=== PATIENT | female | born 1935 | race Caucasian/White ===

== ENCOUNTER 2017-05-15 16:03 | Inpatient (IN) | payer OTHER ==
[~2017-05-15] VITALS: Ht 149.9 cm; Wt 74.1 kg
[~2017-05-15 16:03] MED LIST: AMILORIDE HCL-1 EACH PO; FUROSEMIDE10 MG/1 M1 PO; KLOR-CON M2020 ME1 PO; LASIX40 M1 PO; LEVOTHYROXINE88 MCG PO; MINIPRESS5 MG PO; VERAPAMIL ER240 MG PO
--- NOTE | 2017-05-15 16:12 | ED CARDIAC/CP/PALPITATIONS ---
History of Present Illness General Chief Complaint: Dyspnea (COPD, CHF, Other) Stated Complaint: SOB, LEG SWELLING Source: patient Exam Limitations: no limitations Vital Signs & Intake/Output Vital Signs & Intake/Output ED Intake and Output 05/19 0000 05/18 1200 Intake Total 600 100 Output Total 600 350 Balance 0 -250 Intake, Oral 600 100 Number 1 Bowel Movements Output, Urine 600 350 Patient 163 lb Weight Weight Chair scale Measurement Method Triage Nurses Notes Reviewed? yes Onset: Gradual Duration: getting worse Timing: recent history Quality/Severity: moderate Radiation: no radiation HPI: Patient is a 82-year-old female HTN, HLD, breast cancer s/p radiation 1995, colon cancer s/p surgical, CHF, pericardial effusion, interstitial lung disease whose last echocardiogram was 04/30/2016 55-60% EF, last nuclear stress test was 05/02/2016 showing no concerns of ischemia. Patient is compliant with her home medications she is on 40 of Lasix and verapamil who presents to emergency room with concerns of worsening shortness of breath and worsening leg swelling for the past 4 day.. Patient is on home 3L O2 Patient is unsure of amount of weight gain she has had Denies any fever chills cough chest pain arm pain and jaw pain nausea vomiting hemoptysis. (WILLY VELIZ,BREANNE) Allergies Coded Allergies: aspirin (Bleeding per patient 05/15/17) Reconcile Medications Furosemide (Lasix) 40 MG TABLET 1.5 TAB PO DAILY leg sweeling, chf Levothyroxine Sodium 88 MCG TABLET 1 TAB PO 1XDAY TYROID (Reported) Potassium Chloride (Klor-Con M20) 20 MEQ TAB.ER.PRT 2 TAB PO DAILY SUPPLEMENT (Reported) Prazosin HCl (Minipress) 5 MG CAPSULE 1 CAP PO 1XDAY BP (Reported) Verapamil HCl (Verapamil ER) 240 MG CAP24H.PEL 1 TAB PO 1XDAY CALCIUM CHANNEL RIGOBERTO (Reported) (TYRA JAIMES,CHARU Scruggs) Past History Travel History Traveled to [place] past 21 day No Medical History Any Pertinent Medical History? see below for history Neurological: NONE EENT: NONE Cardiovascular: CHF, hypertension Respiratory: NONE Gastrointestinal: NONE Renal: NONE Musculoskeletal: NONE Psychiatric: anxiety Endocrine: hypothyroidism Blood Disorders: NONE Cancer(s): NONE CUPOLA MECHANIC/Reproductive: NONE History of MRSA: No History of VRE: No History of CDIFF: No Pneumonia Vaccine: 09/09/15 Surgical History Surgical History: non-contributory Psychosocial History Who do you live with Spouse What is your primary language Arabic Tobacco Use: Never used ETOH Use: denies use Illicit Drug Use: denies illicit drug use Family History Family History, If Any: FATHER (heart disease). Hx Contributory? No (BREANNE GUERRA) Review of Systems Review of Systems Constitutional: Reports: no symptoms. EENTM: Reports: see HPI. Respiratory: Reports: see HPI, short of breath. Cardiovascular: Reports: see HPI, peripheral edema. GI: Reports: no symptoms. Genitourinary: Reports: no symptoms. Musculoskeletal: Reports: no symptoms. Skin: Reports: no symptoms. Neurological/Psychological: Reports: no symptoms. Hematologic/Endocrine: Reports: no symptoms. Immunologic/Allergic: Reports: no symptoms. All Other Systems: Reviewed and Negative (BREANNE GUERRA) Physical Exam Physical Exam General Appearance: no apparent distress, obese Cardiovascular: regular rate/rhythm Comments: Well-developed well-nourished person in no acute distressHEENT: Normal EENT exam Neck: Supple, no lymphadenopathy, normal range of motion without pain or tenderness Back: Nontender, no CVA tenderness. Cardiovascular: Regular rate and rhythms no murmurs rubs or gallops, normal JVP Respiratory: Chest nontender. No respiratory distress noted bilateral posterior crackles Abdomen: Soft, nontender nondistended, no appreciable organomegaly. Normal bowel sounds. No ascites Extremity: Bilateral lower extremity +2 pitting edema, no calf tenderness to palpation, normal and equal pulses. Neuro: Alert oriented x3, motor sensory normal, Skin: No appreciable rash on exposed skin, skin is warm and dry. Psych: Mood and affect is normal, memory and judgment is normal. Core Measures ACS in differential dx? No Severe Sepsis Present: No Septic Shock Present: No (BREANNE GUERRA) Progress Differential Diagnosis: AMI, aortic dissection, atrial fibrillation, cholecystitis, CHF/pulm edema, costochondritis, hyperkalemia, hypovolemia, hyperthyroid, hyperventilation, intracranial hemorrhage, musculoskeletal pain, myocarditis, pancreatitis, pericarditis, pneumonia, pneumothorax, PSVT, pulmonary embolism, PUD/GERD, PVCs/PACs, respiratory failure, sepsis, unstable angina, V-fib/V-Tach, WPW syndrome, ILD Plan of Care: Orders Procedure Date/time Status OXYGEN 05/18 UNK Complete OXYGEN DAILY CHARGE 05/18 UNK Complete Patient on initial examination was in no apparent distress. Patient was resting comfortably on 3 L of oxygen. Blood work and EKG were unremarkable and no acute changes however chest x-ray does show concerns of pulmonary edema Patient's troponin was unremarkable, patient's d-dimer essentially ruled out pulmonary embolism however CTA was ordered however patient could not tolerate the position for the CT scan due to severe respiratory distress even with 3 pillows. Patient will be admitted for concerns of anasarca and worsening interstitial lung disease and hypoxia due to respiratory distress Patient was noted to ambulate IN the emergency room potts with 3 L and became hypoxic and dyspneic IN which outpatient treatment at this time would be medically harmful (BREANNE GUERRA) Diagnostic Imaging: Viewed by Me: Radiology Read. Radiology Impression: SEE COMMENTS Initial ED EKG: normal p-waves, normal QRS complex, normal sinus rhythm, 86 BPM, NSR Comments: PATIENT: LOLA ANDERSON PRESENT AGE: 82 PATIENT ACCOUNT NO: [id number] : 37 LOCATION: [facility] ORDERING PHYSICIAN: BREANNE VELIZ SERVICE DATE: 05/15/17 EXAM TYPE: US - US-EXT BILAT VENOUS DOPPLER EXAMINATION: US TRIPLEX OF LOWER EXTREMITIES, BILATERAL CLINICAL INFORMATION: Bilateral lower extremity edema and swelling. COMPARISON: None TECHNIQUE: Color-flow triplex imaging with spectral analysis and compression Doppler were performed on the lower extremities. FINDINGS: Respiratory variation, normal compression and augmented flow are noted throughout the lower extremities. The visualized common femoral vein, superficial femoral vein, profunda femoral vein, popliteal vein and midcalf peroneal and posterior tibial venous segments show no evidence of deep venous thrombosis. There is no Reyes's cyst. IMPRESSION: Normal triplex scan without evidence of deep venous thrombosis involving the lower extremities. DICTATED BY: GISELLE OLIVARES MD DATE/TIME DICTATED:05/15/171848 [employer]IGH [employer]CHO[employer] ENGLISH TEACHER:MARIA FERNANDA DATE/TIME TRANSCRIBED:05/15/171848 (BREANNE GUERRA) Departure Departure Disposition: STILL A PATIENT Condition: Stable Clinical Impression Primary Impression: Acute respiratory failure with hypoxia Secondary Impressions: Anasarca, Interstitial lung disease Referrals: BERTA HILL-SILVIA,SEFERINO Hinton (PCP/Family) Departure Forms: Customer Survey General Discharge Information Admission Note Spoke With: FELICIA WILLIAMSON MD Documentation of Exam: Documentation of any treatments & extenuating circumstances including Concerns Regarding Discharge (functional status, medication knowledge or non-compliance, living conditions, etc.) that warrant an admission rather than observation: [ Discussed patient with Dr. WILLIAMSON who agrees with telemetry admission for concerns of respiratory failure due to hypoxia, patient requires IV Lasix, pulmonary consultation, cardiac consultation, telemetry monitoring, repeat labs, outpatient treatment at this time due to hypoxia upon ambulation with 3 L would be medically harmful ] (BREANNE GUERRA) Departure Prescriptions: Current Visit Scripts Furosemide (Lasix) 1.5 TAB PO DAILY #30 TAB PA/ACCREDITATION SPECIALIST Co-Sign Statement Statement: ED Attending supervision documentation- [X] I saw and evaluated the patient. I have also reviewed all the pertinent lab results and diagnostic results. I agree with the findings and the plan of care as documented in the PA's/ACCREDITATION SPECIALIST's documentation. [X] I have reviewed the ED Record and agree with the PA's/ACCREDITATION SPECIALIST's documentation. [] Additions or exceptions (if any) to the PAs/ACCREDITATION SPECIALIST's note and plan are summarized below: [] (TYRA JAIMES,CHARU Scruggs) Critical Care Note Critical Care Note Critical Care Time: non-applicable (BREANNE GUERRA) EXAM TYPE: US - US-EXT BILAT VENOUS DOPPLER EXAMINATION: US TRIPLEX OF LOWER EXTREMITIES, BILATERAL CLINICAL INFORMATION: Bilateral lower extremity edema and swelling. COMPARISON: None TECHNIQUE: Color-flow triplex imaging with spectral analysis and compression Doppler were performed on the lower extremities. FINDINGS: Respiratory variation, normal compression and augmented flow are noted throughout the lower extremities. The visualized common femoral vein, superficial femoral vein, profunda femoral vein, popliteal vein and midcalf peroneal and posterior tibial venous segments show no evidence of deep venous thrombosis. There is no Reyes's cyst. IMPRESSION: Normal triplex scan without evidence of deep venous thrombosis involving the lower extremities. DICTATED BY: GISELLE OLIVARES MD DATE/TIME DICTATED:05/15/171848 [employer]IGH SCHO[employer] ENGLISH TEACHER:MARIA FERNANDA DATE/TIME TRANSCRIBED:05/15/171848 Departure Departure Disposition: STILL A PATIENT Condition: Stable Clinical Impression Primary Impression: Acute respiratory failure with hypoxia Secondary Impressions: Anasarca, Interstitial lung disease Referrals: BERTA PROCTOR,SEFERINO Hinton (PCP/Family) Departure Forms: Customer Survey General Discharge Information Admission Note Spoke With: FELICIA WILLIAMSON MD Documentation of Exam: Documentation of any treatments & extenuating circumstances including Concerns Regarding Discharge (functional status, medication knowledge or non-compliance, living conditions, etc.) that warrant an admission rather than observation: [ Discussed patient with Dr. WILLIAMSON who agrees with telemetry admission for concerns of respiratory failure due to hypoxia, patient requires IV Lasix, pulmonary consultation, cardiac consultation, telemetry monitoring, repeat labs, outpatient treatment at this time due to hypoxia upon ambulation with 3 L would be medically harmful ] Critical Care Note Critical Care Note Critical Care Time: non-applicable
--- NOTE | 2017-05-15 16:12 | NUR ---
82 YEAR OLD FEMALE HISTORY OF A FORM OF CHF, COMES TO ER WITH COMPLAINTS OF INCREASED SOB OVER THE PAST 3 DAYS, PT IS 02 DEPENDENT ON 3L VIA NC AND O2 SAT 95 % . PT NOTED WITH PLUS 4 PITTING EDEMA TO BLE AND REDNESS NOTED TO HER L [place]. PT STATES THAT HER PMD WOULD LIKE CELLULITIS RULED OUT. DENIES COUGH, TEMP 99.1 AT THIS TIME
--- NOTE | 2017-05-15 16:35 | NUR ---
LIMITED EXT BAND TO LEFT WRIST APPLIED FOR HX BREAST CA WITH L LUMPECTOMY. 20G IV EST TO RAC FOR POSSIBLE CTA PER JOSE ALFREDO AGUILERA. LABS DRAWN AND SENT (BLUE, SST X2, LAV). AFIB RATE CONTROLLED 70'S ON CM. 97% ON 2LNC. PCXR IN PROGRESS
[2017-05-15 16:42] LABS: ABSOLUTE BASOPHIL COUNT 0 /CUMM (0.0-0.2); ABSOLUTE EOSINOPHIL COUNT 0 /CUMM (0.0-0.7); ABSOLUTE GRANULOCYTE CT 3.4 /CUMM (1.4-6.5); ABSOLUTE MONOCYTE COUNT 0.4 /CUMM (0.10-0.60); BASOPHIL % 0.5 % (0.0-2.0); EOSINOPHIL % 0.7 % (0-5); GRANULOCYTE % 68.9 % (42.2-75.2); HEMATOCRIT 36.8 % (37-47); MEAN CORPUSCULAR HGB 22.5 PG (27.0-31.0); MEAN CORPUSCULAR HGB CONC 31.8 G/DL (33.0-37.0); MEAN CORPUSCULAR VOLUME 70.8 FL (81.0-99.0); MEAN PLATELET VOLUME 7.8 FL (7.4-10.4); PLATELET COUNT 178 /CUMM (130-400); WHITE BLOOD CELL COUNT 4.9 /CUMM (4.8-10.8)
--- NOTE | 2017-05-15 16:51 | RADIOLOGY REPORT ---
EXAMINATION: XR PORTABLE CHEST CLINICAL INFORMATION: CHF COMPARISON: 12/13/2016 TECHNIQUE: Portable frontal view of the chest was obtained. FINDINGS: Cardiac leads overlie the chest. Prominent interstitial markings are seen with central vascular prominence. No pneumothorax. Suspect a small left pleural effusion. The cardiomediastinal silhouette remains enlarged, with a globular appearance. IMPRESSION: 1. Vascular prominence with interstitial prominence suggesting mild edema. 2. Stable globular enlargement of the cardiac silhouette. Prior CT demonstrated a pericardial effusion.
--- NOTE | 2017-05-15 17:14 | NUR ---
MEDICATED WITH LASIX PER eMAR AND BEDSIDE COMMODE IN PLACE, AWARE OF NEED FOR INPUT/OUTPUT MONITORING
--- NOTE | 2017-05-15 17:45 | NUR ---
AMBULATORY O2 SAT 85% ON 2LNC, EXERTIONAL SOB.
--- NOTE | 2017-05-15 18:20 | NUR ---
PT TO AND FROM [facility]
--- NOTE | 2017-05-15 18:53 | ULTRASOUND REPORT ---
EXAMINATION: US TRIPLEX OF LOWER EXTREMITIES, BILATERAL CLINICAL INFORMATION: Bilateral lower extremity edema and swelling. COMPARISON: None TECHNIQUE: Color-flow triplex imaging with spectral analysis and compression Doppler were performed on the lower extremities. FINDINGS: Respiratory variation, normal compression and augmented flow are noted throughout the lower extremities. The visualized common femoral vein, superficial femoral vein, profunda femoral vein, popliteal vein and midcalf peroneal and posterior tibial venous segments show no evidence of deep venous thrombosis. There is no Reyes's cyst. IMPRESSION: Normal triplex scan without evidence of deep venous thrombosis involving the lower extremities.
--- NOTE | 2017-05-15 19:00 | NUR ---
PT UNABLE TO LAY FLAT FOR CTA
--- NOTE | 2017-05-15 19:39 | History & Physical ---
STEPHANIA GRIFFITH MD,[facility] 05/15/17 193: General Information and HPI MD Statement: I have seen JUSTINLOLA with my resident and documented this H&P. Source of Information: patient Exam Limitations: no limitations History of Present Illness: The patient is a 82 year old F who presented with a chief complaint of shortness of breath and increased leg swelling and redness. Patient has history of hypertension, breast cancer status post radiation, colon cancer status post surgery, ILD and CHF. Patient was admitted last year with dyspnea and swelling of limbs and the condition was improved when given Lasix. She basically uses reclining chair, ambulates to restroom with espinoza, uses 3 pillows at night and is on 3 L of O2 all the at home. Patient is taking 40mg Lasix and 240 mg of Verapamil but leg swelling gradually incraesed in the last 1-2 months (patients reports no change in the urination in this period). In the last 1-2 days an area of redness apeared over the swelling site of distal left alexis, she contacted her PCP Dr Pulliam and was adviced to come to ER. No chest pain, no cough, sputum, feeling of palpitation. The last echocardiogram was done on 04/30/2016 and EF was 55-60%. She is compliant with low NA diet. patient is seeing Dr Wilson for her lung and Dr Zuniga for heart problems but last visits were long time ago. CXR performed in the ER revealed: 1. Vascular prominence with interstitial prominence suggesting mild edema. 2. Stable globular enlargement of the cardiac silhouette. Prior CT demonstrated a pericardial effusion. Doppler performed and DVT was ruled out. Allergies/Medications Allergies: Coded Allergies: aspirin (Bleeding per patient 05/15/17) Home Med list Furosemide (Lasix) 40 MG TABLET 1 TAB PO DAILY WATER RETENTION Levothyroxine Sodium 88 MCG TABLET 1 TAB PO 1XDAY TYROID (Reported) Potassium Chloride (Klor-Con M20) 20 MEQ TAB.ER.PRT 2 TAB PO DAILY SUPPLEMENT (Reported) Prazosin HCl (Minipress) 5 MG CAPSULE 1 CAP PO 1XDAY BP (Reported) Verapamil HCl (Verapamil ER) 240 MG CAP24H.PEL 1 TAB PO 1XDAY CALCIUM CHANNEL RIGOBERTO (Reported) Past History Travel History Traveled to [place] past 21 day No Medical History Neurological: NONE EENT: NONE Cardiovascular: CHF, hypertension Respiratory: interstitial lung disease Gastrointestinal: Colon cancer Renal: NONE Musculoskeletal: NONE Psychiatric: anxiety Endocrine: hypothyroidism Blood Disorders: NONE Cancer(s): breast cancer, colon/rectal cancer JAILOR/Reproductive: NONE History of MRSA: No History of VRE: No History of CDIFF: No Pneumonia Vaccine: 09/09/15 Surgical History Surgical History: non-contributory Past Family/Social History Family History Relations & Conditions if any FATHER (heart disease). Psychosocial History ETOH Use: denies use Illicit Drug Use: denies illicit drug use Functional Ability ADLs Independent: dressing, eating, toileting, bathing. Ambulation: independent Review of Systems Review of Systems Constitutional: Reports: see HPI. EENTM: Reports: no symptoms. Cardiovascular: Reports: see HPI, edema, orthopena, peripheral edema. Denies: chest pain, palpitations, syncope. Respiratory: Reports: orthopnea, short of breath. Denies: cough, hemoptysis, sputum production, stridor. GI: Reports: no symptoms. Genitourinary: Reports: no symptoms. Skin: Reports: see HPI, erythema (Local erythema over left alexis). Neurological/Psychological: Reports: no symptoms. Hematologic/Endocrine: Reports: no symptoms. Immunologic/Allergic: Reports: no symptoms. Post Menopausal: Yes Exam & Diagnostic Data Last 24 Hrs of Vital Signs/I&O Vital Signs Date Time Temp Pulse Resp B/P B/P Pulse O2 O2 Flow FiO2 Mean Ox Delivery Rate 05/15 1918 71 22 165/70 96 Nasal 4.0L Cannula 05/15 1735 28 85 Nasal 4.0L Cannula 05/15 1638 97 Nasal 2.0L Cannula 05/15 1608 99.1 86 22 139/62 95 Room Air Physical Exam General Appearance Alert, Oriented X3, Cooperative HEENT Mucous Membr. moist/pink Neck Supple, No JVD Cardiovascular Systolic Murmur Lungs Bilateral crackles Abdomen somewhat distended, no recent change Extremities Bilateral pitting edema, local 4 X 6 cm erythema over the distal lower left limb, 3-4 small blisters are also visible Diagnostic Data EKG Results NSR, UT: 84, left anterior fasicle block, left axis deviation CXR Results 1. Vascular prominence with interstitial prominence suggesting mild edema. 2. Stable globular enlargement of the cardiac silhouette. Prior CT demonstrated a pericardial effusion. Assessment/Plan Assessment: Patient is a 82-year-old female with history of CHF and ILD chief complaint of shortness of breath and leg swelling. For assessment of the CHF cardiology consult and echocardiogram will be performed. Constrictive pericarditis after radiation should also be considered. Idiopathic pulmonary fibrosis or fibrosis secondary to radiation to to breast cancer could be one of the reasons for dyspnea suggested to be ruled out. Pulmonology consult and functional long tests are suggested. Lower extremity swelling for the managed by leg elevation and IV Lasix. As Ranked By This Provider Problem List: 1. Pulmonary edema 2. Pericardial effusion 3. Lung fibrosis 4. Shortness of breath dyspnea Core Measures/Miscellaneous Acute Coronary Syndrome ACS Diagnosis: No Cerebrovascular Accident CVA/TIA Diagnosis: No Congestive Heart Failure CHF Diagnosis: No Date of most recent Echo: 04/30/16 Last Known EF %: 55 SARAHI/ARB for EF <40%: Yes VTE (View Protocol) VTE Risk Factors: Age > 40 No [facility] VTE prophylaxis d/t: No contraindications No VTE Pharm Prophylaxis d/t: No contraindications VTE Diagnosis: No VTE Type: NONE VTE Confirmed by (Test): NONE Sepsis (View Protocol) Severe Sepsis Present: No Septic Shock Septic Shock Present: No Miscellaneous Documentation Attending Case Discussed With: FELICIA WILLIAMSON MD Primary Care Physician: SEFERINO FAIRCHILD Patient sees these Specialists Receiving Associate [employer], [employer]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 Level of Patient Care: Telemetry Consults Needed: Consulting Specialty: Cardiology GUILLERMO COLE 05/15/174: Resident Review Statement Resident Statement: examined this patient, discussed with research program intern, agreed with research program intern, discussed with family, reviewed EMR data (avail), discussed with nursing , discussed with case mgmt, reviewed images, amended to note Other Findings: This is a 82-year-old female with past medical history significant for heart failure with preserved ejection fraction 55-60%, pulmonary hypertension, moderate pericardial effusion, mitral insufficiency, lower extremity swelling on Lasix, interstitial lung disease on home oxygen 3 L, hypothyroidism, hypertension, hyperlipidemia, breast cancer status postradiation, colon cancer status postsurgical resection presented to emergency department with worsening shortness of breath and leg swelling. Patient uses 3 L oxygen at baseline for interstitial lung disease. She noticed worsening shortness of breath for past couple of days and she couldnt do any activity. Also reports worsening leg swelling for past 1 month. Compiant with diet, medication. Positive for orthopnea and uses 3 pillows. Denies any paroxysmal nocturnal dyspnea. Denies any chest pain, palpitations, cough. Also she reports 2 blisters left lower extremity. Vitals on admission-afebrile, heart rate 86, respiratory rate 22, blood pressure 139/62, saturating at 95 on room air Physical examination-awake alert oriented 3, HEENT within normal limits, no JVD , no lymphadenopathy, heart S1-S2 normal, regular, 3/6 systolic murmur. Lungs bilateral crackles. per Abdomen soft and distended. Extremities2 pitting edema up to knees. left Lower extremity 2 noticeable blisters without any drainage. Pertinent labs on admission WBC 4.9, hemoglobin 11.7 and hematocrit 36.8, platelets 178 BUN 16 and creatinine 0.8. D-dimer 383 ProBNP elevated 673 TSH 7.9. Troponins negative EKG showed sinus rhythm, rate 84, left axis deviation, left anterior fascicular block, no acute ST-T wave changes. cxr 1. Vascular prominence with interstitial prominence suggesting mild edema. 2. Stable globular enlargement of the cardiac silhouette. Prior CT demonstrated a pericardial effusion. venous doppler IMPRESSION: Normal triplex scan without evidence of deep venous thrombosis involving the lower extremities Assessment and plan 1. Acute hypoxic respiratory failure from acute CHF exacerbation/interstitial lung disease patient has history of heart failure with preserved ejection fraction 55-60%. Now presented with acute worsening shortness of breath and leg swelling. Uses 3 L oxygen at home throughout the day. However she she required 4 L in the emergency room saturating at 92%. * Possible differentials acute on chronic CHF exacerbation, worsening of interstitial lung disease, worsening lower extremity swelling, pulmonary hypertension, pericardial effusion. * Admitted to telemetry floor for further management * Continuous telemetry monitoring * Monitor vitals closely * Usually takes 40 mg Lasix at home. * Will give IV 40 mg Lasix daily * Strict ins and outs * Daily weights * Leg elevation * Echocardiogram * Cardiology consult Interstitial lung disease patient has history of interstitial lung disease, pulmonary fibrosis-uses home oxygen [address] Wilson as an outpatient. 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 Secondary pulmonary arterial hypertension, Mediastinal and right hilar adenopathy, Marked four-chamber dilated cardiomyopathy with associated small pericardial effusion. * Will consult field crop grower in the a.m. * The total respiratory care * Provide supplemental oxygen as required * Maintain oxygen saturation greater than 90% Lower extremity swelling Patient has +2 bilateral pitting edema. Usually takes Lasix at home. We'll give IV Lasix for now. Monitor ins and outs and daily weights. Leg elevation. Hypothyroidism Continue home medication levothyroxine 88 g Hypertension Continue prednisone 5 mg Continue verapamil 240 mg Full code Heart healthy diet Pain pathway Subcutaneous Lovenox DVT prophylaxis Follows Dr. Wilson field crop grower and Dr. Zuniga ring cutter lathe operator CLAYMEEKERROL 05/16/17 0210: Attending MD Review Statement Attending Statement Attending MD Statement: examined this patient, discuss w/resident/PA/CONTRACT TECHNICAL WRITER, agreed w/resident/PA/CONTRACT TECHNICAL WRITER, discussed with family, reviewed EMR data (avail), reviewed images, amended to note Attending Assessment/Plan: CC: worsening of SOB and lg swelling PMH: HTN, hypothyroidism, HLD, breast CA Left side s/p radiation only and colon cancer s/p resection and anastomosis (no chemotherapy) , IPF on 3 L nasal cannula She presented to ER with progressively worsening SOB, mostly dyspnea on exertion , worse in last 2 days along with increased leg swelling. Patient is mostly on the couch recliner for most of the day, ambulating to bathroom with handy. She is dyspneic with minimal exertion, cannot lie down flat. She noticed a small blister on left lower extremity which prompted her to come to ER. She was admitted in hospital in April 2016 for similar complaints and was investigated with 2-D echo and stress test at that time and her shortness of breath was considered secondary to pulmonary fibrosis. Patient did not follow-up with ring cutter lathe operator after that but had field crop grower appointment approximately 5-6 months back. She denies Cough, CP, palpitations or lightheadedness, decreased urination, fever, chills, LOC, falls. Vitals: T max 99.1, HR urine 80s, RR 22, blood pressure 139/62 on presentation, but desaturated to 85% in ER, saturating 96% on 4 L. On exam: A O 3, cooperative, in moderate respiratory distress, neck supple, JVD normal, no lymphadenopathy, mucosa moist, no focal neurological deficit, +3 pitting edema bilateral lower extremity up to knees, 1 cm area small redness on left lower extremity, chronic skin changes secondary to stasis, otherwise no obvious skin rashes or inflammation CVS: S1-S2, RRR, systolic murmur in mitral area radiating to axilla, systolic murmur in aortic area blowing kind. RS: Bilateral mid and lower zones inspiratory crackles Abdomen: Soft, NT, ND, approximately 10 cm diameter soft tissue mass palpated near incision site lower abdomen somewhat mobile, not reducible, bowel sounds present. Labs: WBC 4.9, hemoglobin 11.7, platelet 178, neutrophils 68%, sodium 139, potassium 4.8, chloride 97, bicarbonate 32, BUN 16, creatinine 0.8, glucose 95, calcium 9.0, medication 1.6, LFT unremarkable, troponin less than 0.01, proBNP 673, TSH 7.9, d-dimer 383 CXR: 1. Vascular prominence with interstitial prominence suggesting mild edema. 2. Stable globular enlargement of the cardiac silhouette. Prior CT demonstrated a pericardial effusion. Bilateral lower extremity Doppler: Normal triplex scan without evidence of deep venous thrombosis involving the lower extremities. EKG: No acute changes A and P 82-year-old female with extensive past medical history significant for IPF, HFpEF presented in ER for acute worsening of shortness of breath since last 2 days along with worsening bilateral lower extremity swelling. Patient has significant orthopnear, appears in moderate respiratory distress, requiring more than her usual baseline oxygen by nasal cannula. She has coarse inspiratory crackles mid and basal lung zones, JVD is not elevated, significant bilateral lower extremity edema. This can be secondary to cor pulmonale secondary to IPF worsening. Acute exacerbation of heart failure cannot be denied. ProBNP is not significantly elevated from her previous baseline. Chest x-ray shows interstitial infiltrate suggestive of mild pulmonary edema, this can be secondary to IPF well. Patient has long-standing pericardial effusion, has not been following up with ring cutter lathe operator recently. She would benefit from telemetry admission for gentle diuresis, rule out ACS, pulmonology and cardiology consult. + Acute on chronic respiratory failure + Worsening IPF + Acute on chronic HFpEF + History of hypothyroidism, HTN, S/P radiation for left-sided breast cancer, colon cancer, abdominal lump unclear etiology - Admit to telemetry - Continuous telemetry monitoring - Patient received 40 mg IV Lasix in ER, repeat 40 mg IV Lasix in a.m. - Serial EKG and troponin 3 - Strict I's and O's - 2-D echocardiogram in a.m. - Daily weights - Cardiology consult - Continue O2 by nasal cannula try to wean off gradually - TRC nebulization with albuterol - Incentive spirometry - Pulmonology consult in a.m. - Continue on her home medications except changing Lasix to IV and hold KCl - D-dimer elevated but normal to her age and sex. DVT is ruled out bilateral lower extremity Doppler - Continue DVT prophylaxis with heparin or Lovenox
--- NOTE | 2017-05-15 20:39 | NUR ---
PT HAS BED 189-1
[2017-05-15 22:00] VITALS: BP 154/60
--- NOTE | 2017-05-16 02:12 | Admission Certification ---
Admission Certification Certification Statement - As attending physician, I certify that at the time of - admission, based on clinical presentation, severity of - symptoms, need for further diagnostic testing and - therapeutic interventions, and risk of adverse outcomes - without in-hospital treatment, in my clinical assessment, - this patient requires an acute hospital stay for a minimum - of two nights or longer. I have also considered psychsocial - factors such as support system, advanced age, financial - issues, cognitive issues, and failed out-patient treatments, - past re-admission history, safety of patient, and lack of - compliance as applicable. Specific rationale supporting this admission is: Cute on chronic respiratory failure
--- NOTE | 2017-05-16 06:42 | PN- Housestaff ---
See Addendum Subjective Follow-up For: + Acute on chronic respiratory failure + Worsening IPF + Acute on chronic HFpEF + History of hypothyroidism, HTN, S/P radiation for left-sided breast cancer, colon cancer, abdominal lump unclear etiology Complaints: no complaints Tele-Events Since Last Visit: sinus rhythm Subjective: She was seen and examined this morning. Alert awake and oriented to time place and person. No acute events. Serial troponins and EKGs were negative. Continues to report shortness of breath. Continues to have bilateral lower extremity swelling. She is getting IV Lasix. Vitals remained stable Review of Systems Constitutional: Reports: see HPI. Objective Last 24 Hrs of Vital Signs/I&O Vital Signs Date Time Temp Pulse Resp B/P B/P Pulse O2 O2 Flow FiO2 Mean Ox Delivery Rate 05/16 0717 98.0 66 18 164/60 98 Room Air 05/16 0040 98 Nasal 3.0L Cannula 05/16 0000 97 Nasal 3.0L Cannula 05/15 2200 99 Nasal 4.0L Cannula 05/15 2200 98.6 64 20 154/60 99 Nasal 4.0L Cannula 05/15 1918 71 22 165/70 96 Nasal 4.0L Cannula 05/15 1735 28 85 Nasal 4.0L Cannula 05/15 1638 97 Nasal 2.0L Cannula 05/15 1608 99.1 86 22 139/62 95 Room Air Intake & Output 05/16 1600 05/16 0800 05/16 0000 Intake Total 100 Output Total 400 1800 Balance -300 -1800 Intake, Oral 100 Output, Urine 400 1800 Patient 77.111 kg Weight Weight Reported by Patient Measurement Method Physical Exam General Appearance: Alert, Oriented X3, Cooperative, No Acute Distress Skin: No Rashes, No Breakdown HEENT: Atraumatic, PERRLA, EOMI, Mucous Membr. moist/pink Neck: Supple, No JVD Lymphatic: Axillary nl, Cervical nl Cardiovascular: Normal S1, Normal S2, 3/6 sys murmur Lungs: b/l crackles Abdomen: Normal Bowel Sounds, Soft, No Tenderness Extremities: No Clubbing, No Cyanosis, No Edema Vascular: Normal Pulses, Pulses Symmetrical Current Medications: Current Medications Sig/Sanjuanita Start time Last Medication Dose Route Stop Time Status Admin Acetaminophen 650 MG Q6P PRN 05/15 2000 AC PO Enoxaparin Sodium 40 MG DAILY 05/16 1000 AC SC Furosemide 40 MG DAILY 05/16 1000 AC IV Furosemide 0 .STK-MED ONE 05/15 171 DC IV Furosemide 40 MG ONCE ONE 05/15 1715 DC 05/15 IV PUSH 05/15 1716 171 Ibuprofen 600 MG Q6P PRN 05/15 2000 AC PO Levothyroxine Sodium 0.088 MG DAILY AC 05/16 0700 AC 05/16 PO 0553 Oxycodone HCl 10 MG Q6P PRN 05/15 2000 AC PO Potassium Chloride 40 MEQ DAILY 05/16 1000 CAN PO Prazosin HCl 5 MG DAILY 05/16 1000 AC PO Verapamil HCl 240 MG DAILY 05/16 1000 AC PO Last 24 Hrs of Lab/Jose Results Last 24 Hrs of Labs/Mics: Laboratory Tests 05/16/17 0651: Anion Gap 8, Estimated GFR > 60, BUN/Creatinine Ratio 20.0, Troponin I < 0.01, CBC w Diff NO MAN DIFF REQ, RBC 4.60, MCV 71.3 L, MCH 22.9 L, RDW 20.5 H, MPV 7.6, Gran % 66.1, Lymphocytes % 19.8 L, Monocytes % 11.7 H, Eosinophils % 2.1, Basophils % 0.3, Absolute Granulocytes 3.5, Absolute Lymphocytes 1.0 L, Absolute Monocytes 0.6, Absolute Eosinophils 0.1, Absolute Basophils 0, PUBS MCHC 32.1 L 05/16/17 0500: Troponin I Cancelled 05/16/17 0005: Troponin I 0.01 05/15/17 1632: TSH 7.940 H, Free T4 1.49 05/15/17 1632: Anion Gap 9, Estimated GFR > 60, BUN/Creatinine Ratio 20.0, Glucose 95, Calcium 9.0, Magnesium 1.6, Total Bilirubin 0.7, AST 26, ALT 23, Alkaline Phosphatase 85 , Troponin I < 0.01, Ply-U-Nkmibplbimo Pept 673 H, Total Protein 7.9, Albumin 3.4 L, Globulin 4.5 H, Albumin/Globulin Ratio 0.8 L, D-Dimer High Sensitivty 383 H, CBC w Diff NO MAN DIFF REQ, RBC 5.20, MCV 70.8 L, MCH 22.5 L, RDW 21.0 H, MPV 7.8, Gran % 68.9, Lymphocytes % 21.0, Monocytes % 8.9, Eosinophils % 0.7 , Basophils % 0.5, Absolute Granulocytes 3.4, Absolute Lymphocytes 1.0 L, Absolute Monocytes 0.4, Absolute Eosinophils 0, Absolute Basophils 0, PUBS MCHC 31.8 L Assessment/Plan Assessment: This is a 82-year-old female with past medical history significant for heart failure with preserved ejection fraction 55-60%, pulmonary hypertension, moderate pericardial effusion, mitral insufficiency, lower extremity swelling on Lasix, interstitial lung disease on home oxygen 3 L, hypothyroidism, hypertension, hyperlipidemia, breast cancer status postradiation, colon cancer status postsurgical resection presented to emergency department with worsening shortness of breath and leg swelling. Vitals on admission-afebrile, heart rate 86, respiratory rate 22, blood pressure 139/62, saturating at 95 on room air Physical examination-awake alert oriented 3, HEENT within normal limits, no JVD , no lymphadenopathy, heart S1-S2 normal, regular, 3/6 systolic murmur. Lungs bilateral crackles. per Abdomen soft and distended. Extremities2 pitting edema up to knees. left Lower extremity 2 noticeable blisters without any drainage. Pertinent labs on admission WBC 4.9, hemoglobin 11.7 and hematocrit 36.8, platelets 178 BUN 16 and creatinine 0.8. D-dimer 383 ProBNP elevated 673 TSH 7.9. Troponins negative EKG showed sinus rhythm, rate 84, left axis deviation, left anterior fascicular block, no acute ST-T wave changes. cxr 1. Vascular prominence with interstitial prominence suggesting mild edema. 2. Stable globular enlargement of the cardiac silhouette. Prior CT demonstrated a pericardial effusion. venous doppler IMPRESSION: Normal triplex scan without evidence of deep venous thrombosis involving the lower extremities Assessment and plan 1. Acute hypoxic respiratory failure from acute CHF exacerbation/interstitial lung disease patient has history of heart failure with preserved ejection fraction 55-60%. Now presented with acute worsening shortness of breath and leg swelling. Uses 3 L oxygen at home throughout the day. However she she required 4 L in the emergency room saturating at 92%. * Possible differentials acute on chronic CHF exacerbation, worsening of interstitial lung disease, worsening lower extremity swelling, pulmonary hypertension, pericardial effusion. * Admitted to telemetry floor for further management * Continuous telemetry monitoring * Monitor vitals closely * Usually takes 40 mg Lasix at home. * Will give IV 40 mg Lasix daily, pending cardio recommendations * Strict ins and outs * Daily weights * Leg elevation * Echocardiogram * Cardiology consult Interstitial lung disease patient has history of interstitial lung disease, pulmonary fibrosis-uses home oxygen [address] Wilson as an outpatient. 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 Secondary pulmonary arterial hypertension, Mediastinal and right hilar adenopathy, Marked four-chamber dilated cardiomyopathy with associated small pericardial effusion. * Will consult mucker cofferdam in the a.m. * The total respiratory care * Provide supplemental oxygen as required * Maintain oxygen saturation greater than 90% Lower extremity swelling Patient has +2 bilateral pitting edema. Usually takes Lasix at home. We'll give IV Lasix for now. Monitor ins and outs and daily weights. Leg elevation. Hypothyroidism Continue home medication levothyroxine 88 g Hypertension Continue prednisone 5 mg Continue verapamil 240 mg Full code Heart healthy diet Pain pathway Subcutaneous Lovenox DVT prophylaxis Follows Dr. Wilson mucker cofferdam and Dr. Zuniga paper bag inspector Problem List: 1. Interstitial lung disease 2. Acute respiratory failure with hypoxia 3. Pulmonary edema 4. Pericardial effusion 5. Lung fibrosis 6. Shortness of breath dyspnea Pain Ratin Pain Location: n/a Pain Goal: Remain pain free Pain Plan: tylinol Tomorrow's Labs & Rationales: none
[2017-05-16 07:17] VITALS: BP 164/60
[2017-05-16 07:51] LABS: ABSOLUTE BASOPHIL COUNT 0 /CUMM (0.0-0.2); ABSOLUTE EOSINOPHIL COUNT 0.1 /CUMM (0.0-0.7); ABSOLUTE GRANULOCYTE CT 3.5 /CUMM (1.4-6.5); ABSOLUTE MONOCYTE COUNT 0.6 /CUMM (0.10-0.60); BASOPHIL % 0.3 % (0.0-2.0); EOSINOPHIL % 2.1 % (0-5); GRANULOCYTE % 66.1 % (42.2-75.2); HEMATOCRIT 32.8 % (37-47); MEAN CORPUSCULAR HGB 22.9 PG (27.0-31.0); MEAN CORPUSCULAR HGB CONC 32.1 G/DL (33.0-37.0); MEAN CORPUSCULAR VOLUME 71.3 FL (81.0-99.0); MEAN PLATELET VOLUME 7.6 FL (7.4-10.4); PLATELET COUNT 162 /CUMM (130-400); RBC DISTRIBUTION WIDTH 20.5 % (11.5-14.5); WHITE BLOOD CELL COUNT 5.2 /CUMM (4.8-10.8)
--- NOTE | 2017-05-16 11:50 | Cons- Pulmonary ---
General Information and HPI Consulting Request Date of Consult: 05/16/17 Requested By: Dr. Macario Reason for Consult: ipf, dyspnea Source of Information: patient Exam Limitations: no limitations History of Present Illness: Consultation is requested for dyspnea in setting of cardiomyopathy, pericardial effusion and interstitial lung disease. 82 year old woman. Known to me from the office. She has a history of breast ca (s/p rtx), colon ca (s/p sx), hx of ILD-pulmonary fibrosis, CHF, pericardial effusion. Presented to with dyspnea, leg edema that has worsened over course of month. No cp, no phlegm, no sick contacts, no travel hx. She was admitted to telemetry for o2 and cardiac monitoring. Her venous doppler was without clot and CXR showed vascular prominence. No leukocytosis, no fevers, hemodynamically stable. Allergies/Medications Allergies: Coded Allergies: aspirin (Bleeding per patient 05/15/17) Home Med List: Furosemide (Lasix) 40 MG TABLET 1 TAB PO DAILY WATER RETENTION Levothyroxine Sodium 88 MCG TABLET 1 TAB PO 1XDAY TYROID (Reported) Potassium Chloride (Klor-Con M20) 20 MEQ TAB.ER.PRT 2 TAB PO DAILY SUPPLEMENT (Reported) Prazosin HCl (Minipress) 5 MG CAPSULE 1 CAP PO 1XDAY BP (Reported) Verapamil HCl (Verapamil ER) 240 MG CAP24H.PEL 1 TAB PO 1XDAY CALCIUM CHANNEL RIGOBERTO (Reported) Current Medications: Current Medications Sig/Sanjuanita Start time Last Medication Dose Route Stop Time Status Admin Acetaminophen 650 MG Q6P PRN 05/15 2000 AC PO Enoxaparin Sodium 40 MG DAILY 05/16 1000 AC 05/16 SC 1019 Furosemide 40 MG DAILY 05/16 1000 AC 05/16 IV 1019 Furosemide 0 .STK-MED ONE 05/15 171 DC IV Furosemide 40 MG ONCE ONE 05/15 1715 DC 05/15 IV PUSH 05/15 1716 1710 Ibuprofen 600 MG Q6P PRN 05/15 2000 AC PO Levothyroxine Sodium 0.088 MG DAILY AC 05/16 0700 AC 05/16 PO 0553 Oxycodone HCl 10 MG Q6P PRN 05/15 2000 AC PO Potassium Chloride 40 MEQ ONCE ONE 05/16 1015 DC 05/16 PO 05/16 1016 1019 Potassium Chloride 40 MEQ DAILY 05/16 1000 CAN PO Prazosin HCl 5 MG DAILY 05/16 1000 AC 05/16 PO 1018 Verapamil HCl 240 MG DAILY 05/16 1000 AC 05/16 PO 1019 Review of Systems Comments 18 pt ros reviewed pertinent positives and negatives are in the chart Past History Travel History Traveled to [place] past 21 day No Medical History Neurological: NONE EENT: NONE Cardiovascular: CHF, hypertension Respiratory: interstitial lung disease Gastrointestinal: Colon cancer Renal: NONE Musculoskeletal: NONE Psychiatric: anxiety Endocrine: hypothyroidism Blood Disorders: NONE Cancer(s): breast cancer, colon/rectal cancer 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 Psychosocial History Smoking Status: Never Smoked ETOH Use: denies use Illicit Drug Use: denies illicit drug use Functional Ability ADLs Independent: dressing, eating, toileting, bathing. Ambulation: independent Exam & Diagnostic Data Last 24 Hrs of Vital Signs/I&O Vital Signs Date Time Temp Pulse Resp B/P B/P Pulse O2 O2 Flow FiO2 Mean Ox Delivery Rate 05/16 1019 96 164/66 05/16 1018 66 164/60 05/16 0800 98 Nasal 3.0L Cannula 05/16 0717 98.0 66 18 164/60 98 Room Air 05/16 0040 98 Nasal 3.0L Cannula 05/16 0000 97 Nasal 3.0L Cannula 05/15 2200 99 Nasal 4.0L Cannula 05/15 2200 98.6 64 20 154/60 99 Nasal 4.0L Cannula 05/15 1918 71 22 165/70 96 Nasal 4.0L Cannula 05/15 1735 28 85 Nasal 4.0L Cannula 05/15 1638 97 Nasal 2.0L Cannula 05/15 1608 99.1 86 22 139/62 95 Room Air Intake & Output 05/16 1600 05/16 0800 05/16 0000 Intake Total 100 Output Total 400 1800 Balance -300 -1800 Intake, Oral 100 Output, Urine 400 1800 Patient 170 lb Weight Weight Reported by Patient Measurement Method Physical Exam Other Physical Findings: gen awake and alert heent ncat cvs s1, s2, +murmur lungs bilateral rhonchi and crackles abd soft bs+ ext edematous Last 48 Hrs of Labs/Jose: Laboratory Tests 05/16/17 0651: Anion Gap 8, Estimated GFR > 60, BUN/Creatinine Ratio 20.0, Troponin I < 0.01, CBC w Diff NO MAN DIFF REQ, RBC 4.60, MCV 71.3 L, MCH 22.9 L, RDW 20.5 H, MPV 7.6, Gran % 66.1, Lymphocytes % 19.8 L, Monocytes % 11.7 H, Eosinophils % 2.1, Basophils % 0.3, Absolute Granulocytes 3.5, Absolute Lymphocytes 1.0 L, Absolute Monocytes 0.6, Absolute Eosinophils 0.1, Absolute Basophils 0, PUBS MCHC 32.1 L 05/16/17 0500: Troponin I Cancelled 05/16/17 0005: Troponin I 0.01 05/15/17 1632: TSH 7.940 H, Free T4 1.49 05/15/17 1632: Anion Gap 9, Estimated GFR > 60, BUN/Creatinine Ratio 20.0, Glucose 95, Calcium 9.0, Magnesium 1.6, Total Bilirubin 0.7, AST 26, ALT 23, Alkaline Phosphatase 85 , Troponin I < 0.01, Cvr-F-Ntyejmtflfh Pept 673 H, Total Protein 7.9, Albumin 3.4 L, Globulin 4.5 H, Albumin/Globulin Ratio 0.8 L, D-Dimer High Sensitivty 383 H, CBC w Diff NO MAN DIFF REQ, RBC 5.20, MCV 70.8 L, MCH 22.5 L, RDW 21.0 H, MPV 7.8, Gran % 68.9, Lymphocytes % 21.0, Monocytes % 8.9, Eosinophils % 0.7 , Basophils % 0.5, Absolute Granulocytes 3.4, Absolute Lymphocytes 1.0 L, Absolute Monocytes 0.4, Absolute Eosinophils 0, Absolute Basophils 0, PUBS MCHC 31.8 L Assessment/Plan Impression/Plan: Impression 82 year old woman * acute hypoxemic respiratory failure requiring o2 supplementation * ILD - pulmonary fibrosis * history of mediastinal and right hilar adenopathy likely reactive and previously stable * diastolic chf, pericardial effusion Plan The dyspnea is likely multifactorial - there is a cardiac component from diastolic congestive heart disease, IPF and pulmonary htn -agree with tele monitoring -f/u cardiology recommendations -from the pulmonary perspective goal spo2 >88% -incentive spirometry -monitor ins/outs and diuresis -IPF is known to be a progressive disease, conservative monitoring with PFTs and routine imaging is the current plan on an outpatient basis -if improvement is slow a consideration for a CT of the chest can be made -annual flu shots recommended Call with any questions Consult Acknowledgment - Thank you for your consult request.
--- NOTE | 2017-05-16 13:04 | Cons- Cardiology ---
General Information and HPI Consulting Request Date of Consult: 05/16/17 Requested By: FELICIA WILLIAMSON MD Reason for Consult: Shortness of breath. Source of Information: patient, old records Exam Limitations: no limitations, poor historian History of Present Illness: Mrs. Ester Segura is an 82-year-old female with a history of pulmonary fibrosis, pulmonary hypertension, hypothyroidism, breast carcinoma s/p L lumpectomy, colon carcinoma s/p resection and radiation therapy, hypertension, dyslipidemia, previous HFpEF, and previously documented moderate pericardial effusion who presented to the ED on 05/15/2017 with 3 day complaint of increasing bilateral (left greater than right) lower extremity edema without a significant change in her baseline dyspnea. Allergies/Medications Allergies: Coded Allergies: aspirin (Bleeding per patient 05/15/17) Home Med List: Furosemide (Lasix) 40 MG TABLET 1 TAB PO DAILY WATER RETENTION Levothyroxine Sodium 88 MCG TABLET 1 TAB PO 1XDAY TYROID (Reported) Potassium Chloride (Klor-Con M20) 20 MEQ TAB.ER.PRT 2 TAB PO DAILY SUPPLEMENT (Reported) Prazosin HCl (Minipress) 5 MG CAPSULE 1 CAP PO 1XDAY BP (Reported) Verapamil HCl (Verapamil ER) 240 MG CAP24H.PEL 1 TAB PO 1XDAY CALCIUM CHANNEL RIGOBERTO (Reported) Review of Systems Review of Systems: A 14 point system review was obtained and was noncontributory, other than for the fact that she wears glasses. 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 Psychosocial History Smoking Status: Never Smoked ETOH Use: denies use Illicit Drug Use: denies illicit drug use Functional Ability ADLs Independent: dressing, eating, toileting, bathing. Ambulation: independent ECHO Results (as available) Report: CONCLUSIONS 1. Moderate aortic sclerosis is present. The valve is trileaflet. Mild aortic insufficiency is present. 2. Thickening of the mitral leaflets is present with mild to moderate annular calcification and moderate mitral insufficiency. Moderate left atrial enlargement is present. 3. A moderate size circumferential pericardial effusion is present. The effusion is hemodynamically insignificant. 4. The left ventricular chamber size is normal mild concentric hypertrophy and hyperdynamic systolic function. Ejection fraction is 75% with no resting wall motion abnormalities. 6. Mild to moderate tricuspid insufficiency is present with mild pulmonic insufficiency and moderate pulmonary hypertension. The estimated right ventricular systolic pressure is 54 mmHg. 7. Significant lipomatous hypertrophy of the atrial septum is present. 8. Since the prior study, the size of the pericardial effusion has increased. Exam & Diagnostic Data Vital Signs and I&O Vital Signs Date Time Temp Pulse Resp B/P B/P Pulse O2 O2 Flow FiO2 Mean Ox Delivery Rate 05/16 1019 96 164/66 05/16 1018 66 164/60 05/16 0800 98 Nasal 3.0L Cannula 05/16 0717 98.0 66 18 164/60 98 Room Air 05/16 0040 98 Nasal 3.0L Cannula 05/16 0000 97 Nasal 3.0L Cannula 05/15 2200 99 Nasal 4.0L Cannula 05/15 2200 98.6 64 20 154/60 99 Nasal 4.0L Cannula 05/15 1918 71 22 165/70 96 Nasal 4.0L Cannula 05/15 1735 28 85 Nasal 4.0L Cannula 05/15 1638 97 Nasal 2.0L Cannula 05/15 1608 99.1 86 22 139/62 95 Room Air Intake & Output 05/16 1600 05/16 0800 05/16 0000 05/15 1600 05/15 0800 05/15 0000 Intake Total 100 Output Total 400 1800 Balance -300 -1800 Intake, Oral 100 Output, Urine 400 1800 Patient 170 lb Weight Weight Reported by Patient Measurement Method Physical Exam: Well-developed, obese elderly female in no acute distress with nasal oxygen in place. Vital signs: See above. HEENT: Normocephalic, atraumatic, Neck: No JVD, no bruits. Lungs: Bilateral crackles 1/3-1/2 way up. Heart: S1, S2 with grade 1-2/6 systolic murmur at the base and grade 1-2/6 systolic murmur at the apex. Abdomen: Soft, nontender, positive bowel sounds. Extremities: 2+ L and 1-2+ RLE with mild erythema. Labs/Jose Results: Laboratory Tests 05/16 05/16 05/16 0651 0500 0005 Chemistry Sodium (137 - 145 mmol/L) 137 Potassium (3.5 - 5.1 mmol/L) 3.5 Chloride (98 - 107 mmol/L) 98 Carbon Dioxide (22 - 30 mmol/L) 32 H Anion Gap (5 - 16) 8 BUN (7 - 17 mg/dL) 14 Creatinine (0.5 - 1.0 mg/dL) 0.7 Estimated GFR (>60 ml/min) > 60 BUN/Creatinine Ratio (7 - 25 %) 20.0 Troponin I (< 0.11 ng/ml) < 0.01 Cancelled 0.01 Hematology CBC w Diff NO MAN DIFF REQ WBC (4.8 - 10.8 /CUMM) 5.2 RBC (4.20 - 5.40 /CUMM) 4.60 Hgb (12.0 - 16.0 G/DL) 10.5 L Hct (37 - 47 %) 32.8 L MCV (81.0 - 99.0 FL) 71.3 L MCH (27.0 - 31.0 PG) 22.9 L RDW (11.5 - 14.5 %) 20.5 H Plt Count (130 - 400 /CUMM) 162 MPV (7.4 - 10.4 FL) 7.6 Gran % (42.2 - 75.2 %) 66.1 Lymphocytes % (20.5 - 51.1 %) 19.8 L Monocytes % (1.7 - 9.3 %) 11.7 H Eosinophils % (0 - 5 %) 2.1 Basophils % (0.0 - 2.0 %) 0.3 Absolute Granulocytes (1.4 - 6.5 /CUMM) 3.5 Absolute Lymphocytes (1.2 - 3.4 /CUMM) 1.0 L Absolute Monocytes (0.10 - 0.60 /CUMM) 0.6 Absolute Eosinophils (0.0 - 0.7 /CUMM) 0.1 Absolute Basophils (0.0 - 0.2 /CUMM) 0 PUBS MCHC (33.0 - 37.0 G/DL) 32.1 L 05/15 05/15 1632 1632 Chemistry Sodium (137 - 145 mmol/L) 139 Potassium (3.5 - 5.1 mmol/L) 3.8 Chloride (98 - 107 mmol/L) 97 L Carbon Dioxide (22 - 30 mmol/L) 32 H Anion Gap (5 - 16) 9 BUN (7 - 17 mg/dL) 16 Creatinine (0.5 - 1.0 mg/dL) 0.8 Estimated GFR (>60 ml/min) > 60 BUN/Creatinine Ratio (7 - 25 %) 20.0 Glucose (65 - 99 mg/dL) 95 Calcium (8.4 - 10.2 mg/dL) 9.0 Magnesium (1.6 - 2.3 mg/dL) 1.6 Total Bilirubin (0.2 - 1.3 mg/dL) 0.7 AST (14 - 36 U/L) 26 ALT (9 - 52 U/L) 23 Alkaline Phosphatase (<127 U/L) 85 Troponin I (< 0.11 ng/ml) < 0.01 Ieh-X-[id number] Pept (<125 pg/mL) 673 H Total Protein (6.3 - 8.2 g/dL) 7.9 Albumin (3.5 - 5.0 g/dL) 3.4 L Globulin (1.9 - 4.2 gm/dL) 4.5 H Albumin/Globulin Ratio (1.1 - 2.2 %) 0.8 L TSH (0.270 - 4.200 uIU/mL) 7.940 H Free T4 (0.85 - 1.93 ng/dL) 1.49 Coagulation D-Dimer High Sensitivty (0 - 243 ng/ml) 383 H Hematology CBC w Diff NO MAN DIFF REQ WBC (4.8 - 10.8 /CUMM) 4.9 RBC (4.20 - 5.40 /CUMM) 5.20 Hgb (12.0 - 16.0 G/DL) 11.7 L Hct (37 - 47 %) 36.8 L MCV (81.0 - 99.0 FL) 70.8 L MCH (27.0 - 31.0 PG) 22.5 L RDW (11.5 - 14.5 %) 21.0 H Plt Count (130 - 400 /CUMM) 178 MPV (7.4 - 10.4 FL) 7.8 Gran % (42.2 - 75.2 %) 68.9 Lymphocytes % (20.5 - 51.1 %) 21.0 Monocytes % (1.7 - 9.3 %) 8.9 Eosinophils % (0 - 5 %) 0.7 Basophils % (0.0 - 2.0 %) 0.5 Absolute Granulocytes (1.4 - 6.5 /CUMM) 3.4 Absolute Lymphocytes (1.2 - 3.4 /CUMM) 1.0 L Absolute Monocytes (0.10 - 0.60 /CUMM) 0.4 Absolute Eosinophils (0.0 - 0.7 /CUMM) 0 Absolute Basophils (0.0 - 0.2 /CUMM) 0 PUBS MCHC (33.0 - 37.0 G/DL) 31.8 L Diagnostic Data EKG Results (05/16/2017) sinus rhythm, first-degree AV block, incomplete LBBB, and probable LVH with minor repolarization abnormalities. CXR Results (05/15/2017):1. Vascular prominence with interstitial prominence suggesting mild edema. 2. Stable globular enlargement of the cardiac silhouette. Prior CT demonstrated a pericardial effusion. Other Results Bilateral lower extremities ultrasound (05/15/2017):Normal triplex scan without evidence of deep venous thrombosis involving the lower extremities. Assessment/Plan Assessment/Plan [id number]-f w/ hx obesity, pul fibrosis, pul HTN, hypothyroidism, breast ca s/p L lumpectomy, colon ca s/p resection and radiation therapy, HTN, HLD, previous HFpEF, and previously documented moderate pericardial effusion who presented to the ED on 05/15/2017 w/ 3 day complaint of increasing bilateral (left greater than right) LE edema w/o a significant change in her baseline dyspnea and with clinical evidence of volume overload, CXR evidence of interstitial edema, and an elevated NT-PRO BNP c/w HFpEF. Would not be surprised if bilateral crackles do not significantly improve with diuresis, given known pulmonary fibrosis. Exercise caution to not overdiurese. Recommendations: * Telemetry admission, follow-up troponins, follow-up ECG. * IV diuresis with furosemide 40 mg daily with close follow-up of BUN/creatinine , potassium, magnesium, CO2, and reassess the need for further IV diuresis in the a.m. * Repeat CXR in a.m. * Consider limited echocardiogram to reassess pericardial effusion. No need to repeat complete study as one performed recently (vide supra). * Replete potassium and maintain between 4.0-4.5 mEq/L. * Replete magnesium and maintain at or above 2.0 mEq/L. * Continue the rest of her antihypertensive regimen. * Note abnormal albumin/globulin ratio and follow-up. * Note elevated TSH. * DVT prophylaxis. Further recommendations will follow, Thank you. Other Findings/Comments: Echocardiogram (04/30/2017): 1. Moderate aortic sclerosis is present with mild aortic insufficiency. 2. Mitral leaflet thickening is present with moderate annular calcification and moderate eccentric mitral insufficiency with moderate left atrial enlargement 3. A moderate sized pericardial effusion is present with is more prominent posteriorly. The effusion appears to be hemodynamically insignificant. 4. The left ventricular chamber size is normal with a normal ejection fraction and no resting wall motion abnormalities. Mild concentric hypertrophy is present. 5. The right heart structures are grossly normal. Moderate tricuspid insufficiency is present with pulmonary hypertension and an estimated RV systolic pressure of 45 mmHg. Dilatation of the IVC is noted. There appears to be systolic flow reversal in the hepatic veins consistent with the presence of significant tricuspid insufficiency. 6. Marked lipomatous hypertrophy of the interatrial septum is present. Pharmacologic stress test (05/02/2017): Normal Persantine stress and resting myocardial perfusion study with normal left ventricular wall motion and ejection fraction. Consult Acknowledgment - Thank you for your consult request.
--- NOTE | 2017-05-16 13:23 | NUR ---
@1200-NO COMPLAINTS THIS SHIFT. OOB TO BSC AFTER ADMINISTRATION OF IV LASIX THIS AM. VSS. PREFERS TO SIT IN GERICHAIR. PT AWARE THAT SHE DOES HAVE DISCOLORATION TO INNER BUTTOCKS-CREAM APPLIED AND SIZEWISE MATTRESS ORD FOR PT. PT RECIEVED KDUR 40MEQ FOR K+3.5 THIS AM. CONT TO MONITOR, CALL RACHNA JOYCE.
[2017-05-16 23:48] VITALS: BP 150/64
[2017-05-17 06:00] VITALS: BP 152/52
[2017-05-17 08:33] LABS: ABSOLUTE BASOPHIL COUNT 0 /CUMM (0.0-0.2); ABSOLUTE EOSINOPHIL COUNT 0.1 /CUMM (0.0-0.7); ABSOLUTE GRANULOCYTE CT 3.2 /CUMM (1.4-6.5); ABSOLUTE LYMPH COUNT 1.1 /CUMM (1.2-3.4); ABSOLUTE MONOCYTE COUNT 0.6 /CUMM (0.10-0.60); BASOPHIL % 0.3 % (0.0-2.0); EOSINOPHIL % 1.8 % (0-5); GRANULOCYTE % 65.3 % (42.2-75.2); HEMATOCRIT 33.5 % (37-47); MEAN CORPUSCULAR HGB 22.9 PG (27.0-31.0); MEAN CORPUSCULAR HGB CONC 32.1 G/DL (33.0-37.0); MEAN CORPUSCULAR VOLUME 71.3 FL (81.0-99.0); MEAN PLATELET VOLUME 7.9 FL (7.4-10.4); PLATELET COUNT 148 /CUMM (130-400); RBC DISTRIBUTION WIDTH 20.4 % (11.5-14.5); RED BLOOD CELL CT 4.69 /CUMM (4.20-5.40); WHITE BLOOD CELL COUNT 4.9 /CUMM (4.8-10.8)
--- NOTE | 2017-05-17 08:47 | PN- Housestaff ---
AMANDA TAYLOR MD,TALYA 05/17/17 0847: Subjective Follow-up For: Acute on chronic hypoxemic respiratory failure Worsening IPF Acute on chronic HFpEF History of hypothyroidism, HTN, S/P radiation for left-sided breast cancer, colon cancer, abdominal lump unclear etiology Complaints: no complaints Tele-Events Since Last Visit: Sinus rhythm, heart rate ranging from 40s to 60s Subjective: No acute complaints overnight. She remained afebrile, no tachycardia was bradycardic to 40s while sleeping, no tachypnea, requiring 3 L of oxygen decreased from 4- L, saturation of 98%, blood pressure 152/52 Review of Systems Constitutional: Denies: chills, fever. EENTM: Denies: visual changes. Cardiovascular: Denies: chest pain. Respiratory: Reports: short of breath. Objective Last 24 Hrs of Vital Signs/I&O Vital Signs Date Time Temp Pulse Resp B/P B/P Pulse O2 O2 Flow FiO2 Mean Ox Delivery Rate 05/17 0956 152/52 05/17 0956 56 152/52 05/17 0600 98.1 56 18 152/52 98 Nasal 3.0L Cannula 05/16 2348 97.5 57 16 150/64 98 05/16 2254 Nasal 3.0L Cannula 05/16 1600 Nasal 3.0L Cannula 05/16 1323 Nasal 3.0L Cannula Intake & Output 05/17 1600 05/17 0800 05/17 0000 Intake Total 900 Output Total 400 325 Balance -400 575 Intake, Oral 900 Output, Urine 400 325 Patient 168 lb Weight Weight Chair scale Measurement Method Physical Exam General Appearance: Alert, Oriented X3, Cooperative (IS IN PLACE. uLTRASOUND WAS D) Skin: No Rashes (THERE ARE SOME), No Breakdown HEENT: Atraumatic Neck: No JVD Cardiovascular: Regular Rate, Normal S1, Normal S2, SYSTOLIC MURMUR Lungs: B/L CRACKLES Abdomen: Soft Neurological: Normal Speech, Normal Tone Extremities: 2+ EDEMA B/L LOWER EXTREMITIES Current Medications: Current Medications Sig/Sanjuanita Start time Last Medication Dose Route Stop Time Status Admin Acetaminophen 650 MG Q6P PRN 05/15 2000 AC PO Enoxaparin Sodium 40 MG DAILY 05/16 1000 AC 05/17 SC 0958 Furosemide 40 MG DAILY 05/16 1000 AC 05/17 IV 0957 Ibuprofen 600 MG Q6P PRN 05/15 2000 AC PO Levothyroxine Sodium 0.1 MG DAILY AC 05/17 0700 AC 05/17 PO 0547 Levothyroxine Sodium 0.088 MG DAILY AC 05/16 0700 DC 05/16 PO 0553 Oxycodone HCl 10 MG Q6P PRN 05/15 2000 AC PO Prazosin HCl 5 MG DAILY 05/16 1000 AC 05/17 PO 0956 Verapamil HCl 240 MG DAILY 05/16 1000 AC 05/17 PO 0956 Last 24 Hrs of Lab/Jose Results Last 24 Hrs of Labs/Mics: Laboratory Tests 05/17/17727: Anion Gap 9, Estimated GFR > 60, BUN/Creatinine Ratio 21.3, Magnesium 1.5 L, CBC w Diff NO MAN DIFF REQ, RBC 4.69, MCV 71.3 L, MCH 22.9 L, RDW 20.4 H, MPV 7.9, Gran % 65.3, Lymphocytes % 21.3, Monocytes % 11.3 H, Eosinophils % 1.8, Basophils % 0.3, Absolute Granulocytes 3.2, Absolute Lymphocytes 1.1 L, Absolute Monocytes 0.6, Absolute Eosinophils 0.1, Absolute Basophils 0, PUBS MCHC 32.1 L Assessment/Plan Assessment: 82-year-old female with past medical history significant for heart failure with preserved ejection fraction 55-60%, pulmonary hypertension, moderate pericardial effusion, mitral insufficiency, lower extremity swelling on Lasix, interstitial lung disease on home oxygen 3 L, hypothyroidism, hypertension, hyperlipidemia, breast cancer status postradiation, colon cancer status postsurgical resection presented to emergency department with worsening shortness of breath and leg swelling. Vitals on admission-afebrile, heart rate 86, respiratory rate 22, blood pressure 139/62, saturating at 95 on room air Physical examination-awake alert oriented 3, HEENT within normal limits, no JVD , no lymphadenopathy, heart S1-S2 normal, regular, 3/6 systolic murmur. Lungs bilateral crackles. per Abdomen soft and distended. Extremities2 pitting edema up to knees. left Lower extremity 2 noticeable blisters without any drainage. Pertinent labs on admission WBC 4.9, hemoglobin 11.7 and hematocrit 36.8, platelets 178 BUN 16 and creatinine 0.8. D-dimer 383 ProBNP elevated 673 TSH 7.9. Troponins negative EKG showed sinus rhythm, rate 84, left axis deviation, left anterior fascicular block, no acute ST-T wave changes. cxr 05/15/17 1. Vascular prominence with interstitial prominence suggesting mild edema. 2. Stable globular enlargement of the cardiac silhouette. Prior CT demonstrated a pericardial effusion. CXR 05/17/17 Stable enlargement of the cardiac silhouette. Improved CHF compared to 05/15/2017 exam venous doppler IMPRESSION: Normal triplex scan without evidence of deep venous thrombosis involving the lower extremities Assessment and plan 1. Acute hypoxic respiratory failure from acute CHF exacerbation/interstitial lung disease patient has history of heart failure with preserved ejection fraction 55-60%. Now presented with acute worsening shortness of breath and leg swelling. Uses 3 L oxygen at home throughout the day. However she she required 4 L in the emergency room saturating at 92%. * Possible differentials acute on chronic CHF exacerbation, worsening of interstitial lung disease, worsening lower extremity swelling, pulmonary hypertension, pericardial effusion. * Oxygen requirement of 3L at baseline * Usually takes 40 mg Lasix at home, currently on IV 40 mg Lasix daily * Strict ins and outs, negative balance of 400 * Daily weights * Leg elevation * Limited Echocardiogram Pending * Cardiology consult Interstitial lung disease patient has history of interstitial lung disease, pulmonary fibrosis-uses home oxygen [address] Wilson as an outpatient. 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 Secondary pulmonary arterial hypertension, Mediastinal and right hilar adenopathy, Marked four-chamber dilated cardiomyopathy with associated small pericardial effusion. * The total respiratory care * Provide supplemental oxygen as required * Maintain oxygen saturation greater than 90% Lower extremity swelling Patient has +2 bilateral pitting edema. Usually takes Lasix at home. We'll give IV Lasix for now. Monitor ins and outs and daily weights. Leg elevation. Hypothyroidism Increaed dose of Levo-T from home medication levothyroxine 88 g because of current labs Hypertension Continue prednisone 5 mg Continue verapamil 240 mg Full code Heart healthy diet Pain pathway Subcutaneous Lovenox DVT prophylaxis Follows Dr. Wilson system development manager and Dr. Zuniga space and missile operations Problem List: 1. Acute respiratory failure with hypoxia Pain Ratin Pain Location: NA Pain Goal: Pain 4 or less Pain Plan: Continue current medications Tomorrow's Labs & Rationales: BEP for electrolytes Consulting Request: Consulting Specialty: Cardiology CAMILLE JAIMES,AMIR 05/17/17 1133: Attending MD Review Statement Attending Statement Attending MD Statement: examined this patient, discuss w/resident/PA/FINANCIAL AID MANAGER, agreed w/resident/PA/FINANCIAL AID MANAGER, reviewed EMR data (avail), discussed with nursing Attending Assessment/Plan: Ms. Segura was seen and evalauted. Chart reviewed. Reports doing better today. VSS: 94% on 3 L NC GEN: pleasant, AAOx3, speaking in full sentences Labs: low Mag, K CXR: IMPRESSION: Stable enlargement of the cardiac silhouette. Improved CHF compared to 05/15/2017 exam. A/P: -- Apreciate Pulm/Cards input -- f/u ECHO and Cards recommendation -- replete Mag and K -- rest of the plan as per resident's note
--- NOTE | 2017-05-17 09:21 | RADIOLOGY REPORT ---
EXAMINATION: XR PORTABLE CHEST CLINICAL INFORMATION: Shortness of breath. Leg edema. COMPARISON: Previous chest x-rays most recent 05/15/2017 TECHNIQUE: Portable frontal view of the chest was obtained. FINDINGS: The cardiac silhouette is markedly enlarged but stable. Hilar and mediastinal contours are unremarkable. There is interval improvement in pulmonary venous congestion. There are increased interstitial markings seen, particularly in the lateral right lung. This is similar to previous exams and may represent chronic changes from pulmonary edema. The lungs are otherwise clear. There is no pleural effusion or pneumothorax. There is an old left posterior rib fracture. IMPRESSION: Stable enlargement of the cardiac silhouette. Improved CHF compared to 05/15/2017 exam.
--- NOTE | 2017-05-17 09:51 | PN- Pulmonary ---
Subjective HPI/Critical Care Issues: pt seen and examined feels that she has returned to respiratory baseline no cp, no fevers no morrison Objective Current Medications: Current Medications Sig/Sanjuanita Start time Last Medication Dose Route Stop Time Status Admin Acetaminophen 650 MG Q6P PRN 05/15 2000 AC PO Enoxaparin Sodium 40 MG DAILY 05/16 1000 AC 05/16 SC 1019 Furosemide 40 MG DAILY 05/16 1000 AC 05/16 IV 1019 Ibuprofen 600 MG Q6P PRN 05/15 2000 AC PO Levothyroxine Sodium 0.1 MG DAILY AC 05/17 07 AC 05/17 PO 0547 Levothyroxine Sodium 0.088 MG DAILY AC 05/16 0700 DC 05/16 PO 0553 Oxycodone HCl 10 MG Q6P PRN 05/15 2000 AC PO Potassium Chloride 40 MEQ ONCE ONE 05/16 1015 DC 05/16 PO 05/16 1016 1019 Prazosin HCl 5 MG DAILY 05/16 1000 AC 05/16 PO 1018 Verapamil HCl 240 MG DAILY 05/16 1000 AC 05/16 PO 1019 Vital Signs & I&O Last 24 Hrs of Vitals and I&O: Vital Signs Date Time Temp Pulse Resp B/P B/P Pulse O2 O2 Flow FiO2 Mean Ox Delivery Rate 05/17 0600 98.1 56 18 152/52 98 Nasal 3.0L Cannula 05/16 2348 97.5 57 16 150/64 98 05/16 2254 Nasal 3.0L Cannula 05/16 1323 Nasal 3.0L Cannula 05/16 1019 96 164/66 05/16 1018 66 164/60 Intake & Output 05/17 1600 05/17 0800 05/17 0000 Intake Total 900 Output Total 400 325 Balance -400 575 Intake, Oral 900 Output, Urine 400 325 Patient 168 lb Weight Weight Chair scale Measurement Method Exam Other Physical Findings: gen awake and alert heent ncat cvs s1, s2, +murmur lungs bilateral rhonchi and crackles abd soft bs+ ext edematous Results Last 24 Hrs of Lab Results: Laboratory Tests 05/17/17 0728: Anion Gap 9, Estimated GFR > 60, BUN/Creatinine Ratio 21.3, Magnesium 1.5 L, CBC w Diff NO MAN DIFF REQ, RBC 4.69, MCV 71.3 L, MCH 22.9 L, RDW 20.4 H, MPV 7.9, Gran % 65.3, Lymphocytes % 21.3, Monocytes % 11.3 H, Eosinophils % 1.8, Basophils % 0.3, Absolute Granulocytes 3.2, Absolute Lymphocytes 1.1 L, Absolute Monocytes 0.6, Absolute Eosinophils 0.1, Absolute Basophils 0, PUBS MCHC 32.1 L Impression/Plan Impression/Plan Impression/Plan: Impression 82 year old woman * acute hypoxemic respiratory failure requiring o2 supplementation * ILD - pulmonary fibrosis * history of mediastinal and right hilar adenopathy likely reactive and previously stable * diastolic chf, pericardial effusion Plan The dyspnea is likely multifactorial - there is a cardiac component from diastolic congestive heart disease, IPF and pulmonary htn -f/u cardiology recommendations -f/u ECHO -from the pulmonary perspective goal spo2 >88% -incentive spirometry -monitor ins/outs and diuresis -IPF is known to be a progressive disease, conservative monitoring with PFTs and routine imaging is the current plan on an outpatient basis Call with any questions DC planning, stable for dc from pulmonary perspective, f/u cardiology recommendations
[2017-05-17 14:58] VITALS: BP 112/50
--- NOTE | 2017-05-17 17:05 | PN- Cardiology ---
Subjective Subjective: Feels improved with less lower extremity edema following diuresis with IV furosemide. On telemetry: sinus rhythm in 60-70 bpm range that goes down to 40s while asleep. Objective Vital Signs and I&Os Vital Signs Date Time Temp Pulse Resp B/P B/P Pulse O2 O2 Flow FiO2 Mean Ox Delivery Rate 05/17 1458 97.6 74 18 112/50 92 Nasal 3.0L Cannula 05/17 1038 94 Nasal 3.0L Cannula 05/17 0956 152/52 05/17 0956 56 152/52 05/17 0600 98.1 56 18 152/52 98 Nasal 3.0L Cannula 05/16 2348 97.5 57 16 150/64 98 05/16 2254 Nasal 3.0L Cannula Intake & Output 05/17 1600 05/17 0800 05/17 0000 05/16 1600 05/16 0800 05/16 0000 Intake Total 920 900 320 100 Output Total 1200 400 325 108 382 7437 Balance -280 -400 575 -580 -300 -1800 Intake, IV 20 Intake, Oral 920 900 300 100 Number 2 1 Bowel Movements Output, Urine 1200 400 325 311 239 [id number] Patient 168 lb 170 lb Weight Weight Chair scale Reported by Patient Measurement Method Physical Exam: Well-developed, obese elderly female in no acute distress with nasal oxygen in place. Vital signs: See above. HEENT: Normocephalic, atraumatic, Neck: No JVD, no bruits. Lungs: Bilateral crackles 1/3-1/2 way up. Heart: S1, S2 with grade 1-2/6 systolic murmur at the base and grade 1-2/6 systolic murmur at the apex. Abdomen: Soft, nontender, positive bowel sounds. Extremities: 2+ L and 1-2+ RLE with mild erythema. Current Medications: Current Medications Sig/Sanjuanita Start time Last Medication Dose Route Stop Time Status Admin Acetaminophen 650 MG Q6P PRN 05/15 2000 AC PO Enoxaparin Sodium 40 MG DAILY 05/16 1000 AC 05/17 SC 0958 Furosemide 40 MG DAILY 05/16 1000 AC 05/17 IV 0957 Ibuprofen 600 MG Q6P PRN 05/15 2000 AC PO Levothyroxine Sodium 0.1 MG DAILY AC 05/17 0700 AC 05/17 PO 0547 Magnesium Chloride 64 MG BID 05/17 1055 DC 05/17 PO 05/17 1056 1243 Oxycodone HCl 10 MG Q6P PRN 05/15 2000 AC PO Potassium Chloride 20 MEQ ONCE ONE 05/17 1400 DC PO 05/17 1401 Prazosin HCl 5 MG DAILY 05/16 1000 AC 05/17 PO 0956 Verapamil HCl 240 MG DAILY 05/16 1000 AC 05/17 PO 0956 Results Last 48 Hrs of Labs/Mics: Laboratory Tests 05/17/17 0728: Anion Gap 9, Estimated GFR > 60, BUN/Creatinine Ratio 21.3, Magnesium 1.5 L, CBC w Diff NO MAN DIFF REQ, RBC 4.69, MCV 71.3 L, MCH 22.9 L, RDW 20.4 H, MPV 7.9, Gran % 65.3, Lymphocytes % 21.3, Monocytes % 11.3 H, Eosinophils % 1.8, Basophils % 0.3, Absolute Granulocytes 3.2, Absolute Lymphocytes 1.1 L, Absolute Monocytes 0.6, Absolute Eosinophils 0.1, Absolute Basophils 0, PUBS MCHC 32.1 L 05/16/17 0651: Anion Gap 8, Estimated GFR > 60, BUN/Creatinine Ratio 20.0, Troponin I < 0.01, CBC w Diff NO MAN DIFF REQ, RBC 4.60, MCV 71.3 L, MCH 22.9 L, RDW 20.5 H, MPV 7.6, Gran % 66.1, Lymphocytes % 19.8 L, Monocytes % 11.7 H, Eosinophils % 2.1, Basophils % 0.3, Absolute Granulocytes 3.5, Absolute Lymphocytes 1.0 L, Absolute Monocytes 0.6, Absolute Eosinophils 0.1, Absolute Basophils 0, PUBS MCHC 32.1 L 05/16/17 0500: Troponin I Cancelled 05/16/17 0005: Troponin I 0.01 Recent Imaging Studies: CXR (05/17/2017): Stable enlargement of the cardiac silhouette. Improved CHF compared to 05/15/2017 exam. Assessment/Plan Assessment/Plan 82-y-o-w-f w/ hx obesity, pul fibrosis, pul HTN, hypothyroidism, breast ca s/p L lumpectomy, colon ca s/p resection and radiation therapy, HTN, HLD, previous HFpEF, and previously documented moderate pericardial effusion who presented to the ED on 05/15/2017 w/ 3 day complaint of increasing bilateral (left greater than right) LE edema w/o a significant change in her baseline dyspnea and with clinical evidence of volume overload, CXR evidence of interstitial edema, and an elevated NT-PRO BNP c/w HFpEF. Would not be surprised if bilateral crackles do not significantly improve with diuresis, given known pulmonary fibrosis. Exercise caution to not overdiurese. Recommendations: * Continue on telemetry. * Continue IV diuresis with furosemide 40 mg daily with close follow-up of BUN/ creatinine, potassium, magnesium, CO2, and reassess the need for further IV diuresis in the a.m. * Consider limited echocardiogram to reassess pericardial effusion. No need to repeat complete study as one performed recently (vide supra). * Replete potassium and maintain between 4.0-4.5 mEq/L. * Replete magnesium and maintain at or above 2.0 mEq/L. * Continue the rest of her antihypertensive regimen. * Note abnormal albumin/globulin ratio and follow-up. * Note elevated TSH. * DVT prophylaxis. Continue telemetry? Yes
[2017-05-17 23:14] VITALS: BP 136/60
[2017-05-18 06:58] VITALS: BP 150/90
--- NOTE | 2017-05-18 08:06 | PN- Housestaff ---
COCO ROYAL 05/18/17 0759: Subjective Follow-up For: Acute on chronic hypoxemic respiratory failure Worsening IPF Acute on chronic HFpEF History of hypothyroidism, HTN, S/P radiation for left-sided breast cancer, colon cancer, abdominal lump unclear etiology Subjective: Patient has no complaints. She slept with 2 pillow on the chair. No acute events overnight. Review of Systems Constitutional: Reports: see HPI. Objective Last 24 Hrs of Vital Signs/I&O Vital Signs Date Time Temp Pulse Resp B/P B/P Pulse O2 O2 Flow FiO2 Mean Ox Delivery Rate 05/18 0849 97.9 73 18 150/90 05/18 0847 97.9 73 18 150/90 05/18 0800 Nasal 3.0L Cannula 05/18 0658 97.9 59 18 150/90 100 Nasal Cannula 05/18 0000 Nasal 3.0L Cannula 05/17 2314 98.0 70 18 136/60 94 05/17 1458 97.6 74 18 112/50 92 Nasal 3.0L Cannula Intake & Output 05/18 1600 05/18 0800 05/18 0000 Intake Total 600 100 Output Total 600 350 600 Balance 0 -250 -600 Intake, Oral 600 100 Number 1 Bowel Movements Output, Urine 600 350 600 Patient 163 lb Weight Weight Chair scale Measurement Method Physical Exam General Appearance: Alert, Oriented X3, Cooperative, No Acute Distress HEENT: Atraumatic, PERRLA Neck: Supple, No JVD Cardiovascular: Normal S1, Normal S2, Systolic murmur Lungs: Bilateral crackles at lung bases Abdomen: Normal Bowel Sounds, Soft, No Tenderness, Umbilical hernia Extremities: Unable to aprreciate edema due to body mass Current Medications: Current Medications Sig/Sanjuanita Start time Last Medication Dose Route Stop Time Status Admin Acetaminophen 650 MG Q6P PRN 05/15 2000 AC PO Enoxaparin Sodium 40 MG DAILY 05/16 1000 AC 05/17 SC 0958 Furosemide 40 MG DAILY 05/16 1000 AC 05/17 IV 0957 Ibuprofen 600 MG Q6P PRN 05/15 2000 AC PO Levothyroxine Sodium 0.1 MG DAILY AC 05/17 07 AC 05/18 PO 699 Magnesium Chloride 64 MG ONCE ONE 05/18 0300 DC 05/18 PO 05/18 0301 0400 Magnesium Chloride 64 MG BID 05/17 1055 DC 05/17 PO 05/17 1056 1243 Oxycodone HCl 10 MG Q6P PRN 05/15 2000 AC PO Potassium Chloride 20 MEQ ONCE ONE 05/17 1400 DC 05/17 PO 05/17 1401 1753 Prazosin HCl 5 MG DAILY 05/16 1000 AC 05/17 PO 0956 Verapamil HCl 240 MG DAILY 05/16 1000 AC 05/17 PO 0956 Last 24 Hrs of Lab/Jose Results Last 24 Hrs of Labs/Mics: Laboratory Tests 05/18/17 0619: Sodium Pending, Potassium Pending, Chloride Pending, Carbon Dioxide Pending, Anion Gap Pending, BUN Pending, Creatinine Pending, BUN/Creatinine Ratio Pending , Magnesium Pending Orders Radiology Findings: 05/17/17-599 XRY-PORTABLE CHEST XRAY IMPRESSION: Stable enlargement of the cardiac silhouette. Improved CHF compared to 05/15/2017 exam. Assessment/Plan Assessment: A: 82-year-old female with past medical history significant for heart failure with preserved ejection fraction 55-60%, pulmonary hypertension, moderate pericardial effusion, mitral insufficiency, lower extremity swelling on Lasix, interstitial lung disease on home oxygen 3 L, hypothyroidism, hypertension, hyperlipidemia, breast cancer status postradiation, colon cancer status postsurgical resection presented to emergency department with worsening shortness of breath and leg swelling. P: 1. Acute hypoxic respiratory failure from acute CHF exacerbation/interstitial lung disease patient has history of heart failure with preserved ejection fraction 55-60%. Now presented with acute worsening shortness of breath and leg swelling. Uses 3 L oxygen at home throughout the day. However she she required 4 L in the emergency room saturating at 92%. * Possible differentials acute on chronic CHF exacerbation, worsening of interstitial lung disease, worsening lower extremity swelling, pulmonary hypertension, pericardial effusion. * Oxygen requirement of 3L at baseline * Usually takes 40 mg Lasix at home, currently on IV 40 mg Lasix daily * Strict ins and outs, negative balance of 400 * Daily weights * Leg elevation * Limited Echocardiogram to be followed as an outpatient * Cardiology consulted Interstitial lung disease patient has history of interstitial lung disease, pulmonary fibrosis-uses home oxygen [address] Wilson as an outpatient. 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 Secondary pulmonary arterial hypertension, Mediastinal and right hilar adenopathy, Marked four-chamber dilated cardiomyopathy with associated small pericardial effusion. * Total respiratory care * Provide supplemental oxygen as required * Maintain oxygen saturation greater than 90% * Continue IS Lower extremity swelling Patient has +2 bilateral pitting edema. * Monitor ins and outs and daily weights. Leg elevation. * Continue lasix 40mg IV Hypothyroidism * Increased dose of Levo-T from home medication levothyroxine 100 g due to lower ext edema and TSH-7.94 Hypertension * Continue prazosin 5 mg * Continue verapamil 240 mg Full code Heart healthy diet Pain pathway Subcutaneous Lovenox DVT prophylaxis Follows Dr. Wilson rubber cutter and shape carver and Dr. Zuniga site medical director Problem List: 1. Interstitial lung disease 2. Shortness of breath dyspnea 3. Acute respiratory failure with hypoxia Pain Ratin Pain Location: N/A Pain Goal: Remain pain free Pain Plan: N/A Tomorrow's Labs & Rationales: BEP to monitor magnesium and potassium Consulting Request: Consulting Specialty: Cardiology ARACELIZONIA 05/18/17 1206: Attending MD Review Statement Attending Statement Attending MD Statement: examined this patient, discuss w/resident/PA/BOTTOM LIQUOR ATTENDANT, agreed w/resident/PA/BOTTOM LIQUOR ATTENDANT, discussed with family, reviewed EMR data (avail), discussed with nursing, discussed with case mgmt, reviewed images, amended to note Attending Assessment/Plan: 82 o/f with multiple medical problems in past comes with dyspnea mutifactorial in origin, acute on chronic chf with preserved EF, pulmonary hypertension, ILD on home oxygen 3l baseline. Patient on i/v lasix which can be changed to PO and anticipate d/c soon. f/u o/p PCP in [address] dc[address] Pul[address] Wilson in 2 weeks of d/c. Cardiology in 1 week of d/c Dr Zuniga.
--- NOTE | 2017-05-18 09:36 | PN- Pulmonary ---
Subjective HPI/Critical Care Issues: pt seen and examined at respiratory baseline comfortable no new events Objective Current Medications: Current Medications Sig/Sanjuanita Start time Last Medication Dose Route Stop Time Status Admin Acetaminophen 650 MG Q6P PRN 05/15 2000 AC PO Enoxaparin Sodium 40 MG DAILY 05/16 1000 AC 05/18 SC 0847 Furosemide 40 MG DAILY 05/16 1000 AC 05/18 IV 0847 Ibuprofen 600 MG Q6P PRN 05/15 2000 AC PO Levothyroxine Sodium 0.1 MG DAILY AC 05/17 07 AC 05/18 PO 07 Magnesium Chloride 64 MG ONCE ONE 05/18 0300 DC 05/18 PO 05/18 0301 0400 Magnesium Chloride 64 MG BID 05/17 1055 DC 05/17 PO 05/17 1056 1243 Oxycodone HCl 10 MG Q6P PRN 05/15 2000 AC PO Potassium Chloride 20 MEQ ONCE ONE 05/17 1400 DC 05/17 PO 05/17 1401 1753 Prazosin HCl 5 MG DAILY 05/16 1000 AC 05/18 PO 0849 Verapamil HCl 240 MG DAILY 05/16 1000 AC 05/18 PO 0847 Vital Signs & I&O Last 24 Hrs of Vitals and I&O: Vital Signs Date Time Temp Pulse Resp B/P B/P Pulse O2 O2 Flow FiO2 Mean Ox Delivery Rate 05/18 0849 97.9 73 18 150/90 05/18 0847 97.9 73 18 150/90 05/18 0658 97.9 59 18 150/90 100 Nasal Cannula 05/18 0000 Nasal 3.0L Cannula 05/17 2314 98.0 70 18 136/60 94 05/17 1458 97.6 74 18 112/50 92 Nasal 3.0L Cannula 05/17 1038 94 Nasal 3.0L Cannula 05/17 0956 152/52 05/17 0956 56 152/52 Intake & Output 05/18 1600 05/18 0800 05/18 0000 Intake Total 100 Output Total 350 600 Balance -250 -600 Intake, Oral 100 Output, Urine 350 600 Patient 163 lb Weight Weight Chair scale Measurement Method Exam Other Physical Findings: gen awake and alert heent ncat cvs s1, s2, +murmur lungs bilateral rhonchi and crackles abd soft bs+ ext edematous Results Last 24 Hrs of Lab Results: Laboratory Tests 05/18/17 0619: Anion Gap 8, Estimated GFR > 60, BUN/Creatinine Ratio 25.0, Magnesium 1.6 Impression/Plan Impression/Plan Impression/Plan: Impression 82 year old woman * acute hypoxemic respiratory failure requiring o2 supplementation * ILD - pulmonary fibrosis * history of mediastinal and right hilar adenopathy likely reactive and previously stable * diastolic chf, pericardial effusion Plan The dyspnea is likely multifactorial - there is a cardiac component from diastolic congestive heart disease, IPF and pulmonary htn -f/u cardiology recommendations -f/u ECHO -from the pulmonary perspective goal spo2 >88% -incentive spirometry -monitor ins/outs and diuresis -IPF is known to be a progressive disease, conservative monitoring with PFTs and routine imaging is the current plan on an outpatient basis Call with any questions DC planning, stable for dc from pulmonary perspective, f/u cardiology recommendations
--- NOTE | 2017-05-18 09:52 | Patient Discharge Instructions ---
Discharge Instructions General Discharge Information You were seen/treated for: Acute hypoxic respiratory failure from acute CHF exacerbation/interstitial lung disease Lower extremity swelling You had these procedures: none Special Instructions: follow up with your pcp in 1-2 weeks after d/c follow up with your framing machine tender in 1week after d/c Echo as outpatient with Dr. Zuniga. Changed Lasix to 60 mg from 40mg by mouth daily follow up with your pulmonolist in 1-2 weeks after d/c IPF is known to be a progressive disease, conservative monitoring with PFTs and routine imaging as an outpatient basis Diet Continue normal diet: Yes Activity Full Activity/No Limits: Yes Acute Coronary Syndrome Inclusion Criteria At DC or during hospital stay patient has or had the following: ACS DIAGNOSIS No Discharge Core Measures Meds if any: Prescribed or Continued at Discharge Meds if any: NOT Prescribed or Continued at Discharge Congestive Heart Failure Inclusion Criteria At DC or during hospital stay patient has or had the following: CHF DIAGNOSIS Yes Discharge Core Measures Meds if any: Prescribed or Continued at Discharge Meds if any: NOT Prescribed or Continued at Discharge Cerebrovascular accident Inclusion Criteria At DC or during hospital stay patient has or had the following: CVA/TIA Diagnosis No Discharge Core Measures Meds if any: Prescribed or Continued at Discharge Meds if any: NOT Prescribed or Continued at Discharge Venous thromboembolism Inclusion Criteria VTE Diagnosis No VTE Type NONE VTE Confirmed by (Test) NONE Discharge Core Measures - Per Current guidelines, there needs to be overlap - treatment for the first 5 days of Warfarin therapy. - If discharged on Warfarin prior to 5 days of - overlap therapy, the patient will need to be - assessed for post discharge needs including - *Post discharge parental anticoagulation - *Warfarin and/or parental anticoagulation education - *Follow up date to check INR post discharge At least 5 days overlap therapy as Inpatient No Meds if any: Prescribed or Continued at Discharge Note: Overlap Therapy is Warfarin and Anticoagulant Meds if any: NOT Prescribed or Continued at Discharge
--- NOTE | 2017-05-18 11:36 | PN- Student ---
Subjective Subjective: Tele-Events: SB [id number] Subjective: Patient had no issues overnight. She denies pain. SOB when ambulating. Objective Objective: Exams General: No acute distress, AOx3 Skin: No rashes, no breakdown Neck: soft, no lymphadenopathy HEENT: Atraumatic, EOMI, PERRLA Heart: Regular rate and rhythm, normal s1s2, systolic murmur heard best over R sternal border Lungs: B/L crackles has been reported, I had didn't hear it on exam Extremities: edema 2+ b/l Current Medications Sig/Sanjuanita Start time Last Medication Dose Route Stop Time Status Admin Acetaminophen 650 MG Q6P PRN 05/15 2000 AC PO Enoxaparin Sodium 40 MG DAILY 05/16 1000 AC 05/18 SC 0847 Furosemide 40 MG DAILY 05/16 1000 AC 05/18 IV 0847 Ibuprofen 600 MG Q6P PRN 05/15 2000 AC PO Levothyroxine Sodium 0.1 MG DAILY AC 05/17 07 AC 05/18 PO 0700 Magnesium Chloride 64 MG ONCE ONE 05/18 0300 DC 05/18 PO 05/18 0301 0400 Oxycodone HCl 10 MG Q6P PRN 05/15 2000 AC PO Potassium Chloride 20 MEQ ONCE ONE 05/17 1400 DC 05/17 PO 05/17 1401 1753 Prazosin HCl 5 MG DAILY 05/16 1000 AC 05/18 PO 0849 Verapamil HCl 240 MG DAILY 05/16 1000 AC 05/18 PO 0847 Vital Signs Date Time Temp Pulse Resp B/P B/P Pulse O2 O2 Flow FiO2 Mean Ox Delivery Rate 05/18 0849 97.9 73 18 150/90 05/18 0847 97.9 73 18 150/90 05/18 0800 Nasal 3.0L Cannula 05/18 0658 97.9 59 18 150/90 100 Nasal Cannula 05/18 0000 Nasal 3.0L Cannula 05/17 2314 98.0 70 18 136/60 94 05/17 1458 97.6 74 18 112/50 92 Nasal 3.0L Cannula Intake & Output 05/18 1600 05/18 0800 05/18 0000 Intake Total 100 Output Total 350 600 Balance -250 -600 Intake, Oral 100 Output, Urine 350 600 Patient 163 lb Weight Weight Chair scale Measurement Method Results Results: Laboratory Tests 05/18/17 0619: Anion Gap 8, Estimated GFR > 60, BUN/Creatinine Ratio 25.0, Magnesium 1.6 05/17/17 0728: Anion Gap 9, Estimated GFR > 60, BUN/Creatinine Ratio 21.3, Magnesium 1.5 L, CBC w Diff NO MAN DIFF REQ, RBC 4.69, MCV 71.3 L, MCH 22.9 L, RDW 20.4 H, MPV 7.9, Gran % 65.3, Lymphocytes % 21.3, Monocytes % 11.3 H, Eosinophils % 1.8, Basophils % 0.3, Absolute Granulocytes 3.2, Absolute Lymphocytes 1.1 L, Absolute Monocytes 0.6, Absolute Eosinophils 0.1, Absolute Basophils 0, PUBS MCHC 32.1 L 05/16/17 0651: Anion Gap 8, Estimated GFR > 60, BUN/Creatinine Ratio 20.0, Troponin I < 0.01, CBC w Diff NO MAN DIFF REQ, RBC 4.60, MCV 71.3 L, MCH 22.9 L, RDW 20.5 H, MPV 7.6, Gran % 66.1, Lymphocytes % 19.8 L, Monocytes % 11.7 H, Eosinophils % 2.1, Basophils % 0.3, Absolute Granulocytes 3.5, Absolute Lymphocytes 1.0 L, Absolute Monocytes 0.6, Absolute Eosinophils 0.1, Absolute Basophils 0, PUBS MCHC 32.1 L 05/16/17 0500: Troponin I Cancelled 05/16/17 0005: Troponin I 0.01 05/15/17 1632: TSH 7.940 H, Free T4 1.49 05/15/17 1632: Anion Gap 9, Estimated GFR > 60, BUN/Creatinine Ratio 20.0, Glucose 95, Calcium 9.0, Magnesium 1.6, Total Bilirubin 0.7, AST 26, ALT 23, Alkaline Phosphatase 85 , Troponin I < 0.01, Lab-L-Tuzkp[place]ownco Pept 673 H, Total Protein 7.9, Albumin 3.4 L, Globulin 4.5 H, Albumin/Globulin Ratio 0.8 L, D-Dimer High Sensitivty 383 H, CBC w Diff NO MAN DIFF REQ, RBC 5.20, MCV 70.8 L, MCH 22.5 L, RDW 21.0 H, MPV 7.8, Gran % 68.9, Lymphocytes % 21.0, Monocytes % 8.9, Eosinophils % 0.7 , Basophils % 0.5, Absolute Granulocytes 3.4, Absolute Lymphocytes 1.0 L, Absolute Monocytes 0.4, Absolute Eosinophils 0, Absolute Basophils 0, PUBS MCHC 31.8 L Assessment/Plan Assessment: Ms. Segura is an 82 year old female with PMH significant for HTN, HL, breast cancer s/p radiation 1995, colon cancer s/p surgery, CHF, pericardial effusion, interstitial lung disease, HF with preserved EF who presented with 3 day history of worsening SOB and leg swelling. Vitals: Temp 97.9 HR: 59 RR: 18 BP: 150/90 O2 sat: 100% on 3L Plan: Acute hypoxic respiratory failure due to acute CHF exacerbation/interstitial lung disease. History of mediastinal and right hilar adenopathy likely reactive and previously stable diastolic chf, pericardial effusion. The dyspnea is likely multifactorial - there is a cardiac component from diastolic congestive heart disease, as well as pulmonary comopnent from IPF and pulmonary htn -Cont pulm / card follow-ups CHF -Consider limited echocardiogram to reassess pericardial effusion. -Continue IV diuresis with furosemide 40 mg daily with close follow-up of BUN/ creatinine, potassium, magnesium, CO2. I was not able to hear crackles this morning- need to confirm to evaluate if cont diuresis is needed. ILD -from the pulmonary perspective goal spo2 >88% -incentive spirometry -monitor ins/outs and diuresis -IPF is known to be a progressive disease, conservative monitoring with PFTs and routine imaging is the current plan on an outpatient basis Elevated TSH T4 is in range, no need to increase levothryoxine dose. Electrolytes: Patients magnesium was low yesterday. Today her Cl and bicarb are low. -Mg up to 1.6, replete magnesium and maintain at or above 2.0 mEq/L. -do anything about low Cl/bicarb? -Note abnormal albumin/globulin ratio and follow-up.
--- NOTE | 2017-05-18 12:03 | PN- Cardiology ---
Subjective Subjective: Feeling better. Shortness of breath is SIGimproved. No chest pain. No palpitations. No diaphoresis. Objective Vital Signs and I&Os Vital Signs Date Time Temp Pulse Resp B/P B/P Pulse O2 O2 Flow FiO2 Mean Ox Delivery Rate 05/18 0849 97.9 73 18 150/90 05/18 0847 97.9 73 18 150/90 05/18 0800 Nasal 3.0L Cannula 05/18 0658 97.9 59 18 150/90 100 Nasal Cannula 05/18 0000 Nasal 3.0L Cannula 05/17 2314 98.0 70 18 136/60 94 05/17 1458 97.6 74 18 112/50 92 Nasal 3.0L Cannula Intake & Output 05/18 1600 05/18 0800 05/18 0000 05/17 1600 05/17 0805/17 0000 Intake Total 100 1160 900 Output Total 195 936 8323 400 325 Balance -250 -600 -540 -400 575 Intake, Oral 100 1160 900 Number 3 Bowel Movements Output, Urine 015 370 4010 400 325 Patient 163 lb 168 lb Weight Weight Chair scale Chair scale Measurement Method Physical Exam: Gen: NAD HEENT: normal Lungs: Few rales, normal resp. effort Heart: RRR, S1, S2, no murmurs Abdomen: Soft, nontender, no masses Extremities: 1-2+ edema Neuro: Alert and oriented x 3, cranial nerves intact Current Medications: Current Medications Sig/Sanjuanita Start time Last Medication Dose Route Stop Time Status Admin Acetaminophen 650 MG Q6P PRN 05/15 2000 AC PO Enoxaparin Sodium 40 MG DAILY 05/16 1000 AC 05/18 SC 0847 Furosemide 40 MG DAILY 05/16 1000 AC 05/18 IV 0847 Ibuprofen 600 MG Q6P PRN 05/15 2000 AC PO Levothyroxine Sodium 0.1 MG DAILY AC 05/17 0700 AC 05/18 PO 0700 Magnesium Chloride 64 MG ONCE ONE 05/18 0300 DC 05/18 PO 05/18 0301 0400 Oxycodone HCl 10 MG Q6P PRN 05/15 2000 AC PO Potassium Chloride 20 MEQ ONCE ONE 05/17 1400 DC 05/17 PO 05/17 1401 1753 Prazosin HCl 5 MG DAILY 05/16 1000 AC 05/18 PO 0849 Verapamil HCl 240 MG DAILY 05/16 1000 AC 05/18 PO 0847 Results Last 48 Hrs of Labs/Mics: Laboratory Tests 05/18/17 0619: Anion Gap 8, Estimated GFR > 60, BUN/Creatinine Ratio 25.0, Magnesium 1.6 05/17/17 0728: Anion Gap 9, Estimated GFR > 60, BUN/Creatinine Ratio 21.3, Magnesium 1.5 L, CBC w Diff NO MAN DIFF REQ, RBC 4.69, MCV 71.3 L, MCH 22.9 L, RDW 20.4 H, MPV 7.9, Gran % 65.3, Lymphocytes % 21.3, Monocytes % 11.3 H, Eosinophils % 1.8, Basophils % 0.3, Absolute Granulocytes 3.2, Absolute Lymphocytes 1.1 L, Absolute Monocytes 0.6, Absolute Eosinophils 0.1, Absolute Basophils 0, PUBS MCHC 32.1 L Assessment/Plan Assessment/Plan Assessment: 1. Hypertension 2. Acute on chronic diastolic heart failure 3. Pulmonary fibrosis Plan: * Change Lasix to 60 mg by mouth daily * Cleared for discharge from cardiac standpoint. * Follow up with Dr. Zuniga within one week. * Echo as outpatient with Dr. Zuniga. Continue telemetry? No
[2017-05-18] MEDS ORDERED: LASIX40 M1 PO (13:07)
--- NOTE | 2017-05-18 14:31 | Discharge Summary ---
See Addendum Visit Information Visit Dates Admission Date: 05/15/17 Discharge Date: 05/18/17 Hospital Course Course Attending Physician: FELICIA WILLIAMSON MD Primary Care Physician: SEFERINO FAIRCHILD Other Care Providers: Pulmonolgy-Dr. Hernandez Cardiology-Dr. Nice Consulting Request: Consulting Specialty: Cardiology Hospital Course: butMs. Segura is a 82-year-old female with a PMH significant for heart failure with preserved ejection fraction 55-60%, pulmonary hypertension, moderate pericardial effusion, mitral insufficiency, lower extremity swelling on lasix, interstitial lung disease on home oxygen 3 L, hypothyroidism, hypertension, hyperlipidemia, breast cancer status postradiation, colon cancer status postsurgical resection presented to ED with worsening shortness of breath and leg swelling. Vitals on admission-afebrile, heart rate 86, respiratory rate 22, blood pressure 139/62, saturating at 96 on 4L oxygen Physical examination-awake alert oriented 3, HEENT within normal limits, no JVD , no lymphadenopathy, heart S1-S2 normal, regular, 3/6 systolic murmur. Lungs bilateral crackles in the lower lobes. Abdomen soft and distended. Extremities 2 + pitting edema up to knees. Left lower extremity 2 noticeable blisters without any drainage POA. Pertinent labs on admission WBC 4.9, hemoglobin 11.7 and hematocrit 36.8, platelets 178 BUN 16 and creatinine 0.8 D-dimer 383 ProBNP elevated 673 TSH 7.9 Troponins negative EKG showed sinus rhythm, rate 84, left axis deviation, left anterior fascicular block, no acute ST-T wave changes She was put on IV lasix 40mg, 3L oxygen NC, TRC nebs in the ED, and possible DVT was ruled out with negative lower extremity doppler. She was admitted to telemetry to rule out ACS. Her repeat trop/ecg were negative. Lasix IV was continued in telemetry with continual leg elevation. We continued her 3L oxygen on NC with a goal O2 saturation >88%. During her stay she complained of persistent SOB with ESTEVEZ but denied chest pain, her symptoms later improved with current regimen-. Her levothyroxine was increased from 88mcg to 100mcg because of suspicion of pericardial effusion due to hypothyroidsim. Her Prazosin 5mg and Verapamil 240mg were continued inpatient. She was monitored on incentive spirometry for lung expansion. Her repeat CXR showed improvement from previous ED CXR. Her vitals remained stable, her potassium and magnesium were repleted PRN. She was cleared from Cardiology-Dr. Barr, Pulmonology-Dr. Hernandez. She remained stable during her discharge home. Her Lasix home dose was changed from 60mg to 40mg PO and instructed to follow up as an outpatient with cardiology ( with Dr. Nice), pulmonolgy and her PCP within 1-2 weeks after discharge. Problem list: 1. Acute on chronic respiratory failure 2. Worsening IPF 3. Acute on chronic HFpEF 4. History of hypothyroidism 5. HTN 1. Acute hypoxic respiratory failure from acute CHF exacerbation/interstitial lung disease patient has history of heart failure with preserved ejection fraction 55-60%. Now presented with acute worsening shortness of breath and leg swelling. Uses 3 L oxygen at home throughout the day. However she she required 4 L in the emergency room saturating at 92%. * Oxygen requirement of 3L at baseline * Usually takes 40 mg Lasix at home, currently on IV 40 mg Lasix daily * Strict ins and outs * Daily weights * Leg elevation * Limited Echocardiogram to be followed as an outpatient * Cardiology consulted * Pulmonology consulted Interstitial lung disease patient has history of interstitial lung disease, pulmonary fibrosis-uses home oxygen [address] Hernandez as an outpatient. 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 Secondary pulmonary arterial hypertension, Mediastinal and right hilar adenopathy, Marked four-chamber dilated cardiomyopathy with associated small pericardial effusion. * Total respiratory care * Provide supplemental oxygen as required * Maintain oxygen saturation greater than 88% * Continue IS Lower extremity swelling Patient has +2 bilateral pitting edema. * Monitor ins and outs and daily weights. Leg elevation. * Lasix 40mg IV Hypothyroidism * Increaed dose of Levo-T from home medication levothyroxine 100 g due to lower ext edema and TSH-7.94 Hypertension * Resumed Prazosin 5 mg * Resumed verapamil 240 mg Full code Heart healthy diet Pain pathway Subcutaneous Lovenox DVT prophylaxis Allergies: Coded Allergies: aspirin (Bleeding per patient 05/15/17) Pertinent Lab Results: 05/15/17-1617 XR PORTABLE CHEST IMPRESSION: 1. Vascular prominence with interstitial prominence suggesting mild edema. 2. Stable globular enlargement of the cardiac silhouette. Prior CT demonstrated a pericardial effusion. 05/15/17-1706 US-EXT BILAT VENOUS DOPPLER IMPRESSION: Normal triplex scan without evidence of deep venous thrombosis involving the lower extremities. 05/17/17-599 XRY-PORTABLE CHEST XRAY IMPRESSION: Stable enlargement of the cardiac silhouette. Improved CHF compared to 05/15/2017 exam. Disposition Summary Disposition Principal Diagnosis: Acute hypoxic respiratory failure Additional Diagnosis: CHF exacerbation Intersstitial lung disease Discharge Disposition: home health services Discharge Instructions General Discharge Information Code Status: Full Code Patient's Diet: As tolerated Patient's Activity: As tolerated Follow-Up Instructions/Appts: Follow up with your pcp in 1-2 weeks after d/c Follow up with your mirror framer in 1week after d/c Echo as outpatient with Dr. Nice. Changed Lasix to 60 mg from 40mg by mouth daily Follow up with your broadband engineer in 1-2 weeks after d/c IPF is known to be a progressive disease, conservative monitoring with PFTs and routine imaging as an outpatient basis Medications at Discharge Discharge Medications: Stop taking the following medications: Furosemide (Lasix) 40 MG TABLET ORAL DAILY Days = 30 Continue taking these medications: Prazosin HCl (Minipress) 5 MG CAPSULE 1 Capsule ORAL 1XDAY Comments: Last Taken:05/18/17 Time:9AM Levothyroxine Sodium (Levothyroxine Sodium) 88 MCG TABLET 1 Tablet ORAL 1XDAY Comments: Last Taken:05/18/17 Time:7AM Verapamil HCl (Verapamil ER) 240 MG CAP24H.PEL 1 Tablet ORAL 1XDAY Comments: Last Taken:05/18/17 Time:9AM Potassium Chloride (Klor-Con M20) 20 MEQ TAB.ER.PRT 2 Tablet ORAL DAILY Comments: NOT GIVEN Start taking the following new medications: Furosemide (Lasix) 40 MG TABLET 1.5 Tablet ORAL DAILY Qty = 30 No Refills Copies To: BERTA PROCTOR,SEFERINO Hinton; Grzegorz NICE MD; TAYLOR HERNANDEZ MD
[2017-05-18 16:00] VITALS: BP 128/70
== END 2017-05-18 19:38 | disposition home health service (06) | DRG 291 ==
LOC: ERH 16:03 → 1NO 19:59 → ERHI 19:59 → 1NO 19:59 → ENRESERV 20:32 → ENTRNSPT 20:43 → EDTRNSPT 21:19 → EDTRNSPTSTS 21:19 → 1NO 21:41 → CMPTRNSPT 22:18 → 1NO 05-18 07:57 → ENPENDDIS 05-18 14:55 → 1NO 05-18 19:38
PROVIDERS: Hospitalist; Internal Medicine; Physician Assistant; ADMIT Internal Medicine
DX: I11.0 Hypertensive heart disease with heart failure (principal); J96.21 Acute and chronic respiratory failure with hypoxia; J84.9 Interstitial pulmonary disease, unspecified; I50.33 Acute on chronic diastolic (congestive) heart failure; I27.2 Other secondary pulmonary hypertension; Z99.81 Dependence on supplemental oxygen; I34.0 Nonrheumatic mitral (valve) insufficiency; I44.60 Unspecified fascicular block; E03.9 Hypothyroidism, unspecified; R19.00 Intra-abdominal and pelvic swelling, mass and lump, unspecified site; F41.9 Anxiety disorder, unspecified; E78.5 Hyperlipidemia, unspecified; Z85.3 Personal history of malignant neoplasm of breast; Z85.038 Personal history of other malignant neoplasm of large intestine
CPT/HCPCS: 1NSP; 36415; 82436; 93005; 93010; 93970; J1650; J1940

== ENCOUNTER 2018-03-25 15:23 | Inpatient (IN) | payer OTHER ==
[~2018-03-25] VITALS: Ht 160 cm; Wt 69.4 kg
[2018-03-25 15:58] LABS: ABSOLUTE BASOPHIL COUNT 0 /CUMM (0.0-0.2); ABSOLUTE EOSINOPHIL COUNT 0 /CUMM (0.0-0.7); ABSOLUTE GRANULOCYTE CT 12.4 /CUMM (1.4-6.5); ABSOLUTE LYMPH COUNT 1.4 /CUMM (1.2-3.4); ABSOLUTE MONOCYTE COUNT 1.3 /CUMM (0.10-0.60); BASOPHIL % 0.1 % (0.0-2.0); EOSINOPHIL % 0.1 % (0-5); GRANULOCYTE % 81.9 % (42.2-75.2); HEMATOCRIT 44.5 % (37-47); MEAN CORPUSCULAR HGB 23.8 PG (27.0-31.0); MEAN CORPUSCULAR HGB CONC 32.5 G/DL (33.0-37.0); MEAN CORPUSCULAR VOLUME 73.4 FL (81.0-99.0); MEAN PLATELET VOLUME 7.4 FL (7.4-10.4); PLATELET COUNT 226 /CUMM (130-400); RBC DISTRIBUTION WIDTH 19.4 % (11.5-14.5); RED BLOOD CELL CT 6.06 /CUMM (4.20-5.40); WHITE BLOOD CELL COUNT 15.1 /CUMM (4.8-10.8)
--- NOTE | 2018-03-25 16:09 | RADIOLOGY REPORT ---
EXAMINATION: XR PORTABLE CHEST CLINICAL INFORMATION: Shortness of breath. Congestive heart failure. COMPARISON: Chest x-ray 05/17/2017 TECHNIQUE: Portable frontal view of the chest was obtained. 3:27 PM FINDINGS: There is massive enlargement of the cardiac silhouette. This is similar to prior chest x-ray. There are calcifications of aorta. The central hilar vessels are mildly prominent is chronic as well unchanged since prior study. No infiltrate or pleural effusion. No pneumothorax. IMPRESSION: Massive cardiomegaly. Mild prominence of the central hilar vessels. The findings are similar to prior chest x-ray of 05/17/2017.
--- NOTE | 2018-03-25 16:22 | ED GENERAL ADULT ---
History of Present Illness General Chief Complaint: Dyspnea (COPD, CHF, Other) Stated Complaint: SOB Source: patient, family Exam Limitations: poor historian Vital Signs & Intake/Output Vital Signs & Intake/Output Vital Signs Date Time Temp Pulse Resp B/P B/P Pulse O2 O2 Flow FiO2 Mean Ox Delivery Rate 03/25 1741 98.6 104 20 136/65 Nasal 3.0L Cannula 03/25 1534 98.2 87 20 158/98 96 Nasal 3.0L Cannula Allergies Coded Allergies: aspirin (Bleeding per patient 05/15/17) Reconcile Medications Amiloride/Hydrochlorothiazide (Amiloride HCl-Hctz 5-50 MG Tab) 5 MG-50 MG TABLET 1 TAB PO DAILY BP (Reported) Furosemide (Lasix) 40 MG TABLET 1.5 TAB PO DAILY leg sweeling, chf Levothyroxine Sodium 100 MCG TABLET 1 TAB PO DAILY THYROID (Reported) Potassium Chloride (Klor-Con M20) 20 MEQ TAB.ER.PRT 2 TAB PO DAILY SUPPLEMENT (Reported) Prazosin HCl (Minipress) 5 MG CAPSULE 1 CAP PO 1XDAY BP (Reported) Verapamil HCl (Verapamil ER) 240 MG CAP24H.PEL 1 TAB PO 1XDAY CALCIUM CHANNEL RIGOBERTO (Reported) Triage Note: PT TO ED BY AMBULANCE WITH C/O TREMORS BEGINNIGN TODAY. HX CHF, COPD ON 3 L NC AT BASELINE. ALSO REPORTS RECENT PRODUCTIVE COUGH. PT COMPLAINT FREE ON ARRIVAL, NO TREMORS NOTED. Triage Nurses Notes Reviewed? yes Onset: Abrupt Duration: day(s): (1-2), changing over time Timing: single episode today Injury Environment: home Severity: moderate, severe No Modifying Factors: none Associated Symptoms: cough LMP (ages 10-50): post menopausal, unknown : No Patient currently breastfeeds: No HPI: 83-year-old female past medical history of CHF, COPD, interstitial lung disease, hypertension, colon cancer presents for evaluation of episodes of tremors, weakness cough and shortness of breath. Patient states that she is short of breath at baseline but feels like its getting worse of the past several days. Today she had multiple episodes of tremors in her bilateral upper extremities and lasted for several seconds and then resolved. She states that the shortness of breath is worse on exertion and improves somewhat at rest. She is on 3 L nasal cannula at baseline. She denies having any fever but does report some malaise and weakness. No hemoptysis. She does have lower extremity edema that has been present at baseline for several months. No nausea vomiting abdominal pain. No rashes. She denies urinary urgency or dysuria. No hematuria but she does report urinary frequency. No chest pain. Patient reports she has been unable to walk due to the weakness. She usually able to get around with a walker. (Bebo Armendariz) Past History Travel History Traveled to [place] past 21 day No Medical History Any Pertinent Medical History? see below for history Neurological: NONE EENT: NONE Cardiovascular: CHF, hypertension Respiratory: interstitial lung disease Gastrointestinal: Colon cancer Renal: NONE Musculoskeletal: NONE Psychiatric: anxiety Endocrine: hypothyroidism Blood Disorders: NONE Cancer(s): breast cancer, colon/rectal cancer CHEF GERMAN/Reproductive: NONE History of MRSA: No History of VRE: No History of CDIFF: No Pneumonia Vaccine: 09/09/15 Surgical History Surgical History: non-contributory Psychosocial History Who do you live with Father What is your primary language Moldovan Tobacco Use: Never used Family History Family History, If Any: FATHER (heart disease). Hx Contributory? No (Bebo Armendariz) Review of Systems Review of Systems Constitutional: Reports: chills, malaise, weakness. EENTM: Reports: no symptoms. Respiratory: Reports: see HPI, cough, short of breath, sputum production. Cardiovascular: Reports: no symptoms. GI: Reports: no symptoms. Genitourinary: Reports: no symptoms. Musculoskeletal: Reports: no symptoms. Skin: Reports: no symptoms. Neurological/Psychological: Reports: no symptoms. Hematologic/Endocrine: Reports: no symptoms. Immunologic/Allergic: Reports: no symptoms. All Other Systems: Reviewed and Negative (Bebo Armendariz) Physical Exam Physical Exam General Appearance: well developed/nourished, no apparent distress, alert, awake Head: atraumatic, normal appearance Eyes: Bilateral: normal appearance, PERRL, EOMI. Ears, Nose, Throat: hearing grossly normal Neck: normal inspection, supple, full range of motion Respiratory: normal breath sounds, chest non-tender, no respiratory distress, lungs clear Cardiovascular: regular rate/rhythm, normal peripheral pulses Peripheral Pulses: 2+ radial (R), 2+ radial (L) Gastrointestinal: soft, non-tender, large palpable mass/hernia in the periumbilical area no erythema or bruising Back: normal inspection, normal range of motion, no vertebral tenderness Extremities: normal inspection, normal range of motion, bilateral lower extremity edema nonpitting Neurologic/Psych: no motor/sensory deficits, awake, alert, oriented x 3 Skin: intact, normal color, warm/dry Core Measures ACS in differential dx? No CVA/TIA Diagnosis: No Sepsis Present: No Sepsis Focused Exam Completed? No (Carlitos VELIZ,Bebo) Progress Differential Diagnoses I considered the following diagnoses in my evaluation of the patient: [CHF exacerbation, COPD exacerbation, pneumonia, sepsis, UTI, acute coronary syndrome , PE] Plan of Care: Orders Procedure Date/time Status Heart Healthy Diet 03/26 B Active Misc Message 03/25 1956 Active ED Holding Orders 03/25 1956 Active Admit to inpatient 03/25 1956 Active Vital Signs 03/25 1956 Active Code Status 03/25 1956 Active BLOOD CULTURE 03/25 1945 Active Fleming, Insertion/Removal/Asses 03/25 1929 Active CULTURE,URINE 03/25 1929 Active LACTIC ACID 03/25 1827 Complete Add-on Test (ER Only) 03/25 1736 Active CULTURE,URINE 03/25 1628 Active Add-on Test (ER Only) 03/25 1626 Active D-DIMER 03/25 1551 Complete URINALYSIS 03/25 1527 Complete TROPONIN LEVEL 03/25 1527 Complete MAGNESIUM 03/25 1527 Complete LACTIC ACID 03/25 1527 Complete COMPREHENSIVE METABOLIC PANEL 03/25 1527 Complete CBC WITHOUT DIFFERENTIAL 03/25 1527 Complete B-TYPE NATRIURETIC PEP (BNP) 03/25 1527 Complete EKG 03/25 1524 Active Laboratory Tests 03/25/18 1835: Lactic Acid 1.5 03/25/18 1628: Urine Color YEL, Urine Clarity CLEAR, Urine pH 6.0, Ur Specific [place] 1.015, Urine Protein NEG, Urine Ketones NEG, Urine Nitrite POS H, Urine Bilirubin NEG, Urine Urobilinogen 1.0, Ur Leukocyte Esterase TRACE H, Ur Microscopic SEDIMENT EXAMINED, Urine RBC 1-3, Urine WBC 5-10 H, Ur Epithelial Cells RARE, Urine Bacteria PACKD H, Urine Hemoglobin TRACE-INTACT, Urine Glucose NEG 03/25/18 1551: Anion Gap 12, Estimated GFR 53 L, BUN/Creatinine Ratio 42.0 H, Glucose 121 H, Lactic Acid 3.0 H, Calcium 8.7, Magnesium 1.7, Total Bilirubin 1.5 H, AST 28, ALT 20, Alkaline Phosphatase 128 H, Troponin I 0.05, Dwh-X-Vlrvyqbyjqh Pept 5320 H, Total Protein 8.3 H, Albumin 3.2 L, Globulin 5.1 H, Albumin/Globulin Ratio 0.6 L, D-Dimer High Sensitivty 1054 H, CBC w Diff NO MAN DIFF REQ, RBC 6.06 H, MCV 73.4 L, MCH 23.8 L, MCHC 32.5 L, RDW 19.4 H, MPV 7.4, Gran % 81.9 H, Lymphocytes % 9.0 L, Monocytes % 8.9, Eosinophils % 0.1, Basophils % 0.1, Absolute Granulocytes 12.4 H, Absolute Lymphocytes 1.4, Absolute Monocytes 1.3 H, Absolute Eosinophils 0, Absolute Basophils 0 Microbiology 03/25 1945 BLOOD: Blood Culture - ORD 03/25 1945 BLOOD: Blood Culture - ORD 03/25 1929 URINE ROUT: Urine Culture - ORD 03/25 1628 URINE ROUT: Urine Culture - RECD PT seen and evaluated. She is here with nonspecific complaints of weakness tremor shortness of breath and cough. On initial evaluation vital signs are stable patient is afebrile. She is on 3 L nasal cannula at baseline. She appears very weak having difficulty even sitting up in the bed. She reports being unable to ambulate due to weakness. Lung sounds are diminished bilaterally. Labs EKG chest x-ray ordered. Patient is incontinent at baseline. She was straight cathed for urinalysis and had a very large volume of urine 700 mL drained. BLOOD Work shows a white blood cell count of 15,000 with left shift and a lactic acid of 3. Her d-dimer is also elevated. Urinalysis shows signs of infection cultures ordered. Patient does have an elevated BNP with cardiomegaly but there does not appear to be any pulmonary edema to suggest acute CHF. Patient started on Rocephin for possible UTI.. IV fluids also ordered. CT is negative for pneumonia pulmonary embolism or acute abdomen. Patient does have a large cystic abdominal wall lesion renal stones evidence of pulmonary hypertension. She also has a distended urinary bladder which could mean that she is retaining urine considering she just had 700 mL removed by straight cath. A Fleming catheter will be placed. No other acute findings. Reviewed results with patient. She'll be admitted to the hospital for further evaluation of weakness and UTI with leukocytosis and lactic acidosis. She will require serial labs, IV antibiotics, gentle IV hydration, urology consult, follow-up cultures, monitoring of vital signs. Case discussed with Dr. Torres he agrees. Diagnostic Imaging: Viewed by Me: Radiology Read, CT Scan. Discussed w/RAD: Radiology Read, CT Scan. Radiology Impression: PATIENT: LOLA ANDERSON PRESENT AGE : 83 PATIENT ACCOUNT NO: [id number] : 37 LOCATION: [facility] ORDERING PHYSICIAN: Bebo VELIZ SERVICE DATE: 03/25/18 EXAM TYPE: RAD - XRY- PORTABLE CHEST XRAY EXAMINATION: XR PORTABLE CHEST CLINICAL INFORMATION: Shortness of breath. Congestive heart failure. COMPARISON: Chest x-ray 2016 TECHNIQUE: Portable frontal view of the chest was obtained. 3:27 PM FINDINGS: There is massive enlargement of the cardiac silhouette. This is similar to prior chest x-ray. There are calcifications of aorta. The central hilar vessels are mildly prominent is chronic as well unchanged since prior study. No infiltrate or pleural effusion. No pneumothorax. IMPRESSION: Massive cardiomegaly. Mild prominence of the central hilar vessels. The findings are similar to prior chest x-ray of 05/17/2017. DICTATED BY: Ryan Gonzalez MD DATE/ TIME DICTATED:03/25/181603 BILINGUAL EXECUTIVE ASSISTANT:MARIA FERNANDA DATE/TIME TRANSCRIBED: 03/25/181603 CONFIDENTIAL, DO NOT COPY WITHOUT APPROPRIATE AUTHORIZATION. < Electronically signed in Other Vendor System> SIGNED BY: Ryan Gonzalez MD [id number], PATIENT: LOLA ANDERSON PRESENT AGE: 83 PATIENT ACCOUNT NO: [id number] : 37 LOCATION: [facility] ORDERING PHYSICIAN: Bebo VELZI SERVICE DATE: 03/25/184860 EXAM TYPE: CAT - CT ABD & PELVIS W IV CONTRAST; CTA CHEST-PULMONARY EMBOLISM EXAMINATION: 1. CTA CHEST 2. CT ABDOMEN AND PELVIS WITH CONTRAST CLINICAL INFORMATION: Shortness of breath. Hypoxia. Acute abdominal pain. Elevated WBC. Umbilical hernia. COMPARISON: CTA of chest 04/29/2016. CT chest 12/13/2016. Portable chest study 03/25/2018. CT abdomen 05/27/2010. TECHNIQUE: A noncontrast localizer was performed, followed by the administration of 95 mL Optiray [address] of the chest was then performed. Coronal and sagittal reformatted and 3-D technique MIP images of the chest were completed at the CT scanner and reviewed on the PACS workstation. No adverse effects were reported. Images were then performed through the abdomen and pelvis. Coronal and sagittal reformatted images performed at CT scanner by technologist. DLP: 871.78 mGy-cm FINDINGS: 1. CTA CHEST: Vascular: The main pulmonary artery, secondary and tertiary branches of the pulmonary artery are normally opacified with no evidence of pulmonary embolism. There is dilatation of the pulmonary artery to a diameter of 5.2 cm. The right main pulmonary artery measures 3.6 cm. The left main pulmonary artery measures 2.9 cm. The heart is enlarged. The ascending aorta is normal in size measuring 3.8 cm though there are vascular wall calcifications of aorta. There is no dissection of aorta. Mediastinum: No mediastinal mass. No significant lymphadenopathy. There is a small pericardial effusion. Lungs: There is dependent atelectasis at lung bases. No focal consolidation. Central bronchial airways are open. Fluid: There is no pericardial effusion. There is no pleural effusion. Axilla: No significant lymphadenopathy. 2. CT SCAN ABDOMEN PELVIS: Liver, Gallbladder, and Biliary Tree: Status post cholecystectomy. The extrahepatic CBD is dilated to a diameter of 1.2 cm. No calcified stone seen within the bile ducts. No focal liver lesion. Pancreas: Unremarkable. Spleen: The spleen is enlarged. Spleen measures 12.7 cm AP. Adrenal Glands: Unremarkable. Kidneys And Ureters: Left kidney is inferiorly displaced and rotated. There is mild dilatation of the renal pelvis of both kidneys without hydroureter. There is a nonobstructive 3 mm stone in the left renal pelvis. There is a 1 mm stone in the lower pole calyx of left kidney. No stone in the right kidney. No ureteral calculi. Bladder: Bladder is distended. The bladder measures 17 cm superior inferior. There is a bladder diverticulum on the right side of the bladder measuring about 5.5 cm. Gastrointestinal Tract: There is diverticulosis of the colon. The diverticula are most numerous at the left colon and sigmoid. No diverticulitis. No bowel wall thickening or edema. There is a surgical suture line at the right colon with prior right hemicolectomy. Anastomosis intact. Moderate amount of scattered stool in the colon. The small bowel loops are unremarkable. Mesentery: No ascites. No inflammation. Abdominal Wall: There is a well-defined cystic lesion in the subcutaneous tissue at the lower anterior pelvis. This measures 10.4 x 8.2 x 12.3 cm. There are scattered linear calcifications of the wall of this cyst. This has a density measurement of 25 Hounsfield units, mildly complex fluid. No air in the cyst. No inflammation surrounding the cystic lesion. Lymph Nodes: No significant lymphadenopathy. Vascular: There are atherosclerotic vascular wall calcifications of aorta and the major branch vessels without aneurysm. There is no dissection of aorta. Pelvic Viscera: Uterus is anteverted. There is a mass in the left adnexa likely related to the ovary. This is a solid enhancing lesion. It measures 6.2 x 5 x 7 cm. Osseous Structures: There is multilevel degenerative spondylosis of the spine with disc height narrowing, endplate spurring and facet joint arthrosis. There is joint narrowing of the hip joints bilateral. IMPRESSION: 1. No evidence of pulmonary embolism. 2. Atherosclerotic vascular wall calcifications of aorta but no aneurysm or dissection. 3. The pulmonary arteries are enlarged suggesting pulmonary hypertension. 4. Cardiomegaly. 5. Small pericardial effusion. 6. Status post cholecystectomy with dilatation of the extrahepatic CBD related to prior biliary disease. 7. Splenomegaly. 8. The left kidney is displaced inferiorly. There is dilatation of the renal pelvis and calyces of both kidneys without hydroureter. There is a nonobstructive 3 mm stone in the left renal pelvis and a 1 mm stone in the lower pole calyx of left kidney. 9. Well-defined cystic lesion at the anterior abdominal wall in the lower pelvis. 10. Distended bladder with bladder diverticulum. 11. Left adnexal mass likely related to the left ovary. No abdominal or pelvic adenopathy. No abdominal ascites. 12. Partial right hemicolectomy. Diverticulosis of colon. No acute change of the bowel. DICTATED BY: Ryan Gonzalez MD DATE/TIME DICTATED:03/25 BILINGUAL EXECUTIVE ASSISTANT:MARIA FERNANDA DATE/TIME TRANSCRIBED:03/25/181820 CONFIDENTIAL, DO NOT COPY WITHOUT APPROPRIATE AUTHORIZATION. <Electronically signed in Other Vendor System> Initial ED EKG: NSR, MULTIFOCAL PVC, LVH, LATERAL Q WAVES (Bebo Armendariz) Departure Departure Disposition: STILL A PATIENT Condition: Stable Clinical Impression Primary Impression: Acute cystitis Secondary Impressions: Lactic acidosis, Leukocytosis, Urinary retention Referrals: Reyes PROCTOR,Drew Hinton (PCP/Family) Departure Forms: Customer Survey General Discharge Information Admission Note Spoke With: Margarito JAIMES,Jasper Documentation of Exam: Documentation of any treatments & extenuating circumstances including Concerns Regarding Discharge (functional status, medication knowledge or non-compliance, living conditions, etc.) that warrant an admission rather than observation: [ serial labs, IV antibiotics, gentle IV hydration, urology consult, follow-up cultures, monitoring of vital signs] (Bebo Armendariz) PA/AGING BOX HAND Co-Sign Statement Statement: ED Attending supervision documentation- [X] I saw and evaluated the patient. I have also reviewed all the pertinent lab results and diagnostic results. I agree with the findings and the plan of care as documented in the PA's/AGING BOX HAND's documentation. Patient presents for evaluation of analyzed weakness shaking and shortness of breath. Physical examination reveals an alert and conversant patient in no acute respiratory distress at this time. [] I have reviewed the ED Record and agree with the PA's/AGING BOX HAND's documentation. [] Additions or exceptions (if any) to the PAs/AGING BOX HAND's note and plan are summarized below: [] (Melissa JAIMES,Rip Carcamo) Critical Care Note Critical Care Note Critical Care Time: non-applicable (Bebo Armendariz)
[2018-03-25] MEDS ORDERED: AMILORIDE HCL-1 EACH PO (18:35)
[2018-03-25] MEDS ORDERED: LEVOTHYROXINE88 MCG PO (18:36)
--- NOTE | 2018-03-25 18:55 | CT SCAN REPORT ---
EXAMINATION: 1. CTA CHEST 2. CT ABDOMEN AND PELVIS WITH CONTRAST CLINICAL INFORMATION: Shortness of breath. Hypoxia. Acute abdominal pain. Elevated WBC. Umbilical hernia. COMPARISON: CTA of chest 04/29/2016. CT chest 12/13/2016. Portable chest study 03/25/2018. CT abdomen 05/27/2010. TECHNIQUE: A noncontrast localizer was performed, followed by the administration of 95 mL Optiray [address] of the chest was then performed. Coronal and sagittal reformatted and 3-D technique MIP images of the chest were completed at the CT scanner and reviewed on the PACS workstation. No adverse effects were reported. Images were then performed through the abdomen and pelvis. Coronal and sagittal reformatted images performed at CT scanner by technologist. DLP: 871.78 mGy-cm FINDINGS: 1. CTA CHEST: Vascular: The main pulmonary artery, secondary and tertiary branches of the pulmonary artery are normally opacified with no evidence of pulmonary embolism. There is dilatation of the pulmonary artery to a diameter of 5.2 cm. The right main pulmonary artery measures 3.6 cm. The left main pulmonary artery measures 2.9 cm. The heart is enlarged. The ascending aorta is normal in size measuring 3.8 cm though there are vascular wall calcifications of aorta. There is no dissection of aorta. Mediastinum: No mediastinal mass. No significant lymphadenopathy. There is a small pericardial effusion. Lungs: There is dependent atelectasis at lung bases. No focal consolidation. Central bronchial airways are open. Fluid: There is no pericardial effusion. There is no pleural effusion. Axilla: No significant lymphadenopathy. 2. CT SCAN ABDOMEN PELVIS: Liver, Gallbladder, and Biliary Tree: Status post cholecystectomy. The extrahepatic CBD is dilated to a diameter of 1.2 cm. No calcified stone seen within the bile ducts. No focal liver lesion. Pancreas: Unremarkable. Spleen: The spleen is enlarged. Spleen measures 12.7 cm AP. Adrenal Glands: Unremarkable. Kidneys And Ureters: Left kidney is inferiorly displaced and rotated. There is mild dilatation of the renal pelvis of both kidneys without hydroureter. There is a nonobstructive 3 mm stone in the left renal pelvis. There is a 1 mm stone in the lower pole calyx of left kidney. No stone in the right kidney. No ureteral calculi. Bladder: Bladder is distended. The bladder measures 17 cm superior inferior. There is a bladder diverticulum on the right side of the bladder measuring about 5.5 cm. Gastrointestinal Tract: There is diverticulosis of the colon. The diverticula are most numerous at the left colon and sigmoid. No diverticulitis. No bowel wall thickening or edema. There is a surgical suture line at the right colon with prior right hemicolectomy. Anastomosis intact. Moderate amount of scattered stool in the colon. The small bowel loops are unremarkable. Mesentery: No ascites. No inflammation. Abdominal Wall: There is a well-defined cystic lesion in the subcutaneous tissue at the lower anterior pelvis. This measures 10.4 x 8.2 x 12.3 cm. There are scattered linear calcifications of the wall of this cyst. This has a density measurement of 25 Hounsfield units, mildly complex fluid. No air in the cyst. No inflammation surrounding the cystic lesion. Lymph Nodes: No significant lymphadenopathy. Vascular: There are atherosclerotic vascular wall calcifications of aorta and the major branch vessels without aneurysm. There is no dissection of aorta. Pelvic Viscera: Uterus is anteverted. There is a mass in the left adnexa likely related to the ovary. This is a solid enhancing lesion. It measures 6.2 x 5 x 7 cm. Osseous Structures: There is multilevel degenerative spondylosis of the spine with disc height narrowing, endplate spurring and facet joint arthrosis. There is joint narrowing of the hip joints bilateral. IMPRESSION: 1. No evidence of pulmonary embolism. 2. Atherosclerotic vascular wall calcifications of aorta but no aneurysm or dissection. 3. The pulmonary arteries are enlarged suggesting pulmonary hypertension. 4. Cardiomegaly. 5. Small pericardial effusion. 6. Status post cholecystectomy with dilatation of the extrahepatic CBD related to prior biliary disease. 7. Splenomegaly. 8. The left kidney is displaced inferiorly. There is dilatation of the renal pelvis and calyces of both kidneys without hydroureter. There is a nonobstructive 3 mm stone in the left renal pelvis and a 1 mm stone in the lower pole calyx of left kidney. 9. Well-defined cystic lesion at the anterior abdominal wall in the lower pelvis. 10. Distended bladder with bladder diverticulum. 11. Left adnexal mass likely related to the left ovary. No abdominal or pelvic adenopathy. No abdominal ascites. 12. Partial right hemicolectomy. Diverticulosis of colon. No acute change of the bowel.
--- NOTE | 2018-03-25 20:19 | History & Physical ---
JamesNichole Gordo Louiseie 03/25/18 2009: General Information and HPI MD Statement: I have seen and personally examined LOLA ANDERSON and documented this H&P. The patient is a 83 year old F who presented with a patient stated chief complaint of [Dyspnea]. Source of Information: patient, old records Exam Limitations: no limitations History of Present Illness: Ms. 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 Patient at baseline was stable with CHF being taken cared by Dr. Zuniga, currently on Lasix 60mg qd, slept on recliner chair/ 2 pillows, ambulating with walker/cane within the house, and had been feeling generalized weakness for about 2 weeks, however, for the past two days she had been having hand tremors on/off without particular triggers, and starting today patient had increasing SOB, cough with sputum stuck in her throat, however denied recent travel/sick contacts, fever/lightheadedness/diaphoresis/night sweat/weight change/Chest Pain/Palpitation/Abdominal pain/bowel movement or urinary abnormality (except some foul smell that she noticed.) Her appetite was not well for the past two days as well, with decreased PO intake, and haven't been taking her home meds for the past two days. -Smoking: never -Alcohol: rare -Rec Drugs: denied Of note, patient's son stated that patient appeared to be in depression after her a year ago. Allergies/Medications Allergies: Coded Allergies: aspirin (Bleeding per patient 05/15/17) Home Med list Furosemide (Lasix) 40 MG TABLET 1.5 TAB PO DAILY leg sweeling, chf Levothyroxine Sodium 88 MCG TABLET 1 TAB PO DAILY HYPOTSH (Reported) Potassium Chloride (Klor-Con M20) 20 MEQ TAB.ER.PRT 2 TAB PO DAILY SUPPLEMENT (Reported) Prazosin HCl (Minipress) 5 MG CAPSULE 1 CAP PO 1XDAY BP (Reported) Verapamil HCl (Verapamil ER) 240 MG CAP24H.PEL 1 TAB PO 1XDAY CALCIUM CHANNEL RIGOBERTO (Reported) Past History Travel History Traveled to [place] past 21 day No Medical History Neurological: NONE EENT: NONE Cardiovascular: CHF, hypertension Respiratory: interstitial lung disease Gastrointestinal: Colon cancer Renal: NONE Musculoskeletal: NONE Psychiatric: anxiety Endocrine: hypothyroidism Blood Disorders: NONE Cancer(s): breast cancer, colon/rectal cancer REPORT CHECKER/Reproductive: NONE History of MRSA: No History of VRE: No History of CDIFF: No Surgical History Surgical History: non-contributory Past Family/Social History Family History Relations & Conditions if any FATHER (heart disease). Psychosocial History Smoking Status: Never Smoked ETOH Use: occasional use Illicit Drug Use: denies illicit drug use Functional Ability ADLs Independent: dressing, eating, toileting, bathing. Ambulation: independent Review of Systems Review of Systems Constitutional: Reports: see HPI. Exam & Diagnostic Data Last 24 Hrs of Vital Signs/I&O Vital Signs Date Time Temp Pulse Resp B/P B/P Pulse O2 O2 Flow FiO2 Mean Ox Delivery Rate 03/25 1741 98.6 104 20 136/65 Nasal 3.0L Cannula 03/25 1534 98.2 87 20 158/98 96 Nasal 3.0L Cannula Intake & Output 03/25 1600 03/25 0800 03/25 0000 Intake Total Output Total Balance Patient 72.575 kg Weight Weight Reported by Patient Measurement Method Physical Exam General Appearance Alert, Oriented X3, Cooperative, No Acute Distress Skin No Rashes, No Breakdown, No Significant Lesion Skin Temp/Moisture Exam: Warm/Dry Sepsis Skin Exam (color): Normal for Ethnicity HEENT Atraumatic, PERRLA, Mucous Membr. moist/pink Neck Supple, No JVD Cardiovascular some premature beats Lungs Normal Air Movement, mild rhonchi bilateral lungs however not crackles Abdomen Normal Bowel Sounds, No Tenderness, Hiatal hernia in mid-ab, no tenderness on palpation Neurological Normal Speech, Normal Tone, Sensation Intact, 4/5 strength however around her baseline Last 24 Hrs of Labs/Jose: Laboratory Tests 03/25/18 1835: Lactic Acid 1.5 03/25/18 1628: Urine Color YEL, Urine Clarity CLEAR, Urine pH 6.0, Ur Specific [place] 1.015, Urine Protein NEG, Urine Ketones NEG, Urine Nitrite POS H, Urine Bilirubin NEG, Urine Urobilinogen 1.0, Ur Leukocyte Esterase TRACE H, Ur Microscopic SEDIMENT EXAMINED, Urine RBC 1-3, Urine WBC 5-10 H, Ur Epithelial Cells RARE, Urine Bacteria PACKD H, Urine Hemoglobin TRACE-INTACT, Urine Glucose NEG 03/25/18 1628: Urine Osmolality Pending, Ur Random Creatinine Pending, Ur Random Sodium Pending , Ur Random Potassium Pending, Fraction Sodium Excret Pending 03/25/18 1551: Anion Gap 12, Estimated GFR 53 L, BUN/Creatinine Ratio 42.0 H, Glucose 121 H, Serum Osmolality Pending, Lactic Acid 3.0 H, Calcium 8.7, Magnesium 1.7, Total Bilirubin 1.5 H, AST 28, ALT 20, Alkaline Phosphatase 128 H, Troponin I 0.05, Ehz-G-Dozgzqkpzhp Pept 5320 H, Total Protein 8.3 H, Albumin 3.2 L, Globulin 5.1 H, Albumin/Globulin Ratio 0.6 L, TSH Pending, Thyroxine (T4) Pending, D- Dimer High Sensitivty 1054 H, CBC w Diff NO MAN DIFF REQ, RBC 6.06 H, MCV 73.4 L, MCH 23.8 L, MCHC 32.5 L, RDW 19.4 H, MPV 7.4, Gran % 81.9 H, Lymphocytes % 9.0 L, Monocytes % 8.9, Eosinophils % 0.1, Basophils % 0.1, Absolute Granulocytes 12.4 H, Absolute Lymphocytes 1.4, Absolute Monocytes 1.3 H, Absolute Eosinophils 0, Absolute Basophils 0 Microbiology 03/25 1945 BLOOD: Blood Culture - ORD 03/25 1945 BLOOD: Blood Culture - ORD 03/25 1929 URINE ROUT: Urine Culture - ORD 03/25 1628 URINE ROUT: Urine Culture - RECD Assessment/Plan Assessment: On admission, Vitals: Stable afebrile, pulse tachycardia 104, RR 20, BP 136/65, 96% on 3 L -CBC: Leukocytosis 15.1 with mild granulocytosis, H/H stable, -BMP: Hyponatremia 131, CO2 36 slightly elevated from baseline of 83, lactic acidosis 4.0, proBNP 5320 (baseline 673). -UA/Microbiology: ?UTI with positive leukoesterase/WBC/nitrites -Chest CTA: No PE, suggesting pulmonary hypertension, cardiomegaly, small pericardial effusion, a/P cholecystectomy, left kidney with nonobstructive nephrolithiasis, a/P right partial hemicolectomy/diverticulosis of colon, bladder diverticulum -CXR: Similar finding the previous CXR in 2017 -EKG: NSR with some PVCs, LVH, lateral Q waves, however w/o significant ST-T abnormalities. 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 - PT eval for discharge recommendations - Start ceftriaxone for UTI and tailor per clinical course/culture - Continue all other home meds - Readjust Levothyroxine dosing as patient had hypoTSH on admission lab - Would inform Dr. Zuniga, and Dr. Wilson as courtesy. - Pending Psych consult for possible underlying depression - Pending urine lytes/antigens/culture, blood culture DVT prophylaxis Pharm PPX + ALPS Heart Healthy Diet Full Code As Ranked By This Provider Problem List: 1. Lactic acidosis 2. Acute cystitis 3. Leukocytosis Core Measures/Misc (07/12) Acute Coronary Syndrome ACS Diagnosis: No Congestive Heart Failure Congestive Heart Failure Diagnosis No Last Known EF % 55 Cerebrovascular Accident CVA/TIA Diagnosis: No VTE (View Protocol) VTE Risk Factors Age>40 No Mechanical VTE Prophylaxis d/t N/A MechProphylax Ordered No VTE Pharm Prophylaxis d/t NA PharmProphylax ordered Sepsis (View protocol) Sepsis Present: Yes If YES complete Sepsis Event Note If YES complete Sepsis Event Note Pily Elise 03/25/18 0963: Core Measures/Misc (07/12) Sepsis (View protocol) If YES complete Sepsis Event Note If YES complete Sepsis Event Note Resident Review Statement Resident Statement: examined this patient, discussed with manager of international Other Findings: Ms Anderson is a 83 year old woman w/ a PMHx of HFpEF, Cardiomyopathy, h/o previous pericardial effusion, hypertension, ILD-pulmonary fibrosis, colon cancer s/p Sx, hypothyroidism, breast cancer s/p RCT was brought to the hospital with a chief concern of weakness and lethargy. The family also reported continued dyspnea, which is chronic given her history of lung disease. She also had tremors of her upper extremities. Did not have any dysuria, but reported change in quality of her urine. No fever, but report chills. Occasional cough which is nonproductive. No chest pain, palpitations. No neurological weakness. Walks using a walker at baseline, and is relatively active. Uses 3 L oxygen at baseline. When she was in the ER, she was straight cathed for urinalysis and was reported to have large volume of urine after which a Fleming catheter was left in place. Reported decreased by mouth intake in the last few weeks. No nausea vomiting or diarrhea. Reported recent change in the dose of LT4. At the time of admission-temperature 98.2, pulse rate 87, respiration 20, blood pressure 158/98, pulse ox 96% on 3 L. General Exam: AAOx3, mild distress, Skin: No rashes, no breakdown;HEENT: PERRLA, EOMI;Neck: Supple, JVP upto 3-[address], no thyromegaly;No cervical lymphadenopathy;CVS: irregular Rate due to PVCs, Normal S1,S2, No MGR;Resp: decreased air entry, b/l ronchi/rales, no wheezes;Abdomen: Soft, No tenderness, Normal Bowel Sounds;Neuro: Normal Speech, Strength 5/5 b/l x 4 extremities, Sensation intact, CN III-XII NL, Reflexes 2+;Extremities: No cyanosis,2+ pedal edema, tremors b/l Pertinent lab findings: WBC 15.1 (81% granulocytes), Hb 14.4, MCV 73.4, platelets 226. Na 131, K 3.5, Cl 83, HCO3 36 (likely diuretics, volume contraction), Anion gap of 12 Renal function-BUN 42, creatinine 1.0 (likely dehydration), glucose 121. Total bilirubin 1.5, AST 28, ALT 20, alkaline phosphorus 128. ProBNP 5320. (Last check in 05/15/2017-673 Elevated) D-dimer 1054, CTA negative for PE. Lactic acid 3.0-->1.5. UA reveals urine nitrite positive, leukocyte esterase trace, RBC 5-10. Echocardiac exam done in April 2016 revealed ejection fraction of 55%. Right ventricle systolic pressure of 45. Dilated IVC noted. CT chest, abdomen 03/25/18- 1. No evidence of pulmonary embolism. 2. Atherosclerotic vascular wall calcifications of aorta but no aneurysm or dissection. 3. The pulmonary arteries are enlarged suggesting pulmonary hypertension. 4. Cardiomegaly. 5. Small pericardial effusion. 6. Status post cholecystectomy with dilatation of the extrahepatic CBD related to prior biliary disease. 7. Splenomegaly. 8. The left kidney is displaced inferiorly. There is dilatation of the renal pelvis and calyces of both kidneys without hydroureter. There is a nonobstructive 3 mm stone in the left renal pelvis and a 1 mm stone in the lower pole calyx of left kidney. 9. Well-defined cystic lesion at the anterior abdominal wall in the lower pelvis. 10. Distended bladder with bladder diverticulum. 11. Left adnexal mass likely related to the left ovary. No abdominal or pelvic adenopathy. No abdominal ascites. 12. Partial right hemicolectomy. Diverticulosis of colon. No acute change of the bowel. Etiology in this case with urinary symptoms associated with chills w/o costovertebral/suprapubic tenderness plus abnormal UA is likely fromlower UTI./ cystitis. Considering UTI being a clinical diagnosis, absence of radiological evidence of fat stranding is helpful in confirming the diagnosis of systemic infection of pyelonephritis. She also has non specific symptoms of increasing weakness and lethargy likely seconday to deconditioning, secondary to her chronic lung and heart disease. She also had urinary obstruction likey neurogenic, and she is not on any anti-cholinergics that may have exacerbated it ; but abdominal ct reveals dilatation of the renal pelvis and calyces of both kidneys without hydroureter, and nonobstructive 3 mm stone in the left renal pelvis and a 1 mm stone in the lower pole calyx of left kidney, would make this possible. Although, she appears dry w/ alkalosis+elevated BUN, she does appear to have increased venous volume overload, which is likely increasing her edematous state ; She also has pulmonary hypertension secondary to ILD, which is likely increasing her right heart pressures. The etiology for hypo-natremia is likely attributed to CHF which is hypervolemic hyponatremia or hypothyroidism. Problem list: 1. UTI- likely GNR 2. Deconditioning 3. h/o ILD- pulmonary hypertension. 4. HTN 5. Hyponatremia 6. Leucocytosis with possible sepsis Plan - Admit the patient to general medicine service. -Empiric antibiotics with ceftriaxone, pending urine culture -Follow blood culture, usually do not correlate with more severe disease. -Monitor vitals closely -Follow CBCs daily -Treat sepsis with 0.9% saline, follow blood cultures, trend lactate. Be very cautious about her volume stauts given her h/o CHF, and since she is also pre -load dependent. Cautious use of lasix. -Phyical Tx evaluation -Tx w/ one dose of Furosemide iv 20mg given her volume overload -Although there is no evidence of pulmonary infection, would rule out with cultures. -Check TSHR given her tremors, and hyponatremia -Psychiatry evaluation, given symptoms of depression. -Replenish electrolytes accordingly. -Continue verapamil. -Deferred the decision to the continuous process rotary drum tanner, to get an echocardiogram, since she does not appear to be in CHF at this time; although is slightly volume overloaded. Housekeeping checklist #1 DVT prophylaxis-subcutaneous heparin #2 GI prophylaxis-Protonix when necessary #3 medication reconciliation-done #4 [id number], pulmonology, Dr. Wilson in the a.. Jasper Pimentel MD 03/26/18 0359: Core Measures/Misc (07/12) Sepsis (View protocol) If YES complete Sepsis Event Note If YES complete Sepsis Event Note Attending MD Review Statement Attending Statement Attending MD Statement: examined this patient, discuss w/resident/PA/TOOL TROUBLE SHOOTER, agreed w/resident/PA/TOOL TROUBLE SHOOTER, reviewed EMR data (avail) Attending Assessment/Plan: Ms. Anderson is a 83-year-old female who lives at home with grandkids with a history of heart failure with preserved ejection fraction follows up with Dr. Zuniga, COPD on 3 L of oxygen follows up with Dr. Wilson, interstitial lung disease, abdominal hernia, colon cancer status post resection since with complaints of weakness increasing shortness of breath and tremor associated with inability to walk. Denies fever chills or other urinary symptoms. On examination blood pressure 136/65, heart rate of 87, temperature 98.6, saturating well on 3 days of nasal cannula Assessment 1. Generalized weakness - worsened by underlying infection 2. Urinary tract infection/cystitis 3. Increasing shortness of breath - secondary to underlying COPD versus CHF 4. Mild hyponatremia 5. Lactic acidosis 6. Urinary retention Plan Admit to Gen. medicine service. Continue with IV ceftriaxone, follow up on final urine cultures and blood cultures. Trend lactate levels. One dose of IV furosemide - will assess response and reevaluate Will obtain physical therapy evaluation Pulmonology consultation. Will trend lactate levels Heparin SC for DVT prophylaxis
[2018-03-25 22:41] VITALS: BP 130/73
[2018-03-26 06:02] VITALS: BP 141/61
--- NOTE | 2018-03-26 08:52 | PN- Housestaff ---
César JAIMES,[facility] 03/26/18 0851: Subjective Follow-up For: UTI Subjective: Patient seen and examined. Resting comfortably. He reports improvement in her symptoms. On asking about urinary complaints she reported that she does not have any burning or pain while urination however does have increased urinary frequency and urgency. Review of Systems Constitutional: Reports: see HPI. Objective Last 24 Hrs of Vital Signs/I&O Vital Signs Date Time Temp Pulse Resp B/P B/P Pulse O2 O2 Flow FiO2 Mean Ox Delivery Rate 03/26 1350 97.7 68 20 120/74 99 Nasal 3.0L Cannula 03/26 1049 Nasal 3.0L Cannula 03/26 0826 71 118/54 03/26 0826 71 118/54 03/26 0800 Nasal 3.0L Cannula 03/26 0602 97.9 68 20 141/61 98 Nasal 3.0L Cannula 03/25 2241 98.5 89 20 130/73 98 Nasal 3.0L Cannula 03/25 2200 Nasal 3.0L Cannula 03/25 2114 98.5 81 19 151/65 95 Nasal 3.0L Cannula 03/25 1741 98.6 104 20 136/65 Nasal 3.0L Cannula Intake & Output 03/26 1600 03/26 0800 03/26 0000 Intake Total 980 360 240 Output Total 200 900 900 Balance 780 -540 -660 Intake, IV 20 Intake, Oral 960 360 240 Number 2 1 Bowel Movements Output, Urine 200 900 900 Patient 153 lb Weight Weight Bed scale Measurement Method Physical Exam General Appearance: Alert, Oriented X3, Cooperative Cardiovascular: Normal S1, Normal S2 Lungs: Clear to Auscultation, Normal Air Movement Abdomen: Normal Bowel Sounds, Soft Assessment/Plan Assessment: The patient is a 83-year-old female with past medical history of HFpEF, 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 Urine culture is growing gram-negative rods we are going to continue on IV ceftriaxone for now and treat her for cystitis with 3 days of treatment. Fleming catheter discontinued As per patient she has been having shortness of breath since a few days probably has viral bronchitis her oxygen requirements remains unchanged chest x-ray is not positive for any opacity or consolidation. Patient does not appear to be in CHF exacerbation. We are going to ask for cardiology consult with Dr. Zuniga patient's lead presser and resume her home dose of Lasix 60 mg. Cardiomegaly on imaging however seems to be unchanged from the previous one echocardiogram will be ordered as per Dr. Zuniga recommendations. She has history of hypothyroidism her TSH is 6.2 and free T4 is 2.25. Recently her levothyroxine dose was reduced to 88 in August 2017. Considering the current results we are going to increase her dose up to 100 MCG The patient is full code with DVT prophylaxis with subcutaneous heparin Problem List: 1. Urinary retention Pain Ratin Pain Location: n/a Pain Goal: Pain 4 or less Pain Plan: prn Tomorrow's Labs & Rationales: cbc bep Lyudmila JAIMES,Jessica 03/26/18 1158: Attending MD Review Statement Attending Statement Attending MD Statement: examined this patient, discuss w/resident/PA/EXTENSION COURSE COUNSELOR, agreed w/resident/PA/EXTENSION COURSE COUNSELOR, reviewed EMR data (avail), discussed with nursing, discussed with case mgmt, amended to note Attending Assessment/Plan: Patient seen and examined. No issues overnight reported by nursing staff. Remains afebrile and hemodynamically stable. Resting comfortably and not in any acute distress. She reports feeling better compared to presentation. Denies chest pain. Denies shortness of breath or palpitations. Denies nausea vomiting. Denies abdominal pain. On examination she is not in any respiratory distress. Has adequate entry bilaterally. Abdomen soft and nontender. She has 1+ peripheral edema bilaterally which is chronic according to the patient. Plan: -Patient admitted with urinary tract infection. Currently growing gram-negative rods in the urine. White cell count has improved. She remains afebrile. Currently denies any urinary symptoms. Continue antibiotic therapy with ceftriaxone. Fleming sensitivity she may be transitioned to oral antibiotic therapy and complete 5 days of treatment. -Please notify her lead presser of her hospitalization. -Mobilize patient as tolerated. -Her TSH level is elevated. She may need her levothyroxine dose to be adjusted. Please follow-up with her primary care provider regarding the last time her levothyroxine dose was adjusted. -Anticipate discharge next 24 hours if she remains afebrile and hemodynamically stable.
[2018-03-26 09:51] LABS: ABSOLUTE BASOPHIL COUNT 0 /CUMM (0.0-0.2); ABSOLUTE LYMPH COUNT 1.3 /CUMM (1.2-3.4); ABSOLUTE MONOCYTE COUNT 1.1 /CUMM (0.10-0.60); MEAN CORPUSCULAR HGB 24.6 PG (27.0-31.0); MEAN CORPUSCULAR HGB CONC 33.7 G/DL (33.0-37.0)
[2018-03-26 09:58] LABS: ABSOLUTE EOSINOPHIL COUNT 0 /CUMM (0.0-0.7); ABSOLUTE GRANULOCYTE CT 5.1 /CUMM (1.4-6.5); BASOPHIL % 0.3 % (0.0-2.0); EOSINOPHIL % 0.6 % (0-5); GRANULOCYTE % 67.2 % (42.2-75.2); MEAN PLATELET VOLUME 8.2 FL (7.4-10.4); PLATELET COUNT 167 /CUMM (130-400); RBC DISTRIBUTION WIDTH 18.9 % (11.5-14.5); RED BLOOD CELL CT 5.16 /CUMM (4.20-5.40); WHITE BLOOD CELL COUNT 7.6 /CUMM (4.8-10.8)
[2018-03-26 10:07] LABS: HEMATOCRIT 37.7 % (37-47)
[2018-03-26 13:50] VITALS: BP 120/74
--- NOTE | 2018-03-26 17:59 | Cons- Psychiatry ---
Psychiatric Consult Date of Consult: 03/26/18 Reason for Consult: r/o depression Allergies: Coded Allergies: aspirin (Bleeding per patient 05/15/17) Past History Past Medical History Neurological: NONE EENT: NONE Cardiovascular: CHF, hypertension Respiratory: interstitial lung disease Gastrointestinal: Colon cancer Renal: NONE Musculoskeletal: NONE Psychiatric: anxiety Endocrine: hypothyroidism Blood Disorders: NONE Cancer(s): breast cancer, colon/rectal cancer BIN TRIPPER OPERATOR/Reproductive: NONE Past Surgical History Surgical History: non-contributory Assessment/Plan Impression: Ms. Segura is a 83yo F w/ PMH of HFpEF, COPD/ILD on 3L home O2, hypertension, colon cancer s/p hemicolectomy, hiatal hernia, sent in for evaluation of episodes of treatment, weakness, cough, and gradual worsening of shortness of breath for the past several days. Consult called son thinks she may be depressed. PMH above PPHx: denies inpatient suicide attempts and previous diagnoses. No substance. FH: Denies Sh: Lives with son who takes good care of her. of over 50 years a year ago. Current Medications Sig/Sanjuanita Start time Last Medication Dose Route Stop Time Status Admin Ceftriaxone Sodium 1,000 MG 2300 03/26 2300 AC IV Ceftriaxone Sodium 0 .STK-MED ONE 03/25 1837 DC .ROUTE Furosemide 60 MG DAILY 03/26 1658 AC PO Furosemide 40 MG .STK-MED ONE 03/25 2329 DC IV 03/25 2330 Furosemide 20 MG ONCE ONE 03/25 2315 DC 03/26 IV 03/25 2316 0022 Heparin Sodium 5,000 UNIT Q8 03/25 2200 AC 03/26 (Porcine) SC 1420 Levothyroxine Sodium 0.1 MG DAILY AC 03/27 0700 AC PO Levothyroxine Sodium 0.088 MG DAILY 03/26 0900 DC 03/26 PO 0826 Patient Medication 1 ED ONE ONE 03/26 1545 DC Teaching ED 03/26 1546 Phenazopyridine HCl 0 .STK-MED ONE 03/25 2010 DC PO Phenazopyridine HCl 100 MG ONCE ONE 03/25 1930 DC 03/25 PO 03/25 193 2004 Potassium Chloride 40 MEQ .STK-MED ONE 03/26 0020 DC PO 03/26 0021 Potassium Chloride 40 MEQ ONCE ONE 03/25 2345 DC 03/26 PO 03/25 2346 0022 Prazosin HCl 5 MG DAILY 03/26 900 AC 03/26 PO 08 Verapamil HCl 240 MG DAILY 03/26 900 AC 03/26 PO 08 MSE: Pt seen with Ion Edmondson our medical student. Pt is in bed in NAD, brightens when we walk in and happy to talk. No movement abnormalities. Speech is clear and goal- directed normal volume and rate. Mood is good affect is euthymic. TP linear TC no delusions, Si or HI, misses but she keeps him with her and talks to him, has his picture by her bedside. She feels she has coped well. She knows she will be with him again but it is not her time yet. She likes watching her game shows and soap operas. no anhedonia, sleep and appetite good. Insight and judgment good. 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 P/ I will call son Thursday but no intervention is needed here.
[2018-03-26 21:50] VITALS: BP 123/60
[2018-03-27 06:20] VITALS: BP 118/60
--- NOTE | 2018-03-27 08:09 | PN- Housestaff ---
César JAIMES,[facility] 03/27/18 0808: Subjective Follow-up For: UTI Subjective: Seen and examined. Resting comfortably. We'll be discharged tomorrow on oral antibiotic pending culture and sensitivity Review of Systems Constitutional: Reports: see HPI. Objective Last 24 Hrs of Vital Signs/I&O Vital Signs Date Time Temp Pulse Resp B/P B/P Pulse O2 O2 Flow FiO2 Mean Ox Delivery Rate 03/27 0921 62 118/60 03/27 0921 62 118/60 03/27 0800 Nasal 3.0L Cannula 03/27 0620 98.1 62 18 118/60 100 Nasal 3.0L Cannula 03/27 0000 100 Nasal 3.0L Cannula 03/26 2150 97.7 60 18 123/60 100 03/26 1600 98 Nasal 3.0L Cannula Intake & Output 03/27 1600 03/27 0800 03/27 0000 Intake Total 360 810 Output Total 150 200 Balance 360 -150 610 Intake, IV 10 Intake, Oral 360 800 Number 0 0 Bowel Movements Output, Urine 150 200 Patient 150 lb Weight Weight Reported by Patient Measurement Method Physical Exam General Appearance: Alert, Oriented X3, Cooperative Cardiovascular: Normal S1, Normal S2 Lungs: Clear to Auscultation Abdomen: Soft Assessment/Plan Assessment: The patient is a 83-year-old female with past medical history of HFpEF, 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 Urine culture is growing gram-negative rods we are going to continue on IV ceftriaxone for now and treat her for cystitis with 3 days of treatment. We will switch her to oral antibiotics pending culture and sensitivities Gonzalez catheter discontinued As per patient she has been having shortness of breath since a few days probably has viral bronchitis her oxygen requirements remains unchanged chest x-ray is not positive for any opacity or consolidation. Patient does not appear to be in CHF exacerbation. We are going to ask for cardiology consult with Dr. Zuniga patient's heel buffer and resume her home dose of Lasix 60 mg. Cardiomegaly on imaging however seems to be unchanged from the previous one echocardiogram will be ordered as per Dr. Zuniga recommendations. 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 Recently her levothyroxine dose was reduced to 88 in August 2017. Considering the current results we are going to increase her dose up to 100 MCG The patient is full code with DVT prophylaxis with subcutaneous heparin Problem List: 1. Acute cystitis Pain Ratin Pain Location: N/A Pain Goal: Pain 4 or less Pain Plan: PRRN Tomorrow's Labs & Rationales: NONE Brent Wilson MD 03/27/18 0925: Attending MD Review Statement Attending Statement Attending MD Statement: examined this patient, discuss w/resident/PA/GENERAL HANDLING SUPERVISOR, agreed w/resident/PA/GENERAL HANDLING SUPERVISOR, discussed with family, reviewed EMR data (avail), discussed with nursing, discussed with case mgmt, reviewed images, amended to note Attending Assessment/Plan: Brent Willson M.D. have examined this patient, reviewed available EMR data, personally reviewed images, discussed with resident/PA/GENERAL HANDLING SUPERVISOR, discussed management plan with housestaff and nursing staff, discussed managment plan all of healthcare providers, discussed management plan with patient and/or family, agreed with resident/PA/GENERAL HANDLING SUPERVISOR. The past history and parts of the chart have been autopopulated. 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
[2018-03-27 15:02] VITALS: BP 130/60
--- NOTE | 2018-03-27 17:31 | ECHOCARDIOGRAM REPORT ---
LOLA ANDERSON Age: 83 : 1935 Gender: F Exam Date: 03/27/2018 13:25 Exam Location: [address] [place] [address] A Ht (in): 63 Wt (lb): 152 BSA: 1.77 BP: 118 / 54 Ordering Physician: Lily Collier MD Referring Physician: Lily Collier MD Technologist: Kristen Page [facility] Room Number: 220-01 Indications: Rhythm: Sinus Technical Quality: Fair FINDINGS Left Ventricle Normal size left ventricle. Left ventricular wall thickness increased. Normal left ventricular ejection fraction estimated at 55-60%. Right Ventricle Right ventricular dilatation. Right Atrium Right atrial dilatation. Left Atrium Moderate to severe left atrial dilatation. Mitral Valve Mitral valve thickened. Moderate mitral annular calcification. Moderate mitral regurgitation. Aortic Valve Trileaflet aortic valve. Diffuse thickening of the aortic valve cusps with reduced excursion. Moderate aortic stenosis. Mild aortic regurgitation. Tricuspid Valve Tricuspid valve not well visualized, grossly normal. Moderate tricuspid regurgitation. Right ventricular systolic pressure estimated to be elevated at 74 mmHg. Pulmonic Valve Pulmonic valve not well visualized, grossly normal. Trace to mild pulmonic regurgitation. Pericardium Small pericardial effusion. Great Vessels Aortic root and proximal ascending aorta not well visualized, grossly normal. CONCLUSIONS 1. Fibrocalcific changes are present in the aortic valve with evidence of moderate valvular stenosis. The peak gradient is 27 mmHg with a mean gradient of 14 mmHg and an estimated valve area of 1.2 cm. Mild aortic insufficiency is also present. 2. Mitral leaflet thickening is present with fibrosis of the chordal structures and mild to moderate annular calcification with moderate mitral insufficiency and moderate to severe left atrial enlargement. 3. A small circumferential pericardial effusion is present which appears to be hemodynamically insignificant. 4. The left ventricular chamber size is normal with left ventricular hypertrophy and an ejection fraction of 65-70%. There are no resting wall motion abnormalities. A false tendon is present. 5. Mild right ventricular enlargement is present with right atrial enlargement and moderate tricuspid insufficiency with severe pulmonary hypertension and a right ventricular systolic pressure of 74 mmHg. 6. Significant lipomatous atrial septal hypertrophy is present. Izabela Zuniga M.D. (Electronically Signed) Final Date: 27 March 2018 17:30 MEASUREMENTS (Male / Female) Normal Values 2D ECHO LVOT Diameter 2.0 cm DOPPLER AV Peak Velocity 244.0 cm/s AV Peak Gradient 23.8 mmHg AV Mean Velocity 176.0 cm/s AV Mean Gradient 14.0 mmHg AV Velocity Time Integral 58.1 cm LVOT Peak Velocity 94.7 cm/s LVOT Peak Gradient 3.6 mmHg LVOT Mean Velocity 67.2 cm/s LVOT Mean Gradient 2.0 mmHg LVOT Velocity Time Integral 22.4 cm LVOT Stroke Volume 70.4 cm AV Area Cont Eq vti 1.2 cm AV Area Cont Eq pk 1.2 cm Mitral E Point Velocity 145.0 cm/s Mitral A Point Velocity 78.5 cm/s Mitral E to A Ratio 1.8 MV Deceleration Time 532.0 ms TV Peak Velocity 407.0 cm/s
[2018-03-27 23:02] VITALS: BP 126/57
[2018-03-28 06:20] VITALS: BP 142/60
--- NOTE | 2018-03-28 07:57 | PN- Housestaff ---
See Addendum Subjective Follow-up For: UTI Subjective: Seen and examined. Resting comfortably. Has some cough, patient states is improving denies any urinary symptoms stable to be discharged today Review of Systems Constitutional: Reports: see HPI. Objective Last 24 Hrs of Vital Signs/I&O Vital Signs Date Time Temp Pulse Resp B/P B/P Pulse O2 O2 Flow FiO2 Mean Ox Delivery Rate 03/28 0902 67 142/60 03/28 0902 67 142/60 03/28 0620 97.6 67 20 142/60 100 Nasal 3.0L Cannula / 0000 99 Nasal 3.0L Cannula 03/27 2302 96.8 60 20 126/57 99 Nasal 3.0L Cannula 03/27 1600 98 Nasal 3.0L Cannula 03/27 1502 97.9 64 20 130/60 99 Intake & Output 03/28 1600 03/28 0800 03/28 0000 Intake Total 720 1000 Output Total 400 Balance 320 1000 Intake, Oral 720 1000 Number 0 Bowel Movements Output, Urine 400 Physical Exam General Appearance: Alert, Oriented X3, Cooperative Cardiovascular: Normal S1, Normal S2 Lungs: Clear to Auscultation Abdomen: No Tenderness Current Medications: Current Medications Sig/Sanjuanita Start time Last Medication Dose Route Stop Time Status Admin Amoxicillin/ 875 MG Q12 03/28 0902 AC Clavulanate Potassium PO Ceftriaxone Sodium 1,000 MG 2300 03/26 2300 DC 03/27 IV 2205 Furosemide 60 MG DAILY 03/26 1658 AC 03/28 PO 0901 Heparin Sodium 5,000 UNIT Q8 03/25 2200 AC 03/28 (Porcine) SC 0636 Levothyroxine Sodium 0.1 MG DAILY AC 03/27 0700 AC 03/28 PO 0636 Melatonin 5 MG ONCE ONE 03/28 0215 DC 03/28 PO 03/28 0216 0219 Nystatin 1 ALICIA BID 03/27 1141 AC 03/28 TOP 0902 Potassium Chloride 40 MEQ ONCE ONE 03/27 1330 DC 03/27 PO 03/27 1331 1423 Prazosin HCl 5 MG DAILY 03/26 0900 AC 03/28 PO 0902 Verapamil HCl 240 MG DAILY 03/26 0900 AC 03/28 PO 0902 Last 24 Hrs of Lab/Jose Results Last 24 Hrs of Labs/Mics: Laboratory Tests 03/28/18 0615: Anion Gap 7, Estimated GFR Pending, BUN/Creatinine Ratio 38.8 H Assessment/Plan Assessment: The patient is a 83-year-old female with past medical history of HFpEF, 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 Urine culture is growing gram-negative rods she was initially treated with IV ceftriaxone and now has switched to oral Augmentin to complete 5 day course of treatment fOR uncomplicated UTI Fleming catheter was initially placed later discontinued As per patient she has been having shortness of breath since a few days probably has viral bronchitis her oxygen requirements remains unchanged chest x-ray is not positive for any opacity or consolidation. Patient does not appear to be in CHF exacerbation. Patient had an echocardiogram done which was read by her regular chemical processor Dr. Zuniga who believes that she can be discharged home with outpatient follow-up. 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 She has an upcoming appointment on April [address] Wilson follow She has history of hypothyroidism her TSH is 6.2 and free T4 is 2.25. Recently her levothyroxine dose was reduced to 88 in August 2017. Considering the current results we are going to increase her dose up to 100 MCG The patient is full code with DVT prophylaxis with subcutaneous heparin Problem List: 1. Acute cystitis Pain Ratin Pain Location: N/A Pain Goal: Pain 4 or less Pain Plan: PRN Tomorrow's Labs & Rationales: none
[2018-03-28] MEDS ORDERED: AMILORIDE HCL-1 EACH PO (08:55)
[2018-03-28] MEDS ORDERED: NYSTATIN15 G1 TOP ×2 (08:58→09:25)
[2018-03-28] MEDS ORDERED: SYNTHROID100 MCG PO ×2 (08:58→09:25)
[2018-03-28] MEDS ORDERED: AUGMENTIN 875-1 EACH PO ×2 (09:03→09:25)
--- NOTE | 2018-03-28 09:09 | Patient Discharge Instructions ---
Discharge Instructions General Discharge Information You were seen/treated for: Urinary tract infection Special Instructions: Please follow-up with your primary care doctor after discharge Your dose of levothyroxine has been increased according to your thyroid numbers, please follow-up with your primary care team after discharge Please follow-up with your heart doctor after discharge Follow up wtih the Wound center upon discharge [phone] Please follow-up with your lung doctor after discharge Diet Recommended Diet: Heart Healthy Activity Activity Self Limited: Yes Acute Coronary Syndrome Inclusion Criteria At DC or during hospital stay patient has or had the following: ACS DIAGNOSIS No Discharge Core Measures Meds if any: Prescribed or Continued at Discharge Meds if any: NOT Prescribed or Continued at Discharge Congestive Heart Failure Inclusion Criteria At DC or during hospital stay patient has or had the following: CHF DIAGNOSIS No Discharge Core Measures Meds if any: Prescribed or Continued at Discharge Meds if any: NOT Prescribed or Continued at Discharge Cerebrovascular accident Inclusion Criteria At DC or during hospital stay patient has or had the following: CVA/TIA Diagnosis No Discharge Core Measures Meds if any: Prescribed or Continued at Discharge Meds if any: NOT Prescribed or Continued at Discharge Venous thromboembolism Inclusion Criteria VTE Diagnosis No VTE Type NONE VTE Confirmed by (Test) NONE Discharge Core Measures - Per Current guidelines, there needs to be overlap - treatment for the first 5 days of Warfarin therapy. - If discharged on Warfarin prior to 5 days of - overlap therapy, the patient will need to be - assessed for post discharge needs including - *Post discharge parental anticoagulation - *Warfarin and/or parental anticoagulation education - *Follow up date to check INR post discharge At least 5 days overlap therapy as Inpatient No Meds if any: Prescribed or Continued at Discharge Note: Overlap Therapy is Warfarin and Anticoagulant Meds if any: NOT Prescribed or Continued at Discharge
--- NOTE | 2018-03-28 09:25 | Discharge Summary ---
Visit Information Visit Dates Admission Date: 03/25/18 Discharge Date: 03/29/2018 Hospital Course Course Attending Physician: Jessica Coreas MD Primary Care Physician: Reyes PROCTOR,Drew Hinton Hospital Course: The patient is a 83-year-old female with past medical history of HFpEF, restrictive lung disease on 3L home O2, hypertension, colon cancer s/p hemicolectomy, hiatal hernia who presented with a complaint of weakness shortness of breath and increased urinary frequency and urgency. Vitals on presentation were stable with tachycardia, maintaining oxygen saturation on 3L (basline) Admission labs were significant for Leukocytosis 15.1,lactic acidosis 4.0, BUN 42, Hyponatremia 131, proBNP 5320 (baseline 673). UA was positive for nitrate, small leuk esterase and was packed with bacteria. D-dimer upto 1054 Chest x-ray showed massive cardiomegaly Mild prominence of the central hilar vessels. The findings are similar to prior chest x-ray of 05/17/2017. CTA rule out pulmonary embolism as cause of shortness of breath. It showed cardiomegaly and small pleural effusions.There is dilatation of the renal pelvis and calyces of both kidneys without hydroureter. There is a nonobstructive 3 mm stone in the left renal pelvis and a 1 mm stone in the lower pole calyx of left kidney. Distended bladder with bladder diverticulum.Left adnexal mass likely related to the left ovary. No abdominal or pelvic adenopathy. No abdominal ascite. See CTA report for more details. The patient admitted to general medicine floor for evaluation and treatment of uncomplicated urinary tract infection secondary to gram-negative rods. She was started on IV ceftriaxone. A Fleming catheter was placed in an emergency. Later during her stay Fleming catheter was discontinued. Urine culture showed growth of pansensitive Escherichia coli and her antibiotic was tailored to PO Augmentin to finish 5 day course. The patient has 2 small nonobstructive stone 3 mm in left renal pelvis and 1 mm stone in the lower pole calyx of left kidney do not require any acute intervention. As per patient she had been having shortness of breath since a few days probably has viral bronchitis her oxygen requirements remained unchanged from her baseline. Chest x-ray was not positive for any opacity or consolidation. Patient did not appear to be in CHF exacerbation on physical examination even though proBNP was elevated. But in light of massive cardiomegaly echocardiogram was ordered, which was read by Dr. Zuniga patient's assistant branch manager. Ejection fraction remains unchanged the pericardial effusion is hemodynamically insignificant. There were changes like increased in valvular insufficiency and moderate aortic stenosis. Dr. Zuniga was consulted who believed that patient is stable to be discharged home with outpatient cardiology follow-up. 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 She decided on no further surveillance or workup on her last visit with . She has an upcoming appointment on April [address] Wilson for followup She has history of hypothyroidism her TSH is 6.2 and free T4 is 2.25. Recently her levothyroxine dose was reduced to 88 in August 2017. Considering the current results we are going to increase her dose up to 100 MCG. She will require monitoring of her thyroid function test by her primary treating On CTA there was a mass in the left adnexa likely related to the ovary. This is a solid enhancing lesion. It measures 6.2 x 5 x 7 cm. Should be further pursued further by the primary care team. Patient had 2 pressure injury ulcers Present on admission. One of the coccyx ( stage II )and one of the posterior left thigh (skin tag which is ulcerated with 100% yellow fill without undermining sinus tracking exposed bone or periwound erythema). Wound care was consulted who recommended offloading of these areas in conjunction with area cream to the coccyx and a thin DuoDERM to the left posterior thigh. She has been provided with the wound care center referral for offloading cushion, surgical removal of skin tag and further management of wounds She was full code during her stay. Allergies: Coded Allergies: aspirin (Bleeding per patient 05/15/17) Pertinent Lab Results: EXAM TYPE: CAT - CT ABD & PELVIS W IV CONTRAST; CTA CHEST-PULMONARY EMBOLISM EXAMINATION: 1. CTA CHEST 2. CT ABDOMEN AND PELVIS WITH CONTRAST CLINICAL INFORMATION: Shortness of breath. Hypoxia. Acute abdominal pain. Elevated WBC. Umbilical hernia. COMPARISON: CTA of chest 04/29/2016. CT chest 12/13/2016. Portable chest study 03/25/2018. CT abdomen 05/27/2010. TECHNIQUE: A noncontrast localizer was performed, followed by the administration of 95 mL Optiray [address] of the chest was then performed. Coronal and sagittal reformatted and 3-D technique MIP images of the chest were completed at the CT scanner and reviewed on the PACS workstation. No adverse effects were reported. Images were then performed through the abdomen and pelvis. Coronal and sagittal reformatted images performed at CT scanner by technologist. DLP: 871.78 mGy-cm FINDINGS: 1. CTA CHEST: Vascular: The main pulmonary artery, secondary and tertiary branches of the pulmonary artery are normally opacified with no evidence of pulmonary embolism. There is dilatation of the pulmonary artery to a diameter of 5.2 cm. The right main pulmonary artery measures 3.6 cm. The left main pulmonary artery measures 2.9 cm. The heart is enlarged. The ascending aorta is normal in size measuring 3.8 cm though there are vascular wall calcifications of aorta. There is no dissection of aorta. Mediastinum: No mediastinal mass. No significant lymphadenopathy. There is a small pericardial effusion. Lungs: There is dependent atelectasis at lung bases. No focal consolidation. Central bronchial airways are open. Fluid: There is no pericardial effusion. There is no pleural effusion. Axilla: No significant lymphadenopathy. 2. CT SCAN ABDOMEN PELVIS: Liver, Gallbladder, and Biliary Tree: Status post cholecystectomy. The extrahepatic CBD is dilated to a diameter of 1.2 cm. No calcified stone seen within the bile ducts. No focal liver lesion. Pancreas: Unremarkable. Spleen: The spleen is enlarged. Spleen measures 12.7 cm AP. Adrenal Glands: Unremarkable. Kidneys And Ureters: Left kidney is inferiorly displaced and rotated. There is mild dilatation of the renal pelvis of both kidneys without hydroureter. There is a nonobstructive 3 mm stone in the left renal pelvis. There is a 1 mm stone in the lower pole calyx of left kidney. No stone in the right kidney. No ureteral calculi. Bladder: Bladder is distended. The bladder measures 17 cm superior inferior. There is a bladder diverticulum on the right side of the bladder measuring about 5.5 cm. Gastrointestinal Tract: There is diverticulosis of the colon. The diverticula are most numerous at the left colon and sigmoid. No diverticulitis. No bowel wall thickening or edema. There is a surgical suture line at the right colon with prior right hemicolectomy. Anastomosis intact. Moderate amount of scattered stool in the colon. The small bowel loops are unremarkable. Mesentery: No ascites. No inflammation. Abdominal Wall: There is a well-defined cystic lesion in the subcutaneous tissue at the lower anterior pelvis. This measures 10.4 x 8.2 x 12.3 cm. There are scattered linear calcifications of the wall of this cyst. This has a density measurement of 25 Hounsfield units, mildly complex fluid. No air in the cyst. No inflammation surrounding the cystic lesion. Lymph Nodes: No significant lymphadenopathy. Vascular: There are atherosclerotic vascular wall calcifications of aorta and the major branch vessels without aneurysm. There is no dissection of aorta. Pelvic Viscera: Uterus is anteverted. There is a mass in the left adnexa likely related to the ovary. This is a solid enhancing lesion. It measures 6.2 x 5 x 7 cm. Osseous Structures: There is multilevel degenerative spondylosis of the spine with disc height narrowing, endplate spurring and facet joint arthrosis. There is joint narrowing of the hip joints bilateral. IMPRESSION: 1. No evidence of pulmonary embolism. 2. Atherosclerotic vascular wall calcifications of aorta but no aneurysm or dissection. 3. The pulmonary arteries are enlarged suggesting pulmonary hypertension. 4. Cardiomegaly. 5. Small pericardial effusion. 6. Status post cholecystectomy with dilatation of the extrahepatic CBD related to prior biliary disease. 7. Splenomegaly. 8. The left kidney is displaced inferiorly. There is dilatation of the renal pelvis and calyces of both kidneys without hydroureter. There is a nonobstructive 3 mm stone in the left renal pelvis and a 1 mm stone in the lower pole calyx of left kidney. 9. Well-defined cystic lesion at the anterior abdominal wall in the lower pelvis. 10. Distended bladder with bladder diverticulum. 11. Left adnexal mass likely related to the left ovary. No abdominal or pelvic adenopathy. No abdominal ascites. 12. Partial right hemicolectomy. Diverticulosis of colon. No acute change of the bowel. EXAM TYPE: CARD - ECHOCARDIOGRAM Left Ventricle Normal size left ventricle. Left ventricular wall thickness increased. Normal left ventricular ejection fraction estimated at 55-60%. Right Ventricle Right ventricular dilatation. Right Atrium Right atrial dilatation. Left Atrium Moderate to severe left atrial dilatation. Mitral Valve Mitral valve thickened. Moderate mitral annular calcification. Moderate mitral regurgitation. Aortic Valve Trileaflet aortic valve. Diffuse thickening of the aortic valve cusps with reduced excursion. Moderate aortic stenosis. Mild aortic regurgitation. Tricuspid Valve Tricuspid valve not well visualized, grossly normal. Moderate tricuspid regurgitation. Right ventricular systolic pressure estimated to be elevated at 74 mmHg. Pulmonic Valve Pulmonic valve not well visualized, grossly normal. Trace to mild pulmonic regurgitation. Pericardium Small pericardial effusion. Great Vessels Aortic root and proximal ascending aorta not well visualized, grossly normal. CONCLUSIONS 1. Fibrocalcific changes are present in the aortic valve with evidence of moderate valvular stenosis. The peak gradient is 27 mmHg with a mean gradient of 14 mmHg and an estimated valve area of 1.2 cm. Mild aortic insufficiency is also present. 2. Mitral leaflet thickening is present with fibrosis of the chordal structures and mild to moderate annular calcification with moderate mitral insufficiency and moderate to severe left atrial enlargement. 3. A small circumferential pericardial effusion is present which appears to be hemodynamically insignificant. 4. The left ventricular chamber size is normal with left ventricular hypertrophy and an ejection fraction of 65-70%. There are no resting wall motion abnormalities. A false tendon is present. 5. Mild right ventricular enlargement is present with right atrial enlargement and moderate tricuspid insufficiency with severe pulmonary hypertension and a right ventricular systolic pressure of 74 mmHg. 6. Significant lipomatous atrial septal hypertrophy is present. Disposition Summary Disposition Principal Diagnosis: Uncomplicated UTI Additional Diagnosis: Hypothyroidism History of CHF, restrictive lung disease Discharge Disposition: home health services Discharge Instructions General Discharge Information Code Status: Full Code Patient's Diet: Heart healthy Patient's Activity: As tolerated Follow-Up Instructions/Appts: Primary care follow-up, pulmonology follow-up, cardiology follow, wound care follow up Medications at Discharge Discharge Medications: Stop taking the following medications: Levothyroxine Sodium (Levothyroxine Sodium) 88 MCG TABLET ORAL DAILY Continue taking these medications: Prazosin HCl (Minipress) 5 MG CAPSULE 1 Capsule ORAL 1XDAY Comments: Last Taken:03/29/18 Time: 829 Verapamil HCl (Verapamil ER) 240 MG CAP24H.PEL 1 Tablet ORAL 1XDAY Comments: Last Taken:03/29/18 Time: 829 Potassium Chloride (Klor-Con M20) 20 MEQ TAB.ER.PRT 2 Tablet ORAL DAILY Comments: NOT GIVEN Furosemide (Lasix) 40 MG TABLET 1.5 Tablet ORAL DAILY Qty = 30 Comments: Last Taken: 03/29/18 Time: 825 Amiloride/Hydrochlorothiazide (Amiloride HCl-Hctz 5-50 MG Tab) 5 MG-50 MG TABLET 1 Tablet ORAL DAILY Qty = 30 Comments: DID NOT ADMINISTER IN HOSPITAL Start taking the following new medications: Levothyroxine Sodium (Synthroid) 100 MCG TABLET 1 Tablet ORAL DAILY BEFORE BREAKFAST Qty = 30 No Refills Instructions: . Comments: Last Taken: 03/29/18 Time: 5AM Nystatin (Nystatin) 100,000 UNIT/GRAM CREAM..G. 1 Application On the skin TWICE DAILY Qty = 1 No Refills Instructions: . Comments: Last Taken: 03/29/18 Time: 0830 Amoxicillin/Potassium Clav (Augmentin 875-125 Tablet) 875 MG-125 MG TABLET 1 Tablet ORAL TWICE DAILY Qty = 1 No Refills Instructions: .. Comments: Last Taken: 03/29/18 Time: 0830 Copies To: Reyes PROCTOR,Drew Hinton; Annalisa JAIMES,Casey Scruggs; Nadia JAIMES,Grzegorz Munoz; Steve JAIMES, Brent Garza MD Review Statement Documenting Attending: Jessica Coreas MD Other Findings: Discharged in stable condition.
[2018-03-28 14:59] VITALS: BP 118/58
[2018-03-28 22:10] VITALS: BP 126/57
[2018-03-29 06:20] VITALS: BP 146/67
--- NOTE | 2018-03-29 07:05 | PN- Housestaff ---
César JAIMES,Kaitlyn 03/29/18 0705: Subjective Follow-up For: UTI Subjective: stable to be dc home Review of Systems Constitutional: Reports: see HPI. Objective Last 24 Hrs of Vital Signs/I&O Vital Signs Date Time Temp Pulse Resp B/P B/P Pulse O2 O2 Flow FiO2 Mean Ox Delivery Rate 03/29 1600 Nasal 3.0L Cannula 03/29 1446 97.8 68 20 138/66 99 Nasal Cannula 03/29 0827 61 146/67 03/29 0827 61 146/67 03/29 0800 Nasal 3.0L Cannula 03/29 0620 97.8 61 20 146/67 100 Nasal 3.0L Cannula 03/29 0000 Nasal 3.0L Cannula 03/28 2210 98.0 62 24 126/57 99 Nasal 3.0L Cannula Intake & Output 03/29 1600 03/29 0800 03/29 0000 Intake Total 183 129 4453 Output Total 300 400 Balance 360 -60 600 Intake, Oral 020 806 9497 Number 1 1 Bowel Movements Output, Urine 300 400 Physical Exam General Appearance: Oriented X3 Lungs: Clear to Auscultation Neurological: Normal Speech Current Medications: Current Medications Sig/Sanjuanita Start time Last Medication Dose Route Stop Time Status Admin Amoxicillin/ 875 MG Q12 03/28 0902 AC 03/29 Clavulanate Potassium PO 0827 Furosemide 60 MG DAILY 03/26 1658 AC 03/29 PO 0826 Heparin Sodium 5,000 UNIT Q8 03/25 2200 AC 03/29 (Porcine) SC 1358 Levothyroxine Sodium 0.1 MG DAILY AC 03/27 0700 AC 03/29 PO 0502 Nystatin 1 ALICIA BID 03/27 1141 AC 03/29 TOP 0827 Prazosin HCl 5 MG DAILY 03/26 0900 AC 03/29 PO 0827 Verapamil HCl 240 MG DAILY 03/26 0900 AC 03/29 PO 0827 Assessment/Plan Assessment: The patient is a 83-year-old female with past medical history of HFpEF, restrictive lung disease on 3L home O2, hypertension, colon cancer s/p hemicolectomy, hiatal hernia who presented with a complaint of weakness shortness of breath and increased urinary frequency and urgency. Vitals on presentation were stable with tachycardia, maintaining oxygen saturation on 3L (basline) Admission labs were significant for Leukocytosis 15.1,lactic acidosis 4.0, BUN 42, Hyponatremia 131, proBNP 5320 (baseline 673). UA was positive for nitrate, small leuk esterase and was packed with bacteria. D-dimer upto 1054 Chest x-ray showed massive cardiomegaly Mild prominence of the central hilar vessels. The findings are similar to prior chest x-ray of 05/17/2017. CTA rule out pulmonary embolism as cause of shortness of breath. It showed cardiomegaly and small pleural effusions.There is dilatation of the renal pelvis and calyces of both kidneys without hydroureter. There is a nonobstructive 3 mm stone in the left renal pelvis and a 1 mm stone in the lower pole calyx of left kidney. Distended bladder with bladder diverticulum.Left adnexal mass likely related to the left ovary. No abdominal or pelvic adenopathy. No abdominal ascite. See CTA report for more details. The patient admitted to general medicine floor for evaluation and treatment of uncomplicated urinary tract infection secondary to gram-negative rods. She was started on IV ceftriaxone. A Fleming catheter was placed in an emergency. Later during her stay Fleming catheter was discontinued. Urine culture showed growth of pansensitive Escherichia coli and her antibiotic was tailored to PO Augmentin to finish 5 day course. The patient has 2 small nonobstructive stone 3 mm in left renal pelvis and 1 mm stone in the lower pole calyx of left kidney do not require any acute intervention. As per patient she had been having shortness of breath since a few days probably has viral bronchitis her oxygen requirements remained unchanged from her baseline. Chest x-ray was not positive for any opacity or consolidation. Patient did not appear to be in CHF exacerbation on physical examination even though proBNP was elevated. But in light of massive cardiomegaly echocardiogram was ordered, which was read by Dr. 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 Ejection fraction remains unchanged the pericardial effusion is hemodynamically insignificant. There were changes like increased in valvular insufficiency and moderate aortic stenosis. Dr. Zuniga was consulted who believed that patient is stable to be discharged home with outpatient cardiology follow-up. 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 She decided on no further surveillance or workup on her last visit with . She has an upcoming appointment on April [address] Wilson for followup She has history of hypothyroidism her TSH is 6.2 and free T4 is 2.25. Recently her levothyroxine dose was reduced to 88 in August 2017. Considering the current results we are going to increase her dose up to 100 MCG. She will require monitoring of her thyroid function test by her primary treating On CTA there was a mass in the left adnexa likely related to the ovary. This is a solid enhancing lesion. It measures 6.2 x 5 x 7 cm. Should be further pursued further by the primary care team. Patient had 2 pressure injury ulcers Present on admission. One of the coccyx ( stage II )and one of the posterior left thigh (skin tag which is ulcerated with 100% yellow fill without undermining sinus tracking exposed bone or periwound erythema). Wound care was consulted who recommended offloading of these areas in conjunction with area cream to the coccyx and a thin DuoDERM to the left posterior thigh. She has been provided with the wound care center referral for offloading cushion, surgical removal of skin tag and further management of wounds She was full code during her stay. Problem List: 1. Acute cystitis Pain Ratin Pain Location: na Pain Goal: Pain 4 or less Pain Plan: na Tomorrow's Labs & Rationales: none Jessica Coreas MD 03/29/18 1308: Attending MD Review Statement Attending Statement Attending MD Statement: examined this patient, discuss w/resident/PA/BURNISHER, agreed w/resident/PA/BURNISHER, reviewed EMR data (avail), discussed with nursing, discussed with case mgmt, amended to note Attending Assessment/Plan: Patient seen and examined. No issues overnight reported by nursing staff. Remains afebrile and hemodynamically stable. Resting comfortably and not in any acute distress. No new complaints this morning. Nursing staff did report that with ambulation patient does get short of breath and desaturates. It does improve with rest. Patient reports that this is baseline for her. She reports her symptoms are no different from her baseline. She does have restrictive lung disease and is on home oxygen. She also has a history of underlying chronic congestive heart failure. No further intervention recommended by the pulmonology service at present. She is being managed for urinary tract infection growing E. coli and has been transitioned to Augmentin. Her levothyroxine dose was increased to 100 mcg daily. She should follow-up with her primary care provider for repeat TSH level. Discharge was held over the weekend due to identification of decubitus ulcers. She has been seen by the wound care service and recommendations appreciated. At this point she is medically stable to be discharged home. Ongoing care in the outpatient setting. Patient is in agreement with this plan.
--- NOTE | 2018-03-29 10:38 | Cons- Wound Care ---
General Information and HPI Consulting Request Date of Consult: 03/29/18 Requested By: Jessica Coreas MD Reason for Consult: Ulcer of the coccyx and left posterior thigh present on admission History of Present Illness: Patient is an 83-year-old oxygen-dependent lung disease admitted with increasing shortness of breath. She is found to have 2 ulcers present on admission one of the coccyx and one of the posterior left thigh. Allergies/Medications Allergies: Coded Allergies: aspirin (Bleeding per patient 05/15/17) Home Med List: Amiloride/Hydrochlorothiazide (Amiloride HCl-Hctz 5-50 MG Tab) 5 MG-50 MG TABLET 1 TAB PO DAILY HTN (Reported) Amoxicillin/Potassium Clav (Augmentin 875-125 Tablet) 875 MG-125 MG TABLET 1 TAB PO BID UTI . Furosemide (Lasix) 40 MG TABLET 1.5 TAB PO DAILY leg sweeling, chf Levothyroxine Sodium 88 MCG TABLET 1 TAB PO DAILY HYPOTSH (Reported) Levothyroxine Sodium (Synthroid) 100 MCG TABLET 1 TAB PO DAILY AC thyroid . Nystatin 100,000 UNIT/GRAM CREAM..G. 1 ALICIA TOP BID RASH . Potassium Chloride (Klor-Con M20) 20 MEQ TAB.ER.PRT 2 TAB PO DAILY SUPPLEMENT (Reported) Prazosin HCl (Minipress) 5 MG CAPSULE 1 CAP PO 1XDAY BP (Reported) Verapamil HCl (Verapamil ER) 240 MG CAP24H.PEL 1 TAB PO 1XDAY CALCIUM CHANNEL RIGOBERTO (Reported) Review of Systems Review of Systems: Patient is uncertain as to their duration Past History Travel History Traveled to [place] past 21 day No Medical History Blood Transfusion Hx: No Neurological: NONE EENT: NONE Cardiovascular: CHF, hypertension Respiratory: interstitial lung disease Gastrointestinal: Colon cancer Renal: NONE Musculoskeletal: NONE Psychiatric: anxiety Endocrine: hypothyroidism Blood Disorders: NONE Cancer(s): breast cancer, colon/rectal cancer 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 Psychosocial History Where Do You Live? Home Smoking Status: Never Smoked ETOH Use: occasional use Illicit Drug Use: denies illicit drug use Functional Ability ADLs Independent: dressing, eating, toileting, bathing. Ambulation: independent Exam & Diagnostic Data Vital Signs and I&O Vital Signs Result Date Time B/P 146/67 03/29 0827 Pulse 61 06/04 0827 Pulse Ox 100 03/29 620 O2 Delivery Nasal Cannula 03/29 620 O2 Flow Rate 3.0L 03/29 620 Temp 97.8 03/29 620 Resp 20 03/29 620 Intake & Output 03/29 0000 03/28 1600 03/28 0800 Intake Total 1000 810 720 Output Total 400 400 400 Balance 600 410 320 Intake, Oral 1000 810 720 Number 0 0 Bowel Movements Output, Urine 400 400 400 Patient 153 lb Weight Exam of the coccyx shows there to be approximately 3 x 2 cm stage II ulcer without undermining sinus tracking or exposed bone over the left posterior thigh there appears to be a skin tag which is ulcerated with 100% yellow fill without undermining sinus tracking exposed bone or periwound erythema Assessment/Plan Impression/Plan: 83-year-old woman with oxygen-dependent lung disease admitted with shortness breath and found to have 2 pressure injury ulcers present on admission. Recommendation is made for offloading of these areas in conjunction with area cream to the coccyx and a thin DuoDERM to the left posterior thigh. Patient can be seen in the wound care center at which time evaluation for surgical removal of the skin tag can be performed. Patient should be provided with an offloading cushion which can be made available at the time of her wound care visit Consult Acknowledgment - Thank you for your consult request.
[2018-03-29] MEDS ORDERED: AUGMENTIN 875-1 EACH PO ×2 (10:41)
[2018-03-29 14:46] VITALS: BP 138/66
== END 2018-03-29 19:50 | disposition home health service (06) | DRG 690 ==
LOC: ERH 15:23 → ERHI 19:56 → 2NA 19:56 → ENRESERV 20:27 → ENTRNSPT 21:24 → EDTRNSPTSTS 21:43 → EDTRNSPT 21:43 → 2NA 21:46 → CMPTRNSPT 21:59 → 2NA 03-29 07:46 → ENPENDDIS 03-29 10:03 → ENTRNSPT 03-29 19:40 → 2NA 03-29 19:50 → EDTRNSPT 03-29 20:09 → EDTRNSPTSTS 03-29 20:09 → CMPTRNSPT 03-29 20:34
PROVIDERS: Physician Assistant Medical
DX: N39.0 Urinary tract infection, site not specified (principal); E87.2 Acidosis; I50.32 Chronic diastolic (congestive) heart failure; E87.1 Hypo-osmolality and hyponatremia; R33.9 Retention of urine, unspecified; I11.0 Hypertensive heart disease with heart failure; R25.1 Tremor, unspecified; J44.9 Chronic obstructive pulmonary disease, unspecified; B96.20 Unspecified Escherichia coli [E. coli] as the cause of diseases classified elsewhere; Z99.81 Dependence on supplemental oxygen; Z85.038 Personal history of other malignant neoplasm of large intestine; Z90.49 Acquired absence of other specified parts of digestive tract; K44.9 Diaphragmatic hernia without obstruction or gangrene; Z88.6 Allergy status to analgesic agent; Z85.3 Personal history of malignant neoplasm of breast; L89.159 Pressure ulcer of sacral region, unspecified stage; L89.899 Pressure ulcer of other site, unspecified stage; E03.9 Hypothyroidism, unspecified
CPT/HCPCS: 2NASP; 84133; 84300; 36415; 36592; 71045; 74177; 81001; 82436; 82570; 87040; 87086; 87449; 87450; 93005; 93010; 93306; 96361; 96374; 97116-GO; 97161-GP; 97530-GO; J0696; J1644; J1940; J7040

== ENCOUNTER 2018-04-16 13:14 | Inpatient (IN) | payer OTHER ==
[~2018-04-16] VITALS: Ht 162.6 cm; Wt 64.2 kg
[~2018-04-16 13:14] MED LIST changes: +AUGMENTIN 875-1 EACH PO; +NYSTATIN15 G1 TOP; +SYNTHROID100 MCG PO
--- NOTE | 2018-04-16 13:46 | ED GENERAL ADULT ---
History of Present Illness General Chief Complaint: General Adult Stated Complaint: HYPOTENSION Source: patient, family Exam Limitations: no limitations Vital Signs & Intake/Output Vital Signs & Intake/Output Vital Signs Date Time Temp Pulse Resp B/P B/P Pulse O2 O2 Flow FiO2 Mean Ox Delivery Rate 04/18 0827 70 104/58 04/18 0827 70 104/58 04/18 0800 98 Nasal 2.0L Cannula 04/18 0630 97.8 70 18 104/58 98 04/18 0000 Nasal 2.0L Cannula 04/17 2138 98.0 63 18 110/62 98 04/17 2034 63 110/62 04/17 1600 97 Nasal 2.0L Cannula 04/17 1348 97.9 73 20 116/58 99 Nasal 2.0L Cannula ED Intake and Output 04/18 0000 04/17 1200 Intake Total 1110 Output Total 800 200 Balance 310 -200 Intake, IV 30 Intake, Oral 1080 Number 1 1 Bowel Movements Output, Urine 800 200 Patient 154 lb Weight Weight Bed scale Measurement Method Allergies Coded Allergies: aspirin (Bleeding per patient 05/15/17) Reconcile Medications Amiloride/Hydrochlorothiazide (Amiloride HCl-Hctz 5-50 MG Tab) 5 MG-50 MG TABLET 1 TAB PO DAILY HTN (Reported) Furosemide (Lasix) 40 MG TABLET 1.5 TAB PO DAILY leg sweeling, chf Levothyroxine Sodium (Synthroid) 100 MCG TABLET 1 TAB PO DAILY AC thyroid . Nystatin 100,000 UNIT/GRAM CREAM..G. 1 ALICIA TOP BID RASH . Potassium Chloride (Klor-Con M20) 20 MEQ TAB.ER.PRT 2 TAB PO DAILY SUPPLEMENT (Reported) Prazosin HCl (Minipress) 5 MG CAPSULE 1 CAP PO 1XDAY BP (Reported) Verapamil HCl (Verapamil ER) 240 MG CAP24H.PEL 1 TAB PO 1XDAY CALCIUM CHANNEL RIGOBERTO (Reported) Triage Note: PT BIBA FROM HOME AFTER VISITING NURSE FOUND PT WEAK AND HYPOTENTION. PT HAS NOT BEEN TAKING HER MEDS PER VISITING NURSE. PT LIVES ALONE AND HER PILL BOX HAS NOT BEEN TOUCHED IN DAYS. PT STATES SHE HAS BEEN FEELING WEAK "JUST TODAY". UPON EMS [facility] BP WAS 130/90 BILAT UPPER EXT. PT IS A/O PT IS 02 DEPENDANT 95% ON 3L VIA [place] Triage Nurses Notes Reviewed? yes HPI: 83 y/o female with a h/o hypertension, neetu in by ambulance. patient states she 'feels weak', and has had diarrhea since this morning. According to family and visiting nurse she has not taken her medication in at least two days and has not been eating or drinking enough. Patient states she has not eaten today and has very little water. She was recently treated for a UTI and given antibiotics, but was doing well after finishing the course of antibiotic. Family states that a mass was found on a privous visit and believes it may be contributing to patient being sick now. Patient lives at home by herself. She does have nursing care 3 times a week, OT and PT, and family members visit her daily. (Souleymane Torres PA-C) Past History Travel History Traveled to [place] past 21 day No Medical History Any Pertinent Medical History? 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 Hx Contributory? No (Souleymane Torres PA-C) Review of Systems Review of Systems Constitutional: Reports: see HPI. EENTM: Reports: no symptoms. Respiratory: Reports: no symptoms. Cardiovascular: Reports: no symptoms. GI: Reports: see HPI. Genitourinary: Reports: no symptoms. Musculoskeletal: Reports: no symptoms. Skin: Reports: no symptoms. All Other Systems: Reviewed and Negative (Souleymane Torres PA-C) Physical Exam Physical Exam General Appearance: well developed/nourished, no apparent distress, mild distress Head: atraumatic, normal appearance Eyes: Bilateral: normal appearance, PERRL, EOMI. Ears, Nose, Throat: normal pharynx, normal ENT inspection, moist mucus membranes Neck: No JVD Respiratory: normal breath sounds, no respiratory distress, quiet respiration, lungs clear Cardiovascular: regular rate/rhythm, normal peripheral pulses Gastrointestinal: Normal BS, non tender, large firm mass in suprapubic region, non tender. Back: No CVAT Extremities: No lower extremity edema Skin: intact, normal color, warm/dry Core Measures ACS in differential dx? No CVA/TIA Diagnosis: No Sepsis Present: No Sepsis Focused Exam Completed? No (Brian KIM,Souleymane) Progress Differential Diagnoses I considered the following diagnoses in my evaluation of the patient: [Urinary tract infection, pyelonephritis, diverticulitis, cystitis, SBO, large bowel obstruction, metastasis, electrolyte abnormality, colitis] Plan of Care: Orders Procedure Date/time Status BASIC ELECTROLYTES PLUS BUN&CR 04/18 600 Complete Transfer Disposition 04/18 0355 Active Transfer patient to 04/18 0302 Active EKG 04/18 030 Active EKG 04/17 2102 Active Activity/Ambulation 04/17 UNK Complete Current Medications Sig/Sanjuanita Start time Last Medication Dose Stop Time Status Admin Enoxaparin Sodium 40 MG DAILY 04/17 0900 AC 04/18 (Lovenox) 0827 Furosemide 60 MG DAILY 04/17 0900 AC 04/18 (Lasix) 0826 Hydrochlorothiazide 50 MG DAILY 04/17 0900 AC 04/18 (Hydrodiuril) 0826 Lactobacillus 1 CAP DAILY 04/17 0900 AC 04/18 Acidophilus 0826 (Probiotic) Potassium Chloride 40 MEQ DAILY 04/17 0900 AC 04/18 (K-Dur) 0826 Prazosin HCl 5 MG DAILY 04/17 0900 AC 04/18 (Minipress 5 MG) 0827 Verapamil HCl 120 MG BID 04/17 0900 AC 04/18 (Calan) 0827 Albuterol Sulfate 3 ML Q4-PRN PRN 04/17 0845 AC 04/17 (Proventil) 0903 Levothyroxine Sodium 0.1 MG DAILY AC 04/17 0700 AC 04/18 (Synthroid) 0638 Nystatin 1 ALICIA BID 04/16 2152 AC 04/18 (Mycostatin) 0827 Laboratory Tests 04/18/18 0640: Anion Gap 8, Estimated GFR > 60, BUN/Creatinine Ratio 28.8 H Diagnostic Imaging: Viewed by Me: Radiology Read, CT Scan. Discussed w/RAD: Radiology Read, CT Scan. Radiology Impression: PATIENT: LOLA ANDERSON PRESENT AGE : 83 PATIENT ACCOUNT NO: [id number] : 37 LOCATION: [facility] ORDERING PHYSICIAN: Souleymane Torres PA-C SERVICE DATE: 04/16/18037 EXAM TYPE: CAT - CT ABD & PELVIS W IV CONTRAST EXAMINATION: CT ABDOMEN AND PELVIS WITH CONTRAST CLINICAL INFORMATION: Abdominal pain. Vaginal discharge. COMPARISON: CT scan abdomen and pelvis 05/27/2010. TECHNIQUE: Multidetector volumetric imaging was performed of the abdomen and pelvis following IV administration of 95 mL of Optiray 320 intravenous contrast. Sagittal and coronal reformatted images were obtained on the technologist's workstation. DLP: 274.67 mGy-cm FINDINGS: LUNG BASES: The visualized lung bases are unremarkable. Heart size is enlarged. There is calcification of the coronary arteries. There is a small pericardial effusion. This measures 1.2 cm transverse in thickness adjacent to the left ventricle. LIVER, GALLBLADDER, AND BILIARY TREE: There is intrahepatic and extrahepatic bile duct dilatation. Extrahepatic CBD measures 2 cm transverse. No calcified stone within the bile ducts. Status post cholecystectomy. No focal liver lesion. Right lobe of liver measures 17.1 cm superior to inferior. PANCREAS: Unremarkable. SPLEEN: The spleen measures 13.6 cm, mildly enlarged. There are several scattered hypodense lesions in the spleen measuring less than 1 cm. ADRENAL GLANDS: Unremarkable. KIDNEYS AND URETERS: There is a 3 mm and a 2 mm nonobstructive stone in the mid and lower pole of the left kidney. There is no ureteral stone. No hydronephrosis. BLADDER: There is a bladder diverticulum in the right posterior bladder. GASTROINTESTINAL TRACT: There is diverticulosis of the colon. No diverticulitis. No acute change of the bowel. No bowel obstruction. No bowel wall thickening or edema. Patient has had prior right hemicolectomy. The ileocolonic anastomosis is intact. The small bowel loops are unremarkable. ABDOMINAL WALL: There is a subcutaneous cystic lesion with small peripheral calcifications that is unchanged since prior CAT scan. This is at the lower central pelvis anteriorly measuring 11.7 x 8.3 x 9 cm. This has a density measurement of 19 Hounsfield units. No inflammation around this lesion and no air collection. LYMPH NODES: There is a left pelvic sidewall mass. This could be an enlarged lymph node versus an enlarged left ovarian mass. This measures 6.5 x 7.5 x 5.5 cm. This has a hypodense center but no air collection. There is no additional enlarged lymph node. There are a few small lymph nodes in the retroperitoneum. VASCULAR: Atherosclerotic vascular wall calcifications throughout the abdomen and pelvis. There is no aneurysm of the aorta. PELVIC VISCERA: No fluid in the adnexa or the cul-de-sac. The uterus is anteverted. OSSEOUS STRUCTURES: Multilevel degenerative spondylosis of spine with disc height narrowing, endplate spurring and facet joint arthrosis. IMPRESSION: 1. Cardiomegaly with small pericardial effusion. 2. Status post cholecystectomy with chronic dilatation of the bile ducts. 3. Splenomegaly. Scattered hypodense lesions less than a centimeter in size within the spleen which are nonspecific. 4. Two small nonobstructive stones in the left kidney. No hydronephrosis. 5. Diverticulosis of colon but no acute change of the bowel. Status post right hemicolectomy. 6. Solid mass in the left lateral pelvic sidewall which may be an enlarged lymph node versus a left ovarian mass. No additional enlarged lymph node seen. There are a few small shotty lymph nodes in the retroperitoneum with a paraortic location. Lymphadenopathy. 7. Stable large cystic lesion in the subcutaneous tissue of the central pelvis. This critical result was discussed with Dr. Torres on 04/16/2018, 6:30 PM and it was ascertained that the content and urgency of the report was understood at the time of direct communication. DICTATED BY: Ryan Gonzalez MD DATE/TIME DICTATED:04/16/181807 MILL TENDER :MARIA FERNANDA DATE/TIME TRANSCRIBED:04/16/181807 CONFIDENTIAL, DO NOT COPY WITHOUT APPROPRIATE AUTHORIZATION. <Electronically signed in Other Vendor System> SIGNED BY: Ryan Gonzalez MD 04/16/18 703 CXR Impression: PATIENT: LOLA ANDERSON PRESENT AGE: 83 PATIENT ACCOUNT NO: [id number] : 37 LOCATION: [facility] ORDERING PHYSICIAN: Souleymane Torres PA-C SERVICE DATE: 04/16/185079 EXAM TYPE: RAD - XRY-PORTABLE CHEST XRAY EXAMINATION: XR PORTABLE CHEST CLINICAL INFORMATION: Chest pain. COMPARISON: Chest radiography 03/25/2018. TECHNIQUE: Portable frontal view of the chest was obtained. FINDINGS: The lungs are well expanded. There is mild bronchovascular prominence without overt pulmonary edema. No convincing new consolidation, pneumothorax, or pleural effusion. The cardiac contour is prominent. Suspected enlargement of the main pulmonary trunk. Aortic calcification. No acute osseous abnormalities. Suspect chronic/healed bilateral rib fractures. IMPRESSION: Mild bronchovascular prominence could reflect a degree of vascular congestion. No overt pulmonary edema. Persistent enlargement of the cardiac contour. DICTATED BY: Galen Martins MD DATE/TIME DICTATED:1538 MILL TENDER:MARIA FERNANDA DATE/TIME TRANSCRIBED:04/16/181538 CONFIDENTIAL, DO NOT COPY WITHOUT APPROPRIATE AUTHORIZATION. <Electronically signed in Other Vendor System> SIGNED BY: Galen Martins MD 04/16/18 1083 Initial ED EKG: NSR Comments: 83-year-old female presenting with weakness and failure to thrive. Patient lives at home and has been unable to care for herself. Family has found that she is not taking her medications as prescribed. Patient states she feels too weak to take them. She has had decreased appetite. She had one episode of vomiting. She was found incontinent of stool. Overall patient has no complaints. Abdomen is soft with no focal tenderness. She has a large suprapubic mass which was apparent on her previous CT scan. She also has multiple findings on her CT scan which are chronic. She does have a new left pelvic mass which I did discuss with radiology concerning for ovarian mass versus lymph node. It will need to have an IR biopsy. Patient was also found to have urinary tract infection and mild hypokalemia. She feels slightly short of breath especially with exertion. Her BNP is slightly elevated and she has mild vascular congestion on her chest x-ray. I did discuss the case with Dr. Jimenes who is in agreement that this patient should be admitted to the hospital for further evaluation and management. Patient was started on ceftriaxone and admitted to general medicine. (Brian KIM,Souleymane) Departure Departure Disposition: STILL A PATIENT Condition: Stable Clinical Impression Primary Impression: UTI (urinary tract infection) Secondary Impressions: Abdominal pain, Failure to thrive, Hypokalemia, Pelvic mass Referrals: Lizzeth JAIMES,Lexx Jacob (PCP/Family) Departure Forms: Customer Survey General Discharge Information Admission Note Spoke With: Aston JAIMES,Roxana Documentation of Exam: Documentation of any treatments & extenuating circumstances including Concerns Regarding Discharge (functional status, medication knowledge or non-compliance, living conditions, etc.) that warrant an admission rather than observation: [ Recurrent UTI requiring IV antibiotics. failure to thrive at home alone, electrolyte replacement, will need IR biopsy of new pelvic mass and surgical consult. premature discharge is medically unsafe. ] (Brian KIM,Souleymane) PA/BODY LINE FINISHER Co-Sign Statement Statement: ED Attending supervision documentation- x I saw and evaluated the patient. I have also reviewed all the pertinent lab results and diagnostic results. I agree with the findings and the plan of care as documented in the PA's/BODY LINE FINISHER's documentation. Hypotension resolved, UTI, weakness with pelvic mass on CT [] I have reviewed the ED Record and agree with the PA's/BODY LINE FINISHER's documentation. [] Additions or exceptions (if any) to the PAs/BODY LINE FINISHER's note and plan are summarized below: [] (Jalil JAIMES,Tyler) Critical Care Note Critical Care Note Critical Care Time: non-applicable (Brian KIM,Souleymane) Critical Care Note Critical Care Note Critical Care Time: non-applicable
[2018-04-16 14:33] LABS: ABSOLUTE BASOPHIL COUNT 0 /CUMM (0.0-0.2); ABSOLUTE EOSINOPHIL COUNT 0 /CUMM (0.0-0.7); ABSOLUTE GRANULOCYTE CT 7.1 /CUMM (1.4-6.5); ABSOLUTE LYMPH COUNT 1.2 /CUMM (1.2-3.4); ABSOLUTE MONOCYTE COUNT 0.6 /CUMM (0.10-0.60); BASOPHIL % 0.3 % (0.0-2.0); EOSINOPHIL % 0.5 % (0-5); GRANULOCYTE % 78.4 % (42.2-75.2); HEMATOCRIT 39.9 % (37-47); MEAN CORPUSCULAR HGB 25.4 PG (27.0-31.0); MEAN CORPUSCULAR HGB CONC 33.8 G/DL (33.0-37.0); MEAN CORPUSCULAR VOLUME 75.2 FL (81.0-99.0); MEAN PLATELET VOLUME 8.2 FL (7.4-10.4); PLATELET COUNT 164 /CUMM (130-400); RBC DISTRIBUTION WIDTH 21.6 % (11.5-14.5)
[2018-04-16 15:46] LABS: PT 14.7 SEC (9.4-12.5); PTT 30 SEC (25-37)
--- NOTE | 2018-04-16 15:55 | RADIOLOGY REPORT ---
EXAMINATION: XR PORTABLE CHEST CLINICAL INFORMATION: Chest pain. COMPARISON: Chest radiography 03/25/2018. TECHNIQUE: Portable frontal view of the chest was obtained. FINDINGS: The lungs are well expanded. There is mild bronchovascular prominence without overt pulmonary edema. No convincing new consolidation, pneumothorax, or pleural effusion. The cardiac contour is prominent. Suspected enlargement of the main pulmonary trunk. Aortic calcification. No acute osseous abnormalities. Suspect chronic/healed bilateral rib fractures. IMPRESSION: Mild bronchovascular prominence could reflect a degree of vascular congestion. No overt pulmonary edema. Persistent enlargement of the cardiac contour.
--- NOTE | 2018-04-16 18:52 | CT SCAN REPORT ---
EXAMINATION: CT ABDOMEN AND PELVIS WITH CONTRAST CLINICAL INFORMATION: Abdominal pain. Vaginal discharge. COMPARISON: CT scan abdomen and pelvis 05/27/2010. TECHNIQUE: Multidetector volumetric imaging was performed of the abdomen and pelvis following IV administration of 95 mL of Optiray 320 intravenous contrast. Sagittal and coronal reformatted images were obtained on the technologist's workstation. DLP: 274.67 mGy-cm FINDINGS: LUNG BASES: The visualized lung bases are unremarkable. Heart size is enlarged. There is calcification of the coronary arteries. There is a small pericardial effusion. This measures 1.2 cm transverse in thickness adjacent to the left ventricle. LIVER, GALLBLADDER, AND BILIARY TREE: There is intrahepatic and extrahepatic bile duct dilatation. Extrahepatic CBD measures 2 cm transverse. No calcified stone within the bile ducts. Status post cholecystectomy. No focal liver lesion. Right lobe of liver measures 17.1 cm superior to inferior. PANCREAS: Unremarkable. SPLEEN: The spleen measures 13.6 cm, mildly enlarged. There are several scattered hypodense lesions in the spleen measuring less than 1 cm. ADRENAL GLANDS: Unremarkable. KIDNEYS AND URETERS: There is a 3 mm and a 2 mm nonobstructive stone in the mid and lower pole of the left kidney. There is no ureteral stone. No hydronephrosis. BLADDER: There is a bladder diverticulum in the right posterior bladder. GASTROINTESTINAL TRACT: There is diverticulosis of the colon. No diverticulitis. No acute change of the bowel. No bowel obstruction. No bowel wall thickening or edema. Patient has had prior right hemicolectomy. The ileocolonic anastomosis is intact. The small bowel loops are unremarkable. ABDOMINAL WALL: There is a subcutaneous cystic lesion with small peripheral calcifications that is unchanged since prior CAT scan. This is at the lower central pelvis anteriorly measuring 11.7 x 8.3 x 9 cm. This has a density measurement of 19 Hounsfield units. No inflammation around this lesion and no air collection. LYMPH NODES: There is a left pelvic sidewall mass. This could be an enlarged lymph node versus an enlarged left ovarian mass. This measures 6.5 x 7.5 x 5.5 cm. This has a hypodense center but no air collection. There is no additional enlarged lymph node. There are a few small lymph nodes in the retroperitoneum. VASCULAR: Atherosclerotic vascular wall calcifications throughout the abdomen and pelvis. There is no aneurysm of the aorta. PELVIC VISCERA: No fluid in the adnexa or the cul-de-sac. The uterus is anteverted. OSSEOUS STRUCTURES: Multilevel degenerative spondylosis of spine with disc height narrowing, endplate spurring and facet joint arthrosis. IMPRESSION: 1. Cardiomegaly with small pericardial effusion. 2. Status post cholecystectomy with chronic dilatation of the bile ducts. 3. Splenomegaly. Scattered hypodense lesions less than a centimeter in size within the spleen which are nonspecific. 4. Two small nonobstructive stones in the left kidney. No hydronephrosis. 5. Diverticulosis of colon but no acute change of the bowel. Status post right hemicolectomy. 6. Solid mass in the left lateral pelvic sidewall which may be an enlarged lymph node versus a left ovarian mass. No additional enlarged lymph node seen. There are a few small shotty lymph nodes in the retroperitoneum with a paraortic location. Lymphadenopathy. 7. Stable large cystic lesion in the subcutaneous tissue of the central pelvis. This critical result was discussed with Dr. Torres on 04/16/2018, 6:30 PM and it was ascertained that the content and urgency of the report was understood at the time of direct communication.
--- NOTE | 2018-04-16 20:41 | History & Physical ---
Luca JAIMES,[facility] 04/16/182040: General Information and HPI History of Present Illness: 83-year-old female with past medical history of HFpEF, restrictive lung disease on 3L home O2, hypertension, colon cancer s/p hemicolectomy, hiatal hernia recently discharged from [facility] on March 28 for uncomplicated UTI brought in by ambulance to the emergency department due to concerns from her visiting nurse regarding lethargy and hypotension. The patient states that she woke up this morning feeling lousy and vomited. She states that she felt better after her vomit. She states that she was lightheaded when she walked to the bathroom. Per the family, the patient was doing well since the last admission for UTI. She completed her Augmentin course the day after discharge. States that she has been feeling tired this week. They state that she has not been taking her medications for the past 2 days. They state that she has had on and off diarrhea for the past several months but it has been noticeable this week. She had one episode of diarrhea today. The patient denies any blood or mucus and diarrhea. The family has also noticed that the patient has lost about 15 pounds since last year. The patient states that she does have a decreased appetite and did not eat anything today. She is currently hungry and requesting some food. The patient states that she does have abdominal pain. The family states that she has not been drinking as much fluid either. The patient's only urinary complaint is dark urine. The ED nurse had noticed vaginal discharge which the patient has not noticed because she does not check. She denies any dysuria, nocturia,. She denies any headaches, fevers, chills, chest pain, changes in shortness of breath shortness of breath (baseline 3L),. The patient was was to have a follow-up with Dr. Hernandez for the pelvic mass found on last admission but they have yet to see him. Allergies/Medications Allergies: Coded Allergies: aspirin (Bleeding per patient 05/15/17) Home Med list Amiloride/Hydrochlorothiazide (Amiloride HCl-Hctz 5-50 MG Tab) 5 MG-50 MG TABLET 1 TAB PO DAILY HTN (Reported) Furosemide (Lasix) 40 MG TABLET 1.5 TAB PO DAILY leg sweeling, chf Levothyroxine Sodium (Synthroid) 100 MCG TABLET 1 TAB PO DAILY AC thyroid . Nystatin 100,000 UNIT/GRAM CREAM..G. 1 ALICIA TOP BID RASH . Potassium Chloride (Klor-Con M20) 20 MEQ TAB.ER.PRT 2 TAB PO DAILY SUPPLEMENT (Reported) Prazosin HCl (Minipress) 5 MG CAPSULE 1 CAP PO 1XDAY BP (Reported) Verapamil HCl (Verapamil ER) 240 MG CAP24H.PEL 1 TAB PO 1XDAY CALCIUM CHANNEL RIGOBERTO (Reported) Past History Travel History Traveled to [place] past 21 day No Medical History Neurological: NONE EENT: NONE Cardiovascular: CHF, hypertension Respiratory: interstitial lung disease Gastrointestinal: Colon cancer Renal: NONE Musculoskeletal: NONE Psychiatric: anxiety Endocrine: hypothyroidism Blood Disorders: NONE Cancer(s): breast cancer, colon/rectal cancer DETAIL SUPERVISOR/Reproductive: NONE History of MRSA: No History of VRE: No History of CDIFF: No Surgical History Surgical History: non-contributory Past Family/Social History Family History Relations & Conditions if any FATHER (heart disease). Psychosocial History Where do you live? Home ETOH Use: denies use Illicit Drug Use: denies illicit drug use Functional Ability ADLs Independent: dressing, eating, toileting, bathing. Ambulation: independent Review of Systems Review of Systems Constitutional: Reports: see HPI, malaise, weakness, unexplained weight loss. Denies: chills, fever. Cardiovascular: Denies: chest pain, palpitations. Respiratory: Denies: short of breath. GI: Reports: abdominal pain, diarrhea, vomiting. Denies: constipation, bloody stool , changes in stool. Genitourinary: Denies: dysuria, frequency, hematuria, nocturia. Exam & Diagnostic Data Last 24 Hrs of Vital Signs/I&O Vital Signs Date Time Temp Pulse Resp B/P B/P Pulse O2 O2 Flow FiO2 Mean Ox Delivery Rate 04/16 2025 98.2 75 20 175/70 96 Nasal 3.0L Cannula 04/16 1918 98.0 04/16 1723 95.6 73 20 142/64 100 Nasal 3.0L Cannula 04/16 1414 95 Nasal 2.0L Cannula 04/16 1320 95.7 82 20 168/72 98 Room Air Intake & Output 04/16 1600 04/16 0800 04/16 0000 Intake Total 1000 Output Total Balance 1000 Intake, IV 1000 Patient 145 lb Weight Weight Estimated Measurement Method Physical Exam General Appearance Alert, Oriented X3, No Acute Distress HEENT no anterior neck lymphadenopathy Cardiovascular irregular, systolic murmur Lungs diffuse inspiratory crackles worse in bilateral basal lobes Abdomen suprapubic mass, central abdominal scar, normal bowel sounds, soft, nontender Extremities mild interigious rash of hips b/l Vascular 2+ radial pulses Last 24 Hrs of Labs/Jose: Laboratory Tests 04/16/18 1652: Lactic Acid Cancelled 04/16/18 1644: Urine Color YEL, Urine Clarity HAZY H, Urine pH 6.5, Ur Specific [place] 1.010, Urine Protein NEG, Urine Ketones NEG, Urine Nitrite NEG, Urine Bilirubin NEG, Urine Urobilinogen 1.0, Ur Leukocyte Esterase MOD H, Ur Microscopic SEDIMENT EXAMINED, Urine RBC 1-3, Urine WBC 50-75 H, Ur Epithelial Cells FEW, Urine Bacteria RARE H, Hyaline Casts 1-3 H, Urine Mucus RARE, Urine Hemoglobin TRACE -LYSED, Urine Glucose NEG 04/16/18 1521: PT 14.7 H, INR 1.34 H, APTT 30 04/16/18 1412: Lactic Acid 1.8 04/16/18 1412: Anion Gap 11, Estimated GFR > 60, BUN/Creatinine Ratio 50.0 H, Glucose 85, Calcium 8.8, Magnesium 1.7, Total Bilirubin 1.4 H, AST 45 H, ALT 34, Alkaline Phosphatase 118, Creatine Kinase 29 L, Troponin I 0.06, Wpi-T-Zxzxqqkxrmw Pept 2790 H, Total Protein 8.1, Albumin 3.2 L, Globulin 4.9 H, Albumin/Globulin Ratio 0.7 L, CBC w Diff NO MAN DIFF REQ, RBC 5.30, MCV 75.2 L, MCH 25.4 L, MCHC 33.8, RDW 21.6 H, MPV 8.2, Gran % 78.4 H, Lymphocytes % 13.9 L, Monocytes % 6.9, Eosinophils % 0.5, Basophils % 0.3, Absolute Granulocytes 7.1 H, Absolute Lymphocytes 1.2, Absolute Monocytes 0.6, Absolute Eosinophils 0, Absolute Basophils 0 Assessment/Plan Assessment: 83-year-old female with past medical history of HFpEF, restrictive lung disease on 3L home O2, hypertension, colon cancer s/p hemicolectomy, hiatal hernia recently discharged from [facility] March 28 for uncomplicated UTI brought in by ambulance to the emergency department due to concerns from her visiting nurse regarding lethargy and hypotension #Pelvic mass Unclear cause of pelvic mass this time. Seen on prior admission Possibly primary cancer versus metastatic given history CT: Solid mass in the left lateral pelvic sidewall which may be an enlarged lymph node versus a left ovarian mass. No additional enlarged lymph node seen. There are a few small shotty lymph nodes in the retroperitoneum with a paraortic location. Lymphadenopathy. -Obtain transvaginal ultrasound -obgyn consult for possible biopsy #Persistent intermittent diarrhea and vomiting x1 with dehydration and electrolyte abrnoamlities Na 134 K 3.2 -cont IVF -cont probiotics -consider cdiff #?UTI Urinalysis positive for UTI but currently asymptomatic. previous cx - senstive to ceftriaxone -Continue ceftriaxone, discontinue cultures negative #elevated T bili and AST and INR Chronic. S/p choly. AST and INR mildly elevated -cont to monitor #elevated probnp with chest congestion Probnp 2790 No overt signs of acute CHF -cont diuretics #CT findings 1. Cardiomegaly with small pericardial effusion. 2. Splenomegaly. Scattered hypodense lesions less than a centimeter in size within the spleen which are nonspecific. 3. Two small nonobstructive stones in the left kidney. No hydronephrosis. 4. Diverticulosis of colon . Status postright hemicolectomy. 5. Stable large cystic lesion in the subcutaneous tissue of the central pelvis. -cont outpatient f/u #Chronic medical problems: HFpEF, restrictive lung disease on 3L home O2, hypertension, colon cancer s/p hemicolectomy, hiatal hernia, Hx of severe pulm HTN -cont verapamil, prazosin, kcl, hctz, lasix, levothyroxine #DNR DNI #dvt - pprophylaxis lovenox As Ranked By This Provider Problem List: 1. Vomiting 2. Diarrhea 3. Lethargy 4. Pelvic mass Core Measures/Misc (07/12) Acute Coronary Syndrome ACS Diagnosis: No Congestive Heart Failure Congestive Heart Failure Diagnosis No Cerebrovascular Accident CVA/TIA Diagnosis: No VTE (View Protocol) VTE Risk Factors Acute Medical Illness No Mechanical VTE Prophylaxis d/t Other No VTE Pharm Prophylaxis d/t NA PharmProphylax ordered Sepsis (View protocol) Sepsis Present: No If YES complete Sepsis Event Note If YES complete Sepsis Event Note Shiraz JAIMES,[facility] 04/16/182042: General Information and HPI History of Present Illness: Core Measures/Misc (07/12) Sepsis (View protocol) If YES complete Sepsis Event Note If YES complete Sepsis Event Note Resident Review Statement Resident Statement: examined this patient, discussed with security intern, agreed with security intern Other Findings: H: The patient is a 83-year-old female with past medical history of HFpEF, restrictive lung disease on 3L home O2, hypertension, colon cancer s/p hemicolectomy, hiatal hernia who presented to the emergency department after patient's visiting nurse found the patient to be hypotensive. Patient was recently discharged from [facility] on 03/29/2018 where she was treated for an uncomplicated UTI. This evening patient states that over the last few days she has had decreased by mouth intake. She states that she woke up this morning and felt "lousy". She also endorsed one episode of nonbilious non-bloody vomiting. States that she has not been taking her medications. Since her discharge from [facility] appears the patient has had increased lethargy and some intermittent episodes of diarrhea. Last reports diarrhea prior to coming in. Also reported that patient has had 15 pound weight loss in last 12 months. Denies being recently exposed to any of contacts. She last took an antibiotic March 29. Patient was accompanied with her son and [id number]. They report patient does have decreased by mouth intake. Patient had a scheduled outpatient visit with the CUSTOMS COMPLIANCE ANALYST Dr. Hernandez next week for a pelvic Ultrasound. R: On review of systems the patient denied any fever, chills, nausea, vomiting. Denies any worsening dyspnea on exertion. E: Temperature 95.7, pulse rate 82, respirations 20, blood pressure 168/72, saturating 97% on room air. General Appearance: well developed/nourished, no apparent distress, alert, awake Head: atraumatic, normal appearance Eyes: Bilateral: normal appearance, PERRL, EOMI. Ears, Nose, Throat: normal pharynx, moist mucus membranes Neck: normal inspection, No jvd Respiratory: normal breath sounds, no respiratory distress Cardiovascular: regular rate/rhythm Gastrointestinal: normal bowel sounds, soft, non-tender. Extremities: normal range of motion Neurologic/Psych: no motor/sensory deficits, awake, alert, oriented x 3 Skin: intact, normal color Labs: As Above Imaging: SERVICE DATE: 04/16/18 EXAM TYPE: RAD - XRY-PORTABLE CHEST XRAY IMPRESSION: Mild bronchovascular prominence could reflect a degree of vascular congestion. No overt pulmonary edema. Persistent enlargement of the cardiac contour. DICTATED BY: Galen Martins MD SERVICE DATE: 04/16/18 EXAM TYPE: CAT - CT ABD & PELVIS W IV CONTRAST IMPRESSION: 1. Cardiomegaly with small pericardial effusion. 2. Status post cholecystectomy with chronic dilatation of the bile ducts. 3. Splenomegaly. Scattered hypodense lesions less than a centimeter in size within the spleen which are nonspecific. 4. Two small nonobstructive stones in the left kidney. No hydronephrosis. 5. Diverticulosis of colon but no acute change of the bowel. Status post right hemicolectomy. 6. Solid mass in the left lateral pelvic sidewall which may be an enlarged lymph node versus a left ovarian mass. No additional enlarged lymph node seen. There are a few small shotty lymph nodes in the retroperitoneum with a paraortic location. Lymphadenopathy. 7. Stable large cystic lesion in the subcutaneous tissue of the central pelvis. A/P: The patient is a 83-year-old female with past medical history of HFpEF, restrictive lung disease on 3L home O2, hypertension, colon cancer s/p hemicolectomy, hiatal hernia who presented to the emergency department after patient's visiting nurse found the patient to be hypotensive. At the time of our clinical infection the patient's blood pressure had improved. She was lucid and oriented 3 although slightly lethargic. Below is a problem list and plan for her. #Hypotension with no clear documentation on arrival #Solid mass in the left lateral pelvic sidewall, likely requiring further investigation #Weakness and lethargy, no signs of colitis on imaging #Questionable UTI. #Transaminitis #Elevated proBNP no signs of CHF Admit patient to general medical service. Vital signs every 4 hours. Empirically cover for UTI treatment if urine culture remains negative follow off antibiotics. CUSTOMS COMPLIANCE ANALYST consultation in a.m. Consider IR consultation in a.m. for potential further evaluation of a mass. Consider C. difficile diarrhea continues to worsen. Maintain potassium above 4 and magnesium above 2 CBC, BEP, AST, ALT in a.m. if liver enzymes remain elevated consider ultrasound. DVT prophylaxis Lovenox. Patient is a DNR/DNI Aston JAIMES, [facility] 04/17/18 0048: Core Measures/Misc (07/12) Sepsis (View protocol) If YES complete Sepsis Event Note If YES complete Sepsis Event Note Attending MD Review Statement Attending Statement Attending MD Statement: examined this patient, discuss w/resident/PA/COMMUNICATIONS SYSTEMS ENGINEER, agreed w/resident/PA/COMMUNICATIONS SYSTEMS ENGINEER, discussed with family, reviewed images, amended to note Attending Assessment/Plan: 83 yo F with h/o HTN, hypothyroidism, restrictive lung disease, chronic hypoxic respiratory failure on 3L O2, HfpEF, breast CA s/p radiation and colon cancer s /p hemicolectomy, who was recently admitted for UTI treated with Augmentin, is sent in by visiting nurse for weakness and hypotension. Apparently patient has not been taking her meds for past 2 days. BP when checked by EMS 130/90. Patient reports poor appetite, nonbloody emesis and intermittent episodes of diarrhea. Reports weight loss of about 15 lbs in 1 year. Patient reports dark urine but no foul smell, dysuria or hematuria. No fever or chills. Patient lives at home by herself. She does have nursing care 3 times a week, PT and OT. Of note, patient was diagnosed with a pelvic mass during the last admission and is to follow up with Dr. Hernandez (Embossing Press Operator [employer]olded Goods) for outpatient work up and biopsy. Vitals stable. Exam: awake, oriented but lethargic responds appropriately to verbal questions, mucosa dry, Neck supple, Chest bibasilar crackles+, Heart S1S2 regular, systolic murmur+, Abd soft, lower abdomen mass+. Labs: INR 1.34, Na 134, K 3.2, bicarb 36, BUN 40, creat 0.8, lactic acid 1.8, T. Bili 1.4, AST 45, ALT 34, CK 29, trop neg. ProBNP 2790. UA moderate LE, WBC 50- 75, bacteria rare. CXR: mild bronchovascular prominence could reflect a degree of vascular congestion, no overt edema. CT abd/pelvis: cardiomegaly with small pericardial effusion, splenomegaly, diverticulosis, nonobstructive kidney stones, solid mass in left lateral pelvic sidewall ?enlarged LN or ovarian mass, stable large cystic lesion in subcutaneous tissue of central pelvis. EKG: sinus rhythm, PVCs. Echo (2018): EF 55-60%, moderate MR and . Assessment and plan: 1. Hypotension resolved, no clear documention upon ER arrival 2. Weakness, diarrhea, poor PO intake rule out infectious causes, no obvious CT evidence of colitis 3. Solid mass in left lateral pelvic sidewall ?ovarian mass and large cystiic lesion in subcutaneous tissue of central pelvis needs further investigation 4. Possible UTI 5. Hypokalemia 6. Mild transaminitis 7. Elevated proBNP with no over CHF - Admit to General medicine - Fall precautions - Check orthostats - Panculture - If persistent diarrhea, work up with stool studies, Cdiff - Gentle IV hydration with potassium supplementation - IV Ceftriaxone for now, if cultures are negative dc antibiotics - Obtain pelvic ultrasound - Gynecology consult - Consider IR guided biopsy DVT ppx Alps for now (until final plan for biopsy). DNR/I.
[2018-04-16 22:18] VITALS: BP 128/64
--- NOTE | 2018-04-17 00:52 | Admission Certification ---
Admission Certification Certification Statement - As attending physician, I certify that at the time of - admission, based on clinical presentation, severity of - symptoms, need for further diagnostic testing and - therapeutic interventions, and risk of adverse outcomes - without in-hospital treatment, in my clinical assessment, - this patient requires an acute hospital stay for a minimum - of two nights or longer. I have also considered psychsocial - factors such as support system, advanced age, financial - issues, cognitive issues, and failed out-patient treatments, - past re-admission history, safety of patient, and lack of - compliance as applicable. Specific rationale supporting this admission is: Weakness, intermittent diarrhea, left lateral pelvic mass, possible UTI.
[2018-04-17 01:15] VITALS: BP 132/80
[2018-04-17 06:13] VITALS: BP 142/54
[2018-04-17 08:40] LABS: ABSOLUTE BASOPHIL COUNT 0 /CUMM (0.0-0.2); ABSOLUTE EOSINOPHIL COUNT 0.1 /CUMM (0.0-0.7); ABSOLUTE GRANULOCYTE CT 4.6 /CUMM (1.4-6.5); ABSOLUTE LYMPH COUNT 1.3 /CUMM (1.2-3.4); ABSOLUTE MONOCYTE COUNT 0.7 /CUMM (0.10-0.60); BASOPHIL % 0.4 % (0.0-2.0); EOSINOPHIL % 1.4 % (0-5); HEMATOCRIT 37.2 % (37-47); MEAN CORPUSCULAR VOLUME 75.7 FL (81.0-99.0); MEAN PLATELET VOLUME 8.1 FL (7.4-10.4); PLATELET COUNT 149 /CUMM (130-400); RBC DISTRIBUTION WIDTH 22.2 % (11.5-14.5); RED BLOOD CELL CT 4.91 /CUMM (4.20-5.40); WHITE BLOOD CELL COUNT 6.8 /CUMM (4.8-10.8)
[2018-04-17 10:20] VITALS: BP 144/60
--- NOTE | 2018-04-17 11:17 | PN- Att Addend ---
Attending Addendum Attending Brief Note Patient seen and examined. Lying in bed not in acute distress. She was recently discharged from [facility] after being managed for urinary tract infection. She completed her antibiotic course. She was brought in for evaluation due to reports of progressive lethargy one episode of vomiting and reports of diarrhea on and off which have been going on for several months. Does also report that she was hypotensive at home however since hospitalization she has had no documented hypotension. She currently denies any nausea vomiting. Denies any abdominal pain. Has had no diarrhea since hospitalization. She was started empirically on IV Rocephin emergency room for presumed urinary tract infection however it is noted that her urinalysis shows no nitrites and rare WBC. It is also noted that no urine cultures were sent for this patient. I spoke with the patient's son and daughter in law on the phone. General appearance: Well-developed. Lethargic. HEENT: Anicteric, no pallor, pupils equal and reactive. Neck: Supple with no jugular venous distention. Heart: S1-S2 irregular with no audible murmur. Lungs: Adequate and symmetric air entry bilaterally with no added sounds. Abdomen: Nondistended with normal bowel sounds. Soft, nontender with no palpable masses. Extremities: No pedal edema. No cyanosis. Skin: Intact Laboratory Tests 04/17/18 0750: Anion Gap 7, Estimated GFR > 60, BUN/Creatinine Ratio 34.3 H, AST 34, ALT 27, CBC w Diff NO MAN DIFF REQ, RBC 4.91, MCV 75.7 L, MCH 25.0 L, MCHC 33.0, RDW 22.2 H, MPV 8.1, Gran % 68.0, Lymphocytes % 19.7 L, Monocytes % 10.5 H, Eosinophils % 1.4, Basophils % 0.4, Absolute Granulocytes 4.6, Absolute Lymphocytes 1.3, Absolute Monocytes 0.7 H, Absolute Eosinophils 0.1, Absolute Basophils 0 04/16/18 1652: Lactic Acid Cancelled 04/16/18 1644: Urine Color YEL, Urine Clarity HAZY H, Urine pH 6.5, Ur Specific [place] 1.010, Urine Protein NEG, Urine Ketones NEG, Urine Nitrite NEG, Urine Bilirubin NEG, Urine Urobilinogen 1.0, Ur Leukocyte Esterase MOD H, Ur Microscopic SEDIMENT EXAMINED, Urine RBC 1-3, Urine WBC 50-75 H, Ur Epithelial Cells FEW, Urine Bacteria RARE H, Hyaline Casts 1-3 H, Urine Mucus RARE, Urine Hemoglobin TRACE -LYSED, Urine Glucose NEG 04/16/18 1521: PT 14.7 H, INR 1.34 H, APTT 30 04/16/18 1412: Lactic Acid 1.8 04/16/18 1412: Anion Gap 11, Estimated GFR > 60, BUN/Creatinine Ratio 50.0 H, Glucose 85, Calcium 8.8, Magnesium 1.7, Total Bilirubin 1.4 H, AST 45 H, ALT 34, Alkaline Phosphatase 118, Creatine Kinase 29 L, Troponin I 0.06, Fpn-D-Sgleckyucph Pept 2790 H, Total Protein 8.1, Albumin 3.2 L, Globulin 4.9 H, Albumin/Globulin Ratio 0.7 L, CBC w Diff NO MAN DIFF REQ, RBC 5.30, MCV 75.2 L, MCH 25.4 L, MCHC 33.8, RDW 21.6 H, MPV 8.2, Gran % 78.4 H, Lymphocytes % 13.9 L, Monocytes % 6.9, Eosinophils % 0.5, Basophils % 0.3, Absolute Granulocytes 7.1 H, Absolute Lymphocytes 1.2, Absolute Monocytes 0.6, Absolute Eosinophils 0, Absolute Basophils 0 Problems: 1. Lethargy; query etiology 2. Hypotension; reported at home but not documented here in the hospital 3. Abnormal UA; no clinical symptoms of infection 4. Chronic hypoxic respiratory failure secondary to COPD. 5. Chronic heart failure with preserved ejection fraction 6. Vaginal discharge 7. Pelvic mass 8. Questionable arrhythmia 9. Pulmonary hypertension Plan: -Family reports the patient sees a bell hole digger for an arrhythmia. There is no documented arrhythmia in her previous history. She is not on any oral anticoagulant. EKG was reported as sinus rhythm on presentation. On examination however pulse appears regular. Obtain EKG. Echocardiogram report from earlier this month noted. If she does have an arrhythmia on EKG transfer to the telemetry service and obtain a cardiology consult. -Follow-up urine cultures. If negative discontinue antibiotic therapy. -Obtain LAUNDRY OPERATOR FINISHING consultation for further evaluation of her pelvic mass and vaginal discharge. -Supplement potassium orally. Repeat serum chemistry in a.m. -No indication for now to repeat CBC in a.m.
--- NOTE | 2018-04-17 13:33 | ULTRASOUND REPORT ---
EXAMINATION: US PELVIC MASS DIAGNOSIS CLINICAL INFORMATION: Solid mass seen in the left lateral pelvis sidewall. COMPARISON: CT scan of the abdomen and pelvis 04/16/2018. TECHNIQUE: Transabdominal real-time grayscale and Doppler ultrasound of the pelvis was performed. FINDINGS: The study redemonstrates a well-defined, heterogenous mass in the left lower pelvis. It measures 4.8 x 6.5 x 5.0 cm, not significantly changed compared to the prior study allowing for differences in slice selection. It has mildly increased vascularity. The urinary bladder is well-distended and is noted to the right of the mass. A discrete uterus is not visualized on the available images. IMPRESSION: 1. There is a 6.5 cm mass in the left pelvis, corresponding to the lesion seen on the prior study. It has mildly increased vascularity. This study cannot distinguish between an adnexal mass or enlarged lymph node.
[2018-04-17 13:48] VITALS: BP 116/58
--- NOTE | 2018-04-17 18:30 | Event Note ---
Event Note Event Note: Consult was placed with Dr. Hernandez regarding the Pelvic mass and Vaginal discharge. Recived a call back from dr. Kruger saying patient will be seen by Dr. Hernandez on thursday.
[2018-04-17 21:38] VITALS: BP 110/62
--- NOTE | 2018-04-18 04:26 | Event Note ---
Event Note Event Note: S: Sign out from education professor weekend team stated that patient has questionable history of arrhythmia as per patient's family. Plan on sign out was to assess patient's EKG and determine if arrhythmia does exist, as it has not been evaluated, transfer the patient to telemetry for monitoring. B: Apparently patient sees a process automation engineer for arrhythmia, as stated by the patient's family. However, patient's initial EKG showed sinus rhythm and physical exam showed regular heart rate. The patient is here for pelvic mass. She has a past medical history of CHF on Lasix, restrictive lung disease on 3 L of home oxygen, hypertension, colon cancer status post hemicolectomy, hiatal hernia. She was recently discharged from [place] for uncomplicated UTI. A: We did an EKG which showed reversion from sinus rhythm to sinus arrhythmia, no P waves seen in 3 beats, no ST or T-wave changes seen, no suggestion of ACS. R: We transfer the patient to telemetry for monitoring as the patient now has unevaluated arrhythmia (as far as we are concerned as there is no documentation) . We will also place a cardio consultation for tomorrow.
[2018-04-18 06:30] VITALS: BP 104/58
--- NOTE | 2018-04-18 08:32 | PN- Housestaff ---
Subjective Follow-up For: Lethargy; unclear etiology Chronic hypoxic respiratory failure secondary to COPD. Chronic heart failure with preserved ejection fraction Vaginal discharge Pelvic mass Questionable arrhythmia Pulmonary hypertension Tele-Events Since Last Visit: 5269, PVCs/trigeminy, Subjective: Patient was seen and examined, vitals are stable, no overnight events on telemetry monitoring, vitals are stable, still endorses lethargy but denies any chest pain, headache, lightheadedness, nausea or vomiting Review of Systems Constitutional: Reports: see HPI. Objective Last 24 Hrs of Vital Signs/I&O Vital Signs Date Time Temp Pulse Resp B/P B/P Pulse O2 O2 Flow FiO2 Mean Ox Delivery Rate 04/18 0827 70 104/58 04/18 0827 70 104/58 04/18 0800 98 Nasal 2.0L Cannula 04/18 0630 97.8 70 18 104/58 98 04/18 0000 Nasal 2.0L Cannula 04/17 2138 98.0 63 18 110/62 98 04/17 2034 63 110/62 04/17 1600 97 Nasal 2.0L Cannula 04/17 1348 97.9 73 20 116/58 99 Nasal 2.0L Cannula Intake & Output 04/18 1600 04/18 0800 04/18 0000 Intake Total 610 Output Total 800 Balance -190 Intake, IV 10 Intake, Oral 600 Number 0 Bowel Movements Output, Urine 800 Physical Exam General Appearance: Alert, Oriented X3, Cooperative, No Acute Distress HEENT: Atraumatic, PERRLA, EOMI Neck: Supple, No JVD Cardiovascular: Normal S1, Normal S2, EJECTION SYSTOLIC MURMUR Lungs: Clear to Auscultation Abdomen: Normal Bowel Sounds, Soft, No Tenderness Extremities: No Clubbing, No Cyanosis, No Edema Assessment/Plan Assessment: 83-year-old female with past medical history of HFpEF, restrictive lung disease on 3L home O2, hypertension, colon cancer s/p hemicolectomy, hiatal hernia recently discharged from [facility] on March 28 for uncomplicated UTI brought in by ambulance to the emergency department due to concerns from her visiting nurse regarding lethargy and hypotension Problem list: 1. Lethargy and lightheadedness; query etiology 2. Hypotension; reported at home but no documentation in the hospital 3. Arrhythmia 4. Chronic hypoxic respiratory failure secondary to COPD. 5. Chronic heart failure with preserved ejection fraction. 6. Vaginal discharge 7. Pelvic mass 8. Pulmonary hypertension. 9. Hypokalemia Plan: Continue to monitor and telemetry Continuous telemetry monitoring Vitals every shift Gynecology consult appreciated (Dr. Hernandez will see the patient On Thursday) regarding her pelvic mass and vaginal discharge Urine culture is negative, Patient is asymptomatic And afebrile Continue to monitor off antibiotics Will send vaginal discharge for culture, pH, microscopic exam, Gram stain Cardiology consult appreciated regarding her arrhythmia #DNR DNI #dvt - pprophylaxis lovenox Problem List: 1. Pelvic mass Pain Ratin Pain Location: n/a Pain Goal: Remain pain free Pain Plan: PATHWAY Tomorrow's Labs & Rationales: CBC BEP
--- NOTE | 2018-04-18 08:44 | PN- Att Addend ---
Attending Addendum Attending Brief Note Yesterday during my evaluation of the patient and noted that her heart rate was irregular. After discussing with the family obtain history that patient follows with the cardiology service for sinus arrhythmia. Repeat EKG was requested which was done later in the day and revealed an arrhythmia with some absent P waves and an absent P-wave and QRS complex. Baseline EKG shows multiple PVCs. It is noted that patient presented to the hospital with complaints of lethargy. She was stated to be lightheaded when walking to the bathroom. Does report by her nurse that she was hypotensive although this has not been documented in the hospital. Overnight on telemetry monitoring she has had no significant events. She appears to be in normal sinus rhythm this morning on the monitor. Denies chest pain or palpitations. Denies shortness of breath. Admits to mild lethargy today. Vital Signs Date Time Temp Pulse Resp B/P B/P Pulse O2 O2 Flow FiO2 Mean Ox Delivery Rate 04/18 0827 70 104/58 04/18 0827 70 104/58 04/18 0630 97.8 70 18 104/58 98 04/18 0000 Nasal 2.0L Cannula 04/17 2138 98.0 63 18 110/62 98 04/17 2034 63 110/62 04/17 1600 97 Nasal 2.0L Cannula 04/17 1348 97.9 73 20 116/58 99 Nasal 2.0L Cannula 04/17 1020 72 18 144/60 99 Nasal 3.0L Cannula 04/17 0840 Nasal 4.0L Cannula General appearance: Well-developed and not in any acute distress. HEENT: Anicteric, no pallor, pupils equal and reactive. Neck: Supple with no jugular venous distention. Heart: S1-S2 regular with 2/6 systolic murmur Lungs: Adequate and symmetric air entry bilaterally with no added sounds. Abdomen: Nondistended with normal bowel sounds. Soft, nontender with no palpable masses. Extremities: No pedal edema. No cyanosis. Skin: Intact Problems: 1. Lethargy and lightheadedness; query etiology 2. Hypotension; reported at home but no documentation in the hospital 3. Arrhythmia 4. Chronic hypoxic respiratory failure secondary to COPD. 5. Chronic heart failure with preserved ejection fraction. 6. Vaginal discharge 7. Pelvic mass 8. Pulmonary hypertension. 9. Hypokalemia Plan: -Symptom of lightheadedness and her hypotension reported at home may be related to her arrhythmia. Recommend consultation with her cardiology service. -Continue telemetry monitoring for now. -Urine culture is negative. Antibiotics have been discontinued. She remains afebrile -Gynecology service has been consulted regarding her pelvic mass and vaginal discharge. Documentation in the chart states that Dr. Kennedy was consulted yesterday and she has deferred to Dr. Hernandez to see the patient on Thursday. Currently no discharge reported by nursing staff. Patient denies any vaginal pain or pruritus. A vaginal discharge is present send samples for pH, microscopic, Gram stain, culture. -Nursing staff to mobilize patient. -Further disposition to be determined after cardiology evaluation.
[2018-04-18 14:26] VITALS: BP 110/52
--- NOTE | 2018-04-18 15:32 | Cons- Cardiology ---
General Information and HPI Consulting Request Date of Consult: 04/18/18 Requested By: Aston JAIMES,Roxana Reason for Consult: Normal EKG, possible arrhythmia History of Present Illness: The patient is an 83-year-old female with history of restrictive lung disease on home oxygen, hypertension, colon cancer status post hemicolectomy, and heart failure with preserved ejection fraction who was recently admitted to [facility] earlier this month for urinary tract infection. She presented to the emergency department with complaint of lethargy and hypotension. She woke up feeling poorly and vomiting on the day of admission. She complained of lightheadedness with walking to the bathroom. She has had intermittent diarrhea for the past few months which was worse during the week before admission. She was noted to have an irregular pulse. On telemetry she has been noted to have frequent premature atrial contractions, premature ventricular contractions, and short runs of SVT. She was reported by her nurse prior to admission to be hypotensive, however her blood pressure has been normal in the hospital. She continues to note intermittent mild lethargy. No chest pain. No syncope. No orthopnea. No palpitations. She had a recent echocardiogram in March which revealed moderate aortic stenosis, small pericardial effusion, severe pulmonary hypertension. She is noted on CT scan and ultrasound to have a 6 cm pelvic mass. Allergies/Medications Allergies: Coded Allergies: aspirin (Bleeding per patient 05/15/17) Home Med List: Amiloride/Hydrochlorothiazide (Amiloride HCl-Hctz 5-50 MG Tab) 5 MG-50 MG TABLET 1 TAB PO DAILY HTN (Reported) Furosemide (Lasix) 40 MG TABLET 1.5 TAB PO DAILY leg sweeling, chf Levothyroxine Sodium (Synthroid) 100 MCG TABLET 1 TAB PO DAILY AC thyroid . Nystatin 100,000 UNIT/GRAM CREAM..G. 1 ALICIA TOP BID RASH . Potassium Chloride (Klor-Con M20) 20 MEQ TAB.ER.PRT 2 TAB PO DAILY SUPPLEMENT (Reported) Prazosin HCl (Minipress) 5 MG CAPSULE 1 CAP PO 1XDAY BP (Reported) Verapamil HCl (Verapamil ER) 240 MG CAP24H.PEL 1 TAB PO 1XDAY CALCIUM CHANNEL RIGOBERTO (Reported) Current Medications: Current Medications Sig/Sanjuanita Start time Last Medication Dose Route Stop Time Status Admin Albuterol Sulfate 3 ML Q4-PRN PRN 04/17 0845 AC 06/23 INH 0903 Enoxaparin Sodium 40 MG DAILY 04/17 09 AC 04/18 SC 0827 Furosemide 60 MG DAILY 04/17 900 AC 04/18 PO 0826 Hydrochlorothiazide 50 MG DAILY 04/17 900 AC 04/18 PO 0826 Lactobacillus 1 CAP DAILY 04/17 900 AC 04/18 Acidophilus PO 08 Levothyroxine Sodium 0.1 MG DAILY AC 04/17 07 AC 04/18 PO 0638 Nystatin 1 ALICIA BID 04/16 2152 AC 04/18 TOP 0827 Potassium Chloride 40 MEQ Q1H 04/18 1300 DC 04/18 PO 04/18 1401 1329 Potassium Chloride 40 MEQ DAILY 04/17 09 AC 04/18 PO 0826 Prazosin HCl 5 MG DAILY 04/17 900 AC 04/18 PO 08 Verapamil HCl 120 MG BID 04/17 900 AC 04/18 PO 08 Review of Systems Review of Systems: No hemoptysis. Hematemesis. No rash. No tremor. All other systems were reviewed, and were noted to be negative. Past History Travel History Traveled to [place] past 21 day No Medical History Blood Transfusion Hx: No Neurological: NONE EENT: NONE Cardiovascular: CHF, hypertension Respiratory: interstitial lung disease Gastrointestinal: Colon cancer Renal: NONE Musculoskeletal: NONE Psychiatric: anxiety Endocrine: hypothyroidism Blood Disorders: NONE Cancer(s): breast cancer, colon/rectal cancer MEDICAL REVIEW SPECIALIST/Reproductive: NONE Surgical History Surgical History: non-contributory Family History Relations & Conditions If Any: FATHER (heart disease). Psychosocial History Where Do You Live? Home Services at Home: Home Health Aide, None, Occupational Therapy, Physical Therapy Smoking Status: Never Smoked ETOH Use: denies use Illicit Drug Use: denies illicit drug use Functional Ability ADLs Independent: dressing, eating, toileting, bathing. Ambulation: independent ECHO Results (as available) Report: CONCLUSIONS 1. Moderate aortic sclerosis is present. The valve is trileaflet. Mild aortic insufficiency is present. 2. Thickening of the mitral leaflets is present with mild to moderate annular calcification and moderate mitral insufficiency. Moderate left atrial enlargement is present. 3. A moderate size circumferential pericardial effusion is present. The effusion is hemodynamically insignificant. 4. The left ventricular chamber size is normal mild concentric hypertrophy and hyperdynamic systolic function. Ejection fraction is 75% with no resting wall motion abnormalities. 6. Mild to moderate tricuspid insufficiency is present with mild pulmonic insufficiency and moderate pulmonary hypertension. The estimated right ventricular systolic pressure is 54 mmHg. 7. Significant lipomatous hypertrophy of the atrial septum is present. 8. Since the prior study, the size of the pericardial effusion has increased. Exam & Diagnostic Data Vital Signs and I&O Vital Signs Date Time Temp Pulse Resp B/P B/P Pulse O2 O2 Flow FiO2 Mean Ox Delivery Rate 04/18 1426 98.0 67 18 110/52 96 Nasal 2.0L Cannula 04/18 0827 70 104/58 04/18 0827 70 104/58 04/18 0800 98 Nasal 2.0L Cannula 04/18 0630 97.8 70 18 104/58 98 04/18 0000 Nasal 2.0L Cannula 04/17 2138 98.0 63 18 110/62 98 04/17 2034 63 110/62 04/17 1600 97 Nasal 2.0L Cannula Intake & Output 04/18 1600 04/18 0800 04/18 0000 04/17 1600 04/17 0800 04/17 0000 Intake Total 360 610 500 Output Total 800 200 Balance 360 -190 500 -200 Intake, IV 10 10 20 Intake, Oral 350 600 480 Number 0 1 1 Bowel Movements Output, Urine 800 200 Patient 154 lb 162 lb Weight Weight Bed scale Reported by Patient Measurement Method Physical Exam: Gen: The patient is in no acute distress HEENT: Normal nose, ears, and oropharynx. Pupils equal bilaterally. Conjunctiva normal. Neck: Supple with no JVD, no masses, and no thyromegaly Lungs: Clear to auscultation with normal respiratory effort Heart: RRR, S1, S2, no murmurs. No peripheral edema, 2+ pulses in the lower extremities bilaterally Abdomen: Soft, nontender, no masses. No hepatomegaly. No splenomegaly Extremities: No clubbing or cyanosis. Normal muscle strength in the upper and lower extremities Skin: Normal skin turgor with no skin ulcers or lesions noted. Neuro: Cranial nerves intact. Sensation intact Psych: Alert and oriented x 3 with appropriate affect Diagnostic Data EKG Results EKG tracing is independently reviewed, and reveals sinus rhythm with frequent premature atrial contractions and short runs of SVT, left axis deviation, borderline T-wave abnormality CXR Results Mild bronchovascular prominence could reflect a degree of vascular congestion. No overt pulmonary edema. Persistent enlargement of the cardiac contour. Other Results Echocardiogram 03/27/18: 1. Fibrocalcific changes are present in the aortic valve with evidence of moderate valvular stenosis. The peak gradient is 27 mmHg with a mean gradient of 14 mmHg and an estimated valve area of 1.2 cm. Mild aortic insufficiency is also present. 2. Mitral leaflet thickening is present with fibrosis of the chordal structures and mild to moderate annular calcification with moderate mitral insufficiency and moderate to severe left atrial enlargement. 3. A small circumferential pericardial effusion is present which appears to be hemodynamically insignificant. 4. The left ventricular chamber size is normal with left ventricular hypertrophy and an ejection fraction of 65-70%. There are no resting wall motion abnormalities. A false tendon is present. 5. Mild right ventricular enlargement is present with right atrial enlargement and moderate tricuspid insufficiency with severe pulmonary hypertension and a right ventricular systolic pressure of 74 mmHg. 6. Significant lipomatous atrial septal hypertrophy is present. CT scan of the abdomen and pelvis: 1. Cardiomegaly with small pericardial effusion. 2. Status post cholecystectomy with chronic dilatation of the bile ducts. 3. Splenomegaly. Scattered hypodense lesions less than a centimeter in size within the spleen which are nonspecific. 4. Two small nonobstructive stones in the left kidney. No hydronephrosis. 5. Diverticulosis of colon but no acute change of the bowel. Status post right hemicolectomy. 6. Solid mass in the left lateral pelvic sidewall which may be an enlarged lymph node versus a left ovarian mass. No additional enlarged lymph node seen. There are a few small shotty lymph nodes in the retroperitoneum with a paraortic location. Lymphadenopathy. 7. Stable large cystic lesion in the subcutaneous tissue of the central pelvis. Pelvic ultrasound: 1. There is a 6.5 cm mass in the left pelvis, corresponding to the lesion seen on the prior study. It has mildly increased vascularity. This study cannot distinguish between an adnexal mass or enlarged lymph node. Assessment/Plan Assessment/Plan The patient is an 83-year-old female with history of chronic HFpEF and moderate aortic stenosis who was recently diagnosed with a small pericardial effusion that was not hemodynamically significant. She presented with lethargy, and she was diagnosed with a new pelvic mass. Is noted on telemetry to be in sinus rhythm with premature atrial contractions, premature ventricular contractions, and short runs of SVT. Blood pressure and heart rate are normal. Plan: * Continue telemetry monitoring. No treatment is needed for the supraventricular and ventricular ectopy * The small pericardial effusion on the echocardiogram 3 weeks ago has been noted on prior echocardiograms going back to 2014. There is no indication to repeat the echocardiogram at this time. * Would discontinue hydrochlorothiazide at this time since she is also on furosemide * Continue verapamil Consult Acknowledgment - Thank you for your consult request.
[2018-04-18 22:06] VITALS: BP 118/66
[2018-04-19 06:58] VITALS: BP 116/64
--- NOTE | 2018-04-19 07:28 | PN- Housestaff ---
Georges JAIMES,Marta 04/19/18 0728: Subjective Follow-up For: Lethargy; unclear etiology Chronic hypoxic respiratory failure secondary to COPD. Chronic heart failure with preserved ejection fraction Vaginal discharge Pelvic mass Questionable arrhythmia Pulmonary hypertension Tele-Events Since Last Visit: Intermittent. Affect related junctional rhythm Subjective: Patient was seen and examined at bedside, she denies any complaints, vital signs stable, Review of Systems Constitutional: Reports: see HPI. Objective Last 24 Hrs of Vital Signs/I&O Vital Signs Date Time Temp Pulse Resp B/P B/P Pulse O2 O2 Flow FiO2 Mean Ox Delivery Rate 04/19 0828 60 116/64 04/19 0828 60 116/64 04/19 0800 98 Nasal 2.0L Cannula 04/19 0658 97.5 60 18 116/64 98 Nasal Cannula 04/18 2206 98.2 74 18 118/66 99 Nasal Cannula 04/18 2159 Nasal 2.0L Cannula 04/18 2022 97 Nasal 2.0L Cannula 04/18 2013 87 118/58 04/18 1426 98.0 67 18 110/52 96 Nasal 2.0L Cannula Intake & Output 04/19 1600 04/19 0800 04/19 0000 Intake Total 180 Output Total 1000 Balance -1000 180 Intake, Oral 180 Output, Urine 1000 Patient 149 lb Weight Weight Bed scale Measurement Method Physical Exam General Appearance: Alert, Oriented X3, Cooperative, No Acute Distress Cardiovascular: Normal S1, Normal S2 Lungs: Clear to Auscultation Abdomen: ABDOMINAL DISTENSION Neurological: Normal Speech, Strength at 5/5 X4 Ext, Normal Tone, Sensation Intact, Cranial Nerves 3-12 NL Extremities: No Clubbing, No Cyanosis, No Edema Assessment/Plan Assessment: 83-year-old female with past medical history of HFpEF, restrictive lung disease on 3L home O2, hypertension, colon cancer s/p hemicolectomy, hiatal hernia recently discharged from [facility] on March 28 for uncomplicated UTI brought in by ambulance to the emergency department due to concerns from her visiting nurse regarding lethargy and hypotension Problem list: 1. Lethargy and lightheadedness; query etiology 2. Hypotension; reported at home but no documentation in the hospital 3. Arrhythmia 4. Chronic hypoxic respiratory failure secondary to COPD. 5. Chronic heart failure with preserved ejection fraction. 6. Vaginal discharge 7. Pelvic mass 8. Pulmonary hypertension. 9. Hypokalemia Plan: Continue to monitor and telemetry Continuous telemetry monitoring Vitals every shift Gynecology consult appreciated (Dr. Hernandez will see the patient On Thursday) regarding her pelvic mass and vaginal discharge Check magnesium and replete Decrease verapamil to 80 mg twice daily daily as per cardiology recommendation Urine culture is negative, Patient is asymptomatic And afebrile Continue to monitor off antibiotics Will send vaginal discharge for culture, pH, microscopic exam, Gram stain can be obtained by [employer]ING[employer] S[employer] TE[employer]ER Cardiology recommendation appreciated regarding her arrhythmia #DNR DNI #dvt - pprophylaxis lovenox Problem List: 1. Lethargy 2. Pelvic mass Pain Ratin Pain Location: N/A Pain Goal: Remain pain free Pain Plan: PATHWAY Tomorrow's Labs & Rationales: CBC BEP Bibi Castillo 04/19/18 1142: Attending MD Review Statement Attending Statement Attending MD Statement: examined this patient, discuss w/resident/PA/HAIRMASTERS MANAGER, agreed w/resident/PA/HAIRMASTERS MANAGER, discussed with family, reviewed EMR data (avail), discussed with nursing, discussed with case mgmt, reviewed images, amended to note Attending Assessment/Plan: No new complaints reported. Patient INFORMATION TECHNOLOGY PROJECT MANAGER consult pending for pelvic mass and vaginal discharge. Telemerty suggestive of junctional rythm and cardiology recommend verapamil dosing to be reduced. Cont current care..
[2018-04-19 07:58] LABS: ABSOLUTE BASOPHIL COUNT 0 /CUMM (0.0-0.2); ABSOLUTE EOSINOPHIL COUNT 0.1 /CUMM (0.0-0.7); ABSOLUTE GRANULOCYTE CT 3.4 /CUMM (1.4-6.5); ABSOLUTE LYMPH COUNT 1.1 /CUMM (1.2-3.4); ABSOLUTE MONOCYTE COUNT 0.6 /CUMM (0.10-0.60); BASOPHIL % 0.5 % (0.0-2.0); EOSINOPHIL % 1.2 % (0-5); GRANULOCYTE % 64.9 % (42.2-75.2); HEMATOCRIT 36.9 % (37-47); MEAN CORPUSCULAR HGB CONC 32.6 G/DL (33.0-37.0); MEAN CORPUSCULAR VOLUME 76.9 FL (81.0-99.0); MEAN PLATELET VOLUME 8.6 FL (7.4-10.4); PLATELET COUNT 127 /CUMM (130-400); RBC DISTRIBUTION WIDTH 22.8 % (11.5-14.5); WHITE BLOOD CELL COUNT 5.2 /CUMM (4.8-10.8)
--- NOTE | 2018-04-19 11:02 | PN- Cardiology ---
Subjective Subjective: Feeling well. No chest pain. No shortness of breath. No palpitations. No diaphoresis. No nausea or vomiting. loan consultant reveals intermittent periods of accelerated junctional rhythm Objective Vital Signs and I&Os Vital Signs Date Time Temp Pulse Resp B/P B/P Pulse O2 O2 Flow FiO2 Mean Ox Delivery Rate 04/19 0828 60 116/64 04/19 0828 60 116/64 04/19 0800 98 Nasal 2.0L Cannula 04/19 0658 97.5 60 18 116/64 98 Nasal Cannula 04/18 2206 98.2 74 18 118/66 99 Nasal Cannula 04/18 2159 Nasal 2.0L Cannula 04/18 2022 97 Nasal 2.0L Cannula 04/18 2013 87 118/58 04/18 1426 98.0 67 18 110/52 96 Nasal 2.0L Cannula Intake & Output 04/19 1600 04/19 0800 04/19 0000 04/18 1600 04/18 0800 04/18 0000 Intake Total 180 360 610 Output Total 1000 800 Balance -1000 180 360 -190 Intake, IV 10 10 Intake, Oral 180 350 600 Number 0 Bowel Movements Output, Urine 1000 800 Patient 149 lb Weight Weight Bed scale Measurement Method Physical Exam: Gen: The patient is in no acute distress HEENT: Normal nose, ears, and oropharynx. Pupils equal bilaterally. Conjunctiva normal. Neck: Supple with no JVD, no masses, and no thyromegaly Lungs: Clear to auscultation with normal respiratory effort Heart: RRR, S1, S2, no murmurs. No peripheral edema, 2+ pulses in the lower extremities bilaterally Abdomen: Soft, nontender, no masses. No hepatomegaly. No splenomegaly Extremities: No clubbing or cyanosis. Normal muscle strength in the upper and lower extremities Skin: Normal skin turgor with no skin ulcers or lesions noted. Neuro: Cranial nerves intact. Sensation intact Current Medications: Current Medications Sig/Sanjuanita Start time Last Medication Dose Route Stop Time Status Admin Albuterol Sulfate 3 ML Q4-PRN PRN 04/17 845 AC 04/18 INH 2017 Enoxaparin Sodium 40 MG DAILY 04/17 900 AC 04/19 SC 0828 Furosemide 60 MG DAILY 04/17 900 AC 04/19 PO 08 Hydrochlorothiazide 50 MG DAILY 04/17 900 DC 04/18 PO 08 Lactobacillus 1 CAP DAILY 04/17 900 AC 04/19 Acidophilus PO 0828 Levothyroxine Sodium 0.1 MG DAILY AC 04/17 0700 AC 04/19 PO 0654 Nystatin 1 ALICIA BID 04/16 2152 04/19 [facility] 0828 Patient Medication 1 ED ONE ONE 04/19 0945 DC Teaching ED 04/19 0946 Potassium Chloride 40 MEQ Q1H 04/18 1300 DC 04/18 PO 04/18 1401 1617 Potassium Chloride 40 MEQ DAILY 04/17 0900 DC 04/18 PO 0826 Prazosin HCl 5 MG DAILY 04/17 09 AC 04/19 PO 0828 Verapamil HCl 120 MG BID 04/17 09 AC 04/19 PO 0828 Results Last 48 Hrs of Labs/Mics: Laboratory Tests 04/19/18 06: Anion Gap 6, Estimated GFR > 60, BUN/Creatinine Ratio 28.8 H, CBC w Diff NO MAN DIFF REQ, RBC 4.80, MCV 76.9 L, MCH 25.0 L, MCHC 32.6 L, RDW 22.8 H, MPV 8.6 , Gran % 64.9, Lymphocytes % 21.3, Monocytes % 12.1 H, Eosinophils % 1.2, Basophils % 0.5, Absolute Granulocytes 3.4, Absolute Lymphocytes 1.1 L, Absolute Monocytes 0.6, Absolute Eosinophils 0.1, Absolute Basophils 0 04/18/18 0640: Anion Gap 8, Estimated GFR > 60, BUN/Creatinine Ratio 28.8 H Recent Imaging Studies: EKG tracing is independently reviewed, and reveals accelerated junctional rhythm at 72 with left anterior fascicular block Assessment/Plan Assessment/Plan Assessment: 1. Moderate aortic stenosis 2. Chronic HFpEF 3. Small pericardial effusion seen on recent echocardiogram 4. Short runs of SVT 5. Accelerated junctional rhythm Plan: * Given the accelerated junctional rhythm seen on EKG, I recommend decreasing verapamil to 80 mg p.o. twice daily * Supplement magnesium, given concern that borderline low magnesium level may be contributing to arrhythmias Continue telemetry? Yes
[2018-04-19 15:05] VITALS: BP 114/56
[2018-04-19 22:13] VITALS: BP 110/68
[2018-04-20 06:23] VITALS: BP 112/56
--- NOTE | 2018-04-20 07:12 | PN- Housestaff ---
Georges JAIMES,Marta 04/20/18 0711: Subjective Follow-up For: Lethargy; improving Chronic hypoxic respiratory failure secondary to COPD. Chronic heart failure with preserved ejection fraction Vaginal discharge Pelvic mass Questionable arrhythmia Pulmonary hypertension Tele-Events Since Last Visit: Sinus rhythm, 66, 0.08, 0.2, multiple PVCs, bradycardia to 47 at 4 AM Subjective: The patient was seen and examined, vital signs are stable, fluid balance -200, she denies any chest pain, palpitation, nausea vomiting or diarrhea. She will be seen today by Dr. Hernandez Review of Systems Constitutional: Reports: see HPI. Objective Last 24 Hrs of Vital Signs/I&O Vital Signs Date Time Temp Pulse Resp B/P B/P Pulse O2 O2 Flow FiO2 Mean Ox Delivery Rate 04/20 0906 64 130/44 04/20 0623 98.2 63 18 112/56 100 Room Air 04/19 2213 97.6 64 16 110/68 94 04/19 2108 94 Nasal 3.0L Cannula 04/19 2100 96 Nasal 2.0L Cannula 04/19 1600 99 Nasal 3.0L Cannula 04/19 1529 Nasal 2.0L Cannula 04/19 1505 98.3 71 18 114/56 99 04/19 1202 99 Nasal 2.0L Cannula Intake & Output 04/20 1600 04/20 0800 04/20 0000 Intake Total 180 Output Total 200 400 Balance -200 -220 Intake, Oral 180 Output, Urine 200 400 Patient 142 lb Weight Physical Exam General Appearance: Alert, Oriented X3, Cooperative, No Acute Distress HEENT: Atraumatic, PERRLA, EOMI, Mucous Membr. moist/pink Cardiovascular: Normal S1, Normal S2 Lungs: Clear to Auscultation Abdomen: Normal Bowel Sounds, Soft, No Tenderness Extremities: No Clubbing, No Cyanosis, No Edema Assessment/Plan Assessment: 83-year-old female with past medical history of HFpEF, restrictive lung disease on 3L home O2, hypertension, colon cancer s/p hemicolectomy, hiatal hernia recently discharged from [facility] on March 28 for uncomplicated UTI brought in by ambulance to the emergency department due to concerns from her visiting nurse regarding lethargy and hypotension Problem list: 1. Lethargy and lightheadedness; query etiology 2. Hypotension; reported at home but no documentation in the hospital 3. Arrhythmia 4. Chronic hypoxic respiratory failure secondary to COPD. 5. Chronic heart failure with preserved ejection fraction. 6. Vaginal discharge 7. Pelvic mass 8. Pulmonary hypertension. 9. Hypokalemia Plan: Continue to monitor and telemetry Continuous telemetry monitoring Vitals every shift Gynecology consult appreciated (Dr. Hernandez will be seeing the patient today Follow-up on CA 125, HE4 We will try to wean her off oxygen today Check magnesium and replete Continue verapamil to 80 mg twice daily daily as per cardiology recommendation Urine culture is negative, Patient is asymptomatic And afebrile Continue to monitor off antibiotics Cardiology recommendation appreciated regarding her arrhythmia #DNR DNI #dvt - pprophylaxis lovenox Problem List: 1. Pelvic mass Pain Ratin Pain Location: n/a Pain Goal: Remain pain free Pain Plan: pATHWAY Tomorrow's Labs & Rationales: cbc, bep Bibi Castillo 04/20/18 1121: Attending MD Review Statement Attending Statement Attending MD Statement: examined this patient, discuss w/resident/PA/ROAD CREW MEMBER, agreed w/resident/PA/ROAD CREW MEMBER, discussed with family, reviewed EMR data (avail), discussed with nursing, discussed with case mgmt, reviewed images, amended to note Attending Assessment/Plan: NO acute issues. Denies any new complaints. INDUSTRIAL MILLWRIGHT pending for pelvic mass. Send labs as requested. Follow cardiology recommendations for junctional rythm on and off. Decreased verapamil. Continue telemetry monitoring.
[2018-04-20 07:41] LABS: ABSOLUTE BASOPHIL COUNT 0 /CUMM (0.0-0.2); ABSOLUTE EOSINOPHIL COUNT 0.1 /CUMM (0.0-0.7); ABSOLUTE GRANULOCYTE CT 2.8 /CUMM (1.4-6.5); ABSOLUTE LYMPH COUNT 0.9 /CUMM (1.2-3.4); ABSOLUTE MONOCYTE COUNT 0.5 /CUMM (0.10-0.60); BASOPHIL % 0.4 % (0.0-2.0); EOSINOPHIL % 1.7 % (0-5); GRANULOCYTE % 65.5 % (42.2-75.2); HEMATOCRIT 34.6 % (37-47); MEAN CORPUSCULAR HGB 25.5 PG (27.0-31.0); MEAN CORPUSCULAR HGB CONC 33.2 G/DL (33.0-37.0); MEAN CORPUSCULAR VOLUME 76.7 FL (81.0-99.0); MEAN PLATELET VOLUME 8.3 FL (7.4-10.4); PLATELET COUNT 123 /CUMM (130-400); RBC DISTRIBUTION WIDTH 21.9 % (11.5-14.5); RED BLOOD CELL CT 4.52 /CUMM (4.20-5.40); WHITE BLOOD CELL COUNT 4.3 /CUMM (4.8-10.8)
--- NOTE | 2018-04-20 08:07 | PN- OBGYN ---
Surgical Brief Attending Note Brief Attending Note: I just received notification from my service regarding a consult on this patient. I was never alerted previously for this. This patient did have a scheduled office visit last week on the 15 of April but did not show. I did review the most recent CT images though showing a new onset pelvic mass in the left adnexae. I will be seeing patient today. Thank you for the consultation.
--- NOTE | 2018-04-20 11:54 | PN- Cardiology ---
Subjective Subjective: No chest pain. No shortness of breath. No palpitations. No diaphoresis Objective Vital Signs and I&Os Vital Signs Date Time Temp Pulse Resp B/P B/P Pulse O2 O2 Flow FiO2 Mean Ox Delivery Rate 04/20 1105 97 Nasal 2.0L Cannula 04/20 0906 64 130/44 04/20 0800 Nasal 3.0L Cannula 04/20 0623 98.2 63 18 112/56 100 Room Air 04/19 2213 97.6 64 16 110/68 94 04/19 2108 94 Nasal 3.0L Cannula 04/19 2100 96 Nasal 2.0L Cannula 04/19 1600 99 Nasal 3.0L Cannula 04/19 1529 Nasal 2.0L Cannula 04/19 1505 98.3 71 18 114/56 99 04/19 1202 99 Nasal 2.0L Cannula Intake & Output 04/20 1600 04/20 0800 04/20 0000 04/19 1600 04/19 0800 04/19 0000 Intake Total 180 420 180 Output Total 648 306 2306 Balance -200 -220 420 -1000 180 Intake, Oral 180 420 180 Output, Urine [id number] Patient 142 lb 149 lb Weight Weight Bed scale Measurement Method Physical Exam: Gen: The patient is in no acute distress HEENT: Normal nose, ears, and oropharynx. Pupils equal bilaterally. Conjunctiva normal. Neck: Supple with no JVD, no masses, and no thyromegaly Lungs: Clear to auscultation with normal respiratory effort Heart: RRR, S1, S2, no murmurs. No peripheral edema, 2+ pulses in the lower extremities bilaterally Abdomen: Soft, nontender, no masses. No hepatomegaly. No splenomegaly Extremities: No clubbing or cyanosis. Normal muscle strength in the upper and lower extremities Skin: Normal skin turgor with no skin ulcers or lesions noted. Neuro: Cranial nerves intact. Sensation intact Current Medications: Current Medications Sig/Sanjuanita Start time Last Medication Dose Route Stop Time Status Admin Albuterol Sulfate 3 ML Q4-PRN PRN 04/17 0845 04/20 INH 1101 Enoxaparin Sodium 40 MG DAILY 04/17 900 AC 04/20 SC 0901 Furosemide 60 MG DAILY 04/17 PO 0902 Lactobacillus 1 CAP DAILY 04/17 Acidophilus PO 09 Levothyroxine Sodium 0.1 MG DAILY AC 04/17 0700 AC 04/20 PO 06 Magnesium Oxide 400 MG ONE ONE 04/20 1115 DC 04/20 PO 04/20 1116 1141 Magnesium Oxide 400 MG ONE ONE 04/20 1050 DC 04/20 PO 04/20 1051 1052 Magnesium Oxide 400 MG ONE ONE 04/19 1400 DC 04/19 PO 04/19 1401 1545 Magnesium Oxide 400 MG ONE ONE 04/19 1200 CAN PO 04/19 1201 Melatonin 5 MG AT BEDTIME 04/19 2115 AC 04/19 PO 2107 Nystatin 1 ALICIA BID 04/16 215 AC 04/20 TOP 0901 Potassium Chloride 40 MEQ BID 04/20 1037 AC 04/20 PO 1054 Prazosin HCl 5 MG DAILY 04/17 0900 AC 04/19 PO 0828 Verapamil HCl 80 MG BID 04/19 2100 AC 04/20 PO 0909 Verapamil HCl 120 MG BID 04/17 0900 DC 04/19 PO 0828 Results Last 48 Hrs of Labs/Mics: Laboratory Tests 04/20/18614: Anion Gap 7, Estimated GFR > 60, BUN/Creatinine Ratio 25.0, Magnesium 1.3 L, CBC w Diff NO MAN DIFF REQ, RBC 4.52, MCV 76.7 L, MCH 25.5 L, MCHC 33.2, RDW 21.9 H, MPV 8.3, Gran % 65.5, Lymphocytes % 19.8 L, Monocytes % 12.6 H, Eosinophils % 1.7, Basophils % 0.4, Absolute Granulocytes 2.8, Absolute Lymphocytes 0.9 L, Absolute Monocytes 0.5, Absolute Eosinophils 0.1, Absolute Basophils 0 04/20/18599: CA 125 Antigen Pending 04/19/18626: Anion Gap 6, Estimated GFR > 60, BUN/Creatinine Ratio 28.8 H, Magnesium 1.4 L, CBC w Diff NO MAN DIFF REQ, RBC 4.80, MCV 76.9 L, MCH 25.0 L, MCHC 32.6 L, RDW 22.8 H, MPV 8.6, Gran % 64.9, Lymphocytes % 21.3, Monocytes % 12.1 H, Eosinophils % 1.2, Basophils % 0.5, Absolute Granulocytes 3.4, Absolute Lymphocytes 1.1 L, Absolute Monocytes 0.6, Absolute Eosinophils 0.1, Absolute Basophils 0 Assessment/Plan Assessment/Plan Assessment: 1. Moderate aortic stenosis 2. Chronic HFpEF 3. Small pericardial effusion seen on recent echocardiogram 4. Short runs of SVT 5. Accelerated junctional rhythm, and ectopic atrial rhythm Plan: * Decrease verapamil to 40 mg p.o. twice daily * Supplement magnesium and potassium Continue telemetry? Yes
--- NOTE | 2018-04-20 13:13 | Cons- OBGYN ---
General Information and HPI Consulting Request Date of Consult: 04/20/18 Requested By: Anna JAIMES,Bibi Reason for Consult: Pelvic mass Source of Information: patient, old records Exam Limitations: no limitations History of Present Illness: Patient is a 83 year old female with history of HFpEF, restrictive lung disease , hypertension, colon cancer s/p hemicolectomy, hiatal hernia who on recent admission was found to have pelvic mass on recent imaging. Patient states that she is in usual state of health. She denies pelvic pain nor change in appetite nor change in bowel habits. Allergies/Medications Allergies: Coded Allergies: aspirin (Bleeding per patient 05/15/17) Home Med List: Amiloride/Hydrochlorothiazide (Amiloride HCl-Hctz 5-50 MG Tab) 5 MG-50 MG TABLET 1 TAB PO DAILY HTN (Reported) Furosemide (Lasix) 40 MG TABLET 1.5 TAB PO DAILY leg sweeling, chf Levothyroxine Sodium (Synthroid) 100 MCG TABLET 1 TAB PO DAILY AC thyroid . Nystatin 100,000 UNIT/GRAM CREAM..G. 1 ALICIA TOP BID RASH . Potassium Chloride (Klor-Con M20) 20 MEQ TAB.ER.PRT 2 TAB PO DAILY SUPPLEMENT (Reported) Prazosin HCl (Minipress) 5 MG CAPSULE 1 CAP PO 1XDAY BP (Reported) Verapamil HCl (Verapamil ER) 240 MG CAP24H.PEL 1 TAB PO 1XDAY CALCIUM CHANNEL RIGOBERTO (Reported) Current Medications: Current Medications Sig/Sanjuanita Start time Last Medication Dose Route Stop Time Status Admin Albuterol Sulfate 3 ML Q4-PRN PRN 04/17 0845 AC 04/20 INH 1101 Enoxaparin Sodium 40 MG DAILY 04/17 09 AC 04/20 SC 0901 Furosemide 60 MG DAILY 04/17 0900 AC 04/20 PO 0902 Lactobacillus 1 CAP DAILY 04/17 09 AC 04/20 Acidophilus PO 0902 Levothyroxine Sodium 0.1 MG DAILY AC 04/17 0700 AC 04/20 PO 0626 Magnesium Oxide 400 MG ONE ONE 04/20 1115 DC 04/20 PO 04/20 1116 1141 Magnesium Oxide 400 MG ONE ONE 04/20 1050 DC 04/20 PO 04/20 1051 1052 Magnesium Oxide 400 MG ONE ONE 04/19 1400 DC 04/19 PO 04/19 1401 1545 Melatonin 5 MG AT BEDTIME 04/19 2115 AC 04/19 PO 2107 Nystatin 1 ALICIA BID 04/16 2152 AC 04/20 TOP 0901 Potassium Chloride 40 MEQ BID 04/20 1037 AC 04/20 PO 1054 Prazosin HCl 5 MG DAILY 04/17 0900 AC 04/19 PO 0828 Verapamil HCl 80 MG BID 04/19 2100 AC 04/20 PO 0909 Past History Medical History Blood Transfusion Hx: No Neurological: NONE EENT: NONE Cardiovascular: CHF, hypertension Respiratory: interstitial lung disease Gastrointestinal: Colon cancer Hepatic: NONE Renal: NONE Musculoskeletal: NONE Psychiatric: anxiety Endocrine: NONE, hypothyroidism Blood Disorders: NONE Cancer(s): breast cancer, colon/rectal cancer SOFTWARE ASSET MANAGER/Reproductive: NONE Surgical History Pertinent Surgical History: non-contributory Family History Relations & Conditions If Any: FATHER (heart disease). Psychosocial History Where Do You Live? Home Services at Home: Home Health Aide, Occupational Therapy, Physical Therapy Primary Language: Dominican Smoking Status: Never Smoked ETOH Use: denies use Illicit Drug Use: denies illicit drug use Living Will? unknown Power of Marine Engineer/HCP? unknown Functional Ability ADLs Independent: dressing, eating, toileting, bathing. Ambulation: independent Employment History Employment: Retired Retired? yes Review of Systems Review of Systems Constitutional: Denies: no symptoms. EENTM: Denies: no symptoms. Respiratory: Denies: cough. GI: Denies: no symptoms. Genitourinary: Denies: no symptoms. Neurological/Psychological: Denies: no symptoms. Exam & Diagnostic Data Vital Signs and I&O Vital Signs Date Time Temp Pulse Resp B/P B/P Pulse O2 O2 Flow FiO2 Mean Ox Delivery Rate 04/20 1105 97 Nasal 2.0L Cannula 04/20 0906 64 130/44 04/20 0800 Nasal 3.0L Cannula 04/20 0623 98.2 63 18 112/56 100 Room Air 04/19 2213 97.6 64 16 110/68 94 04/19 2108 94 Nasal 3.0L Cannula 04/19 2100 96 Nasal 2.0L Cannula 04/19 1600 99 Nasal 3.0L Cannula 04/19 1529 Nasal 2.0L Cannula 04/19 1505 98.3 71 18 114/56 99 Intake & Output 04/20 1600 04/20 0800 04/20 0000 04/19 1600 04/19 0800 04/19 0000 Intake Total 180 420 180 Output Total 358 300 7253 Balance -200 -220 420 -1000 180 Intake, Oral 180 420 180 Output, Urine 397 269 7463 Patient 64.183 kg 67.614 kg Weight Weight Bed scale Measurement Method Physical Exam General Appearance: no apparent distress, alert, awake Neck: normal inspection Breasts No breast discharge, No breast masses Gastrointestinal: soft, non-tender, hernia palpated subumbilical soft tissue mass in lower abdomen palpated well healed vertical scar noted no left nor right sided lower abdominal pain Reproductive: Deferred Other Physical Findings: Mild peripheral edema lower extremities Last 24 Hours of Labs: Laboratory Tests 04/20 04/20 0615 0600 Chemistry Sodium (137 - 145 mmol/L) 131 L Potassium (3.5 - 5.1 mmol/L) 3.2 L Chloride (98 - 107 mmol/L) 89 L Carbon Dioxide (22 - 30 mmol/L) 35 H Anion Gap (5 - 16) 7 BUN (7 - 17 mg/dL) 20 H Creatinine (0.5 - 1.0 mg/dL) 0.8 Estimated GFR (>60 ml/min) > 60 BUN/Creatinine Ratio (7 - 25 %) 25.0 Magnesium (1.6 - 2.3 mg/dL) 1.3 L CA 125 Antigen Pending Hematology CBC w Diff NO MAN DIFF REQ WBC (4.8 - 10.8 /CUMM) 4.3 L RBC (4.20 - 5.40 /CUMM) 4.52 Hgb (12.0 - 16.0 G/DL) 11.5 L Hct (37 - 47 %) 34.6 L MCV (81.0 - 99.0 FL) 76.7 L MCH (27.0 - 31.0 PG) 25.5 L MCHC (33.0 - 37.0 G/DL) 33.2 RDW (11.5 - 14.5 %) 21.9 H Plt Count (130 - 400 /CUMM) 123 L MPV (7.4 - 10.4 FL) 8.3 Gran % (42.2 - 75.2 %) 65.5 Lymphocytes % (20.5 - 51.1 %) 19.8 L Monocytes % (1.7 - 9.3 %) 12.6 H Eosinophils % (0 - 5 %) 1.7 Basophils % (0.0 - 2.0 %) 0.4 Absolute Granulocytes (1.4 - 6.5 /CUMM) 2.8 Absolute Lymphocytes (1.2 - 3.4 /CUMM) 0.9 L Absolute Monocytes (0.10 - 0.60 /CUMM) 0.5 Absolute Eosinophils (0.0 - 0.7 /CUMM) 0.1 Absolute Basophils (0.0 - 0.2 /CUMM) 0 Imaging Results: Solid mass in the left lateral pelvic sidewall which may be an enlarged lymph node versus a left ovarian mass. No additional enlarged lymph node seen. There are a few small shotty lymph nodes in the retroperitoneum with a paraortic location. Lymphadenopathy. There is a 6.5 cm mass in the left pelvis, corresponding to the lesion seen on the prior study. It has mildly increased vascularity. Assessment/Plan Assessment/Plan 83 year old female with history of colon and breast cancer and incidental finding of pelvic mass on recent CT imaging. This lesion is unilateral and no ascites is noted. It is more solid in nature but cystic as well. Discussed finding with patient that it may be benign and or malignant. I discussed sending tumor markers with the patient and informed housecleaner floor to order same. HE4 and Ca125. Once these return I will calculate a BERT (Risk of ovarian malignancy score) and determine likelihood of benign or malignant. She is without change in GI habits nor early satiety nor bloating. She is without abdominal pain. Given her history of malignancy in colon and breast she may harbor a genetic mutation increasing her risk for ovarian malignancy. Also Kruckenberg is in differential however 80% are bilateral in nature. Once BERT score is calculated I will reach out to family and we will discuss treatment plan. I provided my number to the family and they did schedule an appointment at my office. Thank you for the courtest of this consultation. Problem List: 1. Pelvic mass Other Findings/Comments: NA Copies To: Atul Hernandez MD Consult Acknowledgment - Thank you for your consult request. Attending MD Review Statement Attending Statement Attending MD Statement: examined this patient, discuss w/resident/PA/JEWELRY DRILLING MACHINE OPERATOR Attending Assessment/Plan: As outlined Plan for hospitalziation and dc per primary team
--- NOTE | 2018-04-20 14:40 | Discharge Summary ---
See Addendum Visit Information Visit Dates Admission Date: 04/16/18 Discharge Date: 04/20/2018 Hospital Course Course Attending Physician: Bibi Castillo MD Primary Care Physician: Lexx Moreau MD Consulting Request: Consulting Specialty: Cardiology Hospital Course: Mrs. Segura is 83-year-old female with past medical history significant for hypertension, moderate aortic stenosis, hypothyroidism, restrictive lung disease , chronic hypoxic respiratory failure on 3 L oxygen, chronic HfpEF, breast cancer status post radiation, colon cancer status post hemicoloectomy, hiatal hernia who presented to ED with chief complaint of weakness and hypotension. Patient was initially admitted to general medical floor for questionable UTI and treated with ceftriaxone IV. Cultures remained negative. Vital signs remained within normal limits during hospital stay. On admission there was a report about arrhythmia, EKG 2 were obtained that showed on and off sinus arrhythmia, patient was totally asymptomatic and was transferred to telemetry floor for cardiac monitoring. 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 Verapamil was decreased from 240 mg ER to 40 mg twice a day given the accelerated junctional rhythm on EKG. CITY WELLNESS COORDINATOR consultation was obtained for incidental finding of pelvic mass and recent CAT scan imaging abdomen and pelvis for hernia evaluation. Patient has a unilateral left side pelvic mass measures 11.7 x 8.3 x 9 cm. ultrasound didn't reveal any ascites. Patient doesn't have any abdominal pain, heaviness, vagianl bleeding or discharge. Dr. Hernandez evaluated the patient and recommended outpatient follow-up, tumor marker CEA 125 and HE4 where ordered to follow-up as an outpatient for results. Patient was cleared by cardiology Dr. Barr and assembler carbon brushes Dr. Hernandez for discharge and outpatient follow-ups. PT evaluation was obtained with recommendation for short-term rehabilitation. Allergies: Coded Allergies: aspirin (Bleeding per patient 05/15/17) Disposition Summary Disposition Principal Diagnosis: UTI Cardiac arrhythmia, junctional rhythm Additional Diagnosis: Left ovarian mass Discharge Disposition: SNF Discharge Instructions General Discharge Information Code Status: Do Not Resucitate/Intubat Patient's Diet: Regular diet Patient's Activity: As tolerated Follow-Up Instructions/Appts: -Please follow-up with your PCP within 1 week after discharge -Please follow up with assembler carbon brushes Dr. Hernandez within 1 week after discharge, his office number is [phone] -Please follow up with outdoor adventure instructor Dr. Barr within 1 week after discharge -Please take your medication as prescribed Copies To: Lizzeth JAIMES,Lexx Jacob; David JAIMES,Zen Barr MD,Kevin
[2018-04-20 14:55] VITALS: BP 134/72
[2018-04-20] MEDS ORDERED: VERAPAMIL HCL40 M1 PO (15:23)
--- NOTE | 2018-04-20 15:25 | Patient Discharge Instructions ---
Discharge Instructions General Discharge Information You were seen/treated for: Weakness Hypotension UtI Cardiac arrhythmia Left pelvic mass Special Instructions: -Please follow-up with your PCP within 1 week after discharge -Please follow up with produce laborer Dr. Hernandez within 1 week after discharge, his office number is [phone] -Please follow up with production line welder Dr. Barr within 1 week after discharge -Please take your medication as prescribed Acute Coronary Syndrome Inclusion Criteria At DC or during hospital stay patient has or had the following: ACS DIAGNOSIS No Discharge Core Measures Meds if any: Prescribed or Continued at Discharge Meds if any: NOT Prescribed or Continued at Discharge Congestive Heart Failure Inclusion Criteria At DC or during hospital stay patient has or had the following: CHF DIAGNOSIS No Discharge Core Measures Meds if any: Prescribed or Continued at Discharge Meds if any: NOT Prescribed or Continued at Discharge Cerebrovascular accident Inclusion Criteria At DC or during hospital stay patient has or had the following: CVA/TIA Diagnosis No Discharge Core Measures Meds if any: Prescribed or Continued at Discharge Meds if any: NOT Prescribed or Continued at Discharge Venous thromboembolism Inclusion Criteria VTE Diagnosis No VTE Type NONE VTE Confirmed by (Test) NONE Discharge Core Measures - Per Current guidelines, there needs to be overlap - treatment for the first 5 days of Warfarin therapy. - If discharged on Warfarin prior to 5 days of - overlap therapy, the patient will need to be - assessed for post discharge needs including - *Post discharge parental anticoagulation - *Warfarin and/or parental anticoagulation education - *Follow up date to check INR post discharge At least 5 days overlap therapy as Inpatient No Meds if any: Prescribed or Continued at Discharge Note: Overlap Therapy is Warfarin and Anticoagulant Meds if any: NOT Prescribed or Continued at Discharge
[2018-04-20 16:24] VITALS: BP 134/72
== END 2018-04-20 17:15 | DRG 392 ==
LOC: ERH 13:14 → 1NO 18:49 → ERHI 18:49 → 2NB 18:49 → ENRESERV 20:55 → ENTRNSPT 21:29 → EDTRNSPT 21:35 → EDTRNSPTSTS 21:35 → 2NB 21:47 → CMPTRNSPT 22:06 → 1NO 04-18 03:51 → ENPENDDIS 04-20 15:31 → 1NO 04-20 17:15
PROVIDERS: Physician Assistant; Student in an Organized Health Care Education/Training Program
DX: R19.00 Intra-abdominal and pelvic swelling, mass and lump, unspecified site (principal); J96.11 Chronic respiratory failure with hypoxia; I50.32 Chronic diastolic (congestive) heart failure; I47.1 Supraventricular tachycardia; I31.3 Pericardial effusion (noninflammatory); R19.04 Left lower quadrant abdominal swelling, mass and lump; R19.7 Diarrhea, unspecified; E86.0 Dehydration; I11.0 Hypertensive heart disease with heart failure; E87.6 Hypokalemia; Z66 Do not resuscitate; Z99.81 Dependence on supplemental oxygen; R74.0 Nonspecific elevation of levels of transaminase and lactic acid dehydrogenase [LDH]; E03.9 Hypothyroidism, unspecified; Z85.3 Personal history of malignant neoplasm of breast; Z85.038 Personal history of other malignant neoplasm of large intestine; J44.9 Chronic obstructive pulmonary disease, unspecified; I27.20 Pulmonary hypertension, unspecified; N89.8 Other specified noninflammatory disorders of vagina; I95.9 Hypotension, unspecified; R42 Dizziness and giddiness; I49.1 Atrial premature depolarization; I49.3 Ventricular premature depolarization; Z90.49 Acquired absence of other specified parts of digestive tract; K44.9 Diaphragmatic hernia without obstruction or gangrene; Z88.6 Allergy status to analgesic agent; F41.9 Anxiety disorder, unspecified
CPT/HCPCS: 1NSP; 2NSBP; 36415; 36592; 71045; 74177; 81001; 82436; 86316; 93005; 93010; 96360; 96361; 97110-GO; 97116-GO; 97161-GP; J0696; J1200; J1650

== ENCOUNTER 2018-05-15 18:51 | Inpatient (IN) | payer OTHER ==
[~2018-05-15] VITALS: Ht 160 cm; Wt 67.6 kg
[~2018-05-15 18:51] MED LIST changes: +VERAPAMIL HCL40 M1 PO
--- NOTE | 2018-05-15 18:56 | ED SYNCOPE COMPLAINT ---
History of Present Illness General Chief Complaint: Syncope and Near-Syncope Stated Complaint: FALL Source: patient, family Exam Limitations: no limitations Vital Signs & Intake/Output Vital Signs & Intake/Output Vital Signs Date Time Temp Pulse Resp B/P B/P Pulse O2 O2 Flow FiO2 Mean Ox Delivery Rate 05/18 0000 Nasal 5.0L Cannula 05/17 2157 98.2 66 22 156/74 93 Nasal Cannula 05/17 2115 94 Nasal 5.0L Cannula 05/17 2037 55 122/68 05/17 1500 97.5 55 20 122/68 95 Nasal 5.0L Cannula 05/17 1241 Nasal 6.0L Cannula 05/17 1033 68 120/68 05/17 0829 94 Nasal 6.0L Cannula 05/17 0800 94 Nasal 6.0L Cannula 05/17 0649 97.9 68 20 120/68 93 ED Intake and Output 05/18 0000 05/17 1200 Intake Total 780 Output Total 700 Balance 80 Intake, Oral 780 Number 4 Bowel Movements Output, Urine 700 Allergies Coded Allergies: aspirin (Bleeding per patient 05/15/17) Reconcile Medications Furosemide (Lasix) 40 MG TABLET 1.5 TAB PO DAILY leg sweeling, chf Levothyroxine Sodium (Synthroid) 100 MCG TABLET 1 TAB PO DAILY AC thyroid . Nystatin 100,000 UNIT/GRAM CREAM..G. 1 ALICIA TOP BID RASH . Potassium Chloride (Klor-Con M20) 20 MEQ TAB.ER.PRT 2 TAB PO DAILY SUPPLEMENT (Reported) Prazosin HCl (Minipress) 5 MG CAPSULE 1 CAP PO 1XDAY BP (Reported) Verapamil Hydrochloride (Verapamil HCl) 40 MG TABLET 40 MG PO BID HIGH BLOOD PRESSURE Triage Nurses Notes Reviewed? yes Timing: single episode today Precipitating Factors: none Loss of Consciousness: unsure HPI: 83-year-old female with history of hypertension, CHF presents to emergency department complaining of possible syncopal episode prior to arrival. Patient states that she was walking to the bathroom when she suddenly collapsed and landed on her knees. Patient denies hitting her head however her granddaughter states that she found the patient lying on the bathroom floor face down. Granddaughter states that when she approached the patient, the patient was awake , unsure of loss of consciousness. Patient reports mild generalized headache and bilateral knee pain, left worse than right. There were no prodromal symptoms prior to patient's fall. Patient denies chest pain, pleuritic pain, abdominal pain. (Candie Nicole) Past History Travel History Traveled to [place] past 21 day No Medical History Any Pertinent Medical History? see below for history Neurological: NONE EENT: NONE Cardiovascular: CHF, hypertension Respiratory: interstitial lung disease Gastrointestinal: Colon cancer Hepatic: NONE Renal: NONE Musculoskeletal: NONE Psychiatric: anxiety Endocrine: NONE, hypothyroidism Blood Disorders: NONE Cancer(s): breast cancer, colon/rectal cancer MARKETING LIAISON/Reproductive: NONE History of MRSA: No History of VRE: No History of CDIFF: No Surgical History Surgical History: non-contributory Psychosocial History Who do you live with Father Services at Home Home Health Aide, Occupational Therapy, Physical Therapy What is your primary language Hebrew Family History Family History, If Any: FATHER (heart disease). Hx Contributory? No (Candie Nicole) Review of Systems Review of Systems Constitutional: Reports: no symptoms. EENTM: Reports: no symptoms. Respiratory: Reports: no symptoms. Cardiovascular: Reports: see HPI. GI: Reports: no symptoms. Genitourinary: Reports: no symptoms. Musculoskeletal: Reports: see HPI. Skin: Reports: no symptoms. Neurological/Psychological: Reports: see HPI. All Other Systems: Reviewed and Negative (Candie Nicole) Physical Exam Physical Exam General Appearance: well developed/nourished, no apparent distress, alert, awake Head: dried blood around nose, no facial tenderness or mike signs Eyes: Bilateral: normal appearance. Ears, Nose, Throat: normal pharynx, normal ENT inspection, hearing grossly normal, no septal hematoma Neck: normal inspection, supple, full range of motion, no midline tenderness Respiratory: normal breath sounds, chest non-tender, no respiratory distress, lungs clear Cardiovascular: regular rate/rhythm, normal peripheral pulses Gastrointestinal: normal bowel sounds, soft, non-tender, no organomegaly Back: normal inspection, normal range of motion, no vertebral tenderness Extremities: left anterior knee tenderness without gross deformity, right anterior knee tenderness, no swelling or deformity Psychiatric: awake, alert, oriented x 3 Cranial Nerves: normal hearing, normal speech, PERRL, CN II-XII intact Motor/Sensory: no motor/sensory deficits Skin: intact, normal color, warm/dry Core Measures ACS in differential dx? Yes CVA/TIA Diagnosis: No Sepsis Present: No Sepsis Focused Exam Completed? No (Ashley VELIZ,Candie Townsend) Progress Differential Diagnosis: AMI, aortic dissection, orthostatic syncope, subarachnoid hem., fracture, concussion, arrythmia Plan of Care: Orders Procedure Date/time Status Change service to 05/17 722 Active THERAPIST ORDERS 05/17 UNK Complete INCENTIVE SPIROMETRY TRX (GEN) 05/17 UNK Complete Therapeutic Activities 05/17 UNK Complete PT EVAL LOW COMPLEX 20 MIN 05/17 UNK Complete Gait Training 05/17 UNK Complete MISTAKE 05/17 UNK Active AEROSOL CHG 05/16 UNK Complete OXYGEN 05/16 UNK Complete OXYGEN DAILY CHARGE 05/16 UNK Complete OXYGEN SETUP CHG 05/15 UNK Complete OXYGEN 05/15 UNK Complete OXYGEN TRANSPORT 05/15 UNK Complete Current Medications Sig/Sanjuanita Start time Last Medication Dose Stop Time Status Admin Furosemide 40 MG DAILY 05/18 09 AC (Lasix) Melatonin 5 MG ONCE ONE 05/18 200 UNVr 05/18 (Melatonin) 05/18 201 020 Albuterol Sulfate 3 ML TID 05/16 2100 AC 05/17 (Proventil) 2114 Calcium Carbonate 500 MG TID PRN 05/16 1345 AC 05/16 (TUMS) 1404 Nystatin 1 ALICIA BID 05/16 0900 AC 05/17 (Mycostatin) 2036 Verapamil HCl 40 MG BID 05/16 0900 AC 05/17 (Calan) 203 Levothyroxine Sodium 0.1 MG DAILY AC 05/16 0700 AC 05/17 (Synthroid) 0532 Heparin Sodium 5,000 UNIT Q8 05/16 0600 AC 05/17 (Porcine) 2037 Laboratory Tests 05/17/18 0638: CBC w Diff NO MAN DIFF REQ, RBC 4.83, MCV 78.7 L, MCH 26.3 L, MCHC 33.4, RDW 20.8 H, MPV 7.4, Gran % 68.9, Lymphocytes % 18.5 L, Monocytes % 10.9 H, Eosinophils % 1.5, Basophils % 0.2, Absolute Granulocytes 5.8, Absolute Lymphocytes 1.6, Absolute Monocytes 0.9 H, Absolute Eosinophils 0.1, Absolute Basophils 0 05/17/18 0632: Anion Gap 13, Estimated GFR 53 L, BUN/Creatinine Ratio 27.0 H Patient's labs show evidence of dehydration, troponins and is negative. Patient 's EKG shows wandering atrial pacemaker, change compared to previous study. Given these findings in setting of possible syncopal episode prior to arrival telemetry admission is recommended. Dr. Gordillo spoke with Dr. Hardy regarding tele admission. Diagnostic Imaging: Viewed by Me: Radiology Read, CT Scan. Discussed w/RAD: Radiology Read, CT Scan. Radiology Impression: PATIENT: LOLA ANDERSON PRESENT AGE : 83 PATIENT ACCOUNT NO: [id number] : 37 LOCATION: [facility] ORDERING PHYSICIAN: Candie VELIZ SERVICE DATE: 05/15/18 EXAM TYPE: CAT - CT CERV SPINE WO IV CONTRAST; CT HEAD WO IV CONTRAST; CT MAXILLOFACIAL W/O CON EXAMINATION: CT HEAD WITHOUT CONTRAST CT FACIAL BONES WITHOUT CONTRAST CT CERVICAL SPINE WITHOUT CONTRAST CLINICAL INFORMATION: Fall. Head strike. Syncope. COMPARISON: None. TECHNIQUE: Imaging was performed from the skull base to vertex without intravenous administration of contrast. In addition, helical noncontrast CT imaging was acquired through the cervical spine and facial bones and source images were reviewed along with axial reconstructions and sagittal and coronal MPRs. DLP: 1780.93 mGy-cm FINDINGS: HEAD: No intracranial mass, hemorrhage, or midline shift is visualized. The ventricles and sulci are age- appropriate. No extra-axial collections are identified. FACIAL BONES: There is no evidence of an acute facial bone fracture. The paranasal sinuses are well aerated. . The orbits are unremarkable in appearance. CERVICAL SPINE: The odontoid of the C2 vertebrae have normal relationship with the arch of C1 but the neck of the odontoid is absent. This is a chronic change as the margins of the bone are sclerotic with corticated margins. The alignment of vertebrae is maintained. Vertebrae have normal height and alignment. There is degenerative spondylosis. There is multilevel cervical disc height narrowing with endplate spurs and facet joint arthrosis present.. There is no prevertebral soft tissue swelling. IMPRESSION: 1. No acute intracranial process or discrete facial bone fracture. 2. 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 No acute abnormality of cervical spine. There is multilevel degenerative spondylosis. DICTATED BY: Ryan Gonzalez MD DATE/ TIME DICTATED:05/15/182099 PAPER INSPECTOR:MARIA FERNANDA DATE/TIME TRANSCRIBED: 05/15/182099 CONFIDENTIAL, DO NOT COPY WITHOUT APPROPRIATE AUTHORIZATION. < Electronically signed in Other Vendor System> SIGNED BY: Ryan Gonzalez MD [id number], PATIENT: LOLA ANDERSON PRESENT AGE: 83 PATIENT ACCOUNT NO: [id number] : 37 LOCATION: [facility] ORDERING PHYSICIAN: Candie VELIZ SERVICE DATE: 05/15/18 EXAM TYPE: RAD - XRY-KNEE COMPLETE LEFT; XRY-KNEE COMPLETE RIGHT EXAMINATION: XR KNEE, BILATERAL CLINICAL INFORMATION: Rule out fracture. Fall. COMPARISON: None available at the time of this dictation. TECHNIQUE: frontal, lateral, tunnel and patella sunrise views FINDINGS: BONES: No fracture or dislocation is present. JOINTS: Narrowing of joint spaces especially the medial compartment on the LEFT knee and lateral compartment on the RIGHT knee suggesting degenerative osteoarthritis moderate on both sides. SOFT TISSUE: Normal IMPRESSION: 1. No fracture. 2. Bilateral degenerative osteoarthritis. DICTATED BY: Mini Quintana MD DATE/TIME DICTATED :05/15/182054 PAPER INSPECTOR:MARIA FERNANDA DATE/TIME TRANSCRIBED:05/15/182054 CONFIDENTIAL, DO NOT COPY WITHOUT APPROPRIATE AUTHORIZATION. < Electronically signed in Other Vendor System> SIGNED BY: Mini Quintana MD 05/15/182099 Initial ED EKG: wandering atrial pacemaker Prior EKG: changed (Candie Nicole) Departure Departure Disposition: STILL A PATIENT Condition: Stable Clinical Impression Primary Impression: Syncopal episodes Secondary Impressions: Dehydration, Fall, Wandering atrial pacemaker Referrals: Lexx Moreau MD (PCP/Family) Departure Forms: Customer Survey General Discharge Information Admission Note Spoke With: Jaison Hardy MD Documentation of Exam: Documentation of any treatments & extenuating circumstances including Concerns Regarding Discharge (functional status, medication knowledge or non-compliance, living conditions, etc.) that warrant an admission rather than observation: [ Possible syncopal episode today with EKG changes and dehydration, patient requires telemetry monitoring, trend EKGs and troponins, cardiology consult, premature discharge medically unsafe] (Candie Nicole) PA/QA AUTOMATION ENGINEER Co-Sign Statement Statement: ED Attending supervision documentation- x I saw and evaluated the patient. I have also reviewed all the pertinent lab results and diagnostic results. I agree with the findings and the plan of care as documented in the PA's/QA AUTOMATION ENGINEER's documentation. Syncopal episodes [] I have reviewed the ED Record and agree with the PA's/QA AUTOMATION ENGINEER's documentation. [] Additions or exceptions (if any) to the PAs/QA AUTOMATION ENGINEER's note and plan are summarized below: [] (Jalil JAIMES,Tyler) Critical Care Note Critical Care Note Critical Care Time: 30-74 min (Ashley VELIZ,Candie Townsend)
[2018-05-15 19:23] LABS: ABSOLUTE BASOPHIL COUNT 0 /CUMM (0.0-0.2); ABSOLUTE EOSINOPHIL COUNT 0.1 /CUMM (0.0-0.7); ABSOLUTE GRANULOCYTE CT 4.3 /CUMM (1.4-6.5); ABSOLUTE LYMPH COUNT 1.1 /CUMM (1.2-3.4); ABSOLUTE MONOCYTE COUNT 0.6 /CUMM (0.10-0.60); BASOPHIL % 0.2 % (0.0-2.0); EOSINOPHIL % 1.3 % (0-5); GRANULOCYTE % 70.2 % (42.2-75.2); HEMATOCRIT 37.1 % (37-47); MEAN CORPUSCULAR HGB 25.8 PG (27.0-31.0); MEAN CORPUSCULAR HGB CONC 33.1 G/DL (33.0-37.0); MEAN CORPUSCULAR VOLUME 77.9 FL (81.0-99.0); MEAN PLATELET VOLUME 7.5 FL (7.4-10.4); PLATELET COUNT 188 /CUMM (130-400); RBC DISTRIBUTION WIDTH 21.2 % (11.5-14.5); RED BLOOD CELL CT 4.76 /CUMM (4.20-5.40); WHITE BLOOD CELL COUNT 6.1 /CUMM (4.8-10.8)
--- NOTE | 2018-05-15 21:00 | RADIOLOGY REPORT ---
EXAMINATION: XR KNEE, BILATERAL CLINICAL INFORMATION: Rule out fracture. Fall. COMPARISON: None available at the time of this dictation. TECHNIQUE: frontal, lateral, tunnel and patella sunrise views FINDINGS: BONES: No fracture or dislocation is present. JOINTS: Narrowing of joint spaces especially the medial compartment on the LEFT knee and lateral compartment on the RIGHT knee suggesting degenerative osteoarthritis moderate on both sides. SOFT TISSUE: Normal IMPRESSION: 1. No fracture. 2. Bilateral degenerative osteoarthritis.
--- NOTE | 2018-05-15 21:13 | CT SCAN REPORT ---
EXAMINATION: CT HEAD WITHOUT CONTRAST CT FACIAL BONES WITHOUT CONTRAST CT CERVICAL SPINE WITHOUT CONTRAST CLINICAL INFORMATION: Fall. Head strike. Syncope. COMPARISON: None. TECHNIQUE: Imaging was performed from the skull base to vertex without intravenous administration of contrast. In addition, helical noncontrast CT imaging was acquired through the cervical spine and facial bones and source images were reviewed along with axial reconstructions and sagittal and coronal MPRs. DLP: 1780.93 mGy-cm FINDINGS: HEAD: No intracranial mass, hemorrhage, or midline shift is visualized. The ventricles and sulci are age-appropriate. No extra-axial collections are identified. FACIAL BONES: There is no evidence of an acute facial bone fracture. The paranasal sinuses are well aerated. . The orbits are unremarkable in appearance. CERVICAL SPINE: The odontoid of the C2 vertebrae have normal relationship with the arch of C1 but the neck of the odontoid is absent. This is a chronic change as the margins of the bone are sclerotic with corticated margins. The alignment of vertebrae is maintained. Vertebrae have normal height and alignment. There is degenerative spondylosis. There is multilevel cervical disc height narrowing with endplate spurs and facet joint arthrosis present.. There is no prevertebral soft tissue swelling. IMPRESSION: 1. No acute intracranial process or discrete facial bone fracture. 2. 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 No acute abnormality of cervical spine. There is multilevel degenerative spondylosis.
--- NOTE | 2018-05-15 22:03 | RADIOLOGY REPORT ---
EXAMINATION: XR PORTABLE CHEST CLINICAL INFORMATION: Rule out pneumonia COMPARISON: 04/16/2018 TECHNIQUE: Portable frontal view of the chest was obtained. FINDINGS: Cardiac silhouette markedly enlarged, cardiomegaly versus pericardial effusion. There is vascular congestion. No ed failure. The hemidiaphragms are partially obscured probably by underlying pleural effusion, infiltrate and/or atelectasis. IMPRESSION: 1. Markedly enlarged cardiac silhouette more prominent on today's exam suggesting cardiomegaly versus pericardial effusion. Suggest Correlation with cardiac echo. 2. Mild vascular congestion. 3. Left hemidiaphragm partially obscured probably by pleural effusion, cannot rule out underlying infiltrate and/or atelectasis..
--- NOTE | 2018-05-15 23:25 | History & Physical ---
Aiden Cr 05/15/18 8375: General Information and HPI MD Statement: I have seen and personally examined LOLA ANDERSON and documented this H&P. The patient is a 83 year old F who presented with a patient stated chief complaint of [syncope]. History of Present Illness: Ms. Anderson is an 83 years old lady who has a past medical history of CHF and ILD ( on 3L/Min O2); she is admitted to the ED with CC on fall this evening at 18:00. She is accompanied by her son and [id number]. She remembers the event and reports that she had no LOC, she tried to stop falling by catching a tile by she could not. She fell with her face forward. She had no headache, N/V, Chest pain. Her fall was not witnessed, but her grand daughter was there and got to her after that and called EMS and they took her to the ED. She reports feeling lightheaded when EMS got her on a chair from floor. She had dysuria , frequency, and a change in her urine color (dark yellow), she had been taking ampicillin which did not help her with the symptoms; so she was taken to her PCP, and ciprofloxacin was started from this morning and she took two doses today. She also reports a bedsore on her lower back from one month ago. She has no Hx of seizure, DM, low blood sugars, no palpitation. She uses a walker, which has reduced her falls, the last one was 6 months ago. She has never had a major injury caused by her falls. Her family state that she has not been steady and would have more falls if did not use her walker. She lives alone. She has a diagnosis of ILD and she is on home 3L/Min O2 from 2 years ago. She has non-productive coughs. She is compliant with her medications and reports that takes the same amount every day. She also reports that she has pain in her left knee after the fall. PMHx: ILD, HTN, CHF, Hypothyroidism, anxiety, colon cancer, breast cancer, Bedsore from last month in coccygeal area Surg hx: Related to her colon and breast cancer. Cholecystectomy FHx: Mother: Cardiac Dx, Father: pnumoconiosis (coal inspector) Allergy: Aspirin (causes internal bleeding) Social: Never smoked, Social alcohol, no recreational drugs. Imaging: CXR: 1. Markedly enlarged cardiac silhouette more prominent on today's exam suggesting cardiomegaly versus pericardial effusion. Suggest Correlation with cardiac echo. 2. Mild vascular congestion. 3. Left hemidiaphragm partially obscured probably by pleural effusion, cannot rule out underlying infiltrate and /or atelectasis. Knee XR: 1. No fracture. 2. Bilateral degenerative osteoarthritis. Head and Neck CT: 1. No acute intracranial process or discrete facial bone fracture. 2. 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 No acute abnormality of cervical spine. There is multilevel degenerative spondylosis. Labs: CBC: NL, BUN: 34, Cr: 1.1, BUN/Cr: 30 T bili: 1.7, Alb: 3.2 ECG: QTc: 489 msec Allergies/Medications Home Med list Furosemide (Lasix) 40 MG TABLET 1.5 TAB PO DAILY leg sweeling, chf Levothyroxine Sodium (Synthroid) 100 MCG TABLET 1 TAB PO DAILY AC thyroid . Nystatin 100,000 UNIT/GRAM CREAM..G. 1 ALICIA TOP BID RASH . Potassium Chloride (Klor-Con M20) 20 MEQ TAB.ER.PRT 2 TAB PO DAILY SUPPLEMENT (Reported) Prazosin HCl (Minipress) 5 MG CAPSULE 1 CAP PO 1XDAY BP (Reported) Verapamil Hydrochloride (Verapamil HCl) 40 MG TABLET 40 MG PO BID HIGH BLOOD PRESSURE Compliance With Home Meds: GOOD Past History Travel History Traveled to [place] past 21 day No Medical History Neurological: NONE EENT: NONE Cardiovascular: CHF, hypertension Respiratory: interstitial lung disease Gastrointestinal: Colon cancer Hepatic: NONE Renal: NONE Musculoskeletal: NONE Psychiatric: anxiety Endocrine: NONE, hypothyroidism Blood Disorders: NONE Cancer(s): breast cancer, colon/rectal cancer CHRONOGRAPH OPERATOR/Reproductive: NONE History of MRSA: No History of VRE: No History of CDIFF: No Surgical History Surgical History: non-contributory Past Family/Social History Family History Relations & Conditions if any FATHER (heart disease). Psychosocial History Services at Home: Home Health Aide, Occupational Therapy, Physical Therapy Primary Language: Somali ETOH Use: denies use Illicit Drug Use: denies illicit drug use Living Will? unknown Power of Actuarial Trainee/HCP? unknown Functional Ability ADLs Independent: dressing, eating, toileting, bathing. Ambulation: independent Review of Systems Review of Systems Constitutional: Reports: see HPI. EENTM: Reports: see HPI. Cardiovascular: Reports: see HPI. Respiratory: Reports: see HPI. GI: Reports: see HPI. Genitourinary: Reports: see HPI, dysuria, frequency. Musculoskeletal: Reports: see HPI, joint pain. Skin: Reports: see HPI. Neurological/Psychological: Reports: see HPI, anxiety. Hematologic/Endocrine: Reports: see HPI. Immunologic/Allergic: Reports: see HPI. Exam & Diagnostic Data Last 24 Hrs of Vital Signs/I&O Vital Signs Date Time Temp Pulse Resp B/P B/P Pulse O2 O2 Flow FiO2 Mean Ox Delivery Rate 05/16 0833 61 126/56 05/16 0800 90 Nasal 3.0L Cannula 05/16 0632 97.9 61 20 126/56 90 05/16 0123 98 Nasal 3.0L Cannula 05/15 2331 97.8 68 20 130/86 100 05/15 2306 Aerosol 10L Mask 05/15 2129 97.5 73 20 135/66 100 Aerosol 10L Mask 05/15 1905 93 Nasal 4.0L Cannula 05/15 1904 97.4 78 22 127/61 93 Nasal 4.0L Cannula Intake & Output 05/16 1600 05/16 0800 05/16 0000 Intake Total 200 0 Output Total 200 Balance 0 0 Intake, IV 200 Intake, Oral 0 Number 1 Bowel Movements Output, Urine 200 Patient 150 lb Weight Physical Exam General Appearance Alert, Oriented X3, Cooperative, No Acute Distress Skin No Rashes, No Breakdown, No Significant Lesion Skin Temp/Moisture Exam: Warm/Dry Sepsis Skin Exam (color): Normal for Ethnicity HEENT Atraumatic, PERRLA, EOMI Neck Supple, No JVD, No thryomegaly Cardiovascular Regular Rate, Normal S1, Normal S2, No Murmurs Lungs She had diffused bilateral crackles Abdomen Normal Bowel Sounds, Soft, Mild tenderness on suprapubic area Neurological Normal Speech, Normal Tone, Sensation Intact, Cranial Nerves 3-12 NL Extremities No Clubbing, No Cyanosis, Normal Pulses, tenderness on left knee, 2+ pitting edema up to ankle Vascular Normal Pulses, Pulses Symmetrical Sepsis Peripheral Pulse Location: Dorsalis Pedis Sepsis Peripheral Pulse Exam: Normal Sepsis Cap Refill Exam: <2 Sec Assessment/Plan Assessment: She is an 83 yo lady who came here with CC of an unwitnessed fall on the evening. She has a past medical Hx of CHF, hypertension, interstitial lung disease, and UTI. She had dizziness from morning of the day of admission. She has no history of low BS or seizure. She had a UTI lately and labs show dehydration. based on Hx and P/E she had orthostatic hypotension and most probably this was the cause of her fall; though other than hydration her ciprofloxacin should be DC due to QTc prolongation and her age. She should be checked for cardiac causes for her fall as well, and should be admitted in Tele. She also has a Na of 131 that should be rechecked after rehydration with normal saline. A urine culture and UA should be done as well. As Ranked By This Provider Problem List: 1. Interstitial lung disease 2. UTI (urinary tract infection) 3. Hyponatremia 4. Dehydration 5. Unwitnessed fall Core Measures/Misc (07/12) Acute Coronary Syndrome ACS Diagnosis: No Congestive Heart Failure Congestive Heart Failure Diagnosis No Cerebrovascular Accident CVA/TIA Diagnosis: No VTE (View Protocol) VTE Risk Factors Age>40 No Mechanical VTE Prophylaxis d/t N/A MechProphylax Ordered No VTE Pharm Prophylaxis d/t NA PharmProphylax ordered Sepsis (View protocol) Sepsis Present: No If YES complete Sepsis Event Note If YES complete Sepsis Event Note Lily Collier 05/16/18 0024: Assessment/Plan As Ranked By This Provider Problem List: 1. UTI (urinary tract infection) Core Measures/Misc (07/12) Acute Coronary Syndrome ACS Diagnosis: No Congestive Heart Failure Congestive Heart Failure Diagnosis No Cerebrovascular Accident CVA/TIA Diagnosis: No VTE (View Protocol) VTE Risk Factors Age>40 No Mechanical VTE Prophylaxis d/t N/A MechProphylax Ordered No VTE Pharm Prophylaxis d/t NA PharmProphylax ordered Sepsis (View protocol) Sepsis Present: No If YES complete Sepsis Event Note If YES complete Sepsis Event Note Resident Review Statement Resident Statement: examined this patient, discussed with international guest coordinator, agreed with international guest coordinator Other Findings: Patient is a 83-year-old female with past medical history of HFpEF, hypertension , interstitial lung disease on 3 L oxygen at home, colon cancer and breast cancer diagnosed and treated 20 years ago, anxiety, hypothyroidism, was brought in by family after a fall. Patient states that she was in her usual state of health until 6 PM on 05/15/18, when she fell while going to the bathroom. Patient states that she tried to grab the towel handle however her legs gave out and she fell on the floor face forward with arms behind her. Patient states that she also hit her left knee on the floor. It was an unwitnessed fall but her granddaughter soon came to rescue her. At that time EMS was called and patient was brought to [facility]. Patient was recently discharged from [facility] on 04/20/18 while she was treated for urinary tract infection. Patient reported that her last fall was 6 months ago, and she uses a walker at home regularly. Patient denies any loss of consciousness, confusion, seizure activity, bowel/bladder accident, biting of tongue, after the fall. Patient also states that this morning she went to her primary care physician, and she was found to have low blood pressure than usual 118/60, and had burning micturition symptoms since yesterday, so she was prescribed ciprofloxacin for UTI which she was taking. Patient denies any urgency/hesitancy/fever or chills. Of note patient was diagnosed with left- sided abdominal mass during her previous admission, patient states that she was going to follow-up with Dr. Tee at [facility] however she could not follow-up yet. On review of systems patient denies any headache/chest pain/palpitations/ abdominal discomfort/pain in the legs. She did report of some discomfort in her left knee post fall. Labs and vitals as above. Patient had a CT head/spine/maxillofacial area that was not significant for any fractures. Chest x-ray on 05/15/18 1. Markedly enlarged cardiac silhouette more prominent on today's exam suggesting cardiomegaly versus pericardial effusion. Suggest Correlation with cardiac echo. 2. Mild vascular congestion. 3. Left hemidiaphragm partially obscured probably by pleural effusion, cannot rule out underlying infiltrate and/or atelectasis.. Knee x-ray from 05/15/18 1. No fracture. 2. Bilateral degenerative osteoarthritis. Assessment and plan Patient reported of lightheadedness before her fall, she is also reporting that her oral intake has been decreased over the past few days and she is not drinking as much water, her episode of lightheadedness and fall could be due to hypotension, will check orthostatic vitals on her, and monitor her closely on telemetry floor for any cardiac arrhythmias. In old records, she does have a documentation that she was having an arrhythmia at one point but unsure of what it was. Dr. Zuniga is her packing floor worker. Her EKG showed QTC prolongation, and nonspecific T-wave changes, will repeat EKG and check her magnesium. Given her symptoms of burning micturition and past medical history of multiple UTIs, she would need antibiotic coverage. Will get a UA and urine culture. In the past she has grown E. coli which was pansensitive. Can start her on ceftriaxone. Her elevated creatinine is most likely prerenal, will gently hydrate her with normal saline at 50 cc/h. Patient has pressure sore in her coccyx region with dry scabbing and a surrounding bruise, will get wound consult in a.m. DVT prophylaxis of cutaneous heparin Patient is full code. Hayley JAIMESDavisboro 05/16/18 0524: General Information and HPI MD Statement: I have seen and personally examined LOLA ANDERSON and documented this H&P. The patient is a 83 year old F who presented with a patient stated chief complaint of [fall]. Source of Information: patient Exam Limitations: no limitations Allergies/Medications Allergies: Coded Allergies: aspirin (Bleeding per patient 05/15/17) Past History Medical History Neurological: NONE Cardiovascular: CHF, hypertension Respiratory: interstitial lung disease Psychiatric: anxiety Endocrine: hypothyroidism Cancer(s): breast cancer, colon/rectal cancer Past Family/Social History Psychosocial History Smoking Status: Never Smoked ETOH Use: denies use Illicit Drug Use: denies illicit drug use Employment History Employment Retired Review of Systems Review of Systems Constitutional: Reports: see HPI. Exam & Diagnostic Data Last 24 Hrs of Vital Signs/I&O Vital Signs Date Time Temp Pulse Resp B/P B/P Pulse O2 O2 Flow FiO2 Mean Ox Delivery Rate 05/16 0123 98 Nasal 3.0L Cannula 05/15 2331 97.8 68 20 130/86 100 05/15 2306 Aerosol 10L Mask 05/15 2129 97.5 73 20 135/66 100 Aerosol 10L Mask 05/15 1905 93 Nasal 4.0L Cannula 05/15 1904 97.4 78 22 127/61 93 Nasal 4.0L Cannula Intake & Output 05/16 0800 05/16 0000 05/15 1600 Intake Total 0 Output Total Balance 0 Intake, Oral 0 Patient 150 lb Weight Physical Exam General Appearance Alert, Oriented X3, Cooperative, No Acute Distress Skin No Rashes, No Breakdown, No Significant Lesion Skin Temp/Moisture Exam: Warm/Dry HEENT Atraumatic, PERRLA, EOMI Neck Supple, No JVD, No thryomegaly Lymphatic Axillary nl, Cervical nl Cardiovascular Regular Rate, Normal S1, Normal S2 Lungs Clear to Auscultation, Normal Air Movement Abdomen Normal Bowel Sounds, Soft, No Tenderness Neurological Normal Speech Last 24 Hrs of Labs/Jose: Laboratory Tests 05/15/182244: Urine Color YEL, Urine Clarity CLEAR, Urine pH 7.0, Ur Specific [place] 1.010, Urine Protein NEG, Urine Ketones NEG, Urine Nitrite POS H, Urine Bilirubin NEG, Urine Urobilinogen 2.0 H, Ur Leukocyte Esterase MOD H, Ur Microscopic SEDIMENT EXAMINED, Urine RBC 1-3, Urine WBC 1-3 H, Ur Epithelial Cells FEW, Urine Bacteria MANY H, Urine Hemoglobin SMALL H, Urine Glucose NEG 05/15/18 1917: Anion Gap 14, Estimated GFR 48 L, BUN/Creatinine Ratio 30.9 H, Glucose 131 H, Calcium 8.6, Magnesium 1.4 L, Total Bilirubin 1.7 H, AST 46 H, ALT 30, Alkaline Phosphatase 108, Troponin I 0.02, Total Protein 7.7, Albumin 3.2 L, Globulin 4.5 H, Albumin/Globulin Ratio 0.7 L, CBC w Diff NO MAN DIFF REQ, RBC 4.76, MCV 77.9 L, MCH 25.8 L, MCHC 33.1, RDW 21.2 H, MPV 7.5, Gran % 70.2, Lymphocytes % 17.7 L, Monocytes % 10.6 H, Eosinophils % 1.3, Basophils % 0.2, Absolute Granulocytes 4.3, Absolute Lymphocytes 1.1 L, Absolute Monocytes 0.6, Absolute Eosinophils 0.1, Absolute Basophils 0 Microbiology 05/15 2245 URINE ROUT: Urine Culture - RECD 05/15 2134 URINE ROUT: Urine Culture - CAN Cancelled: Cancelled via OE: NOT JAIMES Core Measures/Misc (07/12) Sepsis (View protocol) If YES complete Sepsis Event Note If YES complete Sepsis Event Note Attending MD Review Statement Attending Statement Attending MD Statement: examined this patient, discuss w/resident/PA/TOWEL ROLLING MACHINE OPERATOR, agreed w/resident/PA/TOWEL ROLLING MACHINE OPERATOR, amended to note Attending Assessment/Plan: This patient is a 83-year-old white female with a significant past medical history for CHF, hypertension, interstitial lung disease, UTI who was brought to the ED by EMS after she suffered an unwitnessed fall at about 6 pm this evening. She does not remember any events after 5 pm, and the last thing she remembers is being assisted on to a chair by EMS. Patients son states his daughter was at the patients house all evening and reported that the patient was in the bathroom for several minutes when she heard a loud noise.The granddaughter went to check on the patient and found her face down on the floor responsive. EMS assisted her off the floor. Patient denies head, neck, or new back pain. The patient has been hospitalized 3 times in the past 6 weeks for the UTI, dehydration, and being disoriented. The patient went to a doctors appointment the day of admission where she was prescribed Ciprofloxacin 500 mg BID. She also had an increase in her Lasix from 60 mg to 80 mg last week. The patient was noted to have a decrease in her oxygenation and a chest x-ray demonstrated mild vascular congestion. Her white blood cell count is normal, UA is positive, electrolyte abnormalities noted, troponin negative, EKG shows QTc prolongation and nonspecific T-wave changes. Follow on telemetry for syncopal episode and a urine culture for appropriate antibiotic.
[2018-05-15 23:31] VITALS: BP 130/86
[2018-05-16 06:32] VITALS: BP 126/56
--- NOTE | 2018-05-16 08:51 | PN- Housestaff ---
Alana JAIMES,Milo 05/16/18 0851: Subjective Follow-up For: Syncope Complaints: no complaints Subjective: Patient is seen and examined at the bedside. She gets short of breath with slight exertion. She was comfortable at rest on 3 L of oxygen and was saturating 93%. Objective Last 24 Hrs of Vital Signs/I&O Vital Signs Date Time Temp Pulse Resp B/P B/P Pulse O2 O2 Flow FiO2 Mean Ox Delivery Rate 05/16 1616 Nasal 3.0L Cannula 05/16 1526 97.8 60 20 128/60 89 Nasal 3.0L Cannula 05/16 1220 93 Nasal 3.0L Cannula 05/16 0833 61 126/56 05/16 0800 90 Nasal 3.0L Cannula 05/16 0632 97.9 61 20 126/56 90 05/16 0123 98 Nasal 3.0L Cannula 05/15 2331 97.8 68 20 130/86 100 05/15 2306 Aerosol 10L Mask 05/15 2129 97.5 73 20 135/66 100 Aerosol 10L Mask 05/15 1905 93 Nasal 4.0L Cannula 05/15 1904 97.4 78 22 127/61 93 Nasal 4.0L Cannula Intake & Output 05/16 1600 05/16 0800 05/16 0000 Intake Total 550 200 0 Output Total 900 200 Balance -350 0 0 Intake, IV 150 200 Intake, Oral 400 0 Number 1 Bowel Movements Output, Urine 900 200 Patient 68.181 kg Weight Physical Exam General Appearance: Alert, Oriented X3, Cooperative, No Acute Distress Skin: facial flusing Neck: raised JVD Cardiovascular: Normal S1, Normal S2 Lungs: bilateral leathery crackles Abdomen: lower abdominal mass Extremities: bilateral lower leg edema Vascular: Normal Pulses, Pulses Symmetrical, onychomycosis Current Medications: Current Medications Sig/Sanjuanita Start time Last Medication Dose Route Stop Time Status Admin Albuterol Sulfate 3 ML TID 05/16 2100 AC INH Calcium Carbonate 500 MG TID 05/16 1400 CAN PO Calcium Carbonate 500 MG TID PRN 05/16 1345 AC 05/16 PO 1404 Ceftriaxone Sodium 1,000 MG DAILY 05/16 0900 DC 05/16 IV 0833 Ciprofloxacin 0 .STK-MED ONE 05/15 2152 DC PO Ciprofloxacin 500 MG ONCE ONE 05/15 2145 DC 05/15 PO 05/15 Furosemide 60 MG DAILY 05/16 0900 AC 05/16 PO 0832 Heparin Sodium 5,000 UNIT Q8 05/16 0600 AC 05/16 (Porcine) SC 1242 Levothyroxine Sodium 0.1 MG DAILY AC 05/16 0700 AC 05/16 PO 0637 Magnesium Oxide 400 MG ONE ONE 05/16 0045 DC 05/16 PO 05/16 0046 0146 Magnesium Sulfate 1 GM ONCE ONE 05/16 1130 DC 05/16 Dextrose/Water 100 ML IV 05/16 1529 1240 Nystatin 1 ALICIA BID 05/16 0900 AC 05/16 TOP 0833 Potassium Chloride 40 MEQ BID 05/16 2100 AC PO Potassium Chloride 40 MEQ ONCE ONE 05/16 1115 DC 05/16 PO 05/16 1116 1240 Potassium Chloride 40 MEQ DAILY 05/16 0900 DC 05/16 PO 0832 Sodium Chloride 1,000 ML .Q20H 05/16 0030 DC 05/16 IV 0144 Verapamil HCl 40 MG BID 05/16 0900 AC 05/16 PO 0833 Last 24 Hrs of Lab/Jose Results Last 24 Hrs of Labs/Mics: Laboratory Tests 05/16/18 1640: Sodium Pending, Potassium Pending, Chloride Pending, Carbon Dioxide Pending, Anion Gap Pending, BUN Pending, Creatinine Pending, BUN/Creatinine Ratio Pending 05/16/18 0925: Sodium Cancelled, Potassium Cancelled, Chloride Cancelled, Carbon Dioxide Cancelled, Anion Gap Cancelled, BUN Cancelled, Creatinine Cancelled, BUN/ Creatinine Ratio Cancelled 05/16/18 0820: Anion Gap 13, Estimated GFR 43 L, BUN/Creatinine Ratio 26.7 H, Troponin I 0.02 05/16/18 0635: Magnesium 1.5 L 05/15/18 2245: Urine Color YEL, Urine Clarity CLEAR, Urine pH 7.0, Ur Specific [place] 1.010, Urine Protein NEG, Urine Ketones NEG, Urine Nitrite POS H, Urine Bilirubin NEG, Urine Urobilinogen 2.0 H, Ur Leukocyte Esterase MOD H, Ur Microscopic SEDIMENT EXAMINED, Urine RBC 1-3, Urine WBC 1-3 H, Ur Epithelial Cells FEW, Urine Bacteria MANY H, Urine Hemoglobin SMALL H, Urine Glucose NEG 05/15/18 1917: Anion Gap 14, Estimated GFR 48 L, BUN/Creatinine Ratio 30.9 H, Glucose 131 H, Calcium 8.6, Magnesium 1.4 L, Total Bilirubin 1.7 H, AST 46 H, ALT 30, Alkaline Phosphatase 108, Troponin I 0.02, Total Protein 7.7, Albumin 3.2 L, Globulin 4.5 H, Albumin/Globulin Ratio 0.7 L, CBC w Diff NO MAN DIFF REQ, RBC 4.76, MCV 77.9 L, MCH 25.8 L, MCHC 33.1, RDW 21.2 H, MPV 7.5, Gran % 70.2, Lymphocytes % 17.7 L, Monocytes % 10.6 H, Eosinophils % 1.3, Basophils % 0.2, Absolute Granulocytes 4.3, Absolute Lymphocytes 1.1 L, Absolute Monocytes 0.6, Absolute Eosinophils 0.1, Absolute Basophils 0 Microbiology 05/15 2245 URINE ROUT: Urine Culture - RECD 05/15 2134 URINE ROUT: Urine Culture - CAN Cancelled: Cancelled via OE: NOT JAIMES Assessment/Plan Assessment: Patient is an 83-year-old female past medical history of interstitial lung disease on 3 L of oxygen at home, CHF presented with unwitnessed fall. Her orthostatics were negative. On blood workup there is no any signs of infection. Her potassium was low in 2.8. We supplemented the potassium. Chest x-ray show evidence of cardiomegaly with probably pericardial effusion and mild vascular congestion. Vital signs -temperature 97.8, pulse 60, respiratory 20, blood pressure 128/60, SPO2 89% on 2 L of nasal cannula. On examination-piece was flushed, she had clubbing of the fingers, lungs were having bilateral E crackles, abdomen was distended with a mass felt in the lower pelvic region. Assessment and plan - * We will continue Lasix 60 mg OD * Take all fall precautions * We will follow cardiology recommendation * We will place consult for gynecological evaluation for mass with Dr. Hernandez, tomorrow. He was teaching * Diet -regular diet Problem List: 1. Hypokalemia 2. Pelvic mass 3. Unwitnessed fall Pain Ratin Pain Location: n/a Pain Goal: Remain pain free Pain Plan: n/a Tomorrow's Labs & Rationales: Follow-up CBC, BEP, magnesium DVT/Prophylaxis: tracie Humphrey MD,Sandra 05/16/18 0927: Attending MD Review Statement Attending Statement Attending MD Statement: examined this patient, discuss w/resident/PA/ASSESSMENT ANALYST, agreed w/resident/PA/ASSESSMENT ANALYST, reviewed EMR data (avail), discussed with nursing, reviewed images Attending Assessment/Plan: 83-year-old female past medical history of interstitial lung disease questionable CHF and pelvic mass who was recently discharged the end of March from [facility] after treatment for a UTI. She returns with syncope. She has no recollection of the events and the family found her in the bathroom face down. We have her on telemetry, she recently had an echo so we not repeating 1 and will have cardiology see her. I am not convinced this is a UTI- the UA has 1-3 white cells, will stop the antibiotics and watch her. Will let Dr. Hernandez the senior sales director know that she is here tomorrow given the pelvic mass and the plan for outpatient workup.
[2018-05-16 15:26] VITALS: BP 128/60
[2018-05-16 15:27] VITALS: BP 122/60
--- NOTE | 2018-05-16 18:51 | Cons- Cardiology ---
General Information and HPI Consulting Request Date of Consult: 05/16/18 Requested By: Jaison Hardy MD Reason for Consult: Syncope. Source of Information: patient, old records Exam Limitations: poor historian History of Present Illness: Ms. Ester Segura is an 83-year-old female with a history of obesity, restrictive lung disease, hypertension, mild aortic stenosis, a small nonhemodynamically significant pericardial effusion, left ventricular hypertrophy, and heart failure with preserved ejection fraction (HFpEF) who presented to the ED via ambulance following a syncopal episode at home. She admits to some dysuria, frequency, and dark urine, but denies any fever, chills, etc. On 05/15/2018 in the afternoon she went into her bathroom with a walker and while turning around to sit on the toilet found herself on the floor. She hit her forehead. She denied any prodromal symptoms and was aware of her surroundings when her granddaughter rushed in to help her. She admits to poor p.o. intake, but no new medications or changes in the dosages of those she has been on. Allergies/Medications Allergies: Coded Allergies: aspirin (Bleeding per patient 05/15/17) Home Med List: Furosemide (Lasix) 40 MG TABLET 1.5 TAB PO DAILY leg sweeling, chf Levothyroxine Sodium (Synthroid) 100 MCG TABLET 1 TAB PO DAILY AC thyroid . Nystatin 100,000 UNIT/GRAM CREAM..G. 1 ALICIA TOP BID RASH . Potassium Chloride (Klor-Con M20) 20 MEQ TAB.ER.PRT 2 TAB PO DAILY SUPPLEMENT (Reported) Prazosin HCl (Minipress) 5 MG CAPSULE 1 CAP PO 1XDAY BP (Reported) Verapamil Hydrochloride (Verapamil HCl) 40 MG TABLET 40 MG PO BID HIGH BLOOD PRESSURE Review of Systems Review of Systems: A 14 point system review was obtained and was noncontributory, other than as above. 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 Psychosocial History Where Do You Live? Home Primary Language: Arabic Smoking Status: Never Smoked ETOH Use: denies use Illicit Drug Use: denies illicit drug use Living Will? unknown Power of Social Sciences Professor/HCP? unknown Functional Ability ADLs Independent: dressing, eating, toileting, bathing. Ambulation: independent Employment History Employment: Retired ECHO Results (as available) Report: CONCLUSIONS 1. Moderate aortic sclerosis is present. The valve is trileaflet. Mild aortic insufficiency is present. 2. Thickening of the mitral leaflets is present with mild to moderate annular calcification and moderate mitral insufficiency. Moderate left atrial enlargement is present. 3. A moderate size circumferential pericardial effusion is present. The effusion is hemodynamically insignificant. 4. The left ventricular chamber size is normal mild concentric hypertrophy and hyperdynamic systolic function. Ejection fraction is 75% with no resting wall motion abnormalities. 6. Mild to moderate tricuspid insufficiency is present with mild pulmonic insufficiency and moderate pulmonary hypertension. The estimated right ventricular systolic pressure is 54 mmHg. 7. Significant lipomatous hypertrophy of the atrial septum is present. 8. Since the prior study, the size of the pericardial effusion has increased. Exam & Diagnostic Data Vital Signs and I&O Vital Signs Date Time Temp Pulse Resp B/P B/P Pulse O2 O2 Flow FiO2 Mean Ox Delivery Rate 05/16 1616 Nasal 3.0L Cannula 05/16 1526 97.8 60 20 128/60 89 Nasal 3.0L Cannula 05/16 1220 93 Nasal 3.0L Cannula 05/16 0833 61 126/56 05/16 0800 90 Nasal 3.0L Cannula 05/16 0632 97.9 61 20 126/56 90 05/16 0123 98 Nasal 3.0L Cannula 05/15 2331 97.8 68 20 130/86 100 05/15 2306 Aerosol 10L Mask 05/15 2129 97.5 73 20 135/66 100 Aerosol 10L Mask 05/15 1905 93 Nasal 4.0L Cannula 05/15 190 97.4 78 22 127/61 93 Nasal 4.0L Cannula Intake & Output 05/16 1600 05/16 0800 05/16 0000 05/15 1600 05/15 0800 05/15 0000 Intake Total 550 200 0 Output Total 900 200 Balance -350 0 0 Intake, IV 150 200 Intake, Oral 400 0 Number 1 Bowel Movements Output, Urine 900 200 Patient 150 lb Weight Physical Exam: Well-developed, overweight elderly female in no acute distress with nasal oxygen in place. Vital signs: See above. HEENT: Normocephalic, atraumatic, EOMI, slightly dry mucous membranes. Neck: No JVD, no bruits. Lungs: Bibasilar crackles. Heart: S1, S2 with grade 2/6 systolic ejection type murmur heard in the base. No gallop or rub. Abdomen: Soft, nontender, positive bowel sounds. Extremities: 1+ bilateral lower extremity edema. Assessment/Plan Assessment/Plan [id number] w/ hx of obesity, restrictive lung disease, HTN, mild , a small nonhemodynamically significant pericardial effusion, LVH, & HFpEF who presented to the ED via ambulance following a syncopal episode at home with additional complaints of dysuria, frequency, and dark urine, decreased by mouth intake, but no fevers, chills, etc., who additionally had decreased by mouth intake. The etiology for her presentation is not presently clear, however, her blood work suggests some degree of intravascular depletion probably from her decreased by mouth intake and possibly from a urinary tract infection with some possible exacerbation from her antihypertensive regimen, , etc. Recommendations: * Telemetry admission, follow-up troponins, follow-up ECG. * Orthostatic blood pressure checks. * Strict inputs/outputs and daily weights. * Gently hydrate. * Consider holding her antihypertensive regimen for the short-term. * DVT prophylaxis. Consult Acknowledgment - Thank you for your consult request.
[2018-05-16 22:25] VITALS: BP 120/68
[2018-05-17 06:49] VITALS: BP 120/68
--- NOTE | 2018-05-17 07:08 | PN- Housestaff ---
Janna Mckeon 05/17/18 0707: Subjective Follow-up For: Syncope ILD on home O2 3L Tele-Events Since Last Visit: Wandering atrial pacer, 63 heart Subjective: Patient seen and examined at bedside this morning. She currently on 6 L oxygen saturating well. However this is increased from her 3 L required at home. Plan to send patient out to [facility] she lives alone. Patient denies any chest pain, palpitations. Patient has been eating and drinking well with no bowel bladder complaints. Continue to monitor respiratory status and follow with pulmonology. Pulmonology recommends noncontrast CT of the chest today given patient's desaturation. Review of Systems Constitutional: Denies: see HPI. Objective Last 24 Hrs of Vital Signs/I&O Vital Signs Date Time Temp Pulse Resp B/P B/P Pulse O2 O2 Flow FiO2 Mean Ox Delivery Rate 05/17 1241 Nasal 6.0L Cannula 05/17 1033 68 120/68 05/17 0829 94 Nasal 6.0L Cannula 05/17 0649 97.9 68 20 120/68 93 05/16 2225 97.9 70 20 120/68 100 Nasal 4.0L Cannula 05/16 2125 Nasal 4.0L Cannula 05/16 2100 60 128/60 05/16 1616 Nasal 3.0L Cannula 05/16 1526 97.8 60 20 128/60 89 Nasal 3.0L Cannula Intake & Output 05/17 1600 05/17 0800 05/17 0000 Intake Total Output Total 300 Balance -300 Output, Urine 300 Patient 150 lb Weight Weight Bed scale Measurement Method Physical Exam General Appearance: Alert, Oriented X3, Cooperative, Mild Distress Skin: No Rashes, No Breakdown HEENT: PERRLA, EOMI, Mucous Membr. moist/pink Cardiovascular: Regular Rate, Normal S1, Normal S2 Lungs: bilateral crackles Abdomen: Normal Bowel Sounds, Soft, No Tenderness Neurological: Normal Speech, Strength at 5/5 X4 Ext, Normal Tone, Sensation Intact, Cranial Nerves 3-12 NL Extremities: + 1 bilateral LE edema Current Medications: Current Medications Sig/Sanjuanita Start time Last Medication Dose Route Stop Time Status Admin Acetaminophen 650 MG ONCE ONE 05/17 0530 DC 05/17 PO 05/17 0531 0532 Albuterol Sulfate 3 ML TID 05/16 2100 AC 05/17 INH 0808 Calcium Carbonate 500 MG TID 05/16 1400 CAN PO Calcium Carbonate 500 MG TID PRN 05/16 1345 AC 05/16 PO 1404 Furosemide 40 MG DAILY 05/18 0900 AC PO Furosemide 60 MG DAILY 05/16 0900 DC 05/17 PO 1033 Heparin Sodium 5,000 UNIT Q8 05/16 0600 AC 05/17 (Porcine) SC 0532 Levothyroxine Sodium 0.1 MG DAILY AC 05/16 0700 AC 05/17 PO 0532 Magnesium Sulfate 1 GM ONCE ONE 05/16 1130 DC 05/16 Dextrose/Water 100 ML IV 05/16 1529 1240 Nystatin 1 ALICIA BID 05/16 09 AC 05/16 TOP 2104 Potassium Chloride 40 MEQ BID 05/16 2100 DC 05/17 PO 1033 Potassium Chloride 40 MEQ DAILY 05/16 09 DC 05/16 PO 0832 Verapamil HCl 40 MG BID 05/16 0900 AC 05/17 PO 1033 Last 24 Hrs of Lab/Jose Results Last 24 Hrs of Labs/Mics: Laboratory Tests 05/17/18 0638: CBC w Diff NO MAN DIFF REQ, RBC 4.83, MCV 78.7 L, MCH 26.3 L, MCHC 33.4, RDW 20.8 H, MPV 7.4, Gran % 68.9, Lymphocytes % 18.5 L, Monocytes % 10.9 H, Eosinophils % 1.5, Basophils % 0.2, Absolute Granulocytes 5.8, Absolute Lymphocytes 1.6, Absolute Monocytes 0.9 H, Absolute Eosinophils 0.1, Absolute Basophils 0 05/17/18 0632: Anion Gap 13, Estimated GFR 53 L, BUN/Creatinine Ratio 27.0 H 05/16/18 1640: Anion Gap 10, Estimated GFR 43 L, BUN/Creatinine Ratio 24.2 Assessment/Plan Assessment: Patient is a 83 year old female with past medical history of HFpEF, hypertension , ILD on 3L O2 at home, Colon CA, Breast CA diagnosed and treated 20 years ago, anxiety, hypothyroidism, brought in by family after a fall. Fell on 05/15/18 after going to bathroom. Recent discharge 04/20/18 treated for UTI. Last fall 6 months ago, using a walker at baseline. Low BP at PCP office morning of admission 118/60 and dysuria for which prescribed ciprofloxacin for UTI. No fevers, chills reported. Diagnosed with possible left sided abdominal mass on previous admission, never followed up with at [facility] with a Dr. Tee. CXR: Cardiomegaly versus pericardial effusion. Correlate with cardiac echo; mild vascular congestion; left hemidiaphragm obsscured Knee Xray: no frature; DGD CT/spine/maxilofacial: no fractures Patient had a positive UA on admsision, troponins negative, EKG showing QTc prolongationa nd nonspecific T wave changes. Followed on telemetry for syncopal episode and urine culture for apprpriate antibitoic. PROBLEM LIST: 1. Syncope 2. Acute on chronic respiratory failure 3. Urinary tract infection 4. Left sided pelvic cyst PRESYNCOPE * continue to monitor on telemetry * patient rehydrated although continue to monitor BEP; Cr: 1.0 BUN: 27; sodium 134 * denies any recent diziness or light headedness * monitor orthostatics and give IV fluids if noted; decreased furosemide to 40mg PO; blood pressures controled well off prazosin; recommended by cardiology not to restart * hyponatremia resolved * GERARDO resolved Acute on Chronic Respiratory Failure Patient has a history of interstitial lung disease on home 3L O2. Has been requiring up to 6L and desaturated getting out of bed to chair. Pulmonology Dr. Nguyễn. * Pulmonology recommended CT chest without IV contrast however patient denies having the intervention done * Continue to monitor saturations on NC * Follow pulmonology recommendations; avoid overhydration; incentive spirometry ordered; TRC consult for nebs ordered Urinary Tract Infection * Antibiotic course completed. Patient afebrile without symptoms of UTI at this time. Will continue to monitor for fever/CBC changes. * urine culture: gram positive cocci Left Sided Pelvic Cyst * Call placed to Dr. Hernandez (OB) who seen patient in March; was previously referred to Dr. Fulton [facility] at [email or web address]; family aware of this situation. Patient was not able to attend. Patient/family did not reschedule appointment with [facility] Patient and family agrees for patient to go to a assisted rehab. Code Status: Full Code DVT PPx: Heparin SC Diet: Regular Diet Problem List: 1. Shortness of breath dyspnea 2. Acute respiratory failure with hypoxia 3. Interstitial lung disease 4. UTI (urinary tract infection) Pain Ratin Pain Location: denies any pain Pain Goal: Remain pain free Pain Plan: as per pain pathway Tomorrow's Labs & Rationales: cbc bep Delon Dominique 05/17/18 1340: Attending MD Review Statement Attending Statement Attending MD Statement: examined this patient, discuss w/resident/PA/TECHNOLOGY TEACHER, agreed w/resident/PA/TECHNOLOGY TEACHER, reviewed EMR data (avail), discussed with nursing, discussed with case mgmt Attending Assessment/Plan: ILD with increased oxygen requirements. Will get pulm consult. pt f/u with dr santos as an outpatient. Cystic lesion in left pelvic area- chief growth officer consult . Presyncopal episode- pt doing ok. no arrhythmia so far. could be secondary to hypoxia.
[2018-05-17 07:46] LABS: ABSOLUTE BASOPHIL COUNT 0 /CUMM (0.0-0.2); ABSOLUTE EOSINOPHIL COUNT 0.1 /CUMM (0.0-0.7); ABSOLUTE GRANULOCYTE CT 5.8 /CUMM (1.4-6.5); ABSOLUTE LYMPH COUNT 1.6 /CUMM (1.2-3.4); ABSOLUTE MONOCYTE COUNT 0.9 /CUMM (0.10-0.60); BASOPHIL % 0.2 % (0.0-2.0); EOSINOPHIL % 1.5 % (0-5); GRANULOCYTE % 68.9 % (42.2-75.2); MEAN CORPUSCULAR HGB 26.3 PG (27.0-31.0); MEAN CORPUSCULAR HGB CONC 33.4 G/DL (33.0-37.0); MEAN CORPUSCULAR VOLUME 78.7 FL (81.0-99.0); MEAN PLATELET VOLUME 7.4 FL (7.4-10.4); PLATELET COUNT 217 /CUMM (130-400); RBC DISTRIBUTION WIDTH 20.8 % (11.5-14.5); RED BLOOD CELL CT 4.83 /CUMM (4.20-5.40); WHITE BLOOD CELL COUNT 8.4 /CUMM (4.8-10.8)
--- NOTE | 2018-05-17 11:38 | PN- OBGYN ---
Surgical Brief Attending Note Brief Attending Note: Called by covering team regarding patient's pelvic mass. I consulted on this patient on her last admission in March. On April 21 patient's tumor markers returned (HE over 1400 and Ca125 over 400). In the setting of pelvic mass she was referred to Dr Fulton [facility] at [place]. Family was well aware of this. The patient wasnt feeling well on the day of her scheduled [facility] appt. I spoke with Valeria Segura and she states to me that its been difficult for her to get her mother in law to "do things". Patient/family did not reschule her appt with the [facility] however this will be prudent to do so that they can come up with a treatment plan. I advised family of such.
--- NOTE | 2018-05-17 12:31 | PN- Cardiology ---
Subjective Subjective: The patient reports that she is feeling better today. No further syncope. No lightheadedness or dizziness. No palpitations. No chest pain. No shortness of breath. No nausea or vomiting. groundwater monitoring technician reveals no significant arrhythmias Objective Vital Signs and I&Os Vital Signs Date Time Temp Pulse Resp B/P B/P Pulse O2 O2 Flow FiO2 Mean Ox Delivery Rate 05/17 1033 68 120/68 05/17 0829 94 Nasal 6.0L Cannula 05/17 0649 97.9 68 20 120/68 93 05/16 2225 97.9 70 20 120/68 100 Nasal 4.0L Cannula 05/16 2125 Nasal 4.0L Cannula 05/16 2100 60 128/60 05/16 1616 Nasal 3.0L Cannula 05/16 1526 97.8 60 20 128/60 89 Nasal 3.0L Cannula Intake & Output 05/17 1600 05/17 0800 05/17 0000 05/16 1600 05/16 0800 05/16 0000 Intake Total 550 200 0 Output Total 300 900 200 Balance -300 -350 0 0 Intake, IV 150 200 Intake, Oral 400 0 Number 1 Bowel Movements Output, Urine 300 900 200 Patient 150 lb 150 lb Weight Weight Bed scale Measurement Method Physical Exam: Gen: NAD HEENT: normal Lungs: clear to auscultation, normal resp. effort Heart: RRR, S1, S2, 2/6 systolic murmur Abdomen: Soft, nontender, no masses Extremities: No clubbing, cyanosis, or edema. Neuro: Alert and oriented x 3, cranial nerves intact Current Medications: Current Medications Sig/Sanjuanita Start time Last Medication Dose Route Stop Time Status Admin Acetaminophen 650 MG ONCE ONE 05/17 0530 DC 05/17 PO 05/17 0531 0532 Albuterol Sulfate 3 ML TID 05/16 2100 AC 05/17 INH 0808 Calcium Carbonate 500 MG TID 05/16 1400 CAN PO Calcium Carbonate 500 MG TID PRN 05/16 1345 AC 05/16 PO 1404 Furosemide 60 MG DAILY 05/16 0900 AC 05/17 PO 1033 Heparin Sodium 5,000 UNIT Q8 05/16 06 AC 05/17 (Porcine) SC 0532 Levothyroxine Sodium 0.1 MG DAILY AC 05/16 0700 AC 05/17 PO 0532 Magnesium Sulfate 1 GM ONCE ONE 05/16 1130 DC 05/16 Dextrose/Water 100 ML IV 05/16 1529 1240 Nystatin 1 ALICIA BID 05/16 0900 05/16 TOP 2104 Potassium Chloride 40 MEQ BID 05/16 2100 DC 05/17 PO 1033 Potassium Chloride 40 MEQ DAILY 05/16 0900 DC 05/16 PO 0832 Verapamil HCl 40 MG BID 05/16 0900 AC 05/17 PO 1033 Results Last 48 Hrs of Labs/Mics: Laboratory Tests 05/17/18 0638: CBC w Diff NO MAN DIFF REQ, RBC 4.83, MCV 78.7 L, MCH 26.3 L, MCHC 33.4, RDW 20.8 H, MPV 7.4, Gran % 68.9, Lymphocytes % 18.5 L, Monocytes % 10.9 H, Eosinophils % 1.5, Basophils % 0.2, Absolute Granulocytes 5.8, Absolute Lymphocytes 1.6, Absolute Monocytes 0.9 H, Absolute Eosinophils 0.1, Absolute Basophils 0 05/17/18 0632: Anion Gap 13, Estimated GFR 53 L, BUN/Creatinine Ratio 27.0 H 05/16/18 1640: Anion Gap 10, Estimated GFR 43 L, BUN/Creatinine Ratio 24.2 05/16/18 0925: Sodium Cancelled, Potassium Cancelled, Chloride Cancelled, Carbon Dioxide Cancelled, Anion Gap Cancelled, BUN Cancelled, Creatinine Cancelled, BUN/ Creatinine Ratio Cancelled 05/16/18 0820: Anion Gap 13, Estimated GFR 43 L, BUN/Creatinine Ratio 26.7 H, Troponin I 0.02 05/16/18 0635: Magnesium 1.5 L 05/15/18 2245: Urine Color YEL, Urine Clarity CLEAR, Urine pH 7.0, Ur Specific [place] 1.010, Urine Protein NEG, Urine Ketones NEG, Urine Nitrite POS H, Urine Bilirubin NEG, Urine Urobilinogen 2.0 H, Ur Leukocyte Esterase MOD H, Ur Microscopic SEDIMENT EXAMINED, Urine RBC 1-3, Urine WBC 1-3 H, Ur Epithelial Cells FEW, Urine Bacteria MANY H, Urine Hemoglobin SMALL H, Urine Glucose NEG 05/15/18 1917: Anion Gap 14, Estimated GFR 48 L, BUN/Creatinine Ratio 30.9 H, Glucose 131 H, Calcium 8.6, Magnesium 1.4 L, Total Bilirubin 1.7 H, AST 46 H, ALT 30, Alkaline Phosphatase 108, Troponin I 0.02, Total Protein 7.7, Albumin 3.2 L, Globulin 4.5 H, Albumin/Globulin Ratio 0.7 L, CBC w Diff NO MAN DIFF REQ, RBC 4.76, MCV 77.9 L, MCH 25.8 L, MCHC 33.1, RDW 21.2 H, MPV 7.5, Gran % 70.2, Lymphocytes % 17.7 L, Monocytes % 10.6 H, Eosinophils % 1.3, Basophils % 0.2, Absolute Granulocytes 4.3, Absolute Lymphocytes 1.1 L, Absolute Monocytes 0.6, Absolute Eosinophils 0.1, Absolute Basophils 0 Assessment/Plan Assessment/Plan Assessment: 1. Moderate aortic stenosis 2. Small pericardial effusion 3. Pulmonary hypertension 4. Moderate mitral regurgitation 5. Syncope, uncertain etiology. No evidence of significant arrhythmia on telemetry. Aortic stenosis does not appear to be severe enough to cause syncope. Plan: * Check orthostatics, and give IV fluid if orthostatatic hypotension is noted. * Would decrease furosemide to 40 mg p.o. daily * Blood pressure has been well controlled off prazosin. I recommend not restarting the prazosin. Continue telemetry? Yes
--- NOTE | 2018-05-17 12:31 | Cons- Pulmonary ---
General Information and HPI Consulting Request Date of Consult: 05/17/18 Requested By: Dr. Dominique Reason for Consult: Hypoxemic respiratory failure Source of Information: patient, old records Exam Limitations: poor historian History of Present Illness: The patient is an 83-year-old female previously followed by Dr. Wilson. The patient has a complex past medical history including severe restrictive lung disease with a diffusing capacity of 16 (on 3 lpm NC), chronic hypoxemic respiratory failure, chronic interstitial lung disease secondary to pulmonary fibrosis, cardiomyopathy, history pericardial effusion, CHF, history of breast cancer status post radiation therapy, and history of colon cancer. The patient was admitted on 05/15/2018 following a fall. As per the chart, the patient fell forward and did not sustain any loss of consciousness. Her head CT was unremarkable for any acute injury. The patient had reported feeling lightheaded when moving from a sitting to standing position. The patient was evaluated in the ED and found that orthostatic hypotension was the most likely cause of her fall. She has also had dysuria, urinary frequency, decreased oral intake with a poor appetite. The patient has been given gentle IV fluids for dehydration. Of note, the patient was found to have oxygen desaturations. She was reported as having an O2 sat of 83% while on 6 L nasal cannula. At rest, the patient is 94% on 6 L nasal cannula. Chest x-ray showed a markedly enlarged cardiac silhouette suggestive of a pericardial effusion along with vascular congestion. The left hemidiaphragm could be obscuring a left pleural effusion versus infiltrate or atelectasis. Allergies/Medications Allergies: Coded Allergies: aspirin (Bleeding per patient 05/15/17) Home Med List: Furosemide (Lasix) 40 MG TABLET 1.5 TAB PO DAILY leg sweeling, chf Levothyroxine Sodium (Synthroid) 100 MCG TABLET 1 TAB PO DAILY AC thyroid . Nystatin 100,000 UNIT/GRAM CREAM..G. 1 ALICIA TOP BID RASH . Potassium Chloride (Klor-Con M20) 20 MEQ TAB.ER.PRT 2 TAB PO DAILY SUPPLEMENT (Reported) Prazosin HCl (Minipress) 5 MG CAPSULE 1 CAP PO 1XDAY BP (Reported) Verapamil Hydrochloride (Verapamil HCl) 40 MG TABLET 40 MG PO BID HIGH BLOOD PRESSURE Current Medications: Current Medications Sig/Sanjuanita Start time Last Medication Dose Route Stop Time Status Admin Acetaminophen 650 MG ONCE ONE 05/17 0530 DC 05/17 PO 05/17 0531 0532 Albuterol Sulfate 3 ML TID 05/16 2100 AC 05/17 INH 0808 Calcium Carbonate 500 MG TID 05/16 1400 CAN PO Calcium Carbonate 500 MG TID PRN 05/16 1345 AC 05/16 PO 1404 Furosemide 60 MG DAILY 05/16 0900 AC 05/17 PO 1033 Heparin Sodium 5,000 UNIT Q8 05/16 0600 AC 05/17 (Porcine) SC 0532 Levothyroxine Sodium 0.1 MG DAILY AC 05/16 0700 AC 05/17 PO 0532 Magnesium Sulfate 1 GM ONCE ONE 05/16 1130 DC 05/16 Dextrose/Water 100 ML IV 05/16 1529 1240 Nystatin 1 ALICIA BID 05/16 0900 AC 05/16 TOP 2104 Potassium Chloride 40 MEQ BID 05/16 2100 DC 05/17 PO 1033 Potassium Chloride 40 MEQ DAILY 05/16 0900 DC 05/16 PO 0832 Verapamil HCl 40 MG BID 05/16 0900 AC 05/17 PO 1033 Review of Systems Review of Systems Constitutional: Reports: weakness. Denies: chills, diaphoresis, fever, malaise. EENTM: Denies: no symptoms. Cardiovascular: Reports: edema, peripheral edema. Denies: chest pain, palpitations, syncope. Respiratory: Reports: orthopnea, short of breath. Denies: cough, hemoptysis, sputum production, stridor, wheezing. GI: Denies: no symptoms. Genitourinary: Reports: see HPI. Musculoskeletal: Reports: see HPI. 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 Psychosocial History Where Do You Live? Home Primary Language: Montenegrin Smoking Status: Never Smoked ETOH Use: denies use Illicit Drug Use: denies illicit drug use Living Will? unknown Power of Php Magento Developer/HCP? unknown Functional Ability ADLs Independent: dressing, eating, toileting, bathing. Ambulation: independent Employment History Employment: Retired Exam & Diagnostic Data Last 24 Hrs of Vital Signs/I&O Vital Signs Date Time Temp Pulse Resp B/P B/P Pulse O2 O2 Flow FiO2 Mean Ox Delivery Rate 05/17 1033 68 120/68 05/17 0829 94 Nasal 6.0L Cannula 05/17 0649 97.9 68 20 120/68 93 05/16 2225 97.9 70 20 120/68 100 Nasal 4.0L Cannula 05/16 2125 Nasal 4.0L Cannula 05/16 2100 60 128/60 05/16 1616 Nasal 3.0L Cannula 05/16 1526 97.8 60 20 128/60 89 Nasal 3.0L Cannula 05/16 1220 93 Nasal 3.0L Cannula Intake & Output 05/17 1600 05/17 0800 05/17 0000 Intake Total Output Total 300 Balance -300 Output, Urine 300 Patient 150 lb Weight Weight Bed scale Measurement Method Physical Exam General Appearance: no apparent distress, awake, comfortable Head: atraumatic, normal appearance Eyes: Bilateral: PERRL. Neck: normal inspection, supple Respiratory: bilateral crackles Cardiovascular: regular rate/rhythm (S1 and S2 +, systolic murmur) Gastrointestinal: normal bowel sounds, soft, non-tender Extremities: 1+ bilateral LE edema Skin: intact, warm/dry Last 48 Hrs of Labs/Jose: Laboratory Tests 05/17/18 0638: CBC w Diff NO MAN DIFF REQ, RBC 4.83, MCV 78.7 L, MCH 26.3 L, MCHC 33.4, RDW 20.8 H, MPV 7.4, Gran % 68.9, Lymphocytes % 18.5 L, Monocytes % 10.9 H, Eosinophils % 1.5, Basophils % 0.2, Absolute Granulocytes 5.8, Absolute Lymphocytes 1.6, Absolute Monocytes 0.9 H, Absolute Eosinophils 0.1, Absolute Basophils 0 05/17/18 0632: Anion Gap 13, Estimated GFR 53 L, BUN/Creatinine Ratio 27.0 H 05/16/18 1640: Anion Gap 10, Estimated GFR 43 L, BUN/Creatinine Ratio 24.2 05/16/18 0925: Sodium Cancelled, Potassium Cancelled, Chloride Cancelled, Carbon Dioxide Cancelled, Anion Gap Cancelled, BUN Cancelled, Creatinine Cancelled, BUN/ Creatinine Ratio Cancelled 05/16/18 0820: Anion Gap 13, Estimated GFR 43 L, BUN/Creatinine Ratio 26.7 H, Troponin I 0.02 05/16/18 0635: Magnesium 1.5 L 05/15/185: Urine Color YEL, Urine Clarity CLEAR, Urine pH 7.0, Ur Specific Ransom 1.010, Urine Protein NEG, Urine Ketones NEG, Urine Nitrite POS H, Urine Bilirubin NEG, Urine Urobilinogen 2.0 H, Ur Leukocyte Esterase MOD H, Ur Microscopic SEDIMENT EXAMINED, Urine RBC 1-3, Urine WBC 1-3 H, Ur Epithelial Cells FEW, Urine Bacteria MANY H, Urine Hemoglobin SMALL H, Urine Glucose NEG 05/15/18 1917: Anion Gap 14, Estimated GFR 48 L, BUN/Creatinine Ratio 30.9 H, Glucose 131 H, Calcium 8.6, Magnesium 1.4 L, Total Bilirubin 1.7 H, AST 46 H, ALT 30, Alkaline Phosphatase 108, Troponin I 0.02, Total Protein 7.7, Albumin 3.2 L, Globulin 4.5 H, Albumin/Globulin Ratio 0.7 L, CBC w Diff NO MAN DIFF REQ, RBC 4.76, MCV 77.9 L, MCH 25.8 L, MCHC 33.1, RDW 21.2 H, MPV 7.5, Gran % 70.2, Lymphocytes % 17.7 L, Monocytes % 10.6 H, Eosinophils % 1.3, Basophils % 0.2, Absolute Granulocytes 4.3, Absolute Lymphocytes 1.1 L, Absolute Monocytes 0.6, Absolute Eosinophils 0.1, Absolute Basophils 0 Diagnostic Data CXR Results 1. Markedly enlarged cardiac silhouette more prominent on today's exam suggesting cardiomegaly versus pericardial effusion. Suggest Correlation with cardiac echo. 2. Mild vascular congestion. 3. Left hemidiaphragm partially obscured probably by pleural effusion, cannot rule out underlying infiltrate and/or atelectasis.. Other Results ECHO: 1. Moderate aortic sclerosis is present. The valve is trileaflet. Mild aortic insufficiency is present. 2. Thickening of the mitral leaflets is present with mild to moderate annular calcification and moderate mitral insufficiency. Moderate left atrial enlargement is present. 3. A moderate size circumferential pericardial effusion is present. The effusion is hemodynamically insignificant. 4. The left ventricular chamber size is normal mild concentric hypertrophy and hyperdynamic systolic function. Ejection fraction is 75% with no resting wall motion abnormalities. 6. Mild to moderate tricuspid insufficiency is present with mild pulmonic insufficiency and moderate pulmonary hypertension. The estimated right ventricular systolic pressure is 54 mmHg. 7. Significant lipomatous hypertrophy of the atrial septum is present. 8. Since the prior study, the size of the pericardial effusion has increased. Assessment/Plan Impression/Plan: 1. Orthostatic hypotension in the setting of dehydration. 2. Urinary tract infection -urine culture positive for GPC's greater than 100, 000 colonies. 3. Acute on chronic respiratory failure which may be related to fluid overload/ infiltrate/atelectasis or effusion. Recommendations: * TRC consult for nebs. * Supplemental oxygen to keep saturations greater than 92%. * Incentive spirometry. * Follow cardiology input. Management of pericardial effusion? * Check a noncontrast CT scan of the chest today. * Monitor strict I's and O's. * Avoid overhydration. * Treatment of UTI as per primary team. * Will provide further recommendations pending testing results. * Thank you for the consult, will follow along with you and provide further recommendations as necessary. Please do not hesitate contact me at any time with questions or issues. Consult Acknowledgment - Thank you for your consult request.
[2018-05-17 15:00] VITALS: BP 122/68
--- NOTE | 2018-05-17 16:04 | Discharge Summary ---
Visit Information Visit Dates Admission Date: 05/15/18 Discharge Date: 05/20/2018 Hospital Course Course Attending Physician: Trip JAIMES,Delon Etienne Primary Care Physician: Lexx Moreau MD Hospital Course: Patient is a 83-year-old female with past medical history of HFpEF, hypertension , interstitial lung disease on 3 L oxygen at home, colon cancer and breast cancer diagnosed and treated 20 years ago, anxiety, hypothyroidism, was brought in by family after a fall. Patient states that she was in her usual state of health until 6 PM on 05/15/18, when she fell while going to the bathroom. Patient states that she tried to grab the towel handle however her legs gave out and she fell on the floor face forward with arms behind her. Patient states that she also hit her left knee on the floor. It was an unwitnessed fall but her granddaughter soon came to rescue her. At that time EMS was called and patient was brought to [facility]. Patient was recently discharged from [facility] on 04/20/18 while she was treated for urinary tract infection. Patient reported that her last fall was 6 months ago, and she uses a walker at home regularly. Patient denies any loss of consciousness, confusion, seizure activity, bowel/bladder accident, biting of tongue, after the fall. Patient also states that on 04/15 she went to her primary care physician, and she was found to have low blood pressure than usual 118/60, and had burning micturition symptoms, so she was prescribed ciprofloxacin for UTI which she was taking. Patient denies any urgency/hesitancy/fever or chills. Of note patient was diagnosed with left-sided abdominal mass during her previous admission, patient states that she was going to follow-up with Dr. Tee at [facility] however she could not follow-up yet. ---- Labs: CBC: NL, BUN: 34, Cr: 1.1, BUN/Cr: 30 T bili: 1.7, Alb: 3.2 ECG: QTc: 489 msec Chest x-ray on 05/15/18 1. Markedly enlarged cardiac silhouette more prominent on today's exam suggesting cardiomegaly versus pericardial effusion. Suggest Correlation with cardiac echo. 2. Mild vascular congestion. 3. Left hemidiaphragm partially obscured probably by pleural effusion, cannot rule out underlying infiltrate and/or atelectasis.. Knee x-ray from 05/15/18 1. No fracture. 2. Bilateral degenerative osteoarthritis. Patient had a CT head/spine/maxillofacial area that was not significant for any fractures. Syncope, uncertain etiology. No evidence of significant arrhythmia on telemetry. Aortic stenosis does not appear to be severe enough to cause syncope. she reported that her oral intake has been decreased over the past few days and she is not drinking as much water, her episode of lightheadedness and fall could be due to hypotension. Orthostats were done which showed normal blood pressure changes. Acute kidney injury Creatinine 1.2 at the time of presentation. Her baseline creatinine was 1. Most likely from dehydration and urinary tract infection. She received IV fluids with good improvement of creatinine 1 at the time of discharge Hypokalemia k 2.8 at the time of admission with no specific EKG changes. She received potassium orally. Potassium came down normal 4 at the time of discharge Left pelvic mass Of note patient was diagnosed with left-sided abdominal mass 11x8x9 cm during her previous admission, patient states that she was going to follow-up with Dr. Tee at [facility] however she could not follow-up yet. Spar Machine Operator Helper Dr. Hernandez was consulted during this admission, recommended outpatient follow-up with the Dr. Tee at [facility]. Heart failure with preserved ejection fraction She takes Lasix 60 mg at home. Continued Lasix 60 mg. Interstitial lung disease Patient has history of interstitial lung disease, on 3 L home oxygen. She desaturated to 83%, requiring 6 L oxygen supplementation in the hospital. She was evaluated by oil well fishing tool technician Dr. Soria. [facility] nebs were provided. Supplemental oxygen was given to keep saturations greater than 92. Incentive spirometry. Ultrasound chest was done which showed no pleural effusion. Later on her oxygen supplementation came down to 3.5 L. Also echocardiogram was done to make sure about any worsening of pericardial effusion. Echo showed small to moderate pericardial effusion Abnormal urine analysis She has urine with nitrate and esterase positive, no WBC or bacteria. She remained afebrile with no leukocytosis. However urine cultures positive for enterococcus. She was treated with ampicillin 250 every 6 for 3 days. Hypothyroidism continue her home dose of levothyroxine Hypertension patient usually takes verapamil and prazosin at home for blood pressure management. Prazosin was discontinued by Dr. Barr. Continued verapamil home dose. DVT prophylaxis sub cutaneous heparin Patient is full code. Allergies: Coded Allergies: aspirin (Bleeding per patient 05/15/17) Pertinent Lab Results: Normal size left ventricle. Normal left ventricular ejection fraction visually estimated at > 60%. Right atrial dilatation. Left atrial dilatation. Moderate mitral regurgitation. Moderate aortic stenosis. Mild aortic regurgitation. Moderate tricuspid regurgitation. Right ventricular systolic pressure estimated to be elevated at 77 mmHg. Trace pulmonic regurgitation. Small to moderate-sized pericardial effusion appears similar to prior study done 03/27/18. Disposition Summary Disposition Principal Diagnosis: Presyncope Additional Diagnosis: Hypokalemia Acute kidney injury UTI Discharge Disposition: SNF Discharge Instructions General Discharge Information Code Status: Full Code Patient's Diet: As tolerated Patient's Activity: As tolerated Follow-Up Instructions/Appts: Follow-up PCP in 1 week after discharge Follow-up head sawyer automatic in 1 week after discharge Follow-up with oil well fishing tool technician in 1 week after discharge Follow-up ham passer within 1 week after discharge Medications at Discharge Discharge Medications: Continue taking these medications: Prazosin HCl (Minipress) 5 MG CAPSULE 1 Capsule ORAL 1XDAY Comments: Last Taken: 04/19/18 Time: 8:30 AM Levothyroxine Sodium (Synthroid) 100 MCG TABLET 1 Tablet ORAL DAILY BEFORE BREAKFAST Qty = 30 Instructions: . Comments: Last Taken: 04/20/18 Time: 6:30 AM Nystatin (Nystatin) 100,000 UNIT/GRAM CREAM..G. 1 Application On the skin TWICE DAILY Qty = 1 Instructions: . Comments: Last Taken: 04/20/18 Time: 9:00 AM Verapamil Hydrochloride (Verapamil HCl) 40 MG TABLET 40 Milligram ORAL TWICE DAILY Qty = 60 Comments: Last Taken: 04/20/18 Time: 9:00 AM 80 MG GIVEN AT THIS TIME Start taking the following new medications: Furosemide (Furosemide) 40 MG TABLET 1.5 Tablet ORAL DAILY Qty = 30 No Refills Copies To: Lizzeth JAIMES,Lexx Jacob
[2018-05-17 21:57] VITALS: BP 156/74
[2018-05-18 06:15] VITALS: BP 120/64
--- NOTE | 2018-05-18 07:08 | PN- Housestaff ---
Janna Mckeon 05/18/18 0708: Subjective Follow-up For: Acute On Chronic Respiratory Failure 2/2 ILD UTI-+Enterococcus Tele-Events Since Last Visit: Accelerated junctional?, 63, 0.08 Subjective: Patient seen and examined at bedside this morning. Claims she had an upset stomach but felt better after she ate. Patient requiring 5 L of nasal cannula oxygen saturating at 89%. Patient was sitting in the chair with no complaints of chest pain, palpitations, shortness of breath. Patient claims that she denied chest CT yesterday because she was not able to lie flat. Will follow up with pulmonology and cardiology. Patient agreed for long-term placement after STR which has been discussed with patient's family. Review of Systems Constitutional: Denies: see HPI. Objective Last 24 Hrs of Vital Signs/I&O Vital Signs Date Time Temp Pulse Resp B/P B/P Pulse O2 O2 Flow FiO2 Mean Ox Delivery Rate 05/18 1255 18 95 Nasal 3.0L Cannula 05/18 1255 18 96 Nasal 4.0L Cannula 05/18 0931 97.5 68 20 120/64 05/18 0801 89 Nasal 5.0L Cannula 05/18 0800 93 Nasal 5.0L Cannula 05/18 0615 97.5 68 20 120/64 97 Nasal Cannula 05/18 0000 Nasal 5.0L Cannula 05/17 2157 98.2 66 22 156/74 93 Nasal Cannula 05/17 2115 94 Nasal 5.0L Cannula 05/17 2037 55 122/68 05/17 1500 97.5 55 20 122/68 95 Nasal 5.0L Cannula Intake & Output 05/18 1600 05/18 0800 05/18 0000 Intake Total 300 Output Total 200 300 Balance -200 0 Intake, Oral 300 Number 2 Bowel Movements Output, Urine 200 300 Physical Exam General Appearance: Alert, Oriented X3, Cooperative, Mild Distress Skin: No Rashes, No Breakdown HEENT: PERRLA, EOMI Cardiovascular: Regular Rate, Normal S1, Normal S2 Lungs: Ronchi on auscultation bilaterally Abdomen: Soft, No Tenderness, Midline scar; left lower abdominal mass Neurological: Strength at 5/5 X4 Ext, Normal Tone, Sensation Intact Extremities: No Clubbing, No Cyanosis, No Edema Vascular: Normal Pulses, Pulses Symmetrical Current Medications: Current Medications Sig/Sanjuanita Start time Last Medication Dose Route Stop Time Status Admin Albuterol Sulfate 3 ML TID 05/16 2100 AC 05/18 INH 0753 Calcium Carbonate 500 MG TID PRN 05/16 1345 AC 05/18 PO 0531 Furosemide 60 MG DAILY 05/19 09 AC PO Furosemide 40 MG DAILY 05/18 0900 DC 05/18 PO 0931 Heparin Sodium 5,000 UNIT Q8 05/16 0600 AC 05/18 (Porcine) SC 0528 Levothyroxine Sodium 0.1 MG DAILY AC 05/16 07 AC 05/18 PO 0528 Melatonin 5 MG ONCE ONE 05/18 0200 DC 05/18 PO 05/18 0201 0202 Nystatin 1 ALICIA BID 05/16 09 AC 05/18 TOP 0931 Verapamil HCl 40 MG BID 05/16 09 AC 05/18 PO 0931 Last 24 Hrs of Lab/Jose Results Last 24 Hrs of Labs/Mics: Laboratory Tests 05/18/18630: Anion Gap 9, Estimated GFR 53 L, BUN/Creatinine Ratio 25.0 Assessment/Plan Assessment: Patient is a 83 year old female with past medical history of HFpEF, hypertension , ILD on 3L O2 at home, Colon CA, Breast CA diagnosed and treated 20 years ago, anxiety, hypothyroidism, brought in by family after a fall. Fell on 05/15/18 after going to bathroom. Recent discharge 04/20/18 treated for UTI. Last fall 6 months ago, using a walker at baseline. Low BP at PCP office morning of admission 118/60 and dysuria for which prescribed ciprofloxacin for UTI. No fevers, chills reported. Diagnosed with possible left sided abdominal mass on previous admission, never followed up with at [place] with a Dr. Gross. Problem list: 1. Preyncope 2. Acute on chronic respiratory failure-NC 5L from 3L 3. Urinary tract infection 4. Left-sided pelvic cyst Presyncope * Continue to monitor on telemetry * Patient being followed by cardiology. * Orthostatic vital signs negative * Lasix increased to 60 mg given patient's orthopnea. * Echocardiogram to be reassessed to evaluate for evidence of pericardial effusion * Patient's creatinine trended down to 1.0 and BUN 25 * No lightheadedness, dizziness, headaches, confusion reported Acute on chronic respiratory failure * Patient requiring increased oxygen demand on nasal cannula from 3 L to 5 L saturating 89% * Patient refused CT scan yesterday as a result of severe orthopnea. Suggested by pulmonology to get ultrasound of chest to rule out significant pleural effusion. If significant fluid, patient may benefit from diagnostic and therapeutic thoracocentesis. * Patient being followed by cardiology. Advised to repeat echocardiogram to reevaluate her pericardial effusion given that she is x-ray demonstrates increased cardiac silhouette * Given increased orthopnea, increase furosemide back to prior dose of 60 mg daily * Continue to monitor patient on nasal cannula prior to discharge SDR and long- term placement Urinary tract infection * UA culture positive for enterococcus * Will start day 1 ampicillin today * Patient denies any current urinary symptoms including dysuria, urgency, frequency Left-sided pelvic cysts * Has been followed previously by Dr. Hernandez. Patient advised to follow-up with a Dr. Fulton at [facility] as was scheduled on prior discharge. CODE STATUS: Full code DVT prophylaxis: Heparin SC Diet: Regular diet Problem List: 1. Lung fibrosis 2. Shortness of breath dyspnea 3. UTI (urinary tract infection) 4. Pelvic mass Pain Ratin Pain Location: Patient denies any pain Pain Goal: Remain pain free Pain Plan: As per pain pathway Tomorrow's Labs & Rationales: CBC BEP DVT/Prophylaxis: mechanical, pharmacological Discharge Plan Discharge Disposition: [facility]/[place] Raffaele Dominiquefred 05/18/18 1323: Attending MD Review Statement Attending Statement Attending MD Statement: examined this patient, discuss w/resident/PA/AIRPLANE PATROLLER, agreed w/resident/PA/AIRPLANE PATROLLER, reviewed EMR data (avail), discussed with nursing, discussed with case mgmt Attending Assessment/Plan: acute on chronic hypoxic resp failure secondary to ILD- still requiring 5 L oxygen by NC. will try to wean off oxygen. pt is planned for dc to [facility] - possibly tomorrow. UTI- urine culture growing enterococcus- will start on ampicilln. d/w pt the care plan.
--- NOTE | 2018-05-18 08:50 | PN- Pulmonary ---
Subjective HPI/Critical Care Issues: The patient is awake and alert. She continues to have significant dyspnea on exertion. The patient feels she cannot lay flat for a CAT scan and therefore has not been willing to undergo further testing. She has ongoing concerns about her breathing and her orthopnea. She denies any fever, chills, chest pain, abdominal pain, nausea or vomiting. Objective Current Medications: Current Medications Sig/Sanjuanita Start time Last Medication Dose Route Stop Time Status Admin Albuterol Sulfate 3 ML TID 05/16 2100 AC 05/18 INH 0753 Calcium Carbonate 500 MG TID PRN 05/16 1345 AC 05/18 PO 0531 Furosemide 40 MG DAILY 05/18 0900 AC PO Furosemide 60 MG DAILY 05/16 0900 DC 05/17 PO 1033 Heparin Sodium 5,000 UNIT Q8 05/16 06 AC 05/18 (Porcine) SC 0528 Levothyroxine Sodium 0.1 MG DAILY AC 05/16 07 AC 05/18 PO 0528 Melatonin 5 MG ONCE ONE 05/18 0200 DC 05/18 PO 05/18 0201 0202 Nystatin 1 ALICIA BID 05/16 09 AC 05/17 TOP 2037 Potassium Chloride 40 MEQ BID 05/16 2100 DC 05/17 PO 1033 Verapamil HCl 40 MG BID 05/16 0900 AC 05/17 PO 2037 Vital Signs & I&O Last 24 Hrs of Vitals and I&O: Vital Signs Date Time Temp Pulse Resp B/P B/P Pulse O2 O2 Flow FiO2 Mean Ox Delivery Rate 05/18 0801 89 Nasal 5.0L Cannula 05/18 0615 97.5 68 20 120/64 97 Nasal Cannula 05/18 0000 Nasal 5.0L Cannula 05/17 2157 98.2 66 22 156/74 93 Nasal Cannula 05/17 2115 94 Nasal 5.0L Cannula 05/17 2037 55 122/68 05/17 1500 97.5 55 20 122/68 95 Nasal 5.0L Cannula 05/17 1241 Nasal 6.0L Cannula 05/17 1033 68 120/68 Intake & Output 05/18 1600 05/18 0800 05/18 0000 Intake Total 300 Output Total 200 300 Balance -200 0 Intake, Oral 300 Number 2 Bowel Movements Output, Urine 200 300 Physical Exam General Appearance: no apparent distress, awake, comfortable Head: atraumatic, normal appearance Eyes: Bilateral: PERRL. Neck: normal inspection, supple Respiratory: bilateral crackles Cardiovascular: regular rate/rhythm (S1 and S2 +, systolic murmur) Gastrointestinal: normal bowel sounds, soft, non-tender Extremities: 1+ bilateral LE edema Skin: intact, warm/dry Results Last 24 Hrs of Lab Results: Laboratory Tests 05/18/18 0631: Anion Gap 9, Estimated GFR 53 L, BUN/Creatinine Ratio 25.0 Impression/Plan Impression/Plan Impression/Plan: 1. Orthostatic hypotension in the setting of dehydration. 2. Urinary tract infection -urine culture positive for GPC's greater than 100, 000 colonies. Asymptomatic bacteria, monitor off antibiotics as per primary team. 3. Acute on chronic respiratory failure which may be related to fluid overload/ infiltrate/atelectasis or effusion. Recommendations: * TRC consult for nebs to continue. * Supplemental oxygen to keep saturations greater than 92%. * Incentive spirometry. * Follow cardiology input. Management of pericardial effusion? * The patient is refusing CT scanning as a result of severe orthopnea. I would suggest checking an ultrasound of the chest to rule out a significant pleural effusion. If there is significant fluid, the patient may benefit from a diagnostic and therapeutic thoracentesis. * Monitor strict I's and O's. * Monitor off antibiotics as per primary team. * DVT prophylaxis at all times. * Will make further recommendations once the patient's above testing is available. * Please call with any questions.
--- NOTE | 2018-05-18 12:26 | PN- Cardiology ---
Subjective Subjective: The patient continues to note lightheadedness on standing up. She also complains of dyspnea on exertion with orthopnea. No chest pain. No palpitations. No diaphoresis. No nausea or vomiting Objective Vital Signs and I&Os Vital Signs Date Time Temp Pulse Resp B/P B/P Pulse O2 O2 Flow FiO2 Mean Ox Delivery Rate 05/18 0931 97.5 68 20 120/64 05/18 0801 89 Nasal 5.0L Cannula 05/18 0800 93 Nasal 5.0L Cannula 05/18 0615 97.5 68 20 120/64 97 Nasal Cannula 05/18 0000 Nasal 5.0L Cannula 05/17 2157 98.2 66 22 156/74 93 Nasal Cannula 05/17 2115 94 Nasal 5.0L Cannula 05/17 2037 55 122/68 05/17 1500 97.5 55 20 122/68 95 Nasal 5.0L Cannula 05/17 1241 Nasal 6.0L Cannula Intake & Output 05/18 1600 05/18 0800 05/18 0000 05/17 1600 05/17 0800 05/17 0000 Intake Total 300 480 Output Total 200 300 400 300 Balance -200 0 80 -300 Intake, Oral 300 480 Number 2 2 Bowel Movements Output, Urine 200 300 400 300 Patient 150 lb Weight Weight Bed scale Measurement Method Physical Exam: Gen: NAD HEENT: normal Lungs: clear to auscultation, normal resp. effort Heart: RRR, S1, S2, 2/6 systolic murmur Abdomen: Soft, nontender, no masses Extremities: No clubbing, cyanosis, or edema. Neuro: Alert and oriented x 3, cranial nerves intact Current Medications: Current Medications Sig/Sanjuanita Start time Last Medication Dose Route Stop Time Status Admin Albuterol Sulfate 3 ML TID 05/16 2100 AC 05/18 INH 0753 Calcium Carbonate 500 MG TID PRN 05/16 1345 AC 05/18 PO 0531 Furosemide 40 MG DAILY 05/18 0900 AC 05/18 PO 0931 Furosemide 60 MG DAILY 05/16 09 DC 05/17 PO 1033 Heparin Sodium 5,000 UNIT Q8 05/16 06 AC 05/18 (Porcine) SC 0528 Levothyroxine Sodium 0.1 MG DAILY AC 05/16 07 AC 05/18 PO 0528 Melatonin 5 MG ONCE ONE 05/18 0200 DC 05/18 PO 05/18 020 0202 Nystatin 1 ALICIA BID 05/16 900 AC 05/18 TOP 0931 Verapamil HCl 40 MG BID 05/16 900 AC 05/18 PO 0931 Results Last 48 Hrs of Labs/Mics: Laboratory Tests 05/18/18 0631: Anion Gap 9, Estimated GFR 53 L, BUN/Creatinine Ratio 25.0 05/17/18 0638: CBC w Diff NO MAN DIFF REQ, RBC 4.83, MCV 78.7 L, MCH 26.3 L, MCHC 33.4, RDW 20.8 H, MPV 7.4, Gran % 68.9, Lymphocytes % 18.5 L, Monocytes % 10.9 H, Eosinophils % 1.5, Basophils % 0.2, Absolute Granulocytes 5.8, Absolute Lymphocytes 1.6, Absolute Monocytes 0.9 H, Absolute Eosinophils 0.1, Absolute Basophils 0 05/17/18 0632: Anion Gap 13, Estimated GFR 53 L, BUN/Creatinine Ratio 27.0 H, Magnesium 1.9 05/16/18 1640: Anion Gap 10, Estimated GFR 43 L, BUN/Creatinine Ratio 24.2 Recent Imaging Studies: Chest x-ray 05/15/18: 1. Markedly enlarged cardiac silhouette more prominent on today's exam suggesting cardiomegaly versus pericardial effusion. Suggest Correlation with cardiac echo. 2. Mild vascular congestion. 3. Left hemidiaphragm partially obscured probably by pleural effusion, cannot rule out underlying infiltrate and/or atelectasis.. Assessment/Plan Assessment/Plan Assessment: 1. Moderate aortic stenosis 2. Small pericardial effusion 3. Pulmonary hypertension 4. Moderate mitral regurgitation 5. Syncope, uncertain etiology. No evidence of significant arrhythmia on telemetry. Aortic stenosis does not appear to be severe enough to cause syncope. Plan: * Would repeat echocardiogram to reevaluate pericardial effusion given that the chest x-ray shows increase in cardiac silhouette * Given persistent orthopnea, would increase furosemide back to prior dose of 60 mg daily * Continue other cardiac medications Continue telemetry? Yes
[2018-05-18 14:12] VITALS: BP 142/72
--- NOTE | 2018-05-18 16:02 | ULTRASOUND REPORT ---
EXAMINATION: US PLEURAL EFFUSION CLINICAL INFORMATION: 83-year-old female with increasing O2 requirements. Evaluation for pleural effusion requested. COMPARISON: Chest x-ray 05/15/2018 TECHNIQUE: Grayscale imaging was obtained of the right and left lower chest to evaluate for pleural effusion. Examination limited secondary to patient's limited mobility. FINDINGS: No right or left sided pleural effusion visualized. IMPRESSION: No right or left sided pleural effusion visualized by ultrasound imaging.
[2018-05-18 22:31] VITALS: BP 134/76
[2018-05-19 06:26] VITALS: BP 128/82
--- NOTE | 2018-05-19 06:46 | PN- Housestaff ---
Subjective Follow-up For: Acute on Chronic Respiratory Failure 2/2 ILD UTI: +Ve Enterococcus Tele-Events Since Last Visit: Junctional, 60s, PVCs, trigeminy/10 beat V. tach run at 6:30 AM Subjective: Patient seen and examined at bedside this morning. Patient's oxygen down to 4 L while ambulating with physical therapy this morning. Saturating at 87% with ambulation. Patient complains that she has lower back pain this morning, 6 out of 10. Palpitations, shortness of breath, abdominal pain. Patient for follow- up echocardiogram today. Review of Systems Constitutional: Denies: see HPI. Objective Last 24 Hrs of Vital Signs/I&O Vital Signs Date Time Temp Pulse Resp B/P B/P Pulse O2 O2 Flow FiO2 Mean Ox Delivery Rate 05/19 0848 91 Nasal 5.0L Cannula 05/19 0809 70 150/74 05/19 0800 92 Nasal 4.0L Cannula 05/19 0626 97.4 66 22 128/82 93 Nasal Cannula 05/19 0000 Nasal 3.5L Cannula 05/18 2231 97.2 64 25 134/76 95 05/18 2022 75 142/80 05/18 1839 96 Nasal 3.5L Cannula 05/18 1600 96 Nasal 4.0L Cannula 05/18 1412 97.7 67 20 142/72 90 Nasal 3.5L Cannula Intake & Output 05/19 1600 05/19 0800 05/19 0000 Intake Total 280 360 Output Total 600 275 Balance -320 85 Intake, Oral 280 360 Output, Urine 600 275 Physical Exam General Appearance: Alert, Oriented X3, Cooperative Skin: No Rashes, No Breakdown HEENT: Atraumatic, PERRLA, EOMI, Mucous Membr. moist/pink Cardiovascular: Regular Rate, Normal S1, Normal S2 Lungs: Bilateral Ronchi in lung bases Abdomen: Normal Bowel Sounds, No Tenderness, left lower abdominal mass Neurological: Normal Speech, Normal Tone, Sensation Intact, Cranial Nerves 3-12 NL, Reflexes 2+, Strength 4/5 in upper/lower extremities Extremities: No Clubbing, No Cyanosis, +1 edema in bilateral lower extremities Vascular: Normal Pulses, Pulses Symmetrical Current Medications: Current Medications Sig/Sanjuanita Start time Last Medication Dose Route Stop Time Status Admin Acetaminophen 650 MG ONCE ONE 05/19 815 DC 05/19 PO 05/19 816 0811 Acetaminophen 650 MG ONCE ONE 05/18 2000 DC 05/18 PO 05/18 Albuterol Sulfate 3 ML TID 05/16 2100 AC 05/19 INH 1322 Ampicillin 250 MG Q6 05/18 1331 AC 05/19 PO 1132 Calcium Carbonate 500 MG TID PRN 05/16 1345 AC 05/18 PO 0531 Furosemide 60 MG DAILY 05/19 0900 AC 05/19 PO 0808 Heparin Sodium 5,000 UNIT Q8 05/16 0600 AC 05/19 (Porcine) SC 0618 Levothyroxine Sodium 0.1 MG DAILY AC 05/16 07 AC 05/19 PO 0619 Nystatin 1 ALICIA BID 05/16 09 AC 05/19 TOP 0812 Potassium Chloride 40 MEQ ONCE ONE 05/19 1030 DC 05/19 PO 05/19 1031 1132 Verapamil HCl 40 MG BID 05/16 09 AC 05/19 PO 0809 Last 24 Hrs of Lab/Jose Results Last 24 Hrs of Labs/Mics: Laboratory Tests 05/19/18 0641: Anion Gap 10, Estimated GFR 48 L, BUN/Creatinine Ratio 20.9, CBC w Diff NO MAN DIFF REQ, RBC 4.73, MCV 78.7 L, MCH 26.3 L, MCHC 33.5, RDW 20.7 H, MPV 7.6, Gran % 68.2, Lymphocytes % 19.5 L, Monocytes % 9.6 H, Eosinophils % 2.1, Basophils % 0.6, Absolute Granulocytes 6.0, Absolute Lymphocytes 1.7, Absolute Monocytes 0.8 H, Absolute Eosinophils 0.2, Absolute Basophils 0 Assessment/Plan Assessment: Patient is a 83 year old female with past medical history of HFpEF, hypertension , ILD on 3L O2 at home, Colon CA, Breast CA diagnosed and treated 20 years ago, anxiety, hypothyroidism, brought in by family after a fall. Fell on 05/15/18 after going to bathroom. Recent discharge 04/20/18 treated for UTI. Last fall 6 months ago, using a walker at baseline. Low BP at PCP office morning of admission 118/60 and dysuria for which prescribed ciprofloxacin for UTI. No fevers, chills reported. Diagnosed with possible left sided abdominal mass on previous admission, never followed up with at [place] with a Dr. Gross. Patient has been saturating on ambulation at 87-90% requiring 4L. At rest patient is ablet to tolerate 3.5-4 L NC well. Plan to discharge to [facility] for STR and transition into half-way placement. Problem list: 1. Preyncope 2. Acute on chronic respiratory failure-NC 5L from 3L 3. Urinary tract infection 4. Left-sided pelvic cyst Presyncope * Continue to monitor on telemetry * Patient being followed by cardiology. * Orthostatic vital signs negative * Lasix increased to 60 mg given patient's orthopnea. * Echocardiogram to be reassessed to evaluate for evidence of pericardial effusion * Patient's creatinine trended down to 1.1 and BUN 23 * No lightheadedness, dizziness, headaches, confusion reported Acute on chronic respiratory failure * Saturating at 87-90% on 4L O2 with ambulation * US chest: no pleural effusions * Patient being followed by cardiology. * F/U ECHO * Continue Lasix 60 * Continue to monitor patient on nasal cannula prior to discharge SDR and long- term placement Urinary tract infection * Day 2 Ampicillin; culture positive for enterococcus * Patient denies any current symptoms Left-sided pelvic cysts * Has been followed previously by Dr. Hernandez. Patient advised to follow-up with a Dr. Fulton at [facility] as was scheduled on prior discharge. CODE STATUS: Full code DVT prophylaxis: Heparin SC Diet: Regular diet Problem List: 1. Lung fibrosis 2. UTI (urinary tract infection) 3. Pelvic mass Pain Ratin Pain Location: Lower back Pain Goal: Pain 4 or less Pain Plan: as per pain pathway Tomorrow's Labs & Rationales: cbc bep DVT/Prophylaxis: mechanical, pharmacological
[2018-05-19 07:45] LABS: ABSOLUTE BASOPHIL COUNT 0 /CUMM (0.0-0.2); ABSOLUTE EOSINOPHIL COUNT 0.2 /CUMM (0.0-0.7); ABSOLUTE LYMPH COUNT 1.7 /CUMM (1.2-3.4); ABSOLUTE MONOCYTE COUNT 0.8 /CUMM (0.10-0.60); BASOPHIL % 0.6 % (0.0-2.0); EOSINOPHIL % 2.1 % (0-5); GRANULOCYTE % 68.2 % (42.2-75.2); HEMATOCRIT 37.2 % (37-47); MEAN CORPUSCULAR HGB 26.3 PG (27.0-31.0); MEAN CORPUSCULAR HGB CONC 33.5 G/DL (33.0-37.0); MEAN CORPUSCULAR VOLUME 78.7 FL (81.0-99.0); MEAN PLATELET VOLUME 7.6 FL (7.4-10.4); PLATELET COUNT 174 /CUMM (130-400); RBC DISTRIBUTION WIDTH 20.7 % (11.5-14.5); RED BLOOD CELL CT 4.73 /CUMM (4.20-5.40); WHITE BLOOD CELL COUNT 8.8 /CUMM (4.8-10.8)
--- NOTE | 2018-05-19 08:47 | PN- Pulmonary ---
Subjective HPI/Critical Care Issues: The patient is sleeping comfortably but arousable. She continues to have shortness of breath with significant exertion. There were no overnight events reported. Objective Current Medications: Current Medications Sig/Sanjuanita Start time Last Medication Dose Route Stop Time Status Admin Acetaminophen 650 MG ONCE ONE 05/19 0815 DC 05/19 PO 05/19 0816 0811 Acetaminophen 650 MG ONCE ONE 05/18 2000 DC 05/18 PO 05/18 Albuterol Sulfate 3 ML TID 05/16 2100 AC 05/18 INH 1636 Ampicillin 250 MG Q6 05/18 1331 AC 05/19 PO 0619 Calcium Carbonate 500 MG TID PRN 05/16 1345 AC 05/18 PO 0531 Furosemide 60 MG DAILY 05/19 0900 AC 05/19 PO 0808 Furosemide 40 MG DAILY 05/18 0900 DC 05/18 PO 0931 Heparin Sodium 5,000 UNIT Q8 05/16 0600 AC 05/19 (Porcine) SC 0618 Levothyroxine Sodium 0.1 MG DAILY AC 05/16 07 AC 05/19 PO 0619 Nystatin 1 ALICIA BID 05/16 0900 AC 05/19 TOP 0812 Verapamil HCl 40 MG BID 05/16 0900 AC 05/19 PO 0809 Vital Signs & I&O Last 24 Hrs of Vitals and I&O: Vital Signs Date Time Temp Pulse Resp B/P B/P Pulse O2 O2 Flow FiO2 Mean Ox Delivery Rate 05/19 0809 70 150/74 05/19 0626 97.4 66 22 128/82 93 Nasal Cannula 05/19 0000 Nasal 3.5L Cannula 05/18 2231 97.2 64 25 134/76 95 05/18 202 75 142/80 05/18 1839 96 Nasal 3.5L Cannula 05/18 1600 96 Nasal 4.0L Cannula 05/18 1412 97.7 67 20 142/72 90 Nasal 3.5L Cannula 05/18 1349 18 94 Nasal 3.0L Cannula 05/18 1255 18 95 Nasal 3.0L Cannula 05/18 1255 18 96 Nasal 4.0L Cannula 05/18 0931 97.5 68 20 120/64 Intake & Output 05/19 1600 05/19 0800 05/19 0000 Intake Total 280 360 Output Total 600 275 Balance -320 85 Intake, Oral 280 360 Output, Urine 600 275 Physical Exam General Appearance: no apparent distress, awake, comfortable Head: atraumatic, normal appearance Eyes: Bilateral: PERRL. Neck: normal inspection, supple Respiratory: bilateral crackles Cardiovascular: regular rate/rhythm (S1 and S2 +, systolic murmur) Gastrointestinal: normal bowel sounds, soft, non-tender Extremities: 1+ bilateral LE edema Skin: intact, warm/dry Results Last 24 Hrs of Lab Results: Laboratory Tests 05/19/18 0641: Anion Gap 10, Estimated GFR 48 L, BUN/Creatinine Ratio 20.9, CBC w Diff NO MAN DIFF REQ, RBC 4.73, MCV 78.7 L, MCH 26.3 L, MCHC 33.5, RDW 20.7 H, MPV 7.6, Gran % 68.2, Lymphocytes % 19.5 L, Monocytes % 9.6 H, Eosinophils % 2.1, Basophils % 0.6, Absolute Granulocytes 6.0, Absolute Lymphocytes 1.7, Absolute Monocytes 0.8 H, Absolute Eosinophils 0.2, Absolute Basophils 0 Diagnostic Data US Findings: No right or left sided pleural effusion visualized by ultrasound imaging. Impression/Plan Impression/Plan Impression/Plan: 1. Acute on chronic respiratory failure which may be related to fluid overload/ infiltrate/atelectasis. 2. No evidence of pleural effusions seen on ultrasound of the thorax. 3. Moderate aortic stenosis. 4. Small pericardial effusion. 5. Moderate MR. 6. Pulmonary hypertension. Recommendations: * TRC consult for nebs to continue. * Supplemental oxygen to keep saturations greater than 92%. * Incentive spirometry. * Follow cardiology input. * Monitor strict I's and O's. * Continue with diuresis. * Monitor off antibiotics as per primary team. * DVT prophylaxis at all times. * Please call with any questions.
--- NOTE | 2018-05-19 13:59 | PN- Att Addend ---
Attending MD Review Statement Attending Statement Attending MD Statement: examined this patient, discuss w/resident/PA/SERVER SECURITY ADMINISTRATOR, agreed w/resident/PA/SERVER SECURITY ADMINISTRATOR, reviewed EMR data (avail), discussed w/nursing, discussed w/ case mgmt Attending Assessment/Plan: acute on chronic hypoxic resp failure secondary to ILD- pt being weaned off oxygen, down to 4L nasal canula. ultrasound of chest shows no pleural effusion. echo pending. possible dc to SNF if [facility] is ok . dw/ pt the care plan.
[2018-05-19 14:23] VITALS: BP 142/78
--- NOTE | 2018-05-19 14:40 | ECHOCARDIOGRAM REPORT ---
LOLA ANDERSON Age: 83 : 1935 Gender: F Exam Date: 05/19/2018 10:22 Exam Location: [address] Ht (in): 63 Wt (lb): 150 BSA: 1.76 BP: 120 / 64 Ordering Physician: Janna Mckeon MD Referring Physician: Janna Mckeon MD Technologist: Wang Tobias [facility] Room Number: 185-2 Indications: Heart failure, unspecified Rhythm: Sinus Technical Quality: Technically difficult study FINDINGS Left Ventricle Normal size left ventricle. Normal left ventricular wall thickness. Normal left ventricular ejection fraction visually estimated at > 60%. No obvious regional wall motion abnormalities. Right Ventricle Right ventricular dilatation. Right Atrium Right atrial dilatation. Left Atrium Left atrial dilatation. Mitral Valve Moderate mitral annular calcification. Mitral valve thickened. Moderate mitral regurgitation. Aortic Valve Diffuse thickening of the aortic valve cusps with reduced excursion. Moderate aortic stenosis. Mild aortic regurgitation. Tricuspid Valve Tricuspid valve not well visualized, grossly normal. Moderate tricuspid regurgitation. Right ventricular systolic pressure estimated to be elevated at 77 mmHg. Pulmonic Valve Pulmonic valve not well visualized, grossly normal. Trace pulmonic regurgitation. Pericardium Small to moderate-sized pericardial effusion appears similar to prior study done 03/27/18. No echo evidence of tamponade. Great Vessels Normal size aortic root. CONCLUSIONS Normal size left ventricle. Normal left ventricular ejection fraction visually estimated at > 60%. Right atrial dilatation. Left atrial dilatation. Moderate mitral regurgitation. Moderate aortic stenosis. Mild aortic regurgitation. Moderate tricuspid regurgitation. Right ventricular systolic pressure estimated to be elevated at 77 mmHg. Trace pulmonic regurgitation. Small to moderate-sized pericardial effusion appears similar to prior study done 03/27/18. Kevin Barr M.D. (Electronically Signed) Final Date: 19 May 2018 14:36 MEASUREMENTS (Male / Female) Normal Values 2D ECHO LV Diastolic Diameter PLAX 4.4 cm 4.2 - 5.9 / 3.9 - 5.3 cm LV Systolic Diameter PLAX 2.2 cm 2.1 - 4.0 cm LV Fractional Shortening PLAX 50.0 % 25 - 46 % LV Ejection Fraction 2D Teich 81.5 % IVS Diastolic Thickness 1.0 cm LVPW Diastolic Thickness 1.2 cm LV Relative Wall Thickness 0.5 RV Internal Dim ED PLAX 4.0 cm 1.9 - 3.8 cm LVOT Diameter 1.9 cm Aortic Root Diameter 2.6 cm LA Systolic Diameter LX 4.3 cm 3.0 - 4.0 / 2.7 - 3.8 cm Ascending Aorta Diameter 3.4 cm DOPPLER AV Peak Velocity 217.0 cm/s AV Peak Gradient 18.8 mmHg AV Mean Velocity 156.0 cm/s AV Mean Gradient 11.0 mmHg AV Velocity Time Integral 54.7 cm AI Deceleration Morgan 136.6 cm/s AI Peak Velocity 408.0 cm/s AI Pressure Half Time 1016.5 ms AI Peak Gradient 66.6 mmHg LVOT Peak Velocity 98.5 cm/s LVOT Peak Gradient 3.9 mmHg LVOT Mean Velocity 59.3 cm/s LVOT Mean Gradient 2.0 mmHg LVOT Velocity Time Integral 23.3 cm LVOT Stroke Volume 66.1 cm AV Area Cont Eq vti 1.2 cm AV Area Cont Eq pk 1.3 cm MV Peak Velocity 137.0 cm/s MV Peak Gradient 7.5 mmHg MV Mean Velocity 64.1 cm/s MV Mean Gradient 2.0 mmHg Mitral E Point Velocity 135.0 cm/s Mitral A Point Velocity 52.3 cm/s Mitral E to A Ratio 2.6 MV PHT Velocity 141.0 cm/s MV Deceleration Morgan 489.0 cm/s MV Pressure Half Time 86.5 ms MV Area PHT 2.5 cm MV Deceleration Time 303.0 ms MR Peak Velocity 582.0 cm/s MR Peak Gradient 135.5 mmHg TR Peak Velocity 421.0 cm/s TR Peak Gradient 70.9 mmHg Right Atrial Pressure 10.0 mmHg Pulmonary Artery Systolic Pressure 80.9 mmHg Right Ventricular Systolic Pressure 80.9 mmHg PV Peak Velocity 97.6 cm/s PV Peak Gradient 3.8 mmHg PV Mean Velocity 68.9 cm/s PV Mean Gradient 2.0 mmHg PV Velocity Time Integral 26.6 cm LV E' Lateral Velocity 6.1 cm/s Mitral E to LV E' Lateral Ratio 22.0 LV E' Septal Velocity 4.4 cm/s Mitral E to LV E' Septal Ratio 30.8
--- NOTE | 2018-05-19 15:05 | PN- Cardiology ---
Subjective Subjective: Feeling somewhat better. Shortness of breath is significantly improved today. No current chest pain. No palpitations. No diaphoresis. Objective Vital Signs and I&Os Vital Signs Date Time Temp Pulse Resp B/P B/P Pulse O2 O2 Flow FiO2 Mean Ox Delivery Rate 05/19 1423 97.9 69 22 142/78 94 Nasal 4.0L Cannula 05/19 0848 91 Nasal 5.0L Cannula 05/19 0809 70 150/74 05/19 0800 92 Nasal 4.0L Cannula 05/19 0626 97.4 66 22 128/82 93 Nasal Cannula 05/19 0000 Nasal 3.5L Cannula 05/18 2231 97.2 64 25 134/76 95 05/18 2022 75 142/80 05/18 1839 96 Nasal 3.5L Cannula 05/18 1600 96 Nasal 4.0L Cannula Intake & Output 05/19 1600 05/19 0800 05/19 0000 05/18 1600 05/18 0800 05/18 0000 Intake Total 480 280 360 120 300 Output Total 400 600 275 600 200 300 Balance 80 -320 85 -480 -200 0 Intake, Oral 480 280 360 120 300 Number 2 Bowel Movements Output, Urine 400 600 275 600 200 300 Physical Exam: Gen: NAD HEENT: normal Lungs: scattered rales, normal resp. effort Heart: RRR, S1, S2, 2/6 systolic murmur Abdomen: Soft, nontender, no masses Extremities: No clubbing, cyanosis, or edema. Neuro: Alert and oriented x 3, cranial nerves intact Current Medications: Current Medications Sig/Sanjuanita Start time Last Medication Dose Route Stop Time Status Admin Acetaminophen 650 MG ONCE ONE 05/19 0815 DC 05/19 PO 05/19 816 0811 Acetaminophen 650 MG ONCE ONE 05/18 2000 DC 05/18 PO 05/18 Albuterol Sulfate 3 ML TID 05/16 2100 AC 05/19 INH 1322 Ampicillin 250 MG Q6 05/18 1331 AC 05/19 PO 1132 Calcium Carbonate 500 MG TID PRN 05/16 1345 AC 05/18 PO 0531 Furosemide 60 MG DAILY 05/19 09 AC 05/19 PO 0808 Heparin Sodium 5,000 UNIT Q8 05/16 06 AC 05/19 (Porcine) SC 1453 Levothyroxine Sodium 0.1 MG DAILY AC 05/16 07 AC 05/19 PO 0619 Nystatin 1 ALICIA BID 05/16 09 AC 05/19 TOP 0812 Potassium Chloride 40 MEQ ONCE ONE 05/19 1030 DC 05/19 PO 05/19 1031 1132 Verapamil HCl 40 MG BID 05/16 09 AC 05/19 PO 0809 Results Last 48 Hrs of Labs/Mics: Laboratory Tests 05/19/18 0641: Anion Gap 10, Estimated GFR 48 L, BUN/Creatinine Ratio 20.9, CBC w Diff NO MAN DIFF REQ, RBC 4.73, MCV 78.7 L, MCH 26.3 L, MCHC 33.5, RDW 20.7 H, MPV 7.6, Gran % 68.2, Lymphocytes % 19.5 L, Monocytes % 9.6 H, Eosinophils % 2.1, Basophils % 0.6, Absolute Granulocytes 6.0, Absolute Lymphocytes 1.7, Absolute Monocytes 0.8 H, Absolute Eosinophils 0.2, Absolute Basophils 0 05/18/18 0631: Anion Gap 9, Estimated GFR 53 L, BUN/Creatinine Ratio 25.0 Recent Imaging Studies: Echocardiogram 04/18/18: Normal size left ventricle. Normal left ventricular ejection fraction visually estimated at > 60%. Right atrial dilatation. Left atrial dilatation. Moderate mitral regurgitation. Moderate aortic stenosis. Mild aortic regurgitation. Moderate tricuspid regurgitation. Right ventricular systolic pressure estimated to be elevated at 77 mmHg. Trace pulmonic regurgitation. Small to moderate-sized pericardial effusion appears similar to prior study done 03/27/18. Assessment/Plan Assessment/Plan Assessment: 1. Moderate aortic stenosis 2. Smallto moderate pericardial effusion 3. Pulmonary hypertension 4. Moderate mitral regurgitation 5. Syncope, uncertain etiology. No evidence of significant arrhythmia on telemetry. Aortic stenosis does not appear to be severe enough to cause syncope. Plan: * Continue oral Lasix. * Continue verapamil * Follow up with Dr. Zuniga in 1-2 weeks after the Continue telemetry? Yes
[2018-05-19 21:56] VITALS: BP 160/72
[2018-05-20 06:55] VITALS: BP 124/62
--- NOTE | 2018-05-20 07:11 | PN- Housestaff ---
Janna Mckeon 05/20/18 0710: Subjective Follow-up For: Acute on chronic respiratory failure 2/2 ILD -back to baseline home oxygen UTI: +ve enterococcus Tele-Events Since Last Visit: Accelerated junctional, 72, 0.14, 0.16, BBB Subjective: Patient seen and examined at bedside this morning. Patient claims that she feels much better today and less fatigue. Patient is awake and alert. Denies any shortness of breath, cough, sputum production, chest pain, palpitations or abdominal pain. Patient claims her lower back pain feels much better today. Patient is down to 3.5 L of supplemental oxygen. Review of Systems Constitutional: Denies: see HPI. Objective Last 24 Hrs of Vital Signs/I&O Vital Signs Date Time Temp Pulse Resp B/P B/P Pulse O2 O2 Flow FiO2 Mean Ox Delivery Rate 05/20 1059 97.7 68 22 122/60 05/20 1055 96 Nasal 3.5L Cannula 05/20 0835 68 122/60 05/20 0800 94 Nasal 3.5L Cannula 05/20 0655 97.7 67 22 124/62 97 Nasal Cannula 05/19 2156 97.6 66 22 160/72 97 Nasal Cannula 05/19 2154 Nasal 3.5L Cannula 05/19 2111 72 142/78 05/19 1840 93 Nasal 3.5L Cannula 05/19 1600 92 Nasal 3.5L Cannula 05/19 1423 97.9 69 22 142/78 94 Nasal 4.0L Cannula Intake & Output 05/20 1600 05/20 0800 05/20 0000 Intake Total 240 380 240 Output Total 300 750 Balance -60 -370 240 Intake, Oral 240 380 240 Number 1 Bowel Movements Output, Urine 300 750 Patient 149 lb Weight Weight Bed scale Measurement Method Physical Exam General Appearance: Alert, Oriented X3, Cooperative, No Acute Distress Skin: No Rashes, No Breakdown HEENT: Atraumatic, PERRLA, EOMI, Mucous Membr. moist/pink Cardiovascular: Regular Rate, Normal S1, Normal S2 Lungs: bilateral ronchi/crackles Abdomen: Normal Bowel Sounds, Soft, No Tenderness Neurological: Normal Speech, Strength at 5/5 X4 Ext, Normal Tone, Sensation Intact Extremities: No Clubbing, No Cyanosis, +1 bilaterael LE edema Vascular: Normal Pulses, Pulses Symmetrical Current Medications: Current Medications Sig/Sanjuanita Start time Last Medication Dose Route Stop Time Status Admin Albuterol Sulfate 3 ML TID 05/16 2100 AC 05/20 INH 0830 Ampicillin 250 MG Q6 05/18 1331 AC 05/20 PO 1125 Calcium Carbonate 500 MG TID PRN 05/16 1345 AC 05/18 PO 0531 Furosemide 60 MG DAILY 05/19 0900 AC 05/20 PO 0834 Heparin Sodium 5,000 UNIT Q8 05/16 06 AC 05/20 (Porcine) SC 0644 Levothyroxine Sodium 0.1 MG DAILY AC 05/16 07 AC 05/20 PO 0641 Lorazepam 1 MG .STK-MED ONE 05/19 210 DC PO 05/19 210 Nystatin 1 ALICIA BID 05/16 900 DC 05/20 TOP 0835 Verapamil HCl 40 MG BID 05/16 09 AC 05/20 PO 0835 Last 24 Hrs of Lab/Jose Results Last 24 Hrs of Labs/Mics: Laboratory Tests 05/20/18 0633: Anion Gap 9, Estimated GFR > 60, BUN/Creatinine Ratio 25.6 H, CBC w Diff NO MAN DIFF REQ, RBC 5.03, MCV 79.7 L, MCH 26.7 L, MCHC 33.5, RDW 20.5 H, MPV 7.9, Gran % 71.7, Lymphocytes % 17.5 L, Monocytes % 9.0, Eosinophils % 1.6, Basophils % 0.2, Absolute Granulocytes 6.9 H, Absolute Lymphocytes 1.7, Absolute Monocytes 0.9 H, Absolute Eosinophils 0.2, Absolute Basophils 0 Assessment/Plan Assessment: Patient is a 83 year old female with past medical history of HFpEF, hypertension , ILD on 3L O2 at home, Colon CA, Breast CA diagnosed and treated 20 years ago, anxiety, hypothyroidism, brought in by family after a fall. Fell on 05/15/18 after going to bathroom. Recent discharge 04/20/18 treated for UTI. Last fall 6 months ago, using a walker at baseline. Low BP at PCP office morning of admission 118/60 and dysuria for which prescribed ciprofloxacin for UTI. No fevers, chills reported. Diagnosed with possible left sided abdominal mass on previous admission, never followed up with at [facility] with a Dr. Gross. Patient has been saturating on ambulation at 87-90% requiring 4L. At rest patient is ablet to tolerate 3.5-4 L NC well. Plan to discharge to [facility] for STR and transition into manager long term care placement. Today patient down to 3.5 L on NC. Denies shortness of breath, chest pain, palpitations today. Will be discharged today 05/20/18. Problem list: 1. Preyncope 2. Acute on chronic respiratory failure-NC 5L from 3L 3. Urinary tract infection 4. Left-sided pelvic cyst Presyncope * Continue to monitor on telemetry * Orthostatic vital signs negative * Continue Lasix 60mg * Echocardiogram to be reassessed to evaluate for evidence of pericardial effusion * Patient's creatinine trended down to: 0.9 and BUN is 23 * No lightheadedness, dizziness, headaches, confusion reported Acute on chronic respiratory failure * 3.5 L NC saturating at 96% * US chest: no pleural effusion * ECHO: Normal EF >60%; no evidence of tamponade * Continue Lasix 60 po * stable for discharge today Urinary tract infection * Patient will be discharged on Ampicillin 250mg for a complete course to treat UTI * Patient denies any current symptoms Left-sided pelvic cysts * Has been followed previously by Dr. Hernandez. Patient advised to follow-up with a Dr. Fulton at [facility] as was scheduled on prior discharge. CODE STATUS: Full code DVT prophylaxis: Heparin SC Diet: Regular diet Problem List: 1. Interstitial lung disease 2. UTI (urinary tract infection) 3. Pelvic mass Pain Ratin Pain Location: lower back Pain Goal: Pain 4 or less Pain Plan: as per pain pathway Tomorrow's Labs & Rationales: pending DC DVT/Prophylaxis: mechanical, pharmacological Delon Dominique 05/20/18 1254: Attending MD Review Statement Attending Statement Attending MD Statement: examined this patient, discuss w/resident/PA/MACHINE WELT BUTTER, agreed w/resident/PA/MACHINE WELT BUTTER, reviewed EMR data (avail), discussed with nursing, discussed with case mgmt Attending Assessment/Plan: Acute on chronic hypoxic resp failure secondary to ILD on home oxygen. currenlty pt on 3.5 L oxygen. [facility]w pt the care plan.
[2018-05-20 08:09] LABS: ABSOLUTE BASOPHIL COUNT 0 /CUMM (0.0-0.2); ABSOLUTE EOSINOPHIL COUNT 0.2 /CUMM (0.0-0.7); ABSOLUTE GRANULOCYTE CT 6.9 /CUMM (1.4-6.5); ABSOLUTE LYMPH COUNT 1.7 /CUMM (1.2-3.4); ABSOLUTE MONOCYTE COUNT 0.9 /CUMM (0.10-0.60); BASOPHIL % 0.2 % (0.0-2.0); EOSINOPHIL % 1.6 % (0-5); GRANULOCYTE % 71.7 % (42.2-75.2); MEAN CORPUSCULAR HGB 26.7 PG (27.0-31.0); MEAN CORPUSCULAR HGB CONC 33.5 G/DL (33.0-37.0); MEAN CORPUSCULAR VOLUME 79.7 FL (81.0-99.0); MEAN PLATELET VOLUME 7.9 FL (7.4-10.4); PLATELET COUNT 175 /CUMM (130-400); RBC DISTRIBUTION WIDTH 20.5 % (11.5-14.5); RED BLOOD CELL CT 5.03 /CUMM (4.20-5.40); WHITE BLOOD CELL COUNT 9.6 /CUMM (4.8-10.8)
--- NOTE | 2018-05-20 10:05 | PN- Pulmonary ---
Subjective HPI/Critical Care Issues: The patient is awake and alert. She reports feeling fatigued and generally weak. She denies increased shortness of breath, cough, chest congestion or sputum production. She is now down to 3.5 L of supplemental oxygen. Objective Current Medications: Current Medications Sig/Sanjuanita Start time Last Medication Dose Route Stop Time Status Admin Albuterol Sulfate 3 ML TID 05/16 2100 AC 05/20 INH 0830 Ampicillin 250 MG Q6 05/18 1331 AC 05/20 PO 0641 Calcium Carbonate 500 MG TID PRN 05/16 1345 AC 05/18 PO 0531 Furosemide 60 MG DAILY 05/19 0900 AC 05/20 PO 0834 Heparin Sodium 5,000 UNIT Q8 05/16 06 AC 05/20 (Porcine) SC 0644 Levothyroxine Sodium 0.1 MG DAILY AC 05/16 07 AC 05/20 PO 0641 Lorazepam 1 MG .STK-MED ONE 05/19 2101 DC PO 05/19 2102 Nystatin 1 ALICIA BID 05/16 0900 DC 05/20 TOP 0835 Potassium Chloride 40 MEQ ONCE ONE 05/19 1030 DC 05/19 PO 05/19 1031 1132 Verapamil HCl 40 MG BID 05/16 0900 AC 05/20 PO 0835 Vital Signs & I&O Last 24 Hrs of Vitals and I&O: Vital Signs Date Time Temp Pulse Resp B/P B/P Pulse O2 O2 Flow FiO2 Mean Ox Delivery Rate 05/20 0835 68 122/60 05/20 0655 97.7 67 22 124/62 97 Nasal Cannula 05/19 2156 97.6 66 22 160/72 97 Nasal Cannula 05/19 2154 Nasal 3.5L Cannula 05/19 2111 72 142/78 05/19 1840 93 Nasal 3.5L Cannula 05/19 1600 92 Nasal 3.5L Cannula 05/19 1423 97.9 69 22 142/78 94 Nasal 4.0L Cannula Intake & Output 05/20 1600 05/20 0800 05/20 0000 Intake Total 380 240 Output Total 750 Balance -370 240 Intake, Oral 380 240 Output, Urine 750 Patient 149 lb Weight Weight Bed scale Measurement Method Physical Exam General Appearance: no apparent distress, awake, comfortable Head: atraumatic, normal appearance Eyes: Bilateral: PERRL. Neck: normal inspection, supple Respiratory: bilateral crackles Cardiovascular: regular rate/rhythm (S1 and S2 +, systolic murmur) Gastrointestinal: normal bowel sounds, soft, non-tender Extremities: 1+ bilateral LE edema Skin: intact, warm/dry Impression/Plan Impression/Plan Impression/Plan: 1. Acute on chronic respiratory failure, slowly improving. 2. No evidence of pleural effusions seen on ultrasound of the thorax. 3. Moderate aortic stenosis. 4. Small pericardial effusion. 5. Moderate MR. 6. Pulmonary hypertension. Recommendations: * Continue nebulizer treatments. * Attempt to titrate oxygen down further to maintain saturations around 92%. * Incentive spirometry. * Follow cardiology input. * Monitor strict I's and O's. * Continue with diuresis. * Increase activity, ambulate. * DVT prophylaxis at all times. * Please call with any questions.
[2018-05-20] MEDS ORDERED: FUROSEMIDE40 M1 PO (10:21)
[2018-05-20] MEDS ORDERED: AMPICILLIN TRI250 MG PO (10:32)
[2018-05-20] MEDS ORDERED: PROVENTIL HFA6.7 GM INH (10:35)
--- NOTE | 2018-05-20 10:40 | Patient Discharge Instructions ---
Discharge Instructions General Discharge Information You were seen/treated for: Acute on Chronic Respiratory Failure 2/2 ILD UTI: +VE Entercoccus Presyncope Watch for these problems: Increasing shortness of breath, chest pain, palpitations, nausea, vomiting Special Instructions: Please follow-up with PCP within 1 week of discharge Please follow with baby formula worker within 1 week of discharge Please follow with vice president [employer] within 1 week of discharge Please follow-up with Dr. Hernandez within 1 week of discharge Acute Coronary Syndrome Inclusion Criteria At DC or during hospital stay patient has or had the following: ACS DIAGNOSIS No Discharge Core Measures Meds if any: Prescribed or Continued at Discharge Meds if any: NOT Prescribed or Continued at Discharge Congestive Heart Failure Inclusion Criteria At DC or during hospital stay patient has or had the following: CHF DIAGNOSIS No Discharge Core Measures Meds if any: Prescribed or Continued at Discharge Meds if any: NOT Prescribed or Continued at Discharge Cerebrovascular accident Inclusion Criteria At DC or during hospital stay patient has or had the following: CVA/TIA Diagnosis No Discharge Core Measures Meds if any: Prescribed or Continued at Discharge Meds if any: NOT Prescribed or Continued at Discharge Venous thromboembolism Inclusion Criteria VTE Diagnosis No VTE Type NONE VTE Confirmed by (Test) NONE Discharge Core Measures - Per Current guidelines, there needs to be overlap - treatment for the first 5 days of Warfarin therapy. - If discharged on Warfarin prior to 5 days of - overlap therapy, the patient will need to be - assessed for post discharge needs including - *Post discharge parental anticoagulation - *Warfarin and/or parental anticoagulation education - *Follow up date to check INR post discharge At least 5 days overlap therapy as Inpatient No Meds if any: Prescribed or Continued at Discharge Note: Overlap Therapy is Warfarin and Anticoagulant Meds if any: NOT Prescribed or Continued at Discharge
[2018-05-20 10:59] VITALS: BP 122/60
--- NOTE | 2018-05-20 11:36 | PN- Cardiology ---
Subjective Subjective: Feeling better. Shortness of breath is much improved. No chest pain. No palpitations. No diaphoresis. Objective Vital Signs and I&Os Vital Signs Date Time Temp Pulse Resp B/P B/P Pulse O2 O2 Flow FiO2 Mean Ox Delivery Rate 05/20 1059 97.7 68 22 122/60 05/20 1055 96 Nasal 3.5L Cannula 05/20 0835 68 122/60 05/20 0800 94 Nasal 3.5L Cannula 05/20 0655 97.7 67 22 124/62 97 Nasal Cannula 05/19 2156 97.6 66 22 160/72 97 Nasal Cannula 05/19 2154 Nasal 3.5L Cannula 05/19 2111 72 142/78 05/19 1840 93 Nasal 3.5L Cannula 05/19 1600 92 Nasal 3.5L Cannula 05/19 1423 97.9 69 22 142/78 94 Nasal 4.0L Cannula Intake & Output 05/20 1600 05/20 0800 05/20 0000 05/19 1600 05/19 0800 05/19 0000 Intake Total 240 380 240 480 280 360 Output Total 300 750 400 600 275 Balance -60 -370 240 80 -320 85 Intake, Oral 240 380 240 480 280 360 Number 1 Bowel Movements Output, Urine 300 750 400 600 275 Patient 149 lb Weight Weight Bed scale Measurement Method Physical Exam: Gen: NAD HEENT: normal Lungs: scattered rales, normal resp. effort Heart: RRR, S1, S2, 2/6 systolic murmur Abdomen: Soft, nontender, no masses Extremities: No clubbing, cyanosis, or edema. Neuro: Alert and oriented x 3, cranial nerves intact Current Medications: Current Medications Sig/Sanjuanita Start time Last Medication Dose Route Stop Time Status Admin Albuterol Sulfate 3 ML TID 05/16 2100 AC 05/20 INH 0830 Ampicillin 250 MG Q6 05/18 1331 AC 05/20 PO 1125 Calcium Carbonate 500 MG TID PRN 05/16 1345 AC 05/18 PO 0531 Furosemide 60 MG DAILY 05/19 0900 AC 05/20 PO 0834 Heparin Sodium 5,000 UNIT Q8 05/16 0600 AC 05/20 (Porcine) SC 0644 Levothyroxine Sodium 0.1 MG DAILY AC 05/16 07 AC 05/20 PO 0641 Lorazepam 1 MG .STK-MED ONE 05/19 2101 DC PO 05/19 2102 Nystatin 1 ALICIA BID 05/16 900 DC 05/20 TOP 0835 Verapamil HCl 40 MG BID 05/16 900 AC 05/20 PO 0835 Results Last 48 Hrs of Labs/Mics: Laboratory Tests 05/20/18 0633: Anion Gap 9, Estimated GFR > 60, BUN/Creatinine Ratio 25.6 H, CBC w Diff NO MAN DIFF REQ, RBC 5.03, MCV 79.7 L, MCH 26.7 L, MCHC 33.5, RDW 20.5 H, MPV 7.9, Gran % 71.7, Lymphocytes % 17.5 L, Monocytes % 9.0, Eosinophils % 1.6, Basophils % 0.2, Absolute Granulocytes 6.9 H, Absolute Lymphocytes 1.7, Absolute Monocytes 0.9 H, Absolute Eosinophils 0.2, Absolute Basophils 0 05/19/18 0641: Anion Gap 10, Estimated GFR 48 L, BUN/Creatinine Ratio 20.9, CBC w Diff NO MAN DIFF REQ, RBC 4.73, MCV 78.7 L, MCH 26.3 L, MCHC 33.5, RDW 20.7 H, MPV 7.6, Gran % 68.2, Lymphocytes % 19.5 L, Monocytes % 9.6 H, Eosinophils % 2.1, Basophils % 0.6, Absolute Granulocytes 6.0, Absolute Lymphocytes 1.7, Absolute Monocytes 0.8 H, Absolute Eosinophils 0.2, Absolute Basophils 0 Assessment/Plan Assessment/Plan Assessment: 1. Moderate aortic stenosis 2. Smallto moderate pericardial effusion 3. Pulmonary hypertension 4. Moderate mitral regurgitation 5. Syncope, uncertain etiology. No evidence of significant arrhythmia on telemetry. Aortic stenosis does not appear to be severe enough to cause syncope. Plan: * Continue oral Lasix. * Continue verapamil * Follow up with Dr. Zuniga in 1-2 weeks Continue telemetry? No
== END 2018-05-20 11:39 | DRG 189 ==
LOC: ERH 18:51 → 1NO 21:40 → ERHI 21:40 → ENRESERV 22:16 → 1NO 22:54 → ENPENDDIS 05-20 10:55 → 1NO 05-20 11:39
PROVIDERS: Internal Medicine; Physical Medicine & Rehabilitation Pain Medicine; Physician Assistant
DX: J96.21 Acute and chronic respiratory failure with hypoxia (principal); E87.1 Hypo-osmolality and hyponatremia; J84.9 Interstitial pulmonary disease, unspecified; I50.32 Chronic diastolic (congestive) heart failure; I31.3 Pericardial effusion (noninflammatory); N39.0 Urinary tract infection, site not specified; L89.159 Pressure ulcer of sacral region, unspecified stage; E86.0 Dehydration; Z99.81 Dependence on supplemental oxygen; I11.0 Hypertensive heart disease with heart failure; R19.00 Intra-abdominal and pelvic swelling, mass and lump, unspecified site; I35.0 Nonrheumatic aortic (valve) stenosis; I34.0 Nonrheumatic mitral (valve) insufficiency; I27.20 Pulmonary hypertension, unspecified; E03.9 Hypothyroidism, unspecified; F41.9 Anxiety disorder, unspecified; Z85.3 Personal history of malignant neoplasm of breast; Z85.038 Personal history of other malignant neoplasm of large intestine; W18.30XA Fall on same level, unspecified, initial encounter; Y92.002 Bathroom of unspecified non-institutional (private) residence as the place of occurrence of the external cause; Z88.6 Allergy status to analgesic agent; E87.6 Hypokalemia; R55 Syncope and collapse; B95.2 Enterococcus as the cause of diseases classified elsewhere
CPT/HCPCS: 1NSP; 36592; 71045; 73562-LT; 73562-RT; 81001; 82436; 87086; 87147; 93005; 93010; 93306; 97110-GO; 97116-GO; 97161-GP; 97530-GO; J0696; J1644

== ENCOUNTER 2018-06-02 05:32 | Emergency (ER) | payer OTHER ==
[~2018-06-02] VITALS: Ht 152.4 cm; Wt 72.6 kg
[~2018-06-02 05:32] MED LIST changes: +AMPICILLIN TRI250 MG PO; +FUROSEMIDE40 M1 PO; +PROVENTIL HFA6.7 GM INH
--- NOTE | 2018-06-02 06:28 | RADIOLOGY REPORT ---
EXAMINATION: XR PORTABLE CHEST CLINICAL INFORMATION: Shortness of breath. Altered mental status. COMPARISON: 05/15/2018 TECHNIQUE: Portable frontal view of the chest was obtained. FINDINGS: The lung apices are not included on the [id number] of this study. The lungs are well expanded. No consolidation or effusion. Mild interstitial prominence. No large pneumothorax. The cardiac silhouette remains enlarged, with a calcified aorta. IMPRESSION: Stable enlargement of the cardiac silhouette. Mild interstitial prominence suggests edema.
--- NOTE | 2018-06-02 06:37 | ED DYSPNEA/ASTHMA COMPLAINT ---
History of Present Illness General Chief Complaint: Dyspnea (COPD, CHF, Other) Stated Complaint: BIBA, DIFF BREATHING Source: patient Exam Limitations: unable to give history Vital Signs & Intake/Output Vital Signs & Intake/Output Vital Signs Date Time Temp Pulse Resp B/P B/P Pulse O2 O2 Flow FiO2 Mean Ox Delivery Rate 06/02 1434 98.4 94 12 179/85 92 Nasal Cannula 06/02 1234 93 18 171/82 96 Nasal 3.0L Cannula ED Intake and Output 06/03 0000 06/02 1200 Intake Total 0 Output Total 650 Balance -650 Intake, Oral 0 Output, Urine 650 Patient 160 lb Weight Weight Estimated Measurement Method Allergies Coded Allergies: aspirin (Bleeding per patient 05/15/17) Triage Note: PT BIBA FROM [facility] IN [place] FOR AMS: SLOW TO RESPOND, TREMULOUS AT TIMES, SOME CONFUSION. USUAL MENTATION IS ALERT AND ORIENTED. [facility]ING[facility]STICK AT [facility] 134. PT HAS +3 BLE EDEMA, LASIX INCRESED TO 80 MG QD X3D FROM 60 MG ON 05/31. O2 SAT 99% ON DUO NEB ADMINISTERED BY EMS ON ARRIVAL. PT ALERT, CAN NOT STATE HER BIRTHDATE. ON 3L NC AT [facility]. RR 34 Triage Nurses Notes Reviewed? yes HPI: Patient is a 83-year-old female with past medical history of HFpEF, hypertension , interstitial lung disease on 3 L oxygen at home, colon cancer and breast cancer diagnosed and treated 20 years ago, anxiety, hypothyroidism, was brought in by ambulance from [facility] extended-care facility for shortness of breath 1 day. The patient is a poor historian. She reports feeling short of breath overnight on her 3 L baseline oxygen. The patient is short of breath at rest and also on ambulation with walker. Patient does not complain of chest pain/cough/fever/ chills/change in bowel or urinary habits/dysuria/hematuria/sick contacts/recent travel The b/l pittimg edema is reported to be worse than usual (Mehul JAIMES,[facility]) Reconcile Medications Acetaminophen (Tylenol Arthritis) 650 MG TABLET.ER 1 TAB PO Q4-PRN PRN PAIN ( Reported) Albuterol Sulfate (Proventil Hfa) 90 MCG HFA.AER.AD 2 PUF INH 4 TIMES/DAY ild Furosemide (Lasix) 80 MG TABLET 1 TAB PO DAILY WATER RETENTION (Reported) Furosemide (Lasix) 40 MG TABLET 1.5 TAB PO DAILY leg sweeling, chf Lactobacillus Acidophilus (Acidophilus) 1 EACH CAPSULE 1 CAP PO BID GI ( Reported) Levothyroxine Sodium (Synthroid) 100 MCG TABLET 1 TAB PO DAILY AC thyroid . Potassium Chloride 20 MEQ TAB.ER.PRT 1 TAB PO DAILY SUPPLEMENT (Reported) Verapamil Hydrochloride (Verapamil HCl) 40 MG TABLET 40 MG PO BID HIGH BLOOD PRESSURE (Luc MEJIA,Rip Hinton) Past History Travel History Traveled to [place] past 21 day No Medical History Any Pertinent Medical History? see below for history Neurological: NONE EENT: NONE Cardiovascular: CHF, hypertension Respiratory: interstitial lung disease Gastrointestinal: Colon cancer Hepatic: NONE Renal: NONE Musculoskeletal: NONE Psychiatric: anxiety Endocrine: hypothyroidism Blood Disorders: NONE Cancer(s): breast cancer, colon/rectal cancer ADVANCED PRACTICE PROVIDER/Reproductive: NONE History of MRSA: No History of VRE: No History of CDIFF: No Surgical History Surgical History: non-contributory Psychosocial History Who do you live with Patient/Self What is your primary language Congolese Tobacco Use: Never used ETOH Use: denies use Illicit Drug Use: denies illicit drug use Family History Family History, If Any: FATHER (heart disease). Hx Contributory? Yes (Lina Carver MD) Review of Systems Review of Systems Constitutional: Reports: no symptoms. EENTM: Reports: no symptoms. Respiratory: Reports: see HPI, short of breath. Cardiovascular: Reports: no symptoms. GI: Reports: no symptoms. Genitourinary: Reports: no symptoms. Musculoskeletal: Reports: no symptoms. Skin: Reports: no symptoms. Neurological/Psychological: Reports: no symptoms. Hematologic/Endocrine: Reports: no symptoms. Immunologic/Allergic: Reports: no symptoms. All Other Systems: Reviewed and Negative (Lina Carver MD) Physical Exam Physical Exam General Appearance: well developed/nourished, no apparent distress, awake Head: atraumatic, normal appearance Eyes: Bilateral: normal appearance. Ears, Nose, Throat: normal pharynx, normal ENT inspection, hearing grossly normal Neck: normal inspection, supple Respiratory: normal breath sounds, chest non-tender, lungs clear Cardiovascular: regular rate/rhythm Gastrointestinal: normal bowel sounds, soft, non-tender, no organomegaly Extremities: no edema Neurologic/Psych: no motor/sensory deficits, awake Core Measures ACS in differential dx? No CVA/TIA Diagnosis No Sepsis Present: No Sepsis Focused Exam Completed? Yes (Lina Carver MD) Progress Differential Diagnosis: CHF, COPD Plan of Care: Orders Procedure Date/time Status Add-on Test (ER Only) 06/02 1452 Active Add-on Test (ER Only) 06/02 1240 Active CULTURE,URINE 06/02 0842 Active Initial ED EKG: NSR, rate Prior EKG: changed (Lina Carver MD) CXR Impression: PATIENT: LOLA ANDERSON PRESENT AGE: 83 PATIENT ACCOUNT NO: [id number] : 37 LOCATION: [facility] ORDERING PHYSICIAN: Rip Torres MD SERVICE DATE: 06/02/18 EXAM TYPE: RAD - XRY-PORTABLE CHEST XRAY EXAMINATION: XR PORTABLE CHEST CLINICAL INFORMATION: Shortness of breath. Altered mental status. COMPARISON: 05/15/2018 TECHNIQUE: Portable frontal view of the chest was obtained. FINDINGS: The lung apices are not included on the [id number] of this study. The lungs are well expanded. No consolidation or effusion. Mild interstitial prominence. No large pneumothorax. The cardiac silhouette remains enlarged, with a calcified aorta. IMPRESSION: Stable enlargement of the cardiac silhouette. Mild interstitial prominence suggests edema. DICTATED BY: Trevor Garcia MD DATE/TIME DICTATED:06/02/18622 DIGITAL RETOUCHER:MARIA FERNANDA DATE/TIME TRANSCRIBED:06/02/18622 CONFIDENTIAL, DO NOT COPY WITHOUT APPROPRIATE AUTHORIZATION. 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 (Melissa JAIMES,Rip Carcamo) Departure Departure Disposition: STILL A PATIENT Condition: Stable Clinical Impression Primary Impression: COPD exacerbation Secondary Impressions: CHF exacerbation Referrals: Lizzeth JAIMES,Lexx Jacob (PCP/Family) Departure Forms: Customer Survey General Discharge Information (Lina Carver MD) Resident Co-Sign Statement Statement: ED Attending supervision documentation- [X] I saw and evaluated the patient. I have also reviewed all the pertinent lab results and diagnostic results. I agree with the findings and the plan of care as documented in the Resident's documentation. [] I have reviewed the ED Record and agree with the Resident's documentation. [] Additions or exceptions (if any) to the Resident's note and plan are summarized below: [] (Melissa JAIMES,Rip Carcamo) Departure Comments 06/02/18 The patient was signed out to me by Dr. Torres. Seen for CHF. She is been having ongoing tachypnea and the son is saying that her speech is broken up because she is so winded. She suddenly became altered in the Emergency Department. I am therefore repeating the EKG and ordering a CT scan of the head chest and abdomen. 06/02/18 3 PM The patient is currently comfortable. She is awake alert oriented 3, and is in no acute distress. I spoke with the nurse practitioner who informed me that she has severe anxiety and that due to her significant underlying congestive heart failure she has paroxysms of anxiety and transient confusion. Now she is awake alert and oriented 3 and has insight into her situation I had a conversation with the son who is the power of assistant county attorney and the patient. They understand and wish to pursue palliative care and do not wish for any further diagnostic workup. We discussed the concern for pulmonary embolism and they understood. I had a conversation with the nurse practitioner who is been overseeing the patient's care and we are all in agreement that due to her severe congestive heart failure and to be consistent with the patient's wishes she will be discharged. They will be signing a DNR DNI DNT form at the facility and they understand that should she wish to pursue further medical care that they may change their miond at any time. (Rip Calle DO) Critical Care Note Critical Care Note Critical Care Time: non-applicable (Lina Carver MD) ED Attending Observation Initial Observation Note: I have seen and personally examined LOLA ANDERSON on 06/02/18 at 0656. I agree with the current emergency department documentation. The disposition (admission or discharge) is uncertain at this time, she needs a period of observation for the following reason(s): [CHF exacerbation, COPD exacerbation] The ED Nurse caring for this patient has been personally informed as to what the patient is being observed for. (Lina Carver MD) 06/02/18 3 PM The patient is currently comfortable. She is awake alert oriented 3, and is in no acute distress. I spoke with the nurse practitioner who informed me that she has severe anxiety and that due to her significant underlying congestive heart failure she has paroxysms of anxiety and transient confusion. Now she is awake alert and oriented 3 and has insight into her situation I had a conversation with the son who is the power of assistant county attorney and the patient. They understand and wish to pursue palliative care and do not wish for any further diagnostic workup. We discussed the concern for pulmonary embolism and they understood. I had a conversation with the nurse practitioner who is been overseeing the patient's care and we are all in agreement that due to her severe congestive heart failure and to be consistent with the patient's wishes she will be discharged. They will be signing a DNR DNI DNT form at the facility and they understand that should she wish to pursue further medical care that they may change their miond at any time. (Luc MEJIA,Rip Hinton) Critical Care Note Critical Care Note Critical Care Time: non-applicable (Lina Carver MD) ED Attending Observation Initial Observation Note: I have seen and personally examined LOLA ANDERSON on 06/02/18 at 0656. I agree with the current emergency department documentation. The disposition (admission or discharge) is uncertain at this time, she needs a period of observation for the following reason(s): [CHF exacerbation, COPD exacerbation] The ED Nurse caring for this patient has been personally informed as to what the patient is being observed for. (Lina Carver MD)
[2018-06-02 07:01] LABS: ABSOLUTE BASOPHIL COUNT 0 /CUMM (0.0-0.2); ABSOLUTE EOSINOPHIL COUNT 0.1 /CUMM (0.0-0.7); ABSOLUTE GRANULOCYTE CT 3.3 /CUMM (1.4-6.5); ABSOLUTE LYMPH COUNT 1.3 /CUMM (1.2-3.4); ABSOLUTE MONOCYTE COUNT 0.8 /CUMM (0.10-0.60); BASOPHIL % 0.4 % (0.0-2.0); GRANULOCYTE % 60.4 % (42.2-75.2); HEMATOCRIT 41.7 % (37-47); MEAN CORPUSCULAR VOLUME 78.7 FL (81.0-99.0); MEAN PLATELET VOLUME 7.7 FL (7.4-10.4); PLATELET COUNT 124 /CUMM (130-400); RBC DISTRIBUTION WIDTH 20.5 % (11.5-14.5); RED BLOOD CELL CT 5.29 /CUMM (4.20-5.40); WHITE BLOOD CELL COUNT 5.5 /CUMM (4.8-10.8)
[2018-06-02] MEDS ORDERED: LASIX80 M1 PO (10:11)
[2018-06-02] MEDS ORDERED: ACIDOPHILUS1 EACH PO (10:13)
[2018-06-02] MEDS ORDERED: POTASSIUM CHLO20 ME2 PO (10:13)
[2018-06-02] MEDS ORDERED: TYLENOL ARTHRI650 M1 PO (10:14)
[2018-06-02 14:34] VITALS: BP 179/85
== END 2018-06-02 14:47 ==
LOC: ERH 05:32
PROVIDERS: Emergency Medicine
DX: J44.1 Chronic obstructive pulmonary disease with (acute) exacerbation (principal); I50.9 Heart failure, unspecified; I10 Essential (primary) hypertension; F41.9 Anxiety disorder, unspecified; E03.9 Hypothyroidism, unspecified
CPT/HCPCS: 71045; 81001; 87086; 93005; 93010; 96374; 96375; J1940